=== PATIENT | female | born 1935 | race Caucasian/White ===

== ENCOUNTER → 2016-11-14 | Outpatient (REF) | payer MEDICARE ==
[~2016-11-14] MED LIST: /CELE20CA PO; /PANT40TA PO; ACET65TA PO; ASCO500T PO; ATOR1TAB19 PO; CALC500T49 PO; CARA1TAB2 PO; CIPR500T89 PO; EXEL1.5C PO; FERR325T PO; FLAG500T PO; MULTIVIT PO; NEUR600T PO; OXYC-208 PO; SIME80TA PO; VIT D 2000 PO; VITA250T PO; VITMTA PO; [UNRECOGNIZED DRUG - OTHER] TOP; bacid PO; caltrate PO; centrum silver PO; macrobid PO; osteobiflex PO
[2016-11-14 12:24] LABS: VITAMIN B12 LEVEL 414 PG/ML (247-911)
[2016-11-14 12:36] LABS: ALBUMIN 3.4 GM/DL (3.2-5.2); ALBUMIN/GLOBULIN RATIO 1.42 (1.00-1.93); ALKALINE PHOSPHATASE 83 U/L (45-117); ALT/SGPT 24 U/L (12-78); ANION GAP 6 MEQ/L (8-16); AST/SGOT 21 U/L (15-37); BILIRUBIN,TOTAL 0.6 MG/DL (0.2-1.0); BLOOD UREA NITROGEN 15 MG/DL (7-18); CALCIUM LEVEL 8.5 MG/DL (8.8-10.2); CARBON DIOXIDE LEVEL 32 MEQ/L (21-32); CHLORIDE LEVEL 107 MEQ/L (98-107); CREATININE FOR GFR 0.75 MG/DL (0.55-1.02); FREE T4 0.79 NG/DL (0.76-1.46); GLOMERULAR FILTRATION RATE > 60.0 (>39); GLUCOSE, FASTING 77 MG/DL (83-110); POTASSIUM SERUM 4.2 MEQ/L (3.5-5.1); SODIUM LEVEL 145 MEQ/L (136-145); TOTAL PROTEIN 5.8 GM/DL (6.4-8.2)
[2016-11-15 11:30] LABS: PRETREATED FOLATE FOR RBCFOL 11.9 NG/ML
== END ==
LOC: M LABDRAWP 08:22
PROVIDERS: ATTEND Family Medicine
DX: E78.2 Mixed hyperlipidemia (principal); G31.84 Mild cognitive impairment of uncertain or unknown etiology; E55.9 Vitamin D deficiency, unspecified

== ENCOUNTER → 2016-12-12 | Outpatient (CLI) | payer MEDICARE ==
--- NOTE | 2016-12-12 12:03 | REP ---
NONCONTRAST BRAIN CT: HISTORY: Left arm numbness. COMPARISON STUDY: May 22, 2016. CT FINDINGS: Digital lateral alpine guide radiograph is unremarkable. There is fairly advanced vascular calcification in the distal vertebral and distal carotid arteries. No bony calvarial lesion or fracture is seen. Visualized paranasal sinuses are clear. No intraorbital abnormality is seen. On soft tissue window settings, there is moderate diffuse cerebral atrophy as seen previously. There are also moderate periventricular low density changes consistent with small vessel atherosclerotic changes. These are unchanged as well from the comparison CT study. There is no evidence of intracranial hemorrhage. No extra-axial fluid collection is seen. No acute infarct is visible. No mass or midline shift is seen. IMPRESSION: Moderate diffuse atrophy, vascular calcification, small vessel changes. No change from May 22, 2016. No acute intracranial abnormality. Signed by Deshawn Hurst MD 12/12/2016 12:41 P
== END ==
LOC: M RAD 11:09
PROVIDERS: ATTEND Physician Assistant Medical
DX: R20.0 Anesthesia of skin (principal); R90.89 Other abnormal findings on diagnostic imaging of central nervous system
CPT/HCPCS: 70450; G0463

== ENCOUNTER → 2017-03-03 | Outpatient (REF) | payer MEDICARE | LOC: M SFHCWAGY 13:27 | PROVIDERS: ATTEND Nurse Practitioner Family | DX: R31.0 Gross hematuria (principal) | CPT/HCPCS: 81002; 87086; G0463 ==

== ENCOUNTER → 2017-04-07 | Outpatient (REF) | payer MEDICARE ==
[2017-04-07 12:21] LABS: ALBUMIN 3.6 GM/DL (3.2-5.2); ALBUMIN/GLOBULIN RATIO 1.44 (1.00-1.93); ALKALINE PHOSPHATASE 100 U/L (45-117); ALT/SGPT 46 U/L (12-78); ANION GAP 9 MEQ/L (8-16); AST/SGOT 34 U/L (15-37); BILIRUBIN,TOTAL 0.7 MG/DL (0.2-1.0); BLOOD UREA NITROGEN 17 MG/DL (7-18); CALCIUM LEVEL 8.4 MG/DL (8.8-10.2); CARBON DIOXIDE LEVEL 29 MEQ/L (21-32); CHLORIDE LEVEL 107 MEQ/L (98-107); CHOLESTEROL LEVEL 151 MG/DL (<200); CREATININE FOR GFR 0.64 MG/DL (0.55-1.02); FREE T4 0.84 NG/DL (0.76-1.46); GLOMERULAR FILTRATION RATE > 60.0 (>32); GLUCOSE, FASTING 82 MG/DL (83-110); POTASSIUM SERUM 4.3 MEQ/L (3.5-5.1); SODIUM LEVEL 145 MEQ/L (136-145); TOTAL PROTEIN 6.1 GM/DL (6.4-8.2); TRIGLYCERIDES LEVEL 153 MG/DL (<150)
[2017-04-07 12:22] LABS: THYROID PEROXIDASE ANTIBODY 276.4 U/ML (<60.0)
== END ==
LOC: M SFHCPLAZ 08:28
PROVIDERS: ATTEND Family Medicine
DX: E78.2 Mixed hyperlipidemia (principal); E55.9 Vitamin D deficiency, unspecified

== ENCOUNTER → 2017-04-14 | Outpatient (REF) | payer MEDICARE | LOC: M SFHCPLAZ 11:20 | PROVIDERS: ATTEND Family Medicine | DX: R31.0 Gross hematuria (principal) | CPT/HCPCS: 81001; 87086; 88108; G0463 ==

== ENCOUNTER → 2017-04-15 | Outpatient (REF) | payer MEDICARE | LOC: M LABDRAWP 14:17 | PROVIDERS: ATTEND Family Medicine | DX: R31.0 Gross hematuria (principal) ==

== ENCOUNTER → 2017-05-13 | Outpatient (REF) | payer MEDICARE ==
[2017-05-13 16:43] LABS: ALBUMIN 3.4 GM/DL (3.2-5.2); ALBUMIN/GLOBULIN RATIO 1.31 (1.00-1.93); ALKALINE PHOSPHATASE 102 U/L (45-117); ALT/SGPT 31 U/L (12-78); ANION GAP 7 MEQ/L (8-16); AST/SGOT 20 U/L (15-37); BILIRUBIN,TOTAL 0.4 MG/DL (0.2-1.0); BLOOD UREA NITROGEN 16 MG/DL (7-18); CALCIUM LEVEL 8.4 MG/DL (8.8-10.2); CARBON DIOXIDE LEVEL 30 MEQ/L (21-32); CHLORIDE LEVEL 108 MEQ/L (98-107); CREATININE FOR GFR 0.71 MG/DL (0.55-1.02); GLOMERULAR FILTRATION RATE > 60.0 (>32); GLUCOSE, FASTING 84 MG/DL (83-110); MAGNESIUM LEVEL 2.2 MG/DL (1.8-2.4); POTASSIUM SERUM 4.4 MEQ/L (3.5-5.1); SODIUM LEVEL 145 MEQ/L (136-145)
[2017-05-13 16:44] LABS: BASO % 0.9 % (0.0-1.0); EOS # 0.1 K/mm3 (0.0-0.50); EOS % 1.8 % (0.0-3.0); LARGE UNSTAINED CELL # 0.1 K/mm3 (0.0-0.4); LARGE UNSTAINED CELL % 1.3 % (0.0-4.0); LYMPH # 1.9 K/mm3 (1.5-4.5); LYMPH % 32.7 % (24.0-44.0); MEAN CORPUSCULAR HEMOGLOBIN 32.3 pg (27.0-33.0); MEAN CORPUSCULAR HGB CONC 33.8 g/dl (32.0-36.5); MEAN CORPUSCULAR VOLUME 95.5 fl (80.0-96.0); MONO # 0.2 K/mm3 (0.0-0.8); MONO % 4.3 % (0.0-5.0); NEUTROPHILS # 3.3 K/mm3 (1.8-7.7); PLATELET COUNT, AUTOMATED 204 k/mm3 (150-450); RED CELL DISTRIBUTION WIDTH 13.1 % (11.5-14.5); WHITE BLOOD COUNT 5.6 K/mm3 (4.0-10.0)
== END ==
LOC: M SFHCPLAZ 14:49
PROVIDERS: ATTEND Family Medicine
DX: E55.9 Vitamin D deficiency, unspecified (principal); E06.3 Autoimmune thyroiditis

== ENCOUNTER → 2017-06-20 | Outpatient (REF) | payer MEDICARE ==
[2017-06-20 12:31] LABS: FREE T4 0.9 NG/DL (0.76-1.46)
[2017-06-24 10:14] LABS: PRETREATED FOLATE FOR RBCFOL 13.1 NG/ML
== END ==
LOC: M SFHCPLAZ 08:44
PROVIDERS: ATTEND Family Medicine
DX: F03.90 Unspecified dementia, unspecified severity, without behavioral disturbance, psychotic disturbance, mood disturbance, and anxiety (principal)

== ENCOUNTER → 2017-07-16 | Outpatient (CLI) | payer MEDICARE ==
--- NOTE | 2017-07-16 11:46 | REP ---
MR angiography the brain without contrast: History: Mild dementia. Technique: 3-D [id number] MR angiography of the brain is acquired in the usual fashion and maximal intensity projection images were generated in rotational format about the vertical and horizontal axes. In addition, source axial T1-weighted images are viewed in cine mode. MR angiographic findings: The distal vertebral arteries are patent and co-dominant. Basilar artery is a little tortuous but widely patent. The posterior cerebral and superior cerebellar vessels are normal and symmetric. The distal internal carotid arteries are unremarkable. Anterior and middle cerebral arteries appear intact. There is no visible vicente aneurysm or arteriovenous malformation. Impression: Unremarkable MR angiography the brain. Signed by Deshawn Hurst MD 07/16/2017 11:37 A
--- NOTE | 2017-07-16 12:29 | REP ---
MRI brain without contrast: History: Mild dementia. Comparison brain MRI study is reviewed from January 14, 2014. Technique: Axial and sagittal imaging planes are utilized for T1 and T2-weighted scans. Sequences include spin-echo, fast spin echo, FLAIR, and diffusion weighted sequences. MRI findings: Craniocervical junction upper cervical cord are normal in appearance. No bony calvarial defect is seen. No intraorbital abnormality is observed. There is no MR evidence of significant paranasal sinus disease. There is mild to moderate diffuse cerebral atrophy. Diffusion weighted scans show no evidence of acute ischemia or other cause of restricted diffusion. There is no evidence of intracranial hemorrhage. No axial or extra-axial mass or fluid collection is seen. There are moderate small vessel atherosclerotic changes in the periventricular white matter bilaterally above the tentorium. Impression: Diffuse atrophy and small vessel changes. No acute intracranial lesion. Signed by Deshawn Hurst MD 07/16/2017 01:40 P
== END ==
LOC: M RAD 09:39
PROVIDERS: ATTEND Family Medicine
DX: F03.90 Unspecified dementia, unspecified severity, without behavioral disturbance, psychotic disturbance, mood disturbance, and anxiety (principal)

== ENCOUNTER → 2017-08-22 | Outpatient (REF) | payer MEDICARE ==
[2017-08-22 11:30] LABS: BASO % 0.2 % (0.0-1.0); EOS # 0.1 10^3/uL (0.0-0.50); EOS % 1.7 % (0.0-3.0); IMMATURE GRANULOCYTE % 0.2 % (0-0); LYMPH # 2.1 10^3/uL (1.5-4.5); LYMPH % 45.1 % (24.0-44.0); MEAN CORPUSCULAR HEMOGLOBIN 31.4 pg (27.0-33.0); MEAN CORPUSCULAR HGB CONC 33.2 g/dl (32.0-36.5); MEAN CORPUSCULAR VOLUME 94.8 fl (80.0-96.0); MONO # 0.3 10^3/uL (0.0-0.8); MONO % 6.7 % (0.0-5.0); NEUTROPHILS # 2.1 10^3/uL (1.8-7.7); NEUTROPHILS % 46.1 % (36.0-66.0); PLATELET COUNT, AUTOMATED 191 10^3/uL (150-450); RED CELL DISTRIBUTION WIDTH 12.7 % (11.5-14.5); WHITE BLOOD COUNT 4.6 10^3/uL (4.0-10.0)
[2017-08-22 12:05] LABS: VITAMIN B12 LEVEL 808 PG/ML (247-911)
[2017-08-22 12:16] LABS: FERRITIN 75 NG/ML (8-252); FREE T4 0.92 NG/DL (0.76-1.46); PERCENT SATURATION 18.8 % (13.2-45.0); TOTAL IRON BINDING CAPACITY 245 UG/DL (250-450)
== END ==
LOC: M SFHCPLAZ 09:04
DX: E53.8 Deficiency of other specified B group vitamins (principal); E06.3 Autoimmune thyroiditis
CPT/HCPCS: 83550

== ENCOUNTER → 2017-09-18 | Outpatient (CLI) | payer MEDICARE | LOC: M WHC 07:56 | DX: Z12.31 Encounter for screening mammogram for malignant neoplasm of breast (principal); R92.8 Other abnormal and inconclusive findings on diagnostic imaging of breast | CPT/HCPCS: 77067 ==

== ENCOUNTER → 2017-10-29 | Outpatient (REF) | payer MEDICARE | LOC: M SFHCLACO 15:35 | DX: N30.01 Acute cystitis with hematuria (principal) | CPT/HCPCS: 87088; 87186 ==

== ENCOUNTER 2017-10-30 16:27 | Emergency (ER) | payer MEDICARE ==
[2017-10-30] MEDS: NS 1,000 ML IV (17:30)
[2017-10-30] MEDS: PANTOPRAZOLE 40MG INJ (PROTONIX) (C9113) IV (17:44)
[2017-10-30] MEDS: ONDANSETRON 4MG/2ML VIAL (J2405) IV (17:44)
[2017-10-30 17:57] LABS: BASO % 0.2 % (0.0-1.0); EOS % 0.3 % (0.0-3.0); HEMATOCRIT 38.5 % (36.0-47.0); HEMOGLOBIN 13.4 g/dl (12.0-16.0); IMMATURE GRANULOCYTE % 0.3 % (0-3.0); LYMPH # 1.7 10^3/uL (1.5-4.5); LYMPH % 25.5 % (24.0-44.0); MEAN CORPUSCULAR HEMOGLOBIN 31.8 pg (27.0-33.0); MEAN CORPUSCULAR HGB CONC 34.8 g/dl (32.0-36.5); MEAN CORPUSCULAR VOLUME 91.2 fl (80.0-96.0); MONO # 0.4 10^3/uL (0.0-0.8); MONO % 5.7 % (0.0-5.0); NEUTROPHILS # 4.4 10^3/uL (1.8-7.7); PLATELET COUNT, AUTOMATED 166 10^3/uL (150-450); RED BLOOD COUNT 4.22 10^6/uL (4.00-5.40); RED CELL DISTRIBUTION WIDTH 12.6 % (11.5-14.5); WHITE BLOOD COUNT 6.5 10^3/uL (4.0-10.0)
[2017-10-30 18:30] LABS: ALBUMIN 3.7 GM/DL (3.2-5.2); ALBUMIN/GLOBULIN RATIO 1.32 (1.00-1.93); ALKALINE PHOSPHATASE 91 U/L (45-117); ALT/SGPT 15 U/L (12-78); ANION GAP 8 MEQ/L (8-16); AST/SGOT 15 U/L (7-37); BILIRUBIN,DIRECT 0.2 MG/DL (0.0-0.2); BILIRUBIN,TOTAL 0.6 MG/DL (0.2-1.0); BLOOD UREA NITROGEN 14 MG/DL (7-18); CALCIUM LEVEL 8.6 MG/DL (8.8-10.2); CARBON DIOXIDE LEVEL 28 MEQ/L (21-32); CHLORIDE LEVEL 102 MEQ/L (98-107); CREATININE FOR GFR 0.76 MG/DL (0.55-1.30); GLOMERULAR FILTRATION RATE > 60.0 (>32); GLUCOSE, FASTING 109 MG/DL (70-100); LIPASE 195 U/L (73-393); POTASSIUM SERUM 3.8 MEQ/L (3.5-5.1); SODIUM LEVEL 138 MEQ/L (136-145); TOTAL PROTEIN 6.5 GM/DL (6.4-8.2)
[2017-10-30 19:15] LABS: KETONE, URINE AUTO RFX 1+ mg/dL (NEGATIVE); NITRITE, URINE AUTO RFX NEGATIVE (NEGATIVE); RBC, URINE AUTO RFX 7 /HPF (0-3); SPECIFIC GRAVITY UR AUTO RFX 1.004 (1.002-1.035); SQUAM EPITHELIAL CELL UR AURFX 1 /HPF (0-6)
[2017-10-30 19:17] LABS: LEUKOCYTE ESTERASE UR AUTO RFX 1+ (NEGATIVE); WBC, URINE AUTO RFX 11 /HPF (0-3)
== END 2017-10-30 19:57 | disposition home or self-care (01) ==
LOC: M ED 16:27
DX: N39.0 Urinary tract infection, site not specified (principal); R11.2 Nausea with vomiting, unspecified; Z87.891 Personal history of nicotine dependence; Z79.899 Other long term (current) drug therapy; Z88.0 Allergy status to penicillin; Z88.8 Allergy status to other drugs, medicaments and biological substances; Z88.6 Allergy status to analgesic agent; Z91.89 Other specified personal risk factors, not elsewhere classified; Z91.041 Radiographic dye allergy status
CPT/HCPCS: C9113

== ENCOUNTER 2017-11-04 12:13 | Emergency (ER) | payer MEDICARE ==
[2017-11-04] MEDS: ACETAMINOPHEN TAB 650MG DOSE (2X325MG) PO (14:15)
== END 2017-11-04 15:15 | disposition home or self-care (01) ==
LOC: M ED 12:13
DX: R07.89 Other chest pain (principal); Z91.81 History of falling; Z85.038 Personal history of other malignant neoplasm of large intestine; Z87.891 Personal history of nicotine dependence; Z91.041 Radiographic dye allergy status; Z88.8 Allergy status to other drugs, medicaments and biological substances; Z88.0 Allergy status to penicillin; Z88.1 Allergy status to other antibiotic agents; Z79.899 Other long term (current) drug therapy
CPT/HCPCS: 71046

== ENCOUNTER 2017-11-11 07:11 | Emergency (ER) | payer MEDICARE ==
[2017-11-11] MEDS: SODIUM CHLORIDE 0.9% 1000 ML IV (08:00)
[2017-11-11 08:02] LABS: BASO % 0.2 % (0.0-1.0); EOS # 0.1 10^3/uL (0.0-0.50); EOS % 0.6 % (0.0-3.0); HEMATOCRIT 40.9 % (36.0-47.0); IMMATURE GRANULOCYTE % 0.5 % (0-3.0); LYMPH # 1.7 10^3/uL (1.5-4.5); LYMPH % 20.2 % (24.0-44.0); MEAN CORPUSCULAR HEMOGLOBIN 31.3 pg (27.0-33.0); MEAN CORPUSCULAR HGB CONC 34.2 g/dl (32.0-36.5); MEAN CORPUSCULAR VOLUME 91.5 fl (80.0-96.0); MONO # 0.4 10^3/uL (0.0-0.8); MONO % 4.5 % (0.0-5.0); NEUTROPHILS # 6.1 10^3/uL (1.8-7.7); PLATELET COUNT, AUTOMATED 231 10^3/uL (150-450); RED BLOOD COUNT 4.47 10^6/uL (4.00-5.40); RED CELL DISTRIBUTION WIDTH 12.7 % (11.5-14.5); WHITE BLOOD COUNT 8.3 10^3/uL (4.0-10.0)
[2017-11-11 08:46] LABS: ALBUMIN 3.5 GM/DL (3.2-5.2); ALBUMIN/GLOBULIN RATIO 1.17 (1.00-1.93); ALKALINE PHOSPHATASE 85 U/L (45-117); ALT/SGPT 17 U/L (12-78); ANION GAP 8 MEQ/L (8-16); AST/SGOT 24 U/L (7-37); BILIRUBIN,DIRECT 0.2 MG/DL (0.0-0.2); BILIRUBIN,TOTAL 0.6 MG/DL (0.2-1.0); BLOOD UREA NITROGEN 15 MG/DL (7-18); CALCIUM LEVEL 9.2 MG/DL (8.8-10.2); CARBON DIOXIDE LEVEL 29 MEQ/L (21-32); CHLORIDE LEVEL 100 MEQ/L (98-107); CPK CREATINE PHOSPHOKINASE 50 U/L (26-192); CREATININE FOR GFR 0.58 MG/DL (0.55-1.30); GLOMERULAR FILTRATION RATE > 60.0 (>32); GLUCOSE, FASTING 107 MG/DL (70-100); LIPASE 321 U/L (73-393); POTASSIUM SERUM 4.6 MEQ/L (3.5-5.1); SODIUM LEVEL 137 MEQ/L (136-145); TOTAL PROTEIN 6.5 GM/DL (6.4-8.2); TROPONIN I < 0.02 NG/ML (< 0.10)
[2017-11-11] MEDS ORDERED: E-Z-HD 98% w/w 340GM SUSP BTL As Ordered (09:53)
[2017-11-11] MEDS ORDERED: E-Z-PAQUE 96% w/w SUSP 176GM BTL As Ordered ×2 (09:53→10:50)
[2017-11-11] MEDS ORDERED: E-Z-GAS II EFFERVESCENT PACKET (SODIUM BICARB./CITRIC ACID/SIMETHICONE) As Ordered (09:53)
== END 2017-11-11 15:08 | disposition home or self-care (01) ==
LOC: M ED 07:11
DX: K27.9 Peptic ulcer, site unspecified, unspecified as acute or chronic, without hemorrhage or perforation (principal); F03.90 Unspecified dementia, unspecified severity, without behavioral disturbance, psychotic disturbance, mood disturbance, and anxiety; E07.9 Disorder of thyroid, unspecified; K59.09 Other constipation; Z86.19 Personal history of other infectious and parasitic diseases; Z85.038 Personal history of other malignant neoplasm of large intestine; Z79.899 Other long term (current) drug therapy; Z88.0 Allergy status to penicillin; Z88.8 Allergy status to other drugs, medicaments and biological substances; Z91.041 Radiographic dye allergy status; Z87.891 Personal history of nicotine dependence
CPT/HCPCS: 74245

== ENCOUNTER → 2017-11-11 | Outpatient (REF) | payer MEDICARE ==
[2017-11-13 10:18] LABS: H PYLORI SERUM QUANT IgG ABY 0.12 (0.00-0.79)
== END ==
LOC: M SFHCPLAZ 11:42
DX: K25.9 Gastric ulcer, unspecified as acute or chronic, without hemorrhage or perforation (principal)
CPT/HCPCS: 86677

== ENCOUNTER → 2017-11-17 | Outpatient (REF) | payer MEDICARE ==
[2017-11-17 17:41] LABS: ALBUMIN 3.4 GM/DL (3.2-5.2); ALBUMIN/GLOBULIN RATIO 1.17 (1.00-1.93); ALKALINE PHOSPHATASE 89 U/L (45-117); ALT/SGPT 17 U/L (12-78); ANION GAP 9 MEQ/L (8-16); AST/SGOT 18 U/L (7-37); BILIRUBIN,TOTAL 0.5 MG/DL (0.2-1.0); BLOOD UREA NITROGEN 14 MG/DL (7-18); CALCIUM LEVEL 8.8 MG/DL (8.8-10.2); CARBON DIOXIDE LEVEL 29 MEQ/L (21-32); CHLORIDE LEVEL 101 MEQ/L (98-107); CREATININE FOR GFR 0.63 MG/DL (0.55-1.30); GLOMERULAR FILTRATION RATE > 60.0 (>32); GLUCOSE, FASTING 84 MG/DL (70-100); LIPASE 2185 U/L (73-393); POTASSIUM SERUM 3.6 MEQ/L (3.5-5.1); SODIUM LEVEL 139 MEQ/L (136-145); TOTAL PROTEIN 6.3 GM/DL (6.4-8.2)
[2017-11-17 17:51] LABS: BASO % 0.3 % (0.0-1.0); EOS # 0.1 10^3/uL (0.0-0.50); EOS % 0.7 % (0.0-3.0); HEMATOCRIT 40.4 % (36.0-47.0); HEMOGLOBIN 13.7 g/dl (12.0-16.0); IMMATURE GRANULOCYTE % 0.4 % (0-3.0); LYMPH % 25.6 % (24.0-44.0); MEAN CORPUSCULAR HEMOGLOBIN 31.2 pg (27.0-33.0); MEAN CORPUSCULAR HGB CONC 33.9 g/dl (32.0-36.5); MONO # 0.4 10^3/uL (0.0-0.8); MONO % 4.7 % (0.0-5.0); NEUTROPHILS # 5.2 10^3/uL (1.8-7.7); NEUTROPHILS % 68.3 % (36.0-66.0); PLATELET COUNT, AUTOMATED 239 10^3/uL (150-450); RED BLOOD COUNT 4.39 10^6/uL (4.00-5.40); RED CELL DISTRIBUTION WIDTH 12.6 % (11.5-14.5); RETICULOCYTE # 42.6 10^9/L (17-77); WHITE BLOOD COUNT 7.7 10^3/uL (4.0-10.0)
[2017-11-18 11:04] LABS: CARCINOEMBRYONIC ANTIGEN < 0.5 NG/ML (<2.5)
[2017-11-18 11:33] LABS: CA19-9 TUMOR MARKER,CARBOHYDRA 20.7 U/ML (<35.0)
== END ==
LOC: M SFHCPLAZ 15:38
DX: K31.2 Hourglass stricture and stenosis of stomach (principal); F03.90 Unspecified dementia, unspecified severity, without behavioral disturbance, psychotic disturbance, mood disturbance, and anxiety; E53.8 Deficiency of other specified B group vitamins; E06.3 Autoimmune thyroiditis; R31.0 Gross hematuria; L57.0 Actinic keratosis; E55.9 Vitamin D deficiency, unspecified; R27.0 Ataxia, unspecified; C18.9 Malignant neoplasm of colon, unspecified; R51 Headache; M50.30 Other cervical disc degeneration, unspecified cervical region; E78.2 Mixed hyperlipidemia; K30 Functional dyspepsia; I87.2 Venous insufficiency (chronic) (peripheral)
CPT/HCPCS: 82378

== ENCOUNTER 2017-11-18 15:15 | Outpatient (CLI) | payer MEDICARE ==
[2017-11-18] MEDS ORDERED: READI-CAT 2 As Ordered ×2 (15:33→15:37)
[2017-11-19] MEDS ORDERED: READI-CAT 2 As Ordered (07:29)
[2017-11-19] MEDS ORDERED: ISOVUE-370 76% 100ML VIAL (Q9967) As Ordered (07:29)
[2017-11-19] MEDS ORDERED: PROPOFOL 200 MG/20 ML VIAL As Ordered (14:23)
[2017-11-19] MEDS ORDERED: LIDOCAINE 2% MDV 20 ML VIAL As Ordered (14:23)
== END 2017-11-19 ==
LOC: M RAD 11-19 07:29
DX: K25.9 Gastric ulcer, unspecified as acute or chronic, without hemorrhage or perforation (principal); K76.89 Other specified diseases of liver; R93.3 Abnormal findings on diagnostic imaging of other parts of digestive tract
CPT/HCPCS: Q9967

== ENCOUNTER 2017-11-19 12:24 | Observation (INO) | payer MEDICARE ==
[2017-11-19] MEDS: SUCRALFATE SUSP 1GM/10ML UD PO ×3 (12:00→21:18)
[~2017-11-19 12:24] MED LIST changes: -/CELE20CA PO; -/PANT40TA PO; -ACET65TA PO; -ASCO500T PO; -ATOR1TAB19 PO; -CALC500T49 PO; -CARA1TAB2 PO; -CIPR500T89 PO; -EXEL1.5C PO; -FERR325T PO; -FLAG500T PO; -MULTIVIT PO; -NEUR600T PO; +ONDANSETRON 4MG/2ML VIAL (J2405) IV; -OXYC-208 PO; -SIME80TA PO; -VIT D 2000 PO; -VITA250T PO; -VITMTA PO; -[UNRECOGNIZED DRUG - OTHER] TOP; -bacid PO; -caltrate PO; -centrum silver PO; -macrobid PO; -osteobiflex PO
[2017-11-19 13:20] LABS: BASO % 0.2 % (0.0-1.0); HEMATOCRIT 39.2 % (36.0-47.0); HEMOGLOBIN 13.6 g/dl (12.0-16.0); IMMATURE GRANULOCYTE % 0.4 % (0-3.0); LYMPH # 1.2 10^3/uL (1.5-4.5); LYMPH % 22.9 % (24.0-44.0); MEAN CORPUSCULAR HEMOGLOBIN 31.9 pg (27.0-33.0); MEAN CORPUSCULAR HGB CONC 34.7 g/dl (32.0-36.5); MONO # 0.1 10^3/uL (0.0-0.8); NEUTROPHILS # 3.9 10^3/uL (1.8-7.7); NEUTROPHILS % 75.5 % (36.0-66.0); PLATELET COUNT, AUTOMATED 239 10^3/uL (150-450); RED BLOOD COUNT 4.26 10^6/uL (4.00-5.40); RED CELL DISTRIBUTION WIDTH 12.8 % (11.5-14.5); WHITE BLOOD COUNT 5.1 10^3/uL (4.0-10.0)
[2017-11-19 14:29] LABS: ALBUMIN 3.4 GM/DL (3.2-5.2); ALBUMIN/GLOBULIN RATIO 1.21 (1.00-1.93); ALKALINE PHOSPHATASE 79 U/L (45-117); ALT/SGPT 14 U/L (12-78); ANION GAP 7 MEQ/L (8-16); AST/SGOT 14 U/L (7-37); BILIRUBIN,TOTAL 0.3 MG/DL (0.2-1.0); BLOOD UREA NITROGEN 18 MG/DL (7-18); CARBON DIOXIDE LEVEL 29 MEQ/L (21-32); CHLORIDE LEVEL 101 MEQ/L (98-107); CHOLESTEROL LEVEL 141 MG/DL (< 200); CPK CREATINE PHOSPHOKINASE 32 U/L (26-192); CREATININE FOR GFR 0.77 MG/DL (0.55-1.30); GLOMERULAR FILTRATION RATE > 60.0 (>32); GLUCOSE, FASTING 115 MG/DL (70-100); LDH LACTATE DEHYDROGENASE 149 U/L (84-246); LIPASE 112 U/L (73-393); MAGNESIUM LEVEL 2.1 MG/DL (1.8-2.4); PHOSPHORUS LEVEL 3.9 MG/DL (2.5-4.9); POTASSIUM SERUM 3.9 MEQ/L (3.5-5.1); SODIUM LEVEL 137 MEQ/L (136-145); TOTAL PROTEIN 6.2 GM/DL (6.4-8.2); TRIGLYCERIDES LEVEL 79 MG/DL (<150)
[2017-11-19] MEDS: KCL 20MEQ in NS 1000ML 1,000 ML IV (15:40)
[2017-11-19] MEDS: RIVASTIGMINE TARTRATE 1.5 MG CAP (EXELON) PO (21:18)
[2017-11-19] MEDS: PANTOPRAZOLE 40MG TAB (PROTONIX) PO (21:18)
[2017-11-20] MEDS: KCL 20MEQ in NS 1000ML 1,000 ML IV ×2 (02:33→14:55)
[2017-11-20] MEDS: ACETAMINOPHEN TAB 650MG DOSE (2X325MG) PO (02:34)
[2017-11-20 07:37] LABS: MAGNESIUM LEVEL 2.2 MG/DL (1.8-2.4)
[2017-11-20] MEDS: PANTOPRAZOLE 40MG TAB (PROTONIX) PO (08:18)
[2017-11-20] MEDS: CitaloPRAM (CeleXA) 20 MG TAB PO (08:18)
[2017-11-20] MEDS: SUCRALFATE SUSP 1GM/10ML UD PO ×2 (08:18→14:16)
[2017-11-20] MEDS: RIVASTIGMINE TARTRATE 1.5 MG CAP (EXELON) PO (08:19)
[2017-11-20] MEDS ORDERED: PANTOPRAZOLE 40MG INJ (PROTONIX) (C9113) IV (09:00)
== END 2017-11-20 16:15 | disposition home or self-care (01) ==
LOC: M MSPAV 12:24
DX: K26.9 Duodenal ulcer, unspecified as acute or chronic, without hemorrhage or perforation (principal); K25.9 Gastric ulcer, unspecified as acute or chronic, without hemorrhage or perforation; K29.70 Gastritis, unspecified, without bleeding; K76.89 Other specified diseases of liver; R93.3 Abnormal findings on diagnostic imaging of other parts of digestive tract; K31.2 Hourglass stricture and stenosis of stomach; F03.90 Unspecified dementia, unspecified severity, without behavioral disturbance, psychotic disturbance, mood disturbance, and anxiety; E53.8 Deficiency of other specified B group vitamins; E06.3 Autoimmune thyroiditis; R31.0 Gross hematuria; E55.9 Vitamin D deficiency, unspecified; L57.0 Actinic keratosis; Z85.038 Personal history of other malignant neoplasm of large intestine; R27.0 Ataxia, unspecified; R51 Headache; M50.30 Other cervical disc degeneration, unspecified cervical region; E78.2 Mixed hyperlipidemia; I87.2 Venous insufficiency (chronic) (peripheral); Z87.891 Personal history of nicotine dependence; Z79.899 Other long term (current) drug therapy
CPT/HCPCS: 43239

== ENCOUNTER 2018-01-13 13:25 | Day surgery (SDC) | payer MEDICARE ==
[2018-01-13] MEDS: LR 1,000 ML IV (13:45)
[2018-01-13] MEDS ORDERED: PROPOFOL 200 MG/20 ML VIAL As Ordered (14:38)
[2018-01-13] MEDS ORDERED: LIDOCAINE 2% INJ 100 MG/5 ML SDV (FOR ANES.) As Ordered (14:39)
== END 2018-01-13 16:26 | disposition home or self-care (01) ==
LOC: M OPP 13:25
DX: Z09 Encounter for follow-up examination after completed treatment for conditions other than malignant neoplasm (principal); K25.7 Chronic gastric ulcer without hemorrhage or perforation; K31.6 Fistula of stomach and duodenum; E78.00 Pure hypercholesterolemia, unspecified; K21.9 Gastro-esophageal reflux disease without esophagitis; Z79.899 Other long term (current) drug therapy; Z88.0 Allergy status to penicillin; Z88.8 Allergy status to other drugs, medicaments and biological substances; Z91.041 Radiographic dye allergy status; Z85.038 Personal history of other malignant neoplasm of large intestine; Z87.891 Personal history of nicotine dependence; Z90.711 Acquired absence of uterus with remaining cervical stump
CPT/HCPCS: 43239

== ENCOUNTER → 2018-01-22 | Outpatient (REF) | payer MEDICARE ==
[2018-01-22 13:13] LABS: BASO % 0.2 % (0.0-1.0); EOS # 0.1 10^3/uL (0.0-0.50); EOS % 3.1 % (0.0-3.0); HEMATOCRIT 37.4 % (36.0-47.0); IMMATURE GRANULOCYTE % 0.2 % (0-3.0); LYMPH # 1.8 10^3/uL (1.5-4.5); MEAN CORPUSCULAR HEMOGLOBIN 31.3 pg (27.0-33.0); MEAN CORPUSCULAR HGB CONC 32.1 g/dl (32.0-36.5); MEAN CORPUSCULAR VOLUME 97.4 fl (80.0-96.0); MONO # 0.3 10^3/uL (0.0-0.8); MONO % 7.2 % (0.0-5.0); NEUTROPHILS # 2.3 10^3/uL (1.8-7.7); NEUTROPHILS % 50.3 % (36.0-66.0); PLATELET COUNT, AUTOMATED 188 10^3/uL (150-450); RED BLOOD COUNT 3.84 10^6/uL (4.00-5.40); RED CELL DISTRIBUTION WIDTH 12.9 % (11.5-14.5); RETIC HEMOGLOBIN EQUIVALENT 34.4 pg (24-36); RETICULOCYTE # 40.7 10^9/L (17-77); RETICULOCYTE % 1.1 % (0.5-1.5); WHITE BLOOD COUNT 4.6 10^3/uL (4.0-10.0)
[2018-01-22 13:35] LABS: C REACTIVE PROTEIN QUANTITATIV 0.64 MG/DL (0.00-0.30); CHOLESTEROL LEVEL 143 MG/DL (<200); CHOLESTEROL RISK RATIO 2.344 (<5); CPK CREATINE PHOSPHOKINASE 49 U/L (26-192); HDL CHOLESTEROL 61 MG/DL (>40); LDL CHOLESTEROL 60.8 MG/DL (<100); NON-HDL-C 82 MG/DL; TRIGLYCERIDES LEVEL 106 MG/DL (<150)
[2018-01-22 14:35] LABS: VITAMIN B12 LEVEL 973 PG/ML (247-911)
== END ==
LOC: M SFHCPLAZ 08:41
DX: E53.8 Deficiency of other specified B group vitamins (principal); E78.2 Mixed hyperlipidemia
CPT/HCPCS: 82550

== ENCOUNTER 2018-03-24 12:23 | Day surgery (SDC) | payer MEDICARE ==
[~2018-03-24 12:23] MED LIST changes: +LIDOCAINE 2% INJ 100 MG/5 ML SDV (FOR ANES.) As Ordered; -ONDANSETRON 4MG/2ML VIAL (J2405) IV; +PROPOFOL 200 MG/20 ML VIAL As Ordered
[2018-03-24] MEDS ORDERED: LR 1,000 ML IV (12:45)
== END 2018-03-24 14:30 | disposition home or self-care (01) ==
LOC: M OPP 12:23
DX: K22.2 Esophageal obstruction (principal); K31.89 Other diseases of stomach and duodenum; K31.6 Fistula of stomach and duodenum; E78.00 Pure hypercholesterolemia, unspecified; M12.9 Arthropathy, unspecified; K21.9 Gastro-esophageal reflux disease without esophagitis; Z79.899 Other long term (current) drug therapy; Z88.0 Allergy status to penicillin; Z88.8 Allergy status to other drugs, medicaments and biological substances; Z91.041 Radiographic dye allergy status; F03.90 Unspecified dementia, unspecified severity, without behavioral disturbance, psychotic disturbance, mood disturbance, and anxiety; Z90.710 Acquired absence of both cervix and uterus; Z87.891 Personal history of nicotine dependence
CPT/HCPCS: 43239

== ENCOUNTER → 2018-04-30 | Outpatient (REF) | payer MEDICARE ==
[2018-04-30 11:48] LABS: BASO % 0.3 % (0.0-1.0); EOS # 0.1 10^3/uL (0.0-0.50); EOS % 2.7 % (0.0-3.0); HEMATOCRIT 39.6 % (36.0-47.0); HEMOGLOBIN 12.8 g/dl (12.0-15.5); IMMATURE GRANULOCYTE % 0.3 % (0-3.0); LYMPH # 1.6 10^3/uL (1.5-4.5); LYMPH % 44.1 % (24.0-44.0); MEAN CORPUSCULAR HEMOGLOBIN 31.1 pg (27.0-33.0); MEAN CORPUSCULAR HGB CONC 32.3 g/dl (32.0-36.5); MEAN CORPUSCULAR VOLUME 96.4 fl (80.0-96.0); MONO # 0.3 10^3/uL (0.0-0.8); MONO % 6.8 % (0.0-5.0); NEUTROPHILS # 1.7 10^3/uL (1.8-7.7); NEUTROPHILS % 45.8 % (36.0-66.0); PLATELET COUNT, AUTOMATED 143 10^3/uL (150-450); RED BLOOD COUNT 4.11 10^6/uL (4.00-5.40); RED CELL DISTRIBUTION WIDTH 13.4 % (11.5-14.5); RETICULOCYTE # 40.7 10^9/L (17-77); WHITE BLOOD COUNT 3.7 10^3/uL (4.0-10.0)
[2018-04-30 12:50] LABS: ALBUMIN 3.4 GM/DL (3.2-5.2); ALBUMIN/GLOBULIN RATIO 1.17 (1.00-1.93); ALKALINE PHOSPHATASE 98 U/L (45-117); ALT/SGPT 19 U/L (12-78); ANION GAP 9 MEQ/L (8-16); AST/SGOT 19 U/L (7-37); BILIRUBIN,TOTAL 0.7 MG/DL (0.2-1.0); BLOOD UREA NITROGEN 16 MG/DL (7-18); CALCIUM LEVEL 8.2 MG/DL (8.8-10.2); CARBON DIOXIDE LEVEL 30 MEQ/L (21-32); CHLORIDE LEVEL 106 MEQ/L (98-107); CREATININE FOR GFR 0.73 MG/DL (0.55-1.30); FREE T4 0.84 NG/DL (0.76-1.46); GLOMERULAR FILTRATION RATE > 60.0 (>32); GLUCOSE, FASTING 70 MG/DL (70-100); POTASSIUM SERUM 4.2 MEQ/L (3.5-5.1); SODIUM LEVEL 145 MEQ/L (136-145); TOTAL PROTEIN 6.3 GM/DL (6.4-8.2)
[2018-04-30 13:06] LABS: PTH INTACT 86.7 PG/ML (18.5-88.0); TOTAL 25(OH) VITAMIN D 57.4 NG/ML (30.0-100.0)
[2018-05-01 10:27] LABS: H PYLORI SERUM QUANT IgG ABY 0.04 (0.00-0.79)
== END ==
LOC: M SFHCPLAZ 08:41
DX: K27.9 Peptic ulcer, site unspecified, unspecified as acute or chronic, without hemorrhage or perforation (principal); E55.9 Vitamin D deficiency, unspecified; E06.3 Autoimmune thyroiditis
CPT/HCPCS: 84443

== ENCOUNTER → 2018-11-10 | Outpatient (CLI) | payer MEDICARE ==
[~2018-11-10] MED LIST changes: +/CELE20CA PO; +/PANT40TA PO; +ACET65TA PO; +ASCO500T PO; +ATOR1TAB19 PO; +BENA25CA4 PO; +CALC500T49 PO; +CARA1TAB2 PO; +CARA1TAB6 PO; +CIPR500T89 PO; +CITA10SO PO; +CITA20TA4; +CITA20TA4 PO; +EXEL1.5C PO; +FERR325T PO; +FLAG500T PO; -LIDOCAINE 2% INJ 100 MG/5 ML SDV (FOR ANES.) As Ordered; +MULTIVIT PO; +NEUR600T PO; +OMEP40CA2; +OXYC-208 PO; +PANT40TA3 PO; +PRED50TA PO; +PROBCAP4 PO; -PROPOFOL 200 MG/20 ML VIAL As Ordered; +PROT1TAB2 PO; +RIVA3CAP PO; +SIME80TA PO; +SMZ/TMP; +STOO100C PO; +SUCR1SS PO; +TYLE1TAB5 PO; +VIT D 2000 PO; +VITA100072 PO; +VITA20008 PO; +VITA250T PO; +VITMTA PO; +ZOFR4TAB14 PO; +[UNRECOGNIZED DRUG - OTHER] TOP; +bacid PO; +caltrate PO; +centrum silver PO; +macrobid PO; +osteobiflex PO; +vitamin B3 PO
--- NOTE | 2018-11-10 16:28 | REPMRS ---
Patient History The patient states she has not had a clinical breast exam in over a year. Family history of breast cancer at age 43 in niece. Benign core biopsy of the right breast. Took hormonal contraceptives for 6 years. Took estrogen for 3 years. Digital Mammo Screening Bilat: November 10, 2018 - Exam #: [id number] Bilateral CC and MLO view(s) were taken. Technologist: Jewell Briones Technologist Prior study comparison: September 18, 2017, digital woman screen mammo, performed at [facility]. July 25, 2016, digital woman screen mammo, performed at [facility]. June 08, 2015, digital woman screen mammo, performed at [facility]. FINDINGS: The breast tissue is heterogeneously dense. This may lower the sensitivity of mammography. There is a moderate amount of heterogeneously dense fibroglandular tissue which is fairly symmetric. There is no interval development of dominant mass, architectural distortion, or clustered microcalcification typical of malignancy. There has been no change in the appearance of the mammogram from the prior studies. 3-D tomosynthesis shows no additional findings. Assessment: BI-RADS/ACR category 1 mammogram. Negative Mammogram. Recommendation Routine screening mammogram of both breasts in 1 year (for women over age 40). This patient's Lifetime Breast Cancer RIsk is estimated at 1.0 %. This mammogram was interpreted with the aid of an FDA-approved computer-aided dectection system. Electronically Signed By: Arthur Hurst MD 11/10/18 3062
== END ==
LOC: M RAD 15:11
PROVIDERS: ATTEND Family Medicine
DX: Z12.31 Encounter for screening mammogram for malignant neoplasm of breast (principal)

== ENCOUNTER 2019-05-25 14:55 | Emergency (ER) | payer OTHER, MEDICARE ==
[~2019-05-25] VITALS: Ht 160 cm; Wt 60.9 kg
[~2019-05-25 14:55] MED LIST changes: -/CELE20CA PO; -/PANT40TA PO; +CELE1CAP4 PO; -CITA20TA4; -CITA20TA4 PO; +CITA20TA6; +CITA20TA6 PO; +MM S100C PO; -STOO100C PO; +VITA100018 PO; -VITA100072 PO
[2019-05-25] MEDS ORDERED: OMEP-221 (15:10)
--- NOTE | 2019-05-25 15:52 | REP ---
CT study of the cervical spine without contrast: History: Injury in a fall. Technique: Helical scanning is acquired and overlapping 2 mm high resolution axial images were generated and reviewed at bone and soft tissue window settings. Coronal and sagittal multiplanar re-formations images are generated. CT findings: There is no evidence of cervical spine element fracture. No skull base fracture is seen. Cervical vertebral body heights are preserved. Alignment is normal. Facet joints are normally aligned bilaterally at each cervical level on multiplanar re-formations images. There is no evidence of intraspinal or paraspinal hematoma. No extra vertebral abnormality is seen. There is straightening. Advanced degenerative disc disease is seen at seen 05/06 and C6-7. Reactive sclerosis is seen about the C5-6 disc level. There are mild osteoarthritic facet changes in the cervical spine. The right facet joint at C4-5 shows the most advanced involvement. Impression: Degenerative spondylosis changes. Otherwise negative CT study of the cervical spine without contrast. No fracture seen. Electronically Signed by Deshawn Hurst MD 05/25/2019 03:43 P
[2019-05-25] MEDS ORDERED: ACETAMINOPHEN TAB 650MG DOSE (2X325MG) PO ONE (16:45)
[2019-05-25] MEDS ORDERED: NS 500 ML IV ONE (16:45)
[2019-05-25 17:16] LABS: BASO % 0.3 % (0.0-1.0); EOS # 0.1 10^3/uL (0.0-0.5); EOS % 1.6 % (0.0-3.0); HEMATOCRIT 40.9 % (36.0-47.0); HEMOGLOBIN 13.4 g/dl (12.0-15.5); MEAN CORPUSCULAR HGB CONC 32.8 g/dl (32.0-36.5); MEAN CORPUSCULAR VOLUME 94.7 fl (80.0-96.0); MONO # 0.4 10^3/uL (0.0-0.8); MONO % 6.8 % (0.0-5.0); NEUTROPHILS # 3.7 10^3/uL (1.5-8.5); NEUTROPHILS % 59.1 % (36.0-66.0); PLATELET COUNT, AUTOMATED 161 10^3/uL (150-450); RED BLOOD COUNT 4.32 10^6/uL (4.00-5.40); WHITE BLOOD COUNT 6.2 10^3/uL (4.0-10.0)
--- NOTE | 2019-05-25 17:22 | REP ---
Left wrist series: Four views. History: Left wrist injury. Findings: Four views of the left wrist demonstrate old healed distal radial fracture with ununited ulnar styloid chip fracture. There is osteoarthritis in the distal radial ulnar articulation and in the radiocarpal articulation with sclerosis and some remodeling. There is diffuse osteoporosis. No acute fracture is appreciated. Impression: Osteoarthritic changes and old post-traumatic deformity healed fracture distal radius and ulnar styloid. No acute fracture seen. Electronically Signed by Deshawn Hurst MD 05/26/2019 07:43 A
--- NOTE | 2019-05-25 17:24 | REP ---
Left hand series: Four views. History: Pain after fall. Findings: Four views of the left hand show diffuse osteopenia. There is mild soft tissue swelling dorsally over the carpus and a proximal metacarpals on the lateral radiograph. No acute fracture is seen. There are accessory ossicles adjacent to the pisiform and there is osteoarthritis at the wrist. Old post-traumatic deformity of the distal radius and ulnar styloid. Chondrocalcinosis is noted at the wrist. Impression: No acute fracture seen. Osteoporosis and osteoarthritis. Electronically Signed by Deshawn Hurst MD 05/26/2019 07:43 A
--- NOTE | 2019-05-25 17:25 | REP ---
CT brain without contrast: History: Head injury in a fall. Comparison MRI brain study is from [address] findings: Digital preliminary capture manager radiographs are unremarkable. The bony calvarium is intact. No skull fracture is appreciated. Visualized paranasal sinuses are clear. No intraorbital lesion is seen. There is generalized moderate cerebral atrophy. There are fairly extensive periventricular low density areas consistent with small vessel atherosclerotic changes. There is no evidence of intracranial hemorrhage. No mass, infarct, extra-axial fluid collection, or midline shift is seen. Impression: Vascular calcification, generalized atrophy, small vessel changes. No acute intracranial abnormality. Electronically Signed by Deshawn Hurst MD 05/26/2019 07:43 A
[2019-05-25 17:45] LABS: BLOOD UREA NITROGEN 19 MG/DL (7-18); CALCIUM LEVEL 9.1 MG/DL (8.8-10.2); CARBON DIOXIDE LEVEL 30 MEQ/L (21-32); CHLORIDE LEVEL 108 MEQ/L (98-107); CK-MB VALUE MASS 1.1 NG/ML (<3.6); CPK CREATINE PHOSPHOKINASE 75 U/L (26-192); GLOMERULAR FILTRATION RATE > 60.0 (>32); GLUCOSE, FASTING 88 MG/DL (70-100); MB/CK RELATIVE INDEX 1.47 (< OR =4); POTASSIUM SERUM 4.1 MEQ/L (3.5-5.1); SODIUM LEVEL 144 MEQ/L (136-145); TROPONIN I < 0.02 NG/ML (< 0.10)
[2019-05-25 18:39] VITALS: BP 123/67
--- NOTE | 2019-05-26 07:37 | ECGEPIP ---
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
== END 2019-05-25 18:50 | disposition home or self-care (01) ==
LOC: M ED 14:55
DX: S06.0X0A Concussion without loss of consciousness, initial encounter (principal); S00.83XA Contusion of other part of head, initial encounter; S60.222A Contusion of left hand, initial encounter; R94.31 Abnormal electrocardiogram [ECG] [EKG]; W19.XXXA Unspecified fall, initial encounter; Y92.099 Unspecified place in other non-institutional residence as the place of occurrence of the external cause; Y93.9 Activity, unspecified; Y99.9 Unspecified external cause status; I10 Essential (primary) hypertension; Z85.030 Personal history of malignant carcinoid tumor of large intestine; Z87.891 Personal history of nicotine dependence; M47.812 Spondylosis without myelopathy or radiculopathy, cervical region; M19.032 Primary osteoarthritis, left wrist; Z87.81 Personal history of (healed) traumatic fracture; Z79.899 Other long term (current) drug therapy; Z88.8 Allergy status to other drugs, medicaments and biological substances; Z88.6 Allergy status to analgesic agent; Z88.0 Allergy status to penicillin; Z91.89 Other specified personal risk factors, not elsewhere classified

== ENCOUNTER → 2019-12-21 | Outpatient (CLI) | payer MEDICARE ==
[~2019-12-21] MED LIST changes: +OMEP-221; -OMEP40CA2; +OMEP40CA97; +PROHANCE 279.3MG/ML 15ML VIAL As Ordered ONE; +RIVA1CAP3 PO; -RIVA3CAP PO
--- NOTE | 2019-12-21 15:14 | REP ---
MRI LEFT HIP WITH AND WITHOUT CONTRAST: MRI OF THE LEFT HIP: TECHNIQUE: Coronal T1, STIR through the pelvis, T2 fat sat, left hip all three planes, axial oblique proton density fat sat left hip. Axial T1 fat sat, post-IV gadolinium axial and coronal T1 fat sat with the intravenous administration of 12 mL ProHance. The visualized osseous structures demonstrate no suspicious bone lesion particularly in the region of the proximal left femur. There is abnormal signal or enhancement in the proximal left femur. There are moderate arthritic changes at the left hip joint with diffuse chondromalacia and associated spurring. There is subchondral marrow edema and cystic change in the left acetabulum. There is a small joint effusion. There is diffuse fraying and tearing of the left hip labrum. Mild increased signal on T2-weighted images is seen along the greater trochanters bilaterally compatible with mild greater trochanteric tendinobursitis. Mild arthritic change and associated subchondral marrow edema is seen at the superior aspect of the right sacroiliac joint. Similar findings are seen at the pubic symphysis. No other abnormal osseous or soft tissue signal abnormality or enhancement is seen. Visualized intrapelvic structures are unremarkable with no evidence of mass or free fluid. IMPRESSION: No suspicious bone lesion identified, particularly the region of the proximal left femur. Moderate arthritic changes left hip joint as discussed in detail above with subchondral marrow edema and cystic change in the left acetabulum. Small left hip joint effusion. Diffuse fraying and tearing of the left hip labrum. Mild arthritic changes at the pubic symphysis and right sacroiliac joint. In addition, there is mild greater trochanteric tendinobursitis bilaterally. Electronically Signed by Negrito Rodriguez MD 12/21/2019 03:24 P
== END ==
LOC: M RAD 10:40
PROVIDERS: ATTEND Family Medicine
DX: M25.552 Pain in left hip (principal); R93.6 Abnormal findings on diagnostic imaging of limbs; M16.12 Unilateral primary osteoarthritis, left hip; M25.452 Effusion, left hip; M70.62 Trochanteric bursitis, left hip
CPT/HCPCS: 73723; A9576

== ENCOUNTER → 2020-05-06 | Outpatient (CLI) | payer MEDICARE ==
[~2020-05-06] MED LIST changes: +D3 22000 PO; +NAME10TA PO; +OMEP-221 PO; +PANT40TA29 PO; -PANT40TA3 PO; -PROHANCE 279.3MG/ML 15ML VIAL As Ordered ONE; +prevagen PO; +tylenol PM PO
== END ==
LOC: M LABSMTC 09:43
PROVIDERS: ATTEND Anesthesiology
DX: Z01.812 Encounter for preprocedural laboratory examination (principal); Z20.828 Contact with and (suspected) exposure to other viral communicable diseases
CPT/HCPCS: C9803; U0003

== ENCOUNTER 2020-05-11 08:32 | Day surgery (SDC) | payer MEDICARE ==
[~2020-05-11] VITALS: Ht 160 cm; Wt 62.6 kg
[~2020-05-11 08:32] MED LIST changes: +DUOVISC (0.50ML VISCOAT/0.55ML PROVISC) OPHTH KIT As Ordered ONE; +OFLOXACIN 0.3 % (OCUFLOX) OPTH SOL 5ML OS ONE; +PHENYLEPHRINE 2.5% OPHTH SOL 2ML OS ONE; +POVIDONE-IODINE 5% OPHTH PREP SOL 30ML As Ordered ONE; +PROPARACAINE 0.5% OPHTH SOL 15ML OS ONE; +TROPICAMIDE 1% OPHTH SOLN 2ML OS ONE
[2020-05-11] MEDS ORDERED: OFLOXACIN 0.3 % (OCUFLOX) OPTH SOL 5ML As Ordered ONE (09:21)
[2020-05-11] MEDS ORDERED: TROPICAMIDE 1% OPHTH SOLN 2ML As Ordered ONE (09:21)
[2020-05-11] MEDS ORDERED: fentaNYL 250 MCG/5 ML INJECTION (J3010) As Ordered ONE (10:55)
[2020-05-11] MEDS ORDERED: MIDAZOLAM INJ 2MG/2ML VIAL (J2250 PER 1MG) As Ordered ONE (10:55)
[2020-05-11] MEDS ORDERED: BSS IRR 500ML/OMIDRIA 4ML IRR BAG (OR ONLY) (J1097 PER ML) As Ordered ONE (10:56)
[2020-05-11 11:40] VITALS: BP 137/68
== END 2020-05-11 12:00 | disposition home or self-care (01) ==
LOC: M SDC 08:32
PROVIDERS: ATTEND Ophthalmology
DX: H25.12 Age-related nuclear cataract, left eye (principal); E78.5 Hyperlipidemia, unspecified; F03.90 Unspecified dementia, unspecified severity, without behavioral disturbance, psychotic disturbance, mood disturbance, and anxiety; K21.9 Gastro-esophageal reflux disease without esophagitis; M12.9 Arthropathy, unspecified; Z85.038 Personal history of other malignant neoplasm of large intestine; Z87.891 Personal history of nicotine dependence; Z88.1 Allergy status to other antibiotic agents; Z88.6 Allergy status to analgesic agent; Z90.710 Acquired absence of both cervix and uterus; Z91.048 Other nonmedicinal substance allergy status
CPT/HCPCS: 66984; J1097; J2250; J3010; V2632

== ENCOUNTER → 2020-05-13 | Outpatient (CLI) | payer MEDICARE ==
[~2020-05-13] MED LIST changes: -DUOVISC (0.50ML VISCOAT/0.55ML PROVISC) OPHTH KIT As Ordered ONE; -OFLOXACIN 0.3 % (OCUFLOX) OPTH SOL 5ML OS ONE; -PHENYLEPHRINE 2.5% OPHTH SOL 2ML OS ONE; -POVIDONE-IODINE 5% OPHTH PREP SOL 30ML As Ordered ONE; -PROPARACAINE 0.5% OPHTH SOL 15ML OS ONE; -TROPICAMIDE 1% OPHTH SOLN 2ML OS ONE
== END ==
LOC: M LABSMTC 08:33
PROVIDERS: ATTEND Anesthesiology
DX: Z01.812 Encounter for preprocedural laboratory examination (principal); Z20.828 Contact with and (suspected) exposure to other viral communicable diseases
CPT/HCPCS: C9803; U0003

== ENCOUNTER 2020-05-18 08:10 | Day surgery (SDC) | payer MEDICARE ==
[~2020-05-18] VITALS: Ht 160 cm; Wt 63.4 kg
[~2020-05-18 08:10] MED LIST changes: +DUOVISC (0.50ML VISCOAT/0.55ML PROVISC) OPHTH KIT As Ordered ONE; +OFLOXACIN 0.3 % (OCUFLOX) OPTH SOL 5ML OD ONE; +PHENYLEPHRINE 2.5% OPHTH SOL 2ML OD ONE; +PROPARACAINE 0.5% OPHTH SOL 15ML OD ONE; +TROPICAMIDE 1% OPHTH SOLN 2ML OD ONE
[2020-05-18] MEDS ORDERED: BSS IRR 500ML/OMIDRIA 4ML IRR BAG (OR ONLY) (J1097 PER ML) As Ordered ONE (08:51)
[2020-05-18] MEDS ORDERED: OFLOXACIN 0.3 % (OCUFLOX) OPTH SOL 5ML As Ordered ONE (09:02)
[2020-05-18] MEDS ORDERED: TROPICAMIDE 1% OPHTH SOLN 2ML As Ordered ONE (09:02)
[2020-05-18] MEDS ORDERED: PHENYLEPHRINE 2.5% OPHTH SOL 2ML As Ordered ONE (09:02)
[2020-05-18] MEDS ORDERED: PROPARACAINE 0.5% OPHTH SOL 15ML As Ordered ONE (09:02)
[2020-05-18] MEDS ORDERED: fentaNYL 100 MCG/2 ML INJECTION (J3010) As Ordered ONE (09:44)
[2020-05-18 11:05] VITALS: BP 163/72
[2020-05-18] MEDS ORDERED: MIDAZOLAM INJ 2MG/2ML VIAL (J2250 PER 1MG) As Ordered ONE (11:51)
== END 2020-05-18 11:18 | disposition home or self-care (01) ==
LOC: M SDC 08:10
PROVIDERS: ATTEND Ophthalmology
DX: H25.11 Age-related nuclear cataract, right eye (principal); E78.5 Hyperlipidemia, unspecified; K21.9 Gastro-esophageal reflux disease without esophagitis; F03.90 Unspecified dementia, unspecified severity, without behavioral disturbance, psychotic disturbance, mood disturbance, and anxiety; Z79.899 Other long term (current) drug therapy; Z87.891 Personal history of nicotine dependence; Z88.8 Allergy status to other drugs, medicaments and biological substances; Z88.1 Allergy status to other antibiotic agents; Z88.0 Allergy status to penicillin
CPT/HCPCS: 66984; J1097; J2250; J3010; V2632

== ENCOUNTER → 2020-06-28 | Outpatient (CLI) | payer MEDICARE ==
[~2020-06-28] MED LIST changes: -DUOVISC (0.50ML VISCOAT/0.55ML PROVISC) OPHTH KIT As Ordered ONE; -OFLOXACIN 0.3 % (OCUFLOX) OPTH SOL 5ML OD ONE; -PHENYLEPHRINE 2.5% OPHTH SOL 2ML OD ONE; -PROPARACAINE 0.5% OPHTH SOL 15ML OD ONE; -TROPICAMIDE 1% OPHTH SOLN 2ML OD ONE
--- NOTE | 2020-06-28 14:40 | REPMRS ---
Patient History The patient states she has not had a clinical breast exam in over a year. Family history of breast cancer at age 43 in niece. Benign core biopsy of the right breast. Took hormonal contraceptives for 6 years. Took estrogen for 3 years. 3D TOMOSYNTHESIS WAS PERFORMED. The Mauro Kim lifetime risk for breast cancer is 0.5%. Volpara breast density c. Digital Woman Screen Mammo: June 28, 2020 - Exam #: [id number] Bilateral CC and MLO view(s) were taken. Technologist: Jewell Briones, Technologist Prior study comparison: November 10, 2018, bilateral digital mammo screening bilat, performed at [facility]. September 18, 2017, digital woman screen mammo performed at [facility] [place]. FINDINGS: The breast tissue is heterogeneously dense. This may lower the sensitivity of mammography. There has been no change in the appearance of the mammogram from the prior studies. There is a moderate amount of residual fibroglandular tissue which is fairly symmetric. There is no interval development of dominant mass, areas of architectural distortion, or clustered microcalcification typical of malignancy. Assessment: BI-RADS/ACR category 1 mammogram. Negative Mammogram. Recommendation Routine screening mammogram in 1 year (for women over age 40). This mammogram was interpreted with the aid of an FDA-approved computer-aided dectection system. Electronically Signed By: Negrito Rodriguez MD 06/28/20 0638
== END ==
LOC: M WHC 11:28
PROVIDERS: ATTEND Physician Assistant
DX: Z12.31 Encounter for screening mammogram for malignant neoplasm of breast (principal)

== ENCOUNTER → 2020-08-22 | Outpatient (CLI) | payer MEDICARE ==
[2020-08-22 14:02] LABS: BASO % 0.3 % (0.0-1.0); EOS # 0.1 10^3/uL (0.0-0.5); EOS % 1.4 % (0.0-3.0); HEMATOCRIT 42.5 % (36.0-47.0); HEMOGLOBIN 13.6 g/dl (12.0-15.5); LYMPH # 2.3 10^3/uL (1.5-5.0); LYMPH % 36.2 % (24.0-44.0); MEAN CORPUSCULAR HEMOGLOBIN 30.8 pg (27.0-33.0); MEAN CORPUSCULAR VOLUME 96.2 fl (80.0-96.0); MONO # 0.3 10^3/uL (0.0-0.8); MONO % 5.1 % (0.0-5.0); NEUTROPHILS # 3.5 10^3/uL (1.5-8.5); NEUTROPHILS % 56.7 % (36.0-66.0); PLATELET COUNT, AUTOMATED 153 10^3/uL (150-450); RED BLOOD COUNT 4.42 10^6/uL (4.00-5.40); WHITE BLOOD COUNT 6.2 10^3/uL (4.0-10.0)
[2020-08-22 14:41] LABS: ALBUMIN 3.6 GM/DL (3.2-5.2); ALT/SGPT 25 U/L (12-78); BILIRUBIN,TOTAL 0.7 MG/DL (0.2-1.0); BLOOD UREA NITROGEN 16 MG/DL (7-18); CALCIUM LEVEL 8.7 MG/DL (8.8-10.2); CARBON DIOXIDE LEVEL 31 MEQ/L (21-32); CHLORIDE LEVEL 107 MEQ/L (98-107); CHOLESTEROL LEVEL 165 MG/DL (<200); CHOLESTEROL RISK RATIO 2.796 (<5); CREATININE FOR GFR 0.74 MG/DL (0.55-1.30); GLOMERULAR FILTRATION RATE > 60.0 (>32); GLUCOSE, FASTING 92 MG/DL (70-100); HDL CHOLESTEROL 59 MG/DL (>40); LDL CHOLESTEROL 79 MG/DL (<100); NON-HDL-C 106 MG/DL; POTASSIUM SERUM 4.4 MEQ/L (3.5-5.1); SODIUM LEVEL 144 MEQ/L (136-145); THYROXINE (T4) 7.5 UG/DL (4.5-12.0); TOTAL 25(OH) VITAMIN D 60.9 NG/ML (30.0-100.0); TRIGLYCERIDES LEVEL 133 MG/DL (<150)
== END ==
LOC: M PLALAB 10:34
PROVIDERS: ATTEND Physician Assistant
DX: E78.2 Mixed hyperlipidemia (principal); F03.90 Unspecified dementia, unspecified severity, without behavioral disturbance, psychotic disturbance, mood disturbance, and anxiety; Z79.899 Other long term (current) drug therapy

== ENCOUNTER → 2020-12-15 | Outpatient (CLI) | payer MEDICARE ==
[~2020-12-15] MED LIST changes: -D3 22000 PO; +VITA200030 PO
--- NOTE | 2020-12-15 11:58 | DEXAMM ---
INDICATION: M85.80 [facility] DISRD OF BONE DENSITY AND STRUCTURE. COMPARISON: Comparison DEXA exam is are from June 27, 2011, February 15, 2009, and June 28, 2004.. TECHNIQUE: Bone density was measured using dual-energy x-ray absorptionmetry (DEXA). FINDINGS: AP SPINE L1-L4 BMD 1.149 g/cm2 Young Adult T-Score -0.4 Age Matched Z-Score 1.5. LT FEMUR, TOTAL BMD 0.815 g/cm2 Young Adult T-Score -1.5 Age Matched Z-Score 0.7. LT NECK BMD 0.856 g/cm2 Young Adult T-Score -1.3 Age Matched Z-Score 1.0. RT FEMUR, TOTAL BMD 0.829 g/cm2 Young Adult T-Score -1.4 Age Matched Z-Score 0.8. RT NECK BMD 0.779 g/cm2 Young Adult T-Score -1.9 Age Matched Z-Score 0.5. IMPRESSION: There is normal bone density of the spine. There is low bone density of the left hip. There is low bone density of the right hip. The density of the spine has decreased 8.0% since the initial exam on June 28, 2004. The density of the spine decreased 3.2% since most recent exam on June 27, 2011. The density of the left hip has decreased 15.3% since initial exam on June 28, 2004. The density of the left hip has decreased 11.3% since most recent exam on June 27, 2011. The density of the right hip has decreased 20.2% since the initial exam on June 28, 2004. The density of the right hip has decreased 13.7% since the most recent exam on June 27, 2011. FOLLOW-UP: Recommendation for the next bone density exam: 2 years. <Electronically signed by Arthur Hurst > 12/15/20 [id number]
== END ==
LOC: M WHC 10:32
PROVIDERS: ATTEND Physician Assistant
DX: M85.851 Other specified disorders of bone density and structure, right thigh (principal); M85.852 Other specified disorders of bone density and structure, left thigh

== ENCOUNTER 2021-01-27 17:43 | Emergency (ER) | payer MEDICARE ==
[~2021-01-27] VITALS: Ht 157.5 cm; Wt 64.5 kg
[2021-01-27] MEDS ORDERED: LIDOCAINE 2% MDV 20ML VIAL SC ONE (18:20)
[2021-01-27] MEDS ORDERED: NORCO, ANEXSIA 5/325MG TABLET (HYDROcodone/ACETAMINOPHEN) PO ONE (18:20)
--- NOTE | 2021-01-27 19:20 | REPVR ---
PROCEDURE INFORMATION: Exam: CT Head Without Contrast Exam date and time: 01/27/2021 6:19 PM Age: 85 years old Clinical indication: Injury or trauma; Fall; Blunt trauma (contusions or hematomas); Additional info: Frontal pain and swelling after fall TECHNIQUE: Imaging protocol: Computed tomography of the head without contrast. Radiation optimization: All CT scans at this facility use at least one of these dose optimization techniques: automated exposure control; mA and/or kV adjustment per patient size (includes targeted exams where dose is matched to clinical indication); or iterative reconstruction. COMPARISON: CT Head without contrast 05/25/2019 3:21 PM FINDINGS: Brain: There is no acute intracranial abnormality. Moderate small vessel ischemic changes are seen. There is no mass, midline shift, or mass effect. Rodriguez-white matter differentiation is preserved. There is no evidence of hemorrhage. There is no extra-axial fluid collection. Basal cisterns are patent. Cerebral ventricles: Moderate prominence of ventricles and sulci representing volume loss. Paranasal sinuses: Visualized sinuses are unremarkable. No fluid levels. Mastoid air cells: Visualized mastoid air cells are well aerated. Bones/joints: Unremarkable. No acute fracture. Soft tissues: Moderate right inferior frontal and right periorbital soft tissue swelling. IMPRESSION: 1. Moderate volume loss and small vessel ischemic changes. 2. No acute intracranial abnormality. 3. Moderate right inferior frontal and right periorbital soft tissue swelling. Electronically signed by: Mer Girard On 01/27/2021 19:20:41 PM
--- NOTE | 2021-01-27 19:22 | REPVR ---
PROCEDURE INFORMATION: Exam: CT Maxillofacial Without Contrast Exam date and time: 01/27/2021 6:19 PM Age: 85 years old Clinical indication: Eye pain; Right; Additional info: Frontal pain and swelling after fall TECHNIQUE: Imaging protocol: Computed tomography images of the face without contrast. Radiation optimization: All CT scans at this facility use at least one of these dose optimization techniques: automated exposure control; mA and/or kV adjustment per patient size (includes targeted exams where dose is matched to clinical indication); or iterative reconstruction. COMPARISON: CT Head without contrast 05/25/2019 3:21 PM FINDINGS: Orbital cavity: Orbits are normal. Globes are unremarkable. Bones/joints: No acute fracture. Paranasal sinuses: Mild mucosal thickening of the ethmoidal air cells and bilateral maxillary sinuses. Soft tissues: Moderate right inferior frontal and right periorbital soft tissue swelling. IMPRESSION: Moderate right inferior frontal and right periorbital soft tissue swelling. No acute fracture or dislocation. Electronically signed by: Mer Girard On 01/27/2021 19:21:54 PM
--- NOTE | 2021-01-27 19:55 | ECGEPIP ---
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
[2021-01-27 20:06] VITALS: BP 163/79
== END 2021-01-27 20:08 | disposition home or self-care (01) ==
LOC: M ED 17:43
DX: S01.112A Laceration without foreign body of left eyelid and periocular area, initial encounter (principal); S00.03XA Contusion of scalp, initial encounter; W19.XXXA Unspecified fall, initial encounter; Y92.009 Unspecified place in unspecified non-institutional (private) residence as the place of occurrence of the external cause; Y93.9 Activity, unspecified; Y99.9 Unspecified external cause status; E78.5 Hyperlipidemia, unspecified; F03.90 Unspecified dementia, unspecified severity, without behavioral disturbance, psychotic disturbance, mood disturbance, and anxiety; G31.89 Other specified degenerative diseases of nervous system; I67.82 Cerebral ischemia; H02.843 Edema of right eye, unspecified eyelid; R22.0 Localized swelling, mass and lump, head; Z79.899 Other long term (current) drug therapy; Z88.6 Allergy status to analgesic agent; Z88.0 Allergy status to penicillin; Z88.1 Allergy status to other antibiotic agents; Z91.89 Other specified personal risk factors, not elsewhere classified

== ENCOUNTER → 2021-06-12 | Outpatient (CLI) | payer MEDICARE ==
[~2021-06-12] MED LIST changes: +OMEP40CA4; -OMEP40CA97
[2021-06-12 11:37] LABS: BASO % 0.4 % (0.0-1.0); EOS # 0.2 10^3/uL (0.0-0.5); EOS % 5.3 % (0.0-3.0); HEMATOCRIT 38.1 % (36.0-47.0); HEMOGLOBIN 12.7 g/dl (12.0-15.5); LYMPH # 1.1 10^3/uL (1.5-5.0); LYMPH % 24.1 % (24.0-44.0); MEAN CORPUSCULAR HEMOGLOBIN 31.4 pg (27.0-33.0); MEAN CORPUSCULAR HGB CONC 33.3 g/dl (32.0-36.5); MEAN CORPUSCULAR VOLUME 94.1 fl (80.0-96.0); MONO # 0.4 10^3/uL (0.0-0.8); MONO % 9.5 % (2.0-8.0); NEUTROPHILS # 2.7 10^3/uL (1.5-8.5); NEUTROPHILS % 60.3 % (36.0-66.0); PLATELET COUNT, AUTOMATED 147 10^3/uL (150-450); RED BLOOD COUNT 4.05 10^6/uL (4.00-5.40); WHITE BLOOD COUNT 4.5 10^3/uL (4.0-10.0)
[2021-06-12 11:40] LABS: APPEARANCE, URINE HAZY (CLEAR); BACTERIA, URINE AUTO NEGATIVE (NEGATIVE); BILIRUBIN, URINE AUTO NEGATIVE (NEGATIVE); BLOOD, URINE BLOOD 1+ (NEGATIVE); COLOR, URINE YELLOW (YELLOW); GLUCOSE, URINE (UA) AUTO NEGATIVE (NEGATIVE); KETONE, URINE AUTO NEGATIVE (NEGATIVE); LEUKOCYTE ESTERASE, URINE AUTO NEGATIVE (NEGATIVE); MUCUS, URINE SMALL (NEGATIVE); NITRITE, URINE AUTO NEGATIVE (NEGATIVE); PROTEIN, URINE AUTO NEGATIVE (NEGATIVE); RBC, URINE AUTO 7 /HPF (0-3); SPECIFIC GRAVITY URINE AUTO 1.018 (1.002-1.035); SQUAMOUS EPITHELIAL CELL UR AU 3 /HPF (0-6); WBC, URINE AUTO 2 /HPF (0-3)
[2021-06-12 12:08] LABS: ALBUMIN 3.3 GM/DL (3.2-5.2); ALT/SGPT 22 U/L (12-78); BILIRUBIN,TOTAL 0.3 MG/DL (0.2-1.0); BLOOD UREA NITROGEN 18 MG/DL (7-18); C REACTIVE PROTEIN QUANTITATIV 3.08 MG/DL (0.00-0.30); CARBON DIOXIDE LEVEL 27 MEQ/L (21-32); CHLORIDE LEVEL 108 MEQ/L (98-107); GLOMERULAR FILTRATION RATE > 60.0 (>32); GLUCOSE, FASTING 79 MG/DL (70-100); POTASSIUM SERUM 4.3 MEQ/L (3.5-5.1); SODIUM LEVEL 139 MEQ/L (136-145)
== END ==
LOC: M LAB 10:20
PROVIDERS: ATTEND Physician Assistant
DX: R79.82 Elevated C-reactive protein (CRP) (principal); R42 Dizziness and giddiness; R35.0 Frequency of micturition

== ENCOUNTER 2021-06-14 11:39 | Emergency (ER) | payer MEDICARE ==
[~2021-06-14] VITALS: Ht 160 cm; Wt 63.6 kg
--- NOTE | 2021-06-14 12:22 | REPVR ---
PROCEDURE INFORMATION: Exam: CT Head Without Contrast Exam date and time: 06/14/2021 11:57 AM Age: 85 years old Clinical indication: Injury or trauma; Fall; Blunt trauma (contusions or hematomas) TECHNIQUE: Imaging protocol: Computed tomography of the head without contrast. Radiation optimization: All CT scans at this facility use at least one of these dose optimization techniques: automated exposure control; mA and/or kV adjustment per patient size (includes targeted exams where dose is matched to clinical indication); or iterative reconstruction. COMPARISON: CT Head without contrast 01/27/2021 6:22 PM FINDINGS: Brain: There is no evidence of acute hemorrhage or acute territorial infarct. Moderate diffuse involutional changes are present in the brain with moderate white matter hypodensity suggest small vessel disease. Vascular calcifications at the [id number]. Cerebral ventricles: No ventriculomegaly. Paranasal sinuses: Mild paranasal sinus disease without air-fluid levels. Mastoid air cells: The mastoids are well aerated. Bones/joints: Unremarkable. No acute fracture. Soft tissues: Unremarkable. IMPRESSION: No acute intracranial abnormality and no significant change from the previous. Electronically signed by: Maged Love On 06/14/2021 12:22:15 PM
--- NOTE | 2021-06-14 12:26 | REPVR ---
PROCEDURE INFORMATION: Exam: CT Cervical Spine Without Contrast Exam date and time: 06/14/2021 11:57 AM Age: 85 years old Clinical indication: Injury or trauma; Fall; Blunt trauma; Additional info: Fall, head injury TECHNIQUE: Imaging protocol: Computed tomography images of the cervical spine without contrast. Radiation optimization: All CT scans at this facility use at least one of these dose optimization techniques: automated exposure control; mA and/or kV adjustment per patient size (includes targeted exams where dose is matched to clinical indication); or iterative reconstruction. COMPARISON: CT Head without contrast 01/27/2021 6:22 PM FINDINGS: Vertebrae: There are moderate degenerative changes for age most pronounced C5-C6 and C6-C7. Reversal lordosis suggests spasm. Multilevel listhesis likely degenerative. No displaced fracture line, high-grade compression deformity, or worrisome malalignment. Epidural space: No epidural fluid. Soft tissues: Unremarkable. Sinuses: Mild the mucosal thickening in the maxillary sinuses. No air-fluid levels. Mastoid air cells: The mastoids are well aerated. Thyroid: Dominant low-density thyroid lesion on the right measuring 14 mm with smaller lesions bilaterally measuring up to about 10 mm. Lymph nodes: No confluent lymphadenopathy in the neck. No confluent lymph node enlargement. Vasculature: Carotid vascular calcifications can be followed with ultrasound. Lungs: Lung apices are normal. Disc spaces: Bulging discs at multiple levels with central stenosis probably most pronounced at C5-C6 and C6-C7 but still relatively mild. IMPRESSION: 1. Degenerative changes without acute fracture. 2. Carotid vascular calcifications likely follow-up ultrasound. 3. Thyroid lesions which should be managed as outlined below. COMMENTS: Consistent with the [employer]'s Incidental Findings Committee white paper (J Am Shahzrad Radiol 2015): In patients aged 35 years and older with an incidental thyroid nodule equal to or greater than 1.[address], MRI or extrathyroidal US, further evaluation with dedicated thyroid US is recommended for patients with normal life expectancy and without comorbidities. For smaller nodules without suspicious features, no further evaluation or follow up is recommended. Electronically signed by: Maged Love On 06/14/2021 12:25:56 PM
--- NOTE | 2021-06-14 12:31 | REPVR ---
PROCEDURE INFORMATION: Exam: CT Maxillofacial Without Contrast Exam date and time: 06/14/2021 11:57 AM Age: 85 years old Clinical indication: Injury or trauma; Fall; Blunt trauma (contusions or hematomas); Forehead and orbit/periorbital and maxilla; Bilateral; Additional info: Fall, head injury TECHNIQUE: Imaging protocol: Computed tomography images of the face without contrast. Radiation optimization: All CT scans at this facility use at least one of these dose optimization techniques: automated exposure control; mA and/or kV adjustment per patient size (includes targeted exams where dose is matched to clinical indication); or iterative reconstruction. COMPARISON: CT Maxilofacial w/out contrast 01/27/2021 6:22 PM FINDINGS: Orbital cavity: Prior lens replacements. The orbits are intact. Bones/joints: Mild bony demineralization without acute fracture. Degenerative changes along the cervical spine. The nasal septum is deviated to the left. Paranasal sinuses: Mild mucosal thickening in the maxillary sinuses without air-fluid levels. Very limited ethmoid disease. Mastoid air cells: The mastoids are well aerated. Soft tissues: See "Dental" finding. Vasculature: Diffuse involutional changes in the visualized brain with vascular calcifications. Carotid vascular calcifications which can be followed with ultrasound. Dental: Artifact from patient's dental hardware. Asymmetric density along the right side of the floor of mouth anteriorly might be related to a dental appliances. Correlation with physical exam is recommended. This is new from the prior. This hyperdense region measures about 16 mm. IMPRESSION: 1. No acute fracture. 2. No significant subcutaneous hematoma. 3. Carotid vascular calcifications can be followed with ultrasound. 4. Abnormality in the floor mild on the right as above. Follow-up recommended. 5. Limited sinus disease without air-fluid levels. Electronically signed by: Maged Love On 06/14/2021 12:30:49 PM
--- OUTSIDE RECORDS SUMMARY | 2021-06-14 12:32 | CCD | Continuity of Care Document ---
Author Author Ashlie SMITH Organization Unknown Address [place] [address] Phone [phone] Care Team Providers Care Taxation Economist Name Role Phone Tanja Espinal D.O. AUTM Mathieu Euceda M.D. AUTM [facility] AUTM [phone] Connor Melvin MD AUTM [phone] Bonifacio Means M.D. AUTM [phone] Problems Active Problems Provider Date H/O: peptic ulcer LIZBETH Garcia Onset: 09/01/2018 Mixed hyperlipidemia LIZBETH Garcia Onset: 09/01/2018 Mild recurrent major depression LIZBETH Garcia Onset: 0 09/01/2018 Dementia LIZBETH Garcia Onset: 06/03/2019 Gastroesophageal reflux disease LIZBETH Garcia Onset: 1 Social History Type Date Description Comments Sex Unknown ETOH Use Denies alcohol use Tobacco Use Start: Unknown Patient has never smoked Recreational Drug Use Denies Drug Use Smoking Status Reviewed: 08/31/20 Patient has never smoked Exercise Type/Frequency Does not exercise Sun Exposure Does not use sunscreen Seat Belt/Car Seat Always uses seat belt Allergies and adverse reactions Active Allergies Criticality Reaction | Severity Comments Date Iodine Unable to assess criticality 07/27/2018 Medications Active Medications SIG Qnty Indications Ordering Provide r Date Bactrim DS 800-160mg Tablets take one tablet by mouth every 12 hours for ten days 20tabs R35.0 Steven Collier.O. 06/08/2021 Calcium 600+D High Potency [id number]-Cecs Tablets 1 by mouth twice a day 180tabs Tanja schmid, D.O. 12/17/2020 Prevagen Extra Strength 20mg Capsu les take one capsule by mouth daily. 90caps Steven Collier.O. 11/30/2020 Memantine HCL 10mg Tablets Take One Tablet By Mouth Twice A Day 180tabs F03.90 Steven Collier.O. 05/31/2020 Fluticasone Propionate Nasal [place] 50mcg/Act Suspension two sprays each nostril once daily 29.7ml J06.9 Steven Patterson.O. 10/06/[address] take one capsule by mouth every day 90caps Steven Collier.O. 04/19/2019 Diclofenac Sodium 1% Gel apply 3 grams to painful area of left elbow twice a day as needed 100units M79.642 Steven Patterson.O. 12/02/2018 Citalopram Hydrobromide 10mg Table ts Take One Tablet By Mouth Every Day 90tabs aTnja schmid, D.O. Vitamin D3 2000Unit Capsules 1 by mouth every day Unknown Vitamin B-12 1000mcg Tablets 1 by mouth every day Unknown Atorvastatin Calcium 10mg Tablets Take One Tablet By Mouth Every Evening 90tabs Tanja schmid, D.O. Tylenol 325mg Tablets take 1-2 tabs daily as needed Unknown History Medications Tetanus/Diphtheria Toxoids-Adsorbed Adul t 2-2LF/0.5ML Suspension administer tetanus with pertussis at pharmacy. 5ml Steven Collier.O. 01/31/2021 - 03/06/2021 Immunizations CPT Code Status Date Vaccine Lot # [id number] Given 02/02/2021 Tetanus, Diphthe opal Toxoids/Acellular Pertussis Vaccine 7 Or > [id number] Given 07/15/2020 Pneumococcal Vaccine 23 Hinkle nt 2Yrs Or Older 47213 Given 07/02/2019 Pneumococcal Con jugate Vaccine 13 Valent For Intramuscular Use U-Flu Given 04/17/2019 Influenza,Unspecified Vital Signs Date Vital Result Comment 06/08/2021 2:11pm BP Systolic 92 mmHg BP Diastolic 58 mmHg Height 61.7 inches 5'1.70" Heart Rate 80 /min Respiratory Rate 12 /min Body Temperature 98.5 F O2 % BldC Oximetry 95 % [place] Body Weight 105 lb 03/06/2021 10:03am BP Systolic 124 mmHg BP Diastolic 74 mmHg Height 61.7 inches 5'1.70" Weight 144.25 lb BMI (Body Mass Index) 26.6 kg/m2 Heart Rate 74 /min Respiratory Rate 18 /min Body Temperature 97.8 F O2 % BldC Oximetry 95 % [place] Body Weight 105 lb Results Description No Information Available Procedures Date Code Description Status 06/08/2021 57536 Office/Outpatient Established Lo w MDM 20-29 Min Completed 03/06/2021 26300 Office/Outpatient Established Mo d MDM 30-39 Min Completed 02/02/2021 78855 Office/Outpatient Established Lo w MDM 20-29 Min Completed 01/31/2021 66218 Office/Outpatient Established Lo w MDM 20-29 Min Completed 06/28/2020 [id number] Mammogram Completed 11/10/2018 [id number] Mammogram Completed Medical Devices Description No Information Available Encounters Type Date Location Provider Dx Diagnosis Office Visit 06/08/2021 2:00p [facility] LIZBETH Garcia R42 Dizziness and giddiness R35.0 Frequency of micturition Office Visit 03/06/2021 10:00a [facility] LIZBETH Garcia F33.0 Major depressive disorder, r ecurrent, mild E78.2 Mixed hyperlipidemia K21.9 Gastro-esophageal reflux dis ease without esophagitis F03.90 Unspecified dementia without behavioral disturbance Z87.11 Personal history of peptic u lcer disease Z79.899 Other long-term (current) dr joseph therapy Office Visit 02/02/2021 8:30a [facility] LIZBETH Garcia Z48.02 Encounter for removal of sut ures W10.8xxA Fall (on) (from) other stair s and steps, initial encounter S00.83xA Contusion of other part of h ead, initial encounter Z23 Encounter for immunization Office Visit 01/31/2021 1:30p [facility] LIZBETH Garcia S01.81xA Laceration w/o foreign body of oth part of head, init encntr W10.8xxA Fall (on) (from) other stair s and steps, initial encounter S00.83xA Contusion of other part of h ead, initial encounter Assessments Date Code Description Provider 06/08/2021 R42 Dizziness and giddiness LIZBETH Garcia 06/08/2021 R35.0 Frequency of micturition LIZBETH Garcia 03/06/2021 F33.0 Major depressive disorder, recur rent, mild LIZBETH Garcia 03/06/2021 E78.2 Mixed hyperlipidemia LIZBETH Pearson 03/06/2021 K21.9 Gastro-esophageal reflux disease without esophagitis LIZBETH Garcia 03/06/2021 F03.90 Unspecified dementia without beh avioral disturbance LIZBETH Garcia 03/06/2021 Z87.11 Personal history of peptic ulcer disease LIZBETH Garcia 03/06/2021 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 LIZBETH Garcia 02/02/2021 Z48.02 Encounter for removal of sutures LIZBETH Garcia 02/02/2021 W10.8xxA Fall (on) (from) other stairs an d steps, initial encounter LIZBETH Garcia 02/02/2021 S00.83xA Contusion of other part of head, initial encounter LIZBETH Garcia 02/02/2021 Z23 Encounter for immunization LIZBETH Iraheta 01/31/2021 S01.81xA Laceration without f oreign body of other part of head, initial encounter LIZBETH Garcia 01/31/2021 W10.8xxA Fall (on) (from) other stairs an d steps, initial encounter LIZBETH Garcia 01/31/2021 S00.83xA Contusion of other part of head, initial encounter LIZBETH Garcia Plan of Treatment Future Appointment(s):* 09/10/2021 10:00 am - LIZBETH Garcia at [facility] 06/08/2021 - LIZBETH Garcia* R42 Dizziness and giddiness* Comments:* Please make sure your drink more fluids and increase your salt intake. * R35.0 Frequency of micturition* New Medication:* Bactrim DS 800-160 mg - take one tablet by mouth every 12 hours for ten days * New Labs:* Ua Routine, Scheduled: 06/08/21 * Culture Urine Routine, Scheduled: 06/08/21 * CMP, Scheduled: 06/08/21 * CBC W/Auto Differential, Scheduled: 06/08/21 * CRP (High Sensitivity), Scheduled: 06/08/21 * Comments:* increased urinary frequency, confusion, headache and will treat presumptively for a UTI Functional Status Description No Information Available Mental Status Description No Information Available Referrals Description No Information Available
[2021-06-14 12:58] LABS: HEMATOCRIT 38.3 % (36.0-47.0); HEMOGLOBIN 12.8 g/dl (12.0-15.5); MEAN CORPUSCULAR HGB CONC 33.4 g/dl (32.0-36.5); MEAN CORPUSCULAR VOLUME 92.7 fl (80.0-96.0); PLATELET COUNT, AUTOMATED 162 10^3/uL (150-450); RED BLOOD COUNT 4.13 10^6/uL (4.00-5.40); WHITE BLOOD COUNT 4.9 10^3/uL (4.0-10.0)
--- OUTSIDE RECORDS SUMMARY | 2021-06-14 13:11 | CCD | Continuity of Care Document ---
Author Author Ashlie SMITH Organization Unknown Address [place] [address] Phone [phone] Care Team Providers Care Heat Treat Furnace Operator Name Role Phone Tanja Espinal D.O. AUTM [phone] Mathieu Euceda M.D. AUTM [phone] [facility] AUTM [phone] [facility] AUTM [phone] Bonifacio Means M.D. AUTM [phone] Problems Active Problems Provider Date H/O: peptic [...] Steven Collier.O. 06/08/2021 Calcium 600+D High Potency [id number]-Hdvs Tablets 1 by mouth twice a day 180tabs Tanja schmid, D.O. 12/17/2020 Prevagen Extra Strength 20mg Capsu les take one capsule by mouth daily. 90caps Steven Collier.O. 11/30/2020 Memantine HCL 10mg Tablets Take One Tablet By Mouth Twice A Day 180tabs F03.90 Steven Collier.O. 05/31/2020 Fluticasone Propionate Nasal [place] 50mcg/Act Suspension two sprays each nostril once [...] One Tablet By Mouth Every Day 90tabs Tanja schmid, D.O. Vitamin D3 2000Unit Capsules 1 [...] CPT Code Status Date Vaccine Lot # [id number] Given 02/02/2021 Tetanus, Diphthe opal Toxoids/Acellular Pertussis Vaccine 7 Or > [id number] Given 07/15/2020 Pneumococcal Vaccine 23 Viri nt 2Yrs Or Older 29445 Given 07/02/2019 Pneumococcal Con jugate Vaccine 13 Valent For Intramuscular Use U-Flu Given 04/17/2019 Influenza,Unspecified Vital Signs Date Vital Result Comment 06/08/2021 2:11pm BP Systolic 92 mmHg BP Diastolic 58 mmHg Height 61.7 inches 5'1.70" Heart Rate 80 /min Respiratory Rate 12 /min Body Temperature 98.5 F O2 % BldC Oximetry 95 % [place] Body Weight 105 lb 03/06/2021 10:03am BP Systolic 124 mmHg BP Diastolic 74 mmHg Height 61.7 inches 5'1.70" Weight 144.25 lb BMI (Body Mass Index) 26.6 kg/m2 Heart Rate 74 /min Respiratory Rate 18 /min Body Temperature 97.8 F O2 % BldC Oximetry 95 % [place] Body Weight 105 lb Results Test Acquired Date Facility Test Result H/L Range Note Ua Routine 06/11/2021 [facility] Ua Specific [place] <pending> Ua PH Test Strip <pending> Ua Color <pending> Ua Appearance <pending> Ua WBC <pending> Ua Protein <pending> Urine Glucose QL <pending> Ua Ketones <pending> Ua Bilirubin <pending> Urine Urobilinogen QN TS <pending> Urine Nitrite QL TS <pending> Ua Occult Blood <pending> Laboratory test finding 06/11/2021 [facility] Culture Urine Routine <pending> CMP 06/11/2021 [facility] Album[facility] Serum/Plasma <pending> Alt - SGPT <pending> Calcium Ser/Plasma Mass/Vol <pending> Carbon Dioxide Ser/Plasm <pending> Chloride Serum/Plasma <pending> Creatinine Serum Mass/Vol <pending> Glucose Serum <pending> Alkaline Phosphatase <pending> Potassium <pending> Protein Total <pending> Sodium <pending> Ast - Sgot <pending> BUN - Urea Nitrogen <pending> CBC W/Auto Differential 06/11/2021 [facility] White Blood Count Ser Auto CNT <pending> RBC Red Blood Count <pending> Hemoglobin Blood <pending> Hematocrit <pending> MCV (Corpuscular Volume) <pending> MCH (Corpuscular Hemoglobin) <pending> MCHC (Corpuscular Hemog Conc) <pending> RDW <pending> Platelet Count Blood Auto CNT <pending> MPV <pending> Neutrophils <pending> Fluid Bands <pending> Fluid Lymphocytes <pending> Monocytes <pending> Fluid Body Eosinophils <pending> Basophils % <pending> Absolute Basophils <pending> Absolute Eosinophils <pending> Absolute Lymphocytes <pending> Absolute Monocytes <pending> Absolute Neutrophils Auto CNT <pending> Laboratory test finding 06/11/2021 [facility] CRP (High Sensitivity) <pending> Procedures Date Code Description Status 06/08/2021 22158 Office/Outpatient Established Lo w MDM 20-29 Min Completed 03/06/2021 13493 Office/Outpatient Established Mo d MDM 30-39 Min Completed 02/02/2021 06223 Office/Outpatient Established Lo w MDM 20-29 Min Completed 01/31/2021 51519 Office/Outpatient Established Lo w MDM 20-29 Min Completed 06/28/2020 [id number] Mammogram Completed 11/10/2018 [id number] Mammogram Completed Medical Devices Description No Information Available Encounters Type Date Location Provider Dx Diagnosis Office Visit 06/08/2021 2:00p [facility] LIZBETH Garcia R42 Dizziness and giddiness R35.0 Frequency of micturition Office Visit 03/06/2021 10:00a [facility] LIZBETH Garcia F33.0 Major depressive disorder, r ecurrent, mild E78.2 Mixed hyperlipidemia K21.9 Gastro-esophageal reflux dis ease without esophagitis F03.90 Unspecified dementia without behavioral disturbance Z87.11 Personal history of peptic u lcer disease Z79.899 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 06/08/2021 - LIZBETH Garcia* R42 Dizziness and giddiness* Comments:* Please make sure your drink more fluids and increase your salt intake. * R35.0 Frequency of micturition* New Medication:* Bactrim DS 800-160 mg - take one tablet by mouth every 12 hours for ten days * Comments:* increased urinary frequency, confusion, headache and will treat presumptively for a UTI Functional Status Description No Information Available Mental Status Description No Information Available Referrals Description No Information Available
--- OUTSIDE RECORDS SUMMARY | 2021-06-14 13:11 | CCD | Continuity of Care Document ---
Author Author Ashlie SMITH Organization Unknown [place] [address] Phone [phone] Care Team Providers Care Hypertrichologist Name Role Phone Tanja Espinal D.O. AUTM Mathieu Euceda M.D. AUTM [phone] [facility] AUTM [phone] [facility] AUTM [phone] Bonifacio Means M.D. AUTM [phone] Problems Active Problems Provider Date H/O: peptic [...] Steven Collier.O. 06/08/2021 Calcium 600+D High Potency [id number]-Mxcm Tablets 1 by mouth twice a day 180tabs Tanja schmid, D.O. 12/17/2020 Prevagen Extra Strength 20mg Capsu les take one capsule by mouth daily. 90caps Steven Collier.O. 11/30/2020 Memantine HCL 10mg Tablets Take One Tablet By Mouth Twice A Day 180tabs F03.90 Steven Collier.O. 05/31/2020 Fluticasone Propionate Nasal [place] 50mcg/Act Suspension two sprays each nostril once [...] CPT Code Status Date Vaccine Lot # [id number] Given 02/02/2021 Tetanus, Diphthe opal Toxoids/Acellular Pertussis Vaccine 7 Or > [id number] 07815 Given 07/15/2020 Pneumococcal Vaccine 23 Viri nt 2Yrs Or Older [id number] Given 07/02/2019 Pneumococcal Con jugate Vaccine 13 Valent For Intramuscular Use U-Flu Given 04/17/2019 Influenza,Unspecified Vital Signs Date Vital Result Comment 06/08/2021 2:11pm BP Systolic 92 mmHg BP Diastolic 58 mmHg Height 61.7 inches 5'1.70" Heart Rate 80 /min Respiratory Rate 12 /min Body Temperature 98.5 F O2 % BldC Oximetry 95 % [place] Body Weight 105 lb 03/06/2021 10:03am BP Systolic 124 mmHg BP Diastolic 74 mmHg Height 61.7 inches 5'1.70" Weight 144.25 lb BMI (Body Mass Index) 26.6 kg/m2 Heart Rate 74 /min Respiratory Rate 18 /min Body Temperature 97.8 F O2 % BldC Oximetry 95 % [place] Body Weight 105 lb Results Test Acquired Date Facility Test Result H/L Range Note Ua Routine 06/12/2021 [facility] Outpatient Testi ng (Registration) [address] [place] [address] [phone] Appearance, Urine HAZY Normal Clear Color, Urine YELLOW Normal Yellow PH,Urine 5.0 units Normal 5.0-9.0 Specific [place] Urine Auto 1.018 Normal 1.002-1.035 Protein, Urine Auto NEGATIVE mg/dL Normal Negative Glucose, Urine (Ua) Auto NEGATIVE mg/dL Normal Negative Ketone, Urine Auto NEGATIVE mg/dL Normal Negative Urobilinogen, Urine Auto 2.0 mg/dL High 0.0-2.0 Bilirubin, Urine Auto NEGATIVE Normal Negative Nitrite, Urine Auto NEGATIVE Normal Negative Leukocyte Esterase, Urine Auto NEGATIVE Normal Negative Blood, Urine Blood 1+ High Negative WBC, Urine Auto 2 /HPF Normal 0-3 RBC, Urine Auto 7 /HPF High 0-3 Bacteria, Urine Auto NEGATIVE Normal Negative Squamous Epithelial Cell Ur AU 3 /HPF Normal 0-6 Mucus, Urine SMALL Normal Negative Hyaline Cast, Urine Auto 0 /LPF Normal 0-1 Comprehensive Metabolic Profil 06/12/2021 [facility] Outpa tient Testing (Registration) [address] [place] [address] [phone] Glucose, Fasting 79 mg/dL Normal 70-100 Blood Urea Nitrogen 18 mg/dL Normal 7-18 Creatinine For GFR 0.90 mg/dL Normal 0.55-1.30 Glomerular Filtration Rate > 60.0 Normal >32 1 Sodium Level 139 mEq/L Normal 136-145 Potassium Serum 4.3 mEq/L Normal 3.5-5.1 Chloride Level 108 mEq/L High 98-107 Carbon Dioxide Level 27 mEq/L Normal 21-32 Anion Gap 4 mEq/L Low 8-16 Calcium Level 9.0 mg/dL Normal 8.8-10.2 Ast/Sgot 18 U/L Normal 7-37 Alt/SGPT 22 U/L Normal 12-78 Alkaline Phosphatase 85 U/L Normal 45-117 Bilirubin,Total 0.3 mg/dL Normal 0.2-1.0 Total Protein 6.0 GM/DL Low 6.4-8.2 Albumin 3.3 GM/DL Normal 3.2-5.2 Albumin/Globulin Ratio 1.2 Normal 1.2-2.2 CBC With Differential 06/12/2021 [facility] Outpatient Poornima whelan (Registration) [address], [place] [id number] [phone] White Blood Count 4.5 10 Normal 4.0-10.0 Red Blood Count 4.05 10 Normal 4.00-5.40 Hemoglobin 12.7 g/dL Normal 12.0-15.5 Hematocrit 38.1 % Normal 36.0-47.0 Mean Corpuscular Volume 94.1 fl Normal 80.0-96.0 Mean Corpuscular Hemoglobin 31.4 pg Normal 27.0-33.0 Mean Corpuscular HGB Conc 33.3 g/dL Normal 32.0-36.5 Red Cell Distribution Width 13.0 % Normal 11.5-14.5 Platelet Count, Automated 147 10 Low 150-450 Neutrophils % 60.3 % Normal 36.0-66.0 Lymph % 24.1 % Normal 24.0-44.0 [place] % 9.5 % High 2.0-8.0 Eos % 5.3 % High 0.0-3.0 Baso % 0.4 % Normal 0.0-1.0 Immature Granulocyte % 0.4 % Normal 0-3.0 Nucleated Red Blood Cell % 0.0 % Normal 0-0 Neutrophils # 2.7 10 Normal 1.5-8.5 Lymph # 1.1 10 Low 1.5-5.0 [place] # 0.4 10 Normal 0.0-0.8 Eos # 0.2 10 Normal 0.0-0.5 Baso # 0.0 10 Normal 0.0-0.2 Laboratory test finding 06/12/2021 [facility] Outpatient T esting (Registration) [address] [place] [address] [phone] C Reactive Protein Quantitativ 3.08 mg/dL High 0 .00-0.30 Ua Routine [facility]/11[facility]2021 [facility] Ua Specific [place] <pending> Ua PH Test Strip <pending> Ua Color <pending> Ua Appearance <pending> Ua WBC <pending> Ua Protein <pending> Urine Glucose QL <pending> Ua Ketones <pending> Ua Bilirubin <pending> Urine Urobilinogen QN TS <pending> Urine Nitrite QL TS <pending> Ua Occult Blood <pending> Laboratory test finding 06/11/2021 [facility] Culture Urine Routine <pending> CMP 06/11/2021 [facility] Albumin Serum/Plasma <pending> Alt - SGPT <pending> Calcium Ser/Plasma Mass/Vol <pending> Carbon Dioxide Ser/Plasm <pending> Chloride Serum/Plasma <pending> Creatinine Serum Mass/Vol <pending> Glucose Serum <pending> Alkaline Phosphatase <pending> Potassium <pending> Protein Total <pending> Sodium <pending> Ast - Sgot <pending> BUN - Urea Nitrogen <pending> CBC W/Auto Differential 06/11/2021 [facility] White Blood Count Ser Auto CNT <pending> [...] CNT <pending> Laboratory test finding 06/11/2021 [facility] CRP (High Sensitivity) <pending> 1 Units are mL/min/1.73 m2 Chronic Kidney Disease Staging per NKF: Stage I & II GFR >=60 Normal to Mildly Decreased Stage III GFR 30-59 Moderately Decreased Stage IV GFR 15-29 Severely Decreased Stage V GFR <15 Very Little GFR Left ESRD GFR <15 on 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 Office Visit 02/02/2021 8:30a [facility] LIZBETH Garcia Z48.02 Encounter for removal of sut ures W10.8xxA Fall (on) (from) other stair s and steps, initial encounter S00.83xA Contusion of other part of h ead, initial encounter Z23 Encounter for immunization Office Visit 01/31/2021 1:30p [facility] LIZBETH Garcia S01.81xA Laceration w/o foreign body [...] LIZBETH Garcia 03/06/2021 E78.2 Mixed hyperlipidemia LIZBETH Pearsno 03/06/2021 K21.9 Gastro-esophageal reflux disease without esophagitis LIZBETH Garcia 03/06/2021 F03.90 Unspecified dementia without beh avioral disturbance LIZBETH Garcia 03/06/2021 Z87.11 Personal history of peptic ulcer disease LIZBETH Garcia 03/06/2021 Z79.899 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
--- OUTSIDE RECORDS SUMMARY | 2021-06-14 13:11 | CCD | Continuity of Care Document ---
Author Author Ashlie SMITH Organization [place] [address] Phone [phone] Care Team Providers Care Manager Of Finance Name Role Phone Tanja Espinal D.O. AUTM [phone] Mathieu Euceda M.D. AUTM [phone] [facility] AUTM [phone] [facility] - Ophthalmology AUTM [phone] Bonifacio Means M.D. AUTM [phone] Problems Active Problems Provider Date H/O: peptic [...] Steven Collier.O. 06/08/2021 Calcium 600+D High Potency [id number] Tablets 1 by mouth twice a day 180tabs Tanja schmid, D.O. 12/17/2020 Prevagen Extra Strength 20mg Capsu les take one capsule by mouth daily. 90caps Steven Collier.O. 11/30/2020 Memantine HCL 10mg Tablets Take One Tablet By Mouth Twice A Day 180tabs F03.90 Steven Collier.O. 05/31/2020 Fluticasone Propionate Nasal [place] 50mcg/Act Suspension two sprays each nostril once [...] CPT Code Status Date Vaccine Lot # [id number] Given 02/02/2021 Tetanus, Diphthe opal Toxoids/Acellular Pertussis Vaccine 7 Or > [id number] Given 07/15/2020 Pneumococcal Vaccine 23 Viri nt 2Yrs Or Older 16507 Given 07/02/2019 Pneumococcal Con jugate Vaccine 13 Valent For Intramuscular Use U-Flu Given 04/17/2019 Influenza,Unspecified Vital Signs Date Vital Result Comment 06/08/2021 2:11pm BP Systolic 92 mmHg BP Diastolic 58 mmHg Height 61.7 inches 5'1.70" Heart Rate 80 /min Respiratory Rate 12 /min Body Temperature 98.5 F O2 % BldC Oximetry 95 % [place] Body Weight 105 lb 03/06/2021 10:03am BP Systolic 124 mmHg BP Diastolic 74 mmHg Height 61.7 inches 5'1.70" Weight 144.25 lb BMI (Body Mass Index) 26.6 kg/m2 Heart Rate 74 /min Respiratory Rate 18 /min Body Temperature 97.8 F O2 % BldC Oximetry 95 % [place] Body Weight 105 lb Results Test Acquired Date Facility Test Result H/L Range Note Ua Routine 06/12/2021 [facility] Outpatient Testi ng (Registration) [address] [place] [address] [phone] Appearance, Urine HAZY Normal Clear Color, Urine YELLOW Normal Yellow PH,Urine 5.0 units Normal 5.0-9.0 Specific [place] Urine Auto 1.018 Normal 1.002-1.035 Protein, Urine [...] /LPF Normal 0-1 Comprehensive Metabolic Profil 06/12/2021 [facility] Outpa tient Testing (Registration) [address] [place] [address] [phone] Glucose, Fasting 79 mg/dL Normal 70-100 Blood [...] 1.2 Normal 1.2-2.2 CBC With Differential 06/12/2021 [facility] Outpatient Poornima whelan (Registration) [address] [place], [place] [id number] [phone] White Blood Count 4.5 10 Normal 4.0-10.0 [...] 36.0-66.0 Lymph % 24.1 % Normal 24.0-44.0 [place] % 9.5 % High 2.0-8.0 Eos % 5.3 % High 0.0-3.0 Baso % 0.4 % Normal 0.0-1.0 Immature Granulocyte % 0.4 % Normal 0-3.0 Nucleated Red Blood Cell % 0.0 % Normal 0-0 Neutrophils # 2.7 10 Normal 1.5-8.5 Lymph # 1.1 10 Low 1.5-5.0 [place] # 0.4 10 Normal 0.0-0.8 Eos # 0.2 10 Normal 0.0-0.5 Baso # 0.0 10 Normal 0.0-0.2 Laboratory test finding 06/12/2021 [facility] Outpatient T esting (Registration) [address] [place] [address] [phone] C Reactive Protein Quantitativ 3.08 mg/dL High 0 .00-0.30 Ua Routine [facility] Ua Specific [place] <pending> Ua PH Test Strip <pending> Ua Color <pending> Ua Appearance <pending> Ua WBC <pending> Ua Protein <pending> Urine Glucose QL <pending> Ua Ketones <pending> Ua Bilirubin <pending> Urine Urobilinogen QN TS <pending> Urine Nitrite QL TS <pending> Ua Occult Blood <pending> [facility] Culture Urine Routine <pending> CMP [facility] Albumin Serum/Plasma <pending> Alt - SGPT <pending> Calcium Ser/Plasma Mass/Vol <pending> Carbon Dioxide Ser/Plasm <pending> Chloride Serum/Plasma <pending> Creatinine Serum Mass/Vol <pending> Glucose Serum <pending> Alkaline Phosphatase <pending> Potassium <pending> Protein Total <pending> Sodium <pending> Ast - Sgot <pending> BUN - Urea Nitrogen <pending> CBC W/Auto Differential 06/11/2021 [facility] White Blood Count Ser Auto CNT <pending> [...] CNT <pending> Laboratory test finding 06/11/2021 [facility] CRP (High Sensitivity) <pending> 1 Units are mL/min/1.73 m2 Chronic Kidney Disease Staging per NKF: Stage I & II GFR >=60 Normal to Mildly Decreased Stage III GFR 30-59 Moderately Decreased Stage IV GFR 15-29 Severely Decreased Stage V GFR <15 Very Little GFR Left ESRD GFR <15 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 Procedures Date Code Description Status 06/08/2021 43418 Office/Outpatient Established Lo w MDM 20-29 Min Completed 03/06/2021 59421 Office/Outpatient Established Mo d MDM 30-39 Min Completed 02/02/2021 31894 Office/Outpatient Established Lo w MDM 20-29 Min Completed 01/31/2021 83602 Office/Outpatient Established Lo w MDM 20-29 Min Completed 06/28/2020 61301250 Mammogram Completed 11/10/2018 52957630 Mammogram Completed Medical Devices Description No Information Available Encounters Type Date Location Provider Dx Diagnosis Office Visit 06/08/2021 2:00p Family [facility] LIZBETH Garcia R42 Dizziness and giddiness R35.0 Frequency of micturition Office Visit 03/06/2021 10:00a [facility] LIZBETH Garcia F33.0 Major depressive disorder, r ecurrent, mild E78.2 Mixed hyperlipidemia K21.9 Gastro-esophageal reflux dis ease without esophagitis F03.90 Unspecified dementia without behavioral disturbance Z87.11 Personal history of peptic u lcer disease 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 Office Visit 02/02/2021 8:30a [facility] LIZBETH Garcia Z48.02 Encounter for removal of sut ures W10.8xxA Fall (on) (from) other stair s and steps, initial encounter S00.83xA Contusion of other part of h ead, initial encounter Z23 Encounter for immunization Office Visit 01/31/2021 1:30p [facility] LIZBETH Garcia S01.81xA Laceration w/o foreign body [...] ulcer disease LIZBETH Garcia 03/06/2021 Z79.899 Other 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
--- OUTSIDE RECORDS SUMMARY | 2021-06-14 13:12 | CCD | Continuity of Care Document ---
Author Author Ashlie JOSE MD Organization Unknown Address [address] [place] [address], [address] [place] [address] Phone [phone] Care Team Providers Care Resident Care Manager Name Role Phone Tanja EspinalM [phone] Problems Active Problems Provider Date Pure hypercholesterolemia Benton Jose MD Onset: 020 Social History Type Date Description Comments Sex Unknown ETOH Use Denies alcohol use Tobacco Use Start: Unknown End: Unknown Patient is a former smoker Allergies, Adverse Reactions, Alerts Active Allergies Criticality Reaction | Severity Comments Date Iodine Unable to assess criticality 01/03/2020 Medications Active Medications SIG Qnty Indications Ordering Provide r Date Memantine HCL 5mg Tablets Unknown Citalopram Hydrobromide 10mg Tablets Unknown Atorvastatin Calcium 20mg Tablets Unknown Vitamin E 100Unit Capsules Unknown Acetaminophen Extra Strength 500mg Tablets 2 by mouth three times a day for pain as needed Unknown Immunizations Description No Information Available Vital Signs Date Vital Result Comment 04/26/2020 9:46am Body Temperature 97.3 F Height 63 inches 5'3" Weight 135.00 lb BMI (Body Mass Index) 23.9 kg/m2 02/21/2020 2:43pm Body Temperature 97.3 F Height 63 inches 5'3" Weight 135.00 lb BMI (Body Mass Index) 23.9 kg/m2 Results Description No Information Available Procedures Date Code Description Status 04/17/2021 70096 Office/Outpatient Established Mo d MDM 30-39 Min Completed 04/17/2021 61096 Inject/Drain Joint/Bursa Major C ompleted Medical Devices Description No Information Available Encounters Type Date Location Provider Dx Diagnosis Office Visit 04/17/2021 2:45p [facility] Benton Jose MD M16.12 Unilateral primary osteoarthritis, left hip M70.62 Trochanteric bursitis, left hip Assessments Date Code Description Provider 04/17/2021 M16.12 Unilateral primary osteoarthriti s, left hip Benton Jose MD 04/17/2021 M70.62 Trochanteric bursitis, left hip Benton Jose MD Plan of Treatment 04/17/2021 - Benton Jose MD* M16.12 Unilateral primary osteoarthritis, left hip* Follow up:* prn * M70.62 Trochanteric bursitis, left hip Functional Status Description No Information Available Mental Status Description No Information Available Referrals Description No Information Available
--- OUTSIDE RECORDS SUMMARY | 2021-06-14 13:12 | CCD | Continuity of Care Document ---
Author Author Ashlie SMITH Organization [place] [address] Phone [phone] Care Team Providers Care Manager Test Name Role Phone Tanja Espinal D.O. AUTM Mathieu Euceda M.D. AUTM [facility] AUTM [phone] Connor Melvin MD AUTM [phone] Bonifacio Means M.D. AUTM [phone] Problems Active Problems Provider Date H/O: peptic [...] Steven Collier.O. 06/08/2021 Calcium 600+D High Potency [id number] Tablets 1 by mouth twice a day 180tabs Tanja schmid, D.O. 12/17/2020 Prevagen Extra Strength 20mg Capsu les take one capsule by mouth daily. 90caps Steven Collier.O. 11/30/2020 Memantine HCL 10mg Tablets Take One Tablet By Mouth Twice A Day 180tabs F03.90 Steven Collier.O. 05/31/2020 Fluticasone Propionate Nasal [place] 50mcg/Act Suspension two sprays each nostril once [...] CPT Code Status Date Vaccine Lot # [id number] Given 02/02/2021 Tetanus, Diphthe opal Toxoids/Acellular Pertussis Vaccine 7 Or > [id number] Given 07/15/2020 Pneumococcal Vaccine 23 [place] nt 2Yrs Or Older 76245 Given 07/02/2019 Pneumococcal Con jugate Vaccine 13 Valent For Intramuscular Use U-Flu Given 04/17/2019 Influenza,Unspecified Vital Signs Date Vital Result Comment 06/08/2021 2:11pm BP Systolic 92 mmHg BP Diastolic 58 mmHg Height 61.7 inches 5'1.70" Heart Rate 80 /min Respiratory Rate 12 /min Body Temperature 98.5 F O2 % BldC Oximetry 95 % [place] Body Weight 105 lb 03/06/2021 10:03am BP Systolic 124 mmHg BP Diastolic 74 mmHg Height 61.7 inches 5'1.70" Weight 144.25 lb BMI (Body Mass Index) 26.6 kg/m2 Heart Rate 74 /min Respiratory Rate 18 /min Body Temperature 97.8 F O2 % BldC Oximetry 95 % [place] Body Weight 105 lb Results Description No Information Available Procedures Date Code Description Status 06/08/2021 71555 Office/Outpatient Established Lo w MDM 20-29 Min Completed 03/06/2021 79194 Office/Outpatient Established Mo d MDM 30-39 Min Completed 02/02/2021 64047 Office/Outpatient Established Lo w MDM 20-29 Min Completed 01/31/2021 79625 Office/Outpatient Established Lo w MDM 20-29 Min Completed 06/28/2020 [id number] Mammogram Completed 11/10/2018 96854533 Mammogram Completed Medical Devices Description No Information Available Encounters Type Date Location Provider Dx Diagnosis Office Visit 06/08/2021 2:00p [facility] LIZBETH Garcia R42 Dizziness and giddiness R35.0 Frequency of micturition Office Visit 03/06/2021 10:00a [facility] LIZBETH Garcia F33.0 Major depressive disorder, r ecurrent, mild E78.2 Mixed hyperlipidemia K21.9 Gastro-esophageal reflux dis ease without esophagitis F03.90 Unspecified dementia without behavioral disturbance Z87.11 Personal history of peptic u lcer disease Z79.899 Other nursing home (current) dr joseph therapy Office Visit 02/02/2021 8:30a [facility] LIZBETH Garcia Z48.02 Encounter for removal of sut ures W10.8xxA Fall (on) (from) other stair s and steps, initial encounter S00.83xA Contusion of other part of h ead, initial encounter Z23 Encounter for immunization Office Visit 01/31/2021 1:30p [facility] LIZBETH Garcia S01.81xA Laceration w/o foreign [...] ulcer disease LIZBETH Garcia 03/06/2021 Z79.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
--- OUTSIDE RECORDS SUMMARY | 2021-06-14 13:12 | CCD ---
Author Author Connor Melvin MD [facility] Organization Connor Melvin MD [facility] Address [address] [address] Phone Care Team Providers Care Locomotive Mechanic Apprentice Name Role Phone Tanja Espinal D.O. PP [phone] Jemal DIXON, Chuy Unavailable [phone] Reason for Referral No Reason for Referral Recorded Problems Includes: Active, inactive, and resolved Problems All Visits Onset Date - Time Resolved Date - Time Provider Co ndition Status Pseudophakia 05/12/2020 - 12:00AM Chuy Joaquin DO Active Cataract Senile Nuclear 04/07/2020 - 12:00AM 05/26/2020 - 12:43P M Chuy Joaquin DO Resolved Dry Eye Syndrome 04/07/2020 - 12:00AM Chuy covarrubias DO Active Vitreous Disorders Degeneration 04/07/2020 - 12:00AM Oswaldo Joaquin DO Active Plan of Treatment Future Appointments Date Time Location Provider 1 Year Follow-Up 07/13/2021 12:30PM Connor Melvin MD [facility] Chuy Joaquin DO 1 Year Follow-Up 03/01/2022 9:20AM Connor Melvin MD [facility] Chuy Joaquin DO Assessments Includes: Assessments for all patient encounters Findings Encounter Date Pseudophakia 3 - 4 WK Post CAT SX with Chuy jeter DO 06/29/2020 Pseudophakia 1 Week Post OP with Chuy Joaquin DO 05/26/2020 Nuclear senile cataract POST OP VISIT WITH PRE-OP with Emery Joaquin DO 05/12/2020 Pseudophakia POST OP VISIT WITH PRE-OP with Chuy Garrett yossiginny DO 05/12/2020 Nuclear senile cataract 1 WK PREOP FOR SURGERY with Chuy Joaquin DO 05/04/2020 Dry eye syndrome Cataract Evaluation with Chyu restrepo DO 04/07/2020 Nuclear senile cataract Cataract Evaluation with Chuy michelleginny DO 04/07/2020 Vitreous degeneration Cataract Evaluation with Chuy Marti gross DO 04/07/2020 [facility] OCT RETINA Technical Component with Mike Melvin MD, FACS 08/30/2015 Instructions Instructions not supported for this document typeNo Instructions Recorded Medical Equipment - Implanted Devices Includes: Current and historical DevicesNo Medical Equipment Recorded Medications Includes: Current and historical Medications Current Medications (continue as prescribed) BromSite 0.075% Ophthalmic Solution 05/04/2020 Prov ider: Chuy Joaquin DO Diagnosis: Age-related nuclear cataract, left eye Three days prior to surgery start one dr op two times a day in the left eye, RUN CARD Inveltys 1% Ophthalmic Suspension 05/04/2020 Provid er: Chuy Joaquin DO Diagnosis: Age-related nuclear cataract, left eye Day of surgery remove patch start one dr op two times a day in the left eye, RUN CARD Citalopram 10MG Oral Tablet 04/10/2020 Provider: Diagnosis: Vitamin B12 1000 MCG Oral Tablet 04/10/2020 Provide r: Diagnosis: Vitamin D3 50 MCG (2000 UT) Oral Tablet 04/10/2020 Provider: Diagnosis: Omeprazole 40 MG Oral Capsule Delayed Release 04/10/2020 Provider: Diagnosis: Memantine HCl 10 MG Oral Tablet 04/10/2020 Provider : Diagnosis: Atorvastatin Calcium 10 MG Oral Tablet 04/10/2020 P rovider: Diagnosis: Tylenol PM Extra Strength 500-25 MG Oral Tablet 04/10/2020 Provider: Diagnosis: Past Medications on file Besivance 0.6% Ophthalmic Suspension 05/04/2020 - 05/26/2020 Provider: Chuy Joaquin DO Diagnosis: Age-related nuclear cataract, left eye Three days prior to surgery start one drop three times a day in the left eye Omeprazole 20 MG Oral Tablet Delayed Release 04/07/2020 - Provider: Diagnosis: Medications Administered Includes: Administered Medications in patient's chartNo Administered Medications Recorded Vital Signs Includes: Vital Signs from 04/26/2020 through 04/26/2021No Vital Signs Recorded For Specified Dates Results Includes: Results from 04/26/2020 through 04/26/2021No Results Recorded For Specified Dates History of Present Illness History of Present Illness not supported for this document typeNo History of Present Illness Recorded Social History Description Last Updated Tobacco non-user 03/01/2021 No smoking status : Never smoked/ Recode: 4 06/29/2020 No tobacco use 06/29/2020 Not using alcohol 06/29/2020 Not using drugs 06/29/2020 Procedures and Surgical History Includes: Procedures from 04/26/2020 through 04/26/2021 Procedures Code Diagnosis Performing Provider Service Location Service Date Extracapsular cataract removal with intr aocular lens implant (Right Side, Related procedure/service by same physician during Post Op) 06513 Age-related nuclear cataract, right eye Chuy Joaquin DO [facility] 05/18/2020 Ophthalmic biometry - IOL Master with IO L calculation (Professional Comp., Right Side) 76682 Age-related nuclear cataract, right eye Chuy Granados MD [facility] 05/12/2020 Extracapsular cataract removal with intraocular lens implant (Left side) 82189 Age-related nuclear cataract, left eye Chuy Joaquin DO [facility] 05/11/2020 Intermediate Eye Exam Established Patient (Signi/Sep Eval. & Man.) 45437 Age- related nuclear cataract, left eye Chuy Granados MD [facility] 05/04/2020 Ophthalmic biometry - IOL Master with IO L calculation (WAIVER OF LIABILITY ON FILE (ABN), Left side) 34096 Age-related nuclear cataract, left ey e Chuy Granados MD [facility] 05/04/2020 Surgical History Last Updated History of extracapsular cataract extrac tion PCIOL OS by Dr. Joaquin 05/11/2020 ~PCIOL OD by Dr. Joaquin 05/18/2020 06/29/2020 Surgical / procedural history 05/26/2020 Medical History Includes: Medical History in patient's chart Description Last Updated Recent change in medical history Cataract Sx OD by Dr Johny Joaquin 05/18/2020 05/26/2020 History of arthritis 04/07/2020 History of hyperlipidemia 04/07/2020 Reported medical history Ulcer, Memory loss 0 Family History Includes: Family History in patient's chart Description Last Updated Daughter's history of diabetes mellitus 04/07/2020 Paternal history of cataract 04/07/2020 Son's history of diabetes mellitus 04/07/2020 Sororal history of diabetes mellitus 04/07/2020 Review of Systems Review of Systems not supported for this document typeNo Review of Systems Recorded Mental Status Mental Status not supported for this document type Description Oriented to time, place, and person Anxiety Functional Status Functional Status not supported for this document typeNo Functional Status Recorded Physical Exam Physical Exam not supported for this document typeNo Physical Exam Recorded Immunizations Includes: Immunizations in patient's chartNo Immunizations Recorded Allergies Includes: Active, inactive, and resolved AllergiesNo Known Allergies Encounters Includes: Encounters from 04/26/2020 through 04/26/2021 Encounter Provider Location Date Check-In Time Check-Out Time D iagnosis TRIAGE NON URGENT Chuy Granados MD [facility] 03/2021 1:58PM 3:54PM 3 - 4 WK Post CAT SX Chuy Granados MD [facility] 06/29/2020 2:07PM 4:00PM Pseudophakia 1 Week Post OP Chuy Granados MD [facility] 05/26/20 20 12:17PM 1:27PM Pseudophakia Extracapsular cataract removal w/IOL implant Chuy Brunson in [facility] 05/18/2020 05/12/2020 8:00AM 6:21AM POST OP VISIT WITH PRE-OP Chuy Granados MD [facility] 05/12/2020 12:45PM 1:42PM Pseudophakia, Catara ct Senile Nuclear Extracapsular cataract removal w/IOL implant Chuy Brunson in [facility] 05/11/2020 6:02AM 6:04AM 1 WK PREOP FOR SURGERY Chuy Granados MD [facility] 05/04/2020 11:59AM 12:58PM Cataract Senile Nuclear Insurance Includes: Active Insurance Policies Plan Name Member ID Group # Subscriber Relationship Effective Da lokesh 1 - [employer] MED[employer]ARE ADVANTAGE [id number] Ashlie L [place] Ledy f Advance Directives Includes: Current Advance DirectivesNo Advance Directives Recorded Health Concerns Includes: Active Health ConcernsNo Active Health Concerns Recorded Goals Includes: Active GoalsNo Active Goals Recorded Interventions Includes: Interventions for active GoalsNo Interventions Recorded Evaluations & Outcomes Includes: Evaluations & Outcomes for active GoalsNo Outcomes Recorded
--- OUTSIDE RECORDS SUMMARY | 2021-06-14 13:13 | CCD ---
Author Author Connor Melvin MD [facility] Organization Connor Melvin MD [facility] Address [address] [address] Phone Care Team Providers Care Product Management Manager Name Role Phone Tanja Espinal D.O. PP [phone] Jemal DIXON, Chuy Unavailable [phone] Reason for Referral No Reason for Referral Recorded Problems Includes: Active, inactive, and resolved Problems All Visits Onset Date - Time Resolved Date - Time Provider Co ndition Status Pseudophakia 05/12/2020 - 12:00AM Chuy Joaquin DO Active Cataract Senile Nuclear 04/07/2020 - 12:00AM 05/26/2020 - 12:43P M Chuy Joaquin DO Resolved Dry Eye Syndrome 04/07/2020 - 12:00AM Chuy [email or web address] DO Active Vitreous Disorders Degeneration 04/07/2020 - 12:00AM Oswaldo Joaquin DO Active Plan of Treatment Future Appointments Date Time Location Provider 1 Year Follow-Up 07/13/2021 12:30PM Connor Melvin MD [facility] Chuy Joaquin DO 1 Year Follow-Up 03/01/2022 9:20AM Connor Melvin MD [facility] Chuy Joaquin DO Assessments Includes: Assessments for [...] 05/04/2020 Dry eye syndrome Cataract Evaluation with Chuy restrepo DO 04/07/2020 Nuclear senile cataract Cataract [...] Description Last Updated Tobacco non-user 03/01/2021 No tobacco use 04/07/2020 Not using alcohol 04/07/2020 Not using drugs 04/07/2020 No smoking status : Never smoked/ Recode: 4 04/07/2020 Procedures and Surgical History Includes: Procedures from 04/26/2020 through 04/26/2021 Procedures Code Diagnosis Performing Provider Service Location Service Date Extracapsular cataract removal with intr aocular lens implant (Right Side, Related procedure/service by same physician during Post Op) [id number] Age-related nuclear cataract, right eye Chuy Joaquin DO [facility] 05/18/2020 Ophthalmic biometry - IOL Master with IO L calculation (Professional Comp., Right Side) [id number] Age-related nuclear cataract, right eye Chuy Granados MD [facility] 05/12/2020 Extracapsular cataract removal with intraocular lens implant (Left side) 62890 Age-related nuclear cataract, left eye Chuy Joaquin DO [facility] 05/11/2020 Intermediate Eye Exam Established Patient (Signi/Sep Eval. & Man.) 15523 Age- related nuclear cataract, left eye Chuy Granados MD [facility] 05/04/2020 Ophthalmic biometry - IOL Master with IO L calculation (WAIVER OF LIABILITY ON FILE (ABN), Left side) 60140 Age-related nuclear cataract, left ey e Chuy Granados MD [facility] 05/04/2020 Surgical History Last Updated History of extracapsular cataract extrac tion PCIOL OS by Dr. Joaquin 05/11/2020 ~PCIOL OD by Dr. Joaquin 05/18/2020 03/01/2021 No surgical / procedural history 04/07/2020 Medical History Includes: Medical History in patient's chart Description Last Updated No recent change in medical history 03/01/2021 History of arthritis 04/07/2020 History of hyperlipidemia [...] iagnosis TRIAGE NON URGENT Chuy Granados MD [facility] 03/2021 1:58PM 3:54PM 3 - 4 WK Post CAT SX Chuy Granados MD [facility] 06/29/2020 2:07PM 4:00PM Pseudophakia 1 Week Post OP Chuy rGanados MD [facility] 05/26/20 20 12:17PM 1:27PM Pseudophakia Extracapsular cataract removal w/IOL implant Chuy Brunson in [facility] 05/18/2020 05/12/2020 8:00AM 6:21AM POST OP VISIT WITH PRE-OP Chuy Granados MD [facility] 05/12/2020 12:45PM 1:42PM Pseudophakia, Catara ct Senile Nuclear Extracapsular cataract removal w/IOL implant Chuy Brunson in [facility] 05/11/2020 6:02AM 6:04AM 1 WK PREOP FOR SURGERY Chuy Granados MD [facility] 05/04/2020 11:59AM 12:58PM Cataract Senile Nuclear Insurance Includes: Active Insurance Policies Plan Name Member ID Group # Subscriber Relationship Effective Da lokesh 1 - [employer] MEDICARE ADVANTAGE [id number] Ashlie Villafana f Advance Directives Includes: Current Advance DirectivesNo Advance Directives Recorded Health Concerns Includes: Active Health ConcernsNo Active Health Concerns Recorded Goals Includes: Active GoalsNo Active Goals Recorded Interventions Includes: Interventions for active GoalsNo Interventions Recorded Evaluations & Outcomes Includes: Evaluations & Outcomes for active GoalsNo Outcomes Recorded
--- OUTSIDE RECORDS SUMMARY | 2021-06-14 13:13 | CCD ---
Author Author Connor Melvin MD [facility] Organization Connor Melvin MD [facility] Address [address] [address] Phone Care Team Providers Care Underwriting Internship Name Role Phone Tanja Espinal D.O. PP [phone] Jemal DIXON, Chuy Unavailable [phone] Reason for Referral No Reason for Referral [...] Year Follow-Up 07/13/2021 12:30PM Connor Melvin MD [facility] Chuy Joaquin DO 1 Year Follow-Up 03/01/2022 9:20AM Connor Melvin MD [facility] Chuy Joaquin DO Assessments Includes: [...] smoking status : Never smoked/ Recode: 4 05/26/2020 No tobacco use 05/26/2020 Not using alcohol 05/26/2020 Not using drugs 05/26/2020 Procedures and Surgical History Includes: Procedures from 04/26/2020 through 04/26/2021 Procedures Code Diagnosis Performing Provider Service Location Service Date Extracapsular cataract removal with intr aocular lens implant (Right Side, Related procedure/service by same physician during Post Op) [id number] Age-related nuclear cataract, right eye Chuy Joaquin DO [facility] 05/18/2020 Ophthalmic biometry - IOL Master with IO L calculation (Professional Comp., Right Side) 15381 Age-related nuclear cataract, right eye Chuy Granados MD [facility] 05/12/2020 Extracapsular cataract removal with intraocular lens implant (Left side) 95869 Age-related nuclear cataract, left eye Chuy Joaquin DO [facility] 05/11/2020 Intermediate Eye Exam Established Patient (Signi/Sep Eval. & Man.) 81483 Age- related nuclear cataract, left eye Chuy Granados MD [facility] 05/04/2020 Ophthalmic biometry - IOL Master with IO L calculation (WAIVER OF LIABILITY ON FILE (ABN), Left side) 31948 Age-related nuclear cataract, left ey e Chuy Granados MD [facility] 05/04/2020 Surgical History Last Updated Surgical / procedural history 05/26/2020 History of extracapsular cataract extrac tion PCIOL OS by Dr. Joaquin 05/11/2020 ~PCIOL OD by Dr. Joaquin 05/18/2020 05/26/2020 Medical History Includes: Medical History in [...] iagnosis TRIAGE NON URGENT Chuy Granados MD [facility] 03/2021 1:58PM 3:54PM 3 - 4 WK Post CAT SX Chuy Granados MD [facility] 06/29/2020 2:07PM 4:00PM Pseudophakia 1 Week Post OP Chuy Granados MD [facility] 05/26/20 20 12:17PM 1:27PM Pseudophakia Extracapsular cataract removal w/IOL implant Chuy Brunson in [facility] 05/18/2020 05/12/2020 8:00AM 6:21AM POST OP VISIT WITH PRE-OP Chuy Granados MD [facility] 05/12/2020 12:45PM 1:42PM Pseudophakia, Catara ct Senile Nuclear Extracapsular cataract removal w/IOL implant Chuy Brunson in [facility] 05/11/2020 6:02AM 6:04AM 1 WK PREOP FOR SURGERY Chuy Granados MD [facility] 05/04/2020 11:59AM 12:58PM Cataract Senile Nuclear Insurance Includes: Active Insurance Policies Plan Name Member ID Group # Subscriber Relationship Effective Da lokesh 1 - [employer] MEDICARE ADVANTAGE [id number] Ashlie L [place] f Advance Directives Includes: Current Advance DirectivesNo Advance Directives Recorded Health Concerns Includes: Active Health ConcernsNo Active Health Concerns Recorded Goals Includes: Active GoalsNo Active Goals Recorded Interventions Includes: Interventions for active GoalsNo Interventions Recorded Evaluations & Outcomes Includes: Evaluations & Outcomes for active GoalsNo Outcomes Recorded
--- OUTSIDE RECORDS SUMMARY | 2021-06-14 13:14 | CCD ---
Author Author Connor Melvin MD [facility] Organization Connor Melvin MD [facility] Address [address] [address] Phone Care Team Providers Care Electrical And Electronic Assembler Name Role Phone Tanja Espinal D.O. PP [phone] Jemal DIXON, Chuy Unavailable [phone] Reason for Referral No Reason for Referral [...] Location Provider 1 Year Follow-Up 07/13/2021 12:30PM Cnonor Melvin MD [facility] Chuy Joaquin DO 1 Year Follow-Up 03/01/2022 9:20AM Connor Melvin MD [facility] Chuy Joaquin DO Assessments Includes: Assessments for [...] Recorded Vital Signs Includes: Vital Signs from 04/06/2020 through 04/06/2021No Vital Signs Recorded For Specified Dates Results Includes: Results from 04/06/2020 through 04/06/2021No Results Recorded For Specified Dates History of Present Illness History of Present Illness not supported for this document typeNo History of Present Illness Recorded Social History Description Last Updated Tobacco non-user 03/01/2021 No smoking status : Never smoked/ Recode: 4 03/01/2021 No tobacco use 03/01/2021 Not using alcohol 03/01/2021 Not using drugs 03/01/2021 Procedures and Surgical History Includes: Procedures from 04/06/2020 through 04/06/2021 Procedures Code Diagnosis Performing Provider Service Location Service Date Extracapsular cataract removal with intr aocular lens implant (Right Side, Related procedure/service by same physician during Post Op) 30798 Age-related nuclear cataract, right eye Chuy Joaquin DO [facility] 05/18/2020 Ophthalmic biometry - IOL Master with IO L calculation (Professional Comp., Right Side) 17185 Age-related nuclear cataract, right eye Chuy Granados MD [facility] 05/12/2020 Extracapsular cataract removal with intraocular lens implant (Left side) 88778 Age-related nuclear cataract, left eye Chuy Joaquin DO [facility] 05/11/2020 Intermediate Eye Exam Established Patient (Signi/Sep Eval. & Man.) 32873 Age- related nuclear cataract, left eye Chuy Granados MD [facility] 05/04/2020 Ophthalmic biometry - IOL Master with IO L calculation (WAIVER OF LIABILITY ON FILE (ABN), Left side) 48617 Age-related nuclear cataract, left ey e Chuy Granados MD [facility] 05/04/2020 Medical Eye Exam [id number] Age-related nuclear cataract, b ilateral Chuy Granados MD [facility] 04/07/2020 Surgical History Last Updated History of extracapsular cataract extrac tion PCIOL OS by Dr. Joaquin 05/11/2020 ~PCIOL OD by Dr. Joaquin 05/18/2020 03/01/2021 Surgical / procedural history 05/12/2020 Medical History Includes: Medical History in patient's chart Description Last Updated No recent change in medical history 03/01/2021 History of arthritis 05/04/2020 History of hyperlipidemia 05/04/2020 Reported medical history Ulcer, Memory loss 0 Family History Includes: Family History in patient's chart Description Last Updated Daughter's history of diabetes mellitus 05/04/2020 Paternal history of cataract 05/04/2020 Son's history of diabetes mellitus 05/04/2020 Sororal history of diabetes mellitus 05/04/2020 Review of Systems Review of Systems not [...] AllergiesNo Known Allergies Encounters Includes: Encounters from 04/06/2020 through 04/06/2021 Encounter Provider Location Date Check-In Time Check-Out Time D iagnosis TRIAGE NON URGENT Chuy Granados MD [facility] 03/2021 1:58PM 3:54PM 3 - 4 WK Post CAT SX Chuy Granados MD [facility] 06/29/2020 2:07PM 4:00PM Pseudophakia 1 Week Post OP Chuy Granados MD [facility] 05/26/20 20 12:17PM 1:27PM Pseudophakia Extracapsular cataract removal w/IOL implant Chuy Brunson in [facility] 05/18/2020 05/12/2020 8:00AM 6:21AM POST OP VISIT WITH PRE-OP Chuy Granados MD [facility] 05/12/2020 12:45PM 1:42PM Pseudophakia, Catara ct Senile Nuclear Extracapsular cataract removal w/IOL implant Chuy Brunson in [facility] 05/11/2020 6:02AM 6:04AM 1 WK PREOP FOR SURGERY Chuy Granados MD [facility] 05/04/2020 11:59AM 12:58PM Cataract Senile Nuclear Cataract Evaluation Chuy Granados MD [facility] 0 04/07/2020 1:03PM 2:53PM Dry Eye Syndrome, Cataract S enile Nuclear, Vitreous Disorders Degeneration Insurance Includes: Active Insurance Policies Plan Name Member ID Group # Subscriber Relationship Effective Da lokesh 1 - [employer] MEDICARE ADVANTAGE [id number] Ashlie Villafana f Advance Directives Includes: Current Advance DirectivesNo Advance Directives Recorded Health Concerns Includes: Active Health ConcernsNo Active Health Concerns Recorded Goals Includes: Active GoalsNo Active Goals Recorded Interventions Includes: Interventions for active GoalsNo Interventions Recorded Evaluations & Outcomes Includes: Evaluations & Outcomes for active GoalsNo Outcomes Recorded
[2021-06-14 13:31] LABS: ALBUMIN 3.3 GM/DL (3.2-5.2); ALT/SGPT 24 U/L (12-78); BILIRUBIN,TOTAL 0.4 MG/DL (0.2-1.0); BLOOD UREA NITROGEN 16 MG/DL (7-18); CALCIUM LEVEL 8.7 MG/DL (8.8-10.2); CARBON DIOXIDE LEVEL 27 MEQ/L (21-32); CHLORIDE LEVEL 106 MEQ/L (98-107); CREATININE FOR GFR 0.92 MG/DL (0.55-1.30); GLOMERULAR FILTRATION RATE > 60.0 (>32); GLUCOSE, FASTING 103 MG/DL (70-100); POTASSIUM SERUM 4.1 MEQ/L (3.5-5.1); SODIUM LEVEL 139 MEQ/L (136-145); TOTAL PROTEIN 6.3 GM/DL (6.4-8.2)
[2021-06-14 13:54] LABS: RSV AMPLIFICATION NEGATIVE (NEGATIVE)
[2021-06-14 13:58] LABS: ATYPICAL LYMPH 11 % (0-5); EOSINOPHILS 4 % (0-3); HYPOCHROMASIA 1+; LYMPHOCYTES 25 % (16-44); MONOCYTES 3 % (0-5); NEUTROPHILS 57 % (28-66); PLATELET ESTIMATE DECREASED (NORMAL)
[2021-06-14 15:30] LABS: APPEARANCE, URINE HAZY (CLEAR); BACTERIA, URINE AUTO NEGATIVE (NEGATIVE); BILIRUBIN, URINE AUTO NEGATIVE (NEGATIVE); BLOOD, URINE BLOOD 1+ (NEGATIVE); COLOR, URINE YELLOW (YELLOW); GLUCOSE, URINE (UA) AUTO NEGATIVE (NEGATIVE); KETONE, URINE AUTO TRACE mg/dL (NEGATIVE); LEUKOCYTE ESTERASE, URINE AUTO NEGATIVE (NEGATIVE); NITRITE, URINE AUTO NEGATIVE (NEGATIVE); PROTEIN, URINE AUTO NEGATIVE (NEGATIVE); RBC, URINE AUTO 0 /HPF (0-3); SPECIFIC GRAVITY URINE AUTO 1.013 (1.002-1.035); SQUAMOUS EPITHELIAL CELL UR AU 8 /HPF (0-6); UROBILINOGEN, URINE AUTO 0.2 mg/dL (0.0-2.0); WBC, URINE AUTO 0 /HPF (0-3)
[2021-06-14 16:24] VITALS: BP 132/68
== END 2021-06-14 16:25 | disposition home or self-care (01) ==
LOC: M ED 11:39
DX: S09.90XA Unspecified injury of head, initial encounter (principal); S00.83XA Contusion of other part of head, initial encounter; M54.2 Cervicalgia; R44.3 Hallucinations, unspecified; W19.XXXA Unspecified fall, initial encounter; Y92.099 Unspecified place in other non-institutional residence as the place of occurrence of the external cause; Y93.9 Activity, unspecified; Y99.9 Unspecified external cause status; E78.5 Hyperlipidemia, unspecified; F03.90 Unspecified dementia, unspecified severity, without behavioral disturbance, psychotic disturbance, mood disturbance, and anxiety; Z79.899 Other long term (current) drug therapy; Z88.6 Allergy status to analgesic agent; Z88.0 Allergy status to penicillin; Z88.1 Allergy status to other antibiotic agents; Z91.89 Other specified personal risk factors, not elsewhere classified

== ENCOUNTER → 2021-06-28 | Outpatient (CLI) | payer MEDICARE ==
--- NOTE | 2021-06-28 11:43 | REP ---
INDICATION: Assess stenosis TECHNIQUE: Carotid ultrasonography was performed bilaterally FINDINGS: Right: CCA systolic: 73.0 centimeters/second CCA diastolic: 16.5 centimeters/second ICA systolic: 52.4 centimeters/second ICA diastolic: 18.5 centimeters/second ICA CCA ratio: 0.72 Left: CCA systolic: A 5.4 centimeters/second CCA diastolic: 18.4 centimeters/second ICA systolic: 54.1 centimeters/second ICA diastolic: 21.1 centimeters/second ICA CCA ratio: 0.63 Antegrade flow Vertebral artery: Right: Antegrade flow left: Echogenic material seen along the carotid arterial connell some of which casts and acoustic shadow IMPRESSION: According to the SRU criteria there is less than 50% stenosis of the internal carotid artery bilaterally. This is secondary to both calcified and noncalcified atheromatous plaque formation. <Electronically signed by Chad Romeo > 06/28/21 [id number]
== END ==
LOC: M RAD 10:48
PROVIDERS: ATTEND Physician Assistant
DX: I65.23 Occlusion and stenosis of bilateral carotid arteries (principal)

== ENCOUNTER 2021-07-21 08:17 | Inpatient (IN) | payer MEDICARE ==
[2021-07-21] VITALS (7 sets, daily range): BP systolic 97–117; BP diastolic 56–74
[~2021-07-21] VITALS: Ht 167.6 cm; Wt 66.5 kg
[2021-07-21] MEDS ORDERED: NS 1,000 ML IV SCH (08:30)
[2021-07-21] MEDS ORDERED: fentaNYL 100 MCG/2 ML INJECTION (J3010) IV ONE (08:30)
[2021-07-21 08:53] LABS: HEMOGLOBIN 13.2 g/dl (12.0-15.5); MEAN CORPUSCULAR HEMOGLOBIN 31.7 pg (27.0-33.0); MEAN CORPUSCULAR VOLUME 95.9 fl (80.0-96.0); PLATELET COUNT, AUTOMATED 164 10^3/uL (150-450); RED BLOOD COUNT 4.17 10^6/uL (4.00-5.40); WHITE BLOOD COUNT 6.1 10^3/uL (4.0-10.0)
[2021-07-21] MEDS: CitaloPRAM (CeleXA) 10 MG TABLET PO SCH (09:00)
[2021-07-21] MEDS: MEMANTINE 5MG TABLET (NAMENDA) PO SCH ×2 (09:00→20:39)
[2021-07-21 09:16] LABS: INR 1.03; PROTHROMBIN TIME 13.9 SECONDS (12.7-14.5)
[2021-07-21 09:17] LABS: PARTIAL THROMBOPLASTIN TIME 28.8 SECONDS (25.9-37.0)
--- NOTE | 2021-07-21 09:18 | REP ---
INDICATION: trauma COMPARISON: 05/22/2016 TECHNIQUE: Portable AP view of the chest FINDINGS: The mediastinum and cardiac silhouette are stable and within normal limits for portable technique. The lung trejo are clear without acute consolidation, effusion, or pneumothorax. Skeletal structures are intact. IMPRESSION: No acute cardiopulmonary process appreciated. <Electronically signed by Wally Lopez > 07/21/21 0915
--- NOTE | 2021-07-21 09:19 | REP ---
INDICATION: trauma COMPARISON: None. TECHNIQUE: AP and cross-table lateral views of the mid to distal femur (proximal to mid femur assessed in hip series) FINDINGS: Visualized osseous structures are intact and without evidence for acute fracture or dislocation. Age-related changes at the knee noted. No subcutaneous emphysema or foreign body. IMPRESSION: No acute fracture or dislocation. <Electronically signed by Wally Lopez > 07/21/21 0916
--- NOTE | 2021-07-21 09:20 | REP ---
INDICATION: trauma Nontraumatic hip pain. COMPARISON: None. TECHNIQUE: Frontal view of the pelvis with neutral and cross-table lateral views of the right hip. FINDINGS: Comminuted displaced intertrochanteric fracture of the right femur. Remainder of the examination demonstrates age-related changes. No further acute fracture or dislocation appreciated. IMPRESSION: Acute comminuted displaced angulated intertrochanteric fracture proximal right femur. <Electronically signed by Wally Lopez > 07/21/21 [id number]
[2021-07-21 09:28] LABS: RSV AMPLIFICATION NEGATIVE (NEGATIVE)
--- OUTSIDE RECORDS SUMMARY | 2021-07-21 09:32 | CCD | Continuity of Care Document ---
Author Author Ashlie SMITH Organization [place] [address] Phone [phone] Care Team Providers Care Delivery Crew Member Name Role Phone Tanja Espinal D.O. AUTM Mathieu Euceda M.D. AUTM [phone] AUTM [phone] [facility] AUTM [phone] Bonifacio Means M.D. AUTM [phone] Problems Active Problems Provider Date H/O: peptic [...] SIG Qnty Indications Ordering Provide r Date Calcium 600+D High Potency [id number] Tablets 1 by mouth twice a day 180tabs Mathieu GossO. 12/17/2020 Prevagen Extra Strength 20mg Capsu les take one capsule by mouth daily. 90caps Mathieu CollierO. 11/30/2020 Memantine HCL 10mg Tablets Take One Tablet By Mouth Twice A Day 180tabs F03.90 Steven Collier.O. 05/31/2020 Fluticasone Propionate Nasal [place] 50mcg/Act Suspension two sprays each nostril once [...] tabs daily as needed Unknown History Medications Bactrim DS 800-160mg Tablets take one tablet by mouth every 12 hours for ten days 20tabs R35.0 Steven Collier.O. 06/08/2021 - 06/19/2021 Tetanus/Diphtheria Toxoids-Adsorbed Adul t 2-2LF/0.5ML Suspension administer tetanus with pertussis at pharmacy. 5ml Steven Collier.O. 01/31/2021 - 03/06/2021 Medications Administered in Office Medication SIG Qnty Indications Ordering Provider Date Covid-19 vaccine, Unspecified Inj ection Unknown 06/17/2021 Covid-19 vaccine, Unspecified Inj ection Unknown 10/17/2020 Covid-19 vaccine, Unspecified Inj ection Unknown 09/19/2020 Immunizations CPT Code Status Date Vaccine Lot # [id number] Given 02/02/2021 Tetanus, Diphthe opal Toxoids/Acellular Pertussis Vaccine 7 Or > [id number] Given 07/15/2020 Pneumococcal Vaccine 23 Viri nt 2Yrs Or Older [id number] Given 07/02/2019 Pneumococcal Con jugate Vaccine 13 Valent For Intramuscular Use U-Flu Given 04/17/2019 Influenza,Unspecified Vital Signs Date Vital Result Comment 06/19/2021 2:48pm BP Systolic 124 mmHg BP Diastolic 72 mmHg Height 61.7 inches 5'1.70" Weight 134.00 lb BMI (Body Mass Index) 24.7 kg/m2 Heart Rate 81 /min Respiratory Rate 18 /min Body Temperature 98.8 F O2 % BldC Oximetry 100 % Cost Body Weight 105 lb 06/08/2021 2:11pm BP Systolic 92 mmHg BP Diastolic 58 mmHg Height 61.7 inches 5'1.70" Heart Rate 80 /min Respiratory Rate 12 /min Body Temperature 98.5 F O2 % BldC Oximetry 95 % Cost Body Weight 105 lb Results Test Acquired Date Facility Test Result H/L Range Note Comprehensive Metabolic Profil 06/14/2021 [facility] Outpa tient Testing (Registration) [address] [place] [address] [phone] Glucose, Fasting 103 mg/dL High 70-100 Blood Urea Nitrogen 16 mg/dL Normal 7-18 Creatinine For GFR 0.92 mg/dL Normal 0.55-1.30 Glomerular Filtration Rate > 60.0 Normal >32 1 Sodium Level 139 mEq/L Normal 136-145 Potassium Serum 4.1 mEq/L Normal 3.5-5.1 Chloride Level 106 mEq/L Normal 98-107 Carbon Dioxide Level 27 mEq/L Normal 21-32 Anion Gap 6 mEq/L Low 8-16 Calcium Level 8.7 mg/dL Low 8.8-10.2 Ast/Sgot 21 U/L Normal 7-37 Alt/SGPT 24 U/L Normal 12-78 Alkaline Phosphatase 96 U/L Normal 45-117 Bilirubin,Total 0.4 mg/dL Normal 0.2-1.0 Total Protein 6.3 GM/DL Low 6.4-8.2 Albumin 3.3 GM/DL Normal 3.2-5.2 Albumin/Globulin Ratio 1.1 Low 1.2-2.2 Influenza A/B RSV Covid Amp 06/14/2021 [facility] Outpatie nt Testing (Registration) [address] [place] [address] [phone] Influenza A Amplification NEGATIVE Normal Negati ve 2 Influenza B Amplification NEGATIVE Normal Negative 3 RSV Amplification NEGATIVE Normal Negative 4 Sars Covid-19 Amplification NEGATIVE Normal Negative 5 CBC With Differential 06/14/2021 [facility] Outpatient Poornima ting (Registration) [address] [place] [address] [phone] White Blood Count 4.9 10 Normal 4.0-10.0 Red Blood Count 4.13 10 Normal 4.00-5.40 Hemoglobin 12.8 g/dL Normal 12.0-15.5 Hematocrit 38.3 % Normal 36.0-47.0 Mean Corpuscular Volume 92.7 fl Normal 80.0-96.0 Mean Corpuscular Hemoglobin 31.0 pg Normal 27.0-33.0 Mean Corpuscular HGB Conc 33.4 g/dL Normal 32.0-36.5 Red Cell Distribution Width 13.0 % Normal 11.5-14.5 Platelet Count, Automated 162 10 Normal 150-450 Nucleated Red Blood Cell % 0.0 % Normal 0-0 Differential 06/14/2021 [facility] Outpatient Testi ng (Registration) [address] [place], [place] [id number] [phone] Neutrophils 57 % Normal 28-66 Lymphocytes 25 % Normal 16-44 Monocytes 3 % Normal 0-5 Eosinophils 4 % High 0-3 Atypical Lymph 11 % High 0-5 Hypochromasia 1+ Normal Laboratory test finding 06/14/2021 [facility] Outpatient T esting (Registration) [address] [place] [address] [phone] Platelet Estimate DECREASED Normal Normal Ua Routine 06/14/2021 [facility] Outpatient Testi ng (Registration) [address] [place] [address] [phone] Appearance, Urine HAZY Normal Clear Color, Urine YELLOW Normal Yellow PH,Urine 5.0 units Normal 5.0-9.0 Specific [place] Urine Auto 1.013 Normal 1.002-1.035 Protein, Urine Auto NEGATIVE mg/dL Normal Negative Glucose, Urine (Ua) Auto NEGATIVE mg/dL Normal Negative Ketone, Urine Auto TRACE mg/dL High Negative Urobilinogen, Urine Auto 0.2 mg/dL Normal 0.0-2.0 Bilirubin, Urine Auto NEGATIVE Normal Negative Nitrite, Urine Auto NEGATIVE Normal Negative Leukocyte Esterase, Urine Auto NEGATIVE Normal Negative Blood, Urine Blood 1+ High Negative WBC, Urine Auto 0 /HPF Normal 0-3 RBC, Urine Auto 0 /HPF Normal 0-3 Bacteria, Urine Auto NEGATIVE Normal Negative Squamous Epithelial Cell Ur AU 8 /HPF Normal 0-6 Hyaline Cast, Urine Auto 0 /LPF Normal 0-1 Ua Routine 06/12/2021 [facility] Outpatient Testi ng (Registration) [address] [place] [address] [phone] Appearance, Urine HAZY Normal Clear Color, Urine YELLOW Normal Yellow PH,Urine 5.0 units Normal 5.0-9.0 Specific [place] Urine Auto 1.018 Normal 1.002-1.035 Protein, Urine [...] /LPF Normal 0-1 Comprehensive Metabolic Profil 06/12/2021 [facility] Outpa tient Testing (Registration) [address] [place] [address] [phone] Glucose, Fasting 79 mg/dL Normal 70-100 Blood Urea Nitrogen 18 mg/dL Normal 7-18 Creatinine For GFR 0.90 mg/dL Normal 0.55-1.30 Glomerular Filtration Rate > 60.0 Normal >32 6 Sodium Level 139 mEq/L Normal 136-145 Potassium [...] 1.2 Normal 1.2-2.2 CBC With Differential 06/12/2021 [facility] Outpatient Poornima ting (Registration) [address] [place] [address] [phone] White Blood Count 4.5 10 Normal 4.0-10.0 [...] 36.0-66.0 Lymph % 24.1 % Normal 24.0-44.0 [place] % 9.5 % High 2.0-8.0 Eos % 5.3 % High 0.0-3.0 Baso % 0.4 % Normal 0.0-1.0 Immature Granulocyte % 0.4 % Normal 0-3.0 Nucleated Red Blood Cell % 0.0 % Normal 0-0 Neutrophils # 2.7 10 Normal 1.5-8.5 Lymph # 1.1 10 Low 1.5-5.0 [place] # 0.4 10 Normal 0.0-0.8 Eos # 0.2 10 Normal 0.0-0.5 Baso # 0.0 10 Normal 0.0-0.2 Laboratory test finding 06/12/2021 [facility] Outpatient T daviing (Registration) [address] [place] [address] [phone] C Reactive Protein Quantitativ 3.08 mg/dL High 0 .00-0.30 1 Units are mL/min/1.73 m2 Chronic Kidney Disease Staging per NKF: Stage I & II GFR >=60 Normal to Mildly Decreased Stage III GFR 30-59 Moderately Decreased Stage IV GFR 15-29 Severely Decreased Stage V GFR <15 Very Little GFR Left ESRD GFR <15 on TECHNICAL SYSTEM ANALYST 2 Negative results do not prec lude influenza or RSV virus infection and should not be used as the sole basis for treatment or other patient management decisions. 3 Negative results do not prec lude influenza or RSV virus infection and should not be used as the sole basis for treatment or other patient management decisions. 4 Negative results do not prec lude influenza or RSV virus infection and should not be used as the sole basis for treatment or other patient management decisions. 5 A false negative result may occur if a specimen is improperly collected, transported or handled. False negative results may also occur if inadequate numbers of organisms are present in the specimen. As with any molecular test, mutations within the target regions of Xpert Xpress SARS-CoV-2 could affect primer and/or probe binding resulting in failure to detect the presence of virus. This test cannot rule out diseases caused by other bacterial or viral pathogens. DISCLAIMER: Testing was performed using the [employer] SARS-CoV-2 test. This test was developed and its performance characteristics determined by [employer]. This test has not been FDA cleared or approved. This test has been authorized by FDA under an Emergency Use Authorization (EUA). This test is only authorized for the duration of time the declaration that circumstances exist justifying the authorization of the emergency use of in vitro diagnostic tests for detection of SARS-CoV-2 virus and/or diagnosis of COVID-19 infection under section 564(b)(1) of the Act, 21 U.S.C. 360bbb-3(b)(1), unless the authorization is terminated or revoked sooner. 6 Units are mL/min/1.73 m2 Chronic Kidney Disease Staging per NKF: Stage I & II GFR >=60 Normal to Mildly Decreased Stage III GFR 30-59 Moderately Decreased Stage IV GFR 15-29 Severely Decreased Stage V GFR <15 Very Little GFR Left ESRD GFR <15 on TECHNICAL SYSTEM ANALYST Procedures Date Code Description Status 06/19/2021 39265 Office/Outpatient Established Lo w MDM 20-29 Min Completed 06/08/2021 00681 Office/Outpatient Established Lo w MDM 20-29 Min Completed 03/06/2021 48286 Office/Outpatient Established Mo d MDM 30-39 Min Completed 02/02/2021 69632 Office/Outpatient Established Lo w MDM 20-29 Min Completed 01/31/2021 03938 Office/Outpatient Established Lo w MDM 20-29 Min Completed 06/28/2020 [id number] Mammogram Completed 11/10/2018 [id number] Mammogram Completed Medical Devices Description No Information Available Encounters Type Date Location Provider Dx Diagnosis Office Visit 06/19/2021 2:40p [facility] LIZBETH Garcia R09.89 Oth symptoms and signs invol ving the circ and resp systems D72.89 Other specified disorders of white blood cells Office Visit 06/08/2021 2:00p [facility] LIZBETH Garcia R42 Dizziness and giddiness R35.0 Frequency of micturition Office Visit 03/06/2021 10:00a [facility] LIZBETH Garcia F33.0 Major depressive disorder, r ecurrent, mild E78.2 Mixed hyperlipidemia K21.9 Gastro-esophageal reflux dis ease without esophagitis F03.90 Unspecified dementia without behavioral disturbance Z87.11 Personal history of peptic u lcer disease Z79.899 Other longterm (current) dr joseph therapy Office Visit 02/02/2021 8:30a [facility] LIZBETH Garcia Z48.02 Encounter for removal of sut ures W10.8xxA Fall (on) (from) other stair s and steps, initial encounter S00.83xA Contusion of other part of h ead, initial encounter Z23 Encounter for immunization Office Visit 01/31/2021 1:30p [facility] LIZBETH Garcia S01.81xA Laceration w/o foreign body of oth part of head, init encntr W10.8xxA Fall (on) (from) other stair s and steps, initial encounter S00.83xA Contusion of other part of h ead, initial encounter Assessments Date Code Description Provider 06/19/2021 R09.89 Other specified symp toms and signs involving the circulatory and respiratory systems LIZBETH Garcia 06/19/2021 D72.89 Other specified disorders of [facility] te blood cells LIZBETH Garcia 06/08/2021 R42 Dizziness and giddiness LIZBETH Garcia 06/08/2021 R35.0 Frequency of micturition LIZBETH Garcia 03/06/2021 F33.0 Major depressive disorder, recur rent, mild LIZBETH Garcia 03/06/2021 E78.2 Mixed hyperlipidemia LIZBETH Pearson 03/06/2021 K21.9 Gastro-esophageal reflux disease without esophagitis LIZEBTH Garcia 03/06/2021 F03.90 Unspecified dementia without beh avioral disturbance LIZBETH Garcia 03/06/2021 Z87.11 Personal history of peptic ulcer disease LIZBETH Garcia 03/06/2021 Z79.899 Other buttermaker continuous churn (current) drug t herapy LIZBETH Garcia 02/02/2021 [...] 09/10/2021 10:00 am - LIZBETH Garcia at [facility] Functional Status Description No Information Available Mental Status Description No Information Available Referrals Description No Information Available
--- OUTSIDE RECORDS SUMMARY | 2021-07-21 09:32 | CCD | Continuity of Care Document ---
Author Author Ashlie RODRÍGUEZ DPM Organization Unknown Address [address] [place] [address] Phone [phone] Care Team Providers Care Station Gateman Name Role Phone Tanja Espinal Unavailable Problems Active Problems Provider Date Mild major depression Onset: Mixed hyperlipidemia Onset: Memory impairment Onset: Social History Type Date Description Comments Sex Unknown Tobacco Use Start: Unknown Never Smoked Cigarettes Tobacco Use Start: Unknown Never Smoked Cigars Tobacco Use Start: Unknown Never Smoked A Pipe Tobacco Use Start: Unknown Never Used Smokeless Tobacco Tobacco Use Start: Unknown Patient has never smoked Allergies and adverse reactions Description No Known Drug Allergies Medications Active Medications SIG Qnty Indications Ordering Provide r Date Calcium 600+D [id number] Table ts 1 by mouth twice a day Unknown Prevagen Extra Strength 20mg Capsu les take one capsule by mouth daily Unknown Memantine HCL 10mg Tablets take 1 tablet by mouth twice a day Unknown Fluticasone Propionate 50mcg/Act Suspension Unknown Omeprazole 40mg Capsules DR Unknown Diclofenac Sodium 1% Gel apply 3 grams to painful area of left elbow bid prn Unknown Citalopram Hydrobromide 10mg Table ts 1 tablet by mouth daily. Unknown 0 Vitamin D3 Super Strength 50mcg (2000 Ut) Capsules 1 by mouth every day Unknown 000 Vitamin B12 1000mcg Tablets ER 1 by mouth every day Unknown Atorvastatin Calcium 10mg Tablets 1 by mouth every day Unknown Tylenol 325mg Capsules 1-2 tabs daily as needed Unknown Immunizations Description No Information Available Vital Signs Description No Information Available Results Description No Information Available Procedures Date Code Description Status 06/25/2021 65492 Office/Outpatient New [facility] 15- 29 Minutes Completed 06/25/2021 02400 Debridement Nails Any Method 1-5 Completed Medical Devices Description No Information Available Encounters Type Date Location Provider Dx Diagnosis Office Visit 06/25/2021 2:30p [facility] Armaan Rodríguez DPM L60.0 Ingrowing nail M79.674 Pain in right toe(s) Assessments Date Code Description Provider 06/25/2021 L60.0 Ingrowing nail Armaan Rodríguez DPM 06/25/2021 M79.674 Pain in right toe(s) Armaan Rodríguez DPM Plan of Treatment No Information Available Functional Status Description No Information Available Mental Status Description No Information Available Referrals Description No Information Available
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
--- OUTSIDE RECORDS SUMMARY | 2021-07-21 09:33 | CCD | Continuity of Care Document ---
Author Author Ashlie SMITH Organization Unknown Address [place] [address] Phone [phone] Care Team Providers Care Brake Operator Heavy Duty Name Role Phone Tanja Espinal D.O. AUTM [phone] Mathieu Euceda M.D. AUTM [phone] [facility] AUTM [phone] [facility] AUTM [phone] Bonifacio Means M.D. AUTM [phone] Problems Active Problems Provider Date H/O: peptic [...] Provide r Date Calcium 600+D High Potency [id number] Tablets 1 by mouth twice a day 180tabs Mathieu GossO. 12/17/2020 Prevagen Extra Strength 20mg Capsu les take one capsule by mouth daily. 90caps Mathieu CollierO. 11/30/2020 Memantine HCL 10mg Tablets Take One Tablet By Mouth Twice A Day 180tabs F03.90 Steven Collier.O. 05/31/2020 Fluticasone Propionate Nasal [place] 50mcg/Act Suspension two sprays each nostril once [...] CPT Code Status Date Vaccine Lot # [id number] Given 02/02/2021 Tetanus, Diphthe opal Toxoids/Acellular Pertussis Vaccine 7 Or > [id number] Given 07/15/2020 Pneumococcal Vaccine 23 Viri nt 2Yrs Or Older 83902 Given 07/02/2019 Pneumococcal Con jugate Vaccine 13 Valent For Intramuscular Use U-Flu Given 04/17/2019 Influenza,Unspecified Vital Signs Date Vital Result Comment 06/19/2021 2:48pm BP Systolic 124 mmHg BP Diastolic 72 mmHg Height 61.7 inches 5'1.70" Weight 134.00 lb BMI (Body Mass Index) 24.7 kg/m2 Heart Rate 81 /min Respiratory Rate 18 /min Body Temperature 98.8 F O2 % BldC Oximetry 100 % [place] Body Weight 105 lb 06/08/2021 2:11pm BP Systolic 92 mmHg BP Diastolic 58 mmHg Height 61.7 inches 5'1.70" Heart Rate 80 /min Respiratory Rate 12 /min Body Temperature 98.5 F O2 % BldC Oximetry 95 % [place] Body Weight 105 lb Results Test Acquired Date Facility Test Result H/L Range Note Comprehensive Metabolic Profil 06/14/2021 [facility] Outpa tient Testing (Registration) [address] [place] [address] [phone] Glucose, Fasting 103 mg/dL High 70-100 Blood [...] 1.2-2.2 Influenza A/B RSV Covid Amp 06/14/2021 [facility] Outpatie nt Testing (Registration) [address] [place] [address] [phone] Influenza A Amplification NEGATIVE Normal Negati ve 2 Influenza B Amplification NEGATIVE Normal Negative 3 RSV Amplification NEGATIVE Normal Negative 4 Sars Covid-19 Amplification NEGATIVE Normal Negative 5 CBC With Differential 06/14/2021 [facility] Outpatient Poornima ting (Registration) [address] [place] [address] [phone] White Blood Count 4.9 10 Normal 4.0-10.0 [...] % 0.0 % Normal 0-0 Differential 06/14/2021 [facility] Outpatient Testi ng (Registration) [address] [place], [place] [address] [phone] Neutrophils 57 % Normal 28-66 Lymphocytes 25 % Normal 16-44 Monocytes 3 % Normal 0-5 Eosinophils 4 % High 0-3 Atypical Lymph 11 % High 0-5 Hypochromasia 1+ Normal Laboratory test finding 06/14/2021 [facility] Outpatient T esting (Registration) [address] [place] [address] [phone] Platelet Estimate DECREASED Normal Normal Ua Routine 06/14/2021 [facility] Outpatient Testi ng (Registration) [address] [place] [address] [phone] Appearance, Urine HAZY Normal Clear Color, Urine YELLOW Normal Yellow PH,Urine 5.0 units Normal 5.0-9.0 Specific [place] Urine Auto 1.013 Normal 1.002-1.035 Protein, Urine [...] 0 /LPF Normal 0-1 Ua Routine 06/12/2021 [facility] Outpatient Testi ng (Registration) [address] [place] [address] [phone] Appearance, Urine HAZY Normal Clear Color, Urine YELLOW Normal Yellow PH,Urine 5.0 units Normal 5.0-9.0 Specific [place] Urine Auto 1.018 Normal 1.002-1.035 Protein, Urine [...] /LPF Normal 0-1 Comprehensive Metabolic Profil 06/12/2021 [facility] Outpa tient Testing (Registration) [address] [place] [address] [id number] [phone] Glucose, Fasting 79 mg/dL Normal 70-100 Blood [...] 1.2 Normal 1.2-2.2 CBC With Differential 06/12/2021 [facility] Outpatient Poornima ting (Registration) [address] [place] [address]66 [phone] White Blood Count 4.5 10 Normal 4.0-10.0 [...] 36.0-66.0 Lymph % 24.1 % Normal 24.0-44.0 [place] % 9.5 % High 2.0-8.0 Eos % 5.3 % High 0.0-3.0 Baso % 0.4 % Normal 0.0-1.0 Immature Granulocyte % 0.4 % Normal 0-3.0 Nucleated Red Blood Cell % 0.0 % Normal 0-0 Neutrophils # 2.7 10 Normal 1.5-8.5 Lymph # 1.1 10 Low 1.5-5.0 [place] # 0.4 10 Normal 0.0-0.8 Eos # 0.2 10 Normal 0.0-0.5 Baso # 0.0 10 Normal 0.0-0.2 Laboratory test finding 06/12/2021 [facility] Outpatient T daviing (Registration) [address] [place] [address] 24455 [phone] C Reactive Protein Quantitativ 3.08 mg/dL High 0 .00-0.30 1 Units are mL/min/1.73 m2 Chronic Kidney Disease Staging per NKF: Stage I & II GFR >=60 Normal to Mildly Decreased Stage III GFR 30-59 Moderately Decreased Stage IV GFR 15-29 Severely Decreased Stage V GFR <15 Very Little GFR Left ESRD GFR <15 on SOCIAL CONTACT WORKER 2 Negative results do not prec lude [...] pathogens. DISCLAIMER: Testing was performed using the [employer] SARS-CoV-2 test. This test was developed and its performance characteristics determined by [employer]. This test has not been FDA cleared [...] Little GFR Left ESRD GFR <15 on SOCIAL CONTACT WORKER Procedures Date Code Description Status 06/19/2021 93759 Office/Outpatient Established Lo w MDM 20-29 Min Completed 06/08/2021 03702 Office/Outpatient Established Lo w MDM 20-29 Min Completed 03/06/2021 63519 Office/Outpatient Established Mo d MDM 30-39 Min Completed 02/02/2021 93899 Office/Outpatient Established Lo w MDM 20-29 Min Completed 01/31/2021 68918 Office/Outpatient Established Lo w MDM 20-29 Min Completed 06/28/2020 [id number] Mammogram Completed 11/10/2018 [id number] Mammogram Completed Medical Devices Description No Information Available Encounters Type Date Location Provider Dx Diagnosis Office Visit 06/19/2021 2:40p [facility] LIZBETH Garcia R09.89 Oth symptoms and signs invol ving the circ and resp systems D72.89 Other specified disorders of white blood cells Office Visit 06/08/2021 2:00p [facility] LIZBETH Garcia R42 Dizziness and giddiness R35.0 Frequency of micturition Office Visit 03/06/2021 10:00a [facility] LIZBETH Garcia F33.0 Major depressive disorder, r ecurrent, mild E78.2 Mixed hyperlipidemia K21.9 Gastro-esophageal reflux dis ease without esophagitis F03.90 Unspecified dementia without behavioral disturbance Z87.11 Personal history of peptic u lcer disease Z79.899 Other detention (current) dr joseph therapy Office Visit 02/02/2021 8:30a [facility] LIZBETH Garcia Z48.02 Encounter for removal of sut ures W10.8xxA Fall (on) (from) other stair s and steps, initial encounter S00.83xA Contusion of other part of h ead, initial encounter Z23 Encounter for immunization Office Visit 01/31/2021 1:30p [facility] LIZBETH Garcia S01.81xA Laceration w/o foreign body of oth part of head, init encntr W10.8xxA Fall (on) (from) other stair s and steps, initial encounter S00.83xA Contusion of other part of h ead, initial encounter Assessments Date Code Description Provider 06/19/2021 R09.89 Other specified symp toms and signs involving the circulatory and respiratory systems LIZBETH Garcia 06/19/2021 D72.89 Other specified disorders of [facility] te blood cells LIZBETH Garcia 06/08/2021 R42 [...] ulcer disease LIZBETH Garcia 03/06/2021 Z79.899 Other supervisor of guidance and testing (current) drug t herapy LIZBETH Garcia 02/02/2021 [...] am - LIZBETH Garcia at [facility] Functional Status Description No Information Available Mental Status Description No Information Available Referrals Description No Information Available
--- OUTSIDE RECORDS SUMMARY | 2021-07-21 09:33 | CCD | Continuity of Care Document ---
Author Author Ashlie SMITH Organization [place] [address] Phone [phone] Care Team Providers Care Electronics Parts Sales Representative Name Role Phone Tanja Espinal D.O. AUTM Mathieu Euceda M.D. AUTM [facility] AUTM [phone] [facility] Ophthal[facility] AUTM [phone] Bonifacio Means M.D. AUTM [phone] Problems Active Problems Provider Date H/O: peptic [...] Steven Collier.O. 06/08/2021 Calcium 600+D High Potency [id number] Tablets 1 by mouth twice a day 180tabs Tanja schmid, D.O. 12/17/2020 Prevagen Extra Strength 20mg Capsu les take one capsule by mouth daily. 90caps Steven Collier.O. 11/30/2020 Memantine HCL 10mg Tablets Take One Tablet By Mouth Twice A Day 180tabs F03.90 Steven Collier.O. 05/31/2020 Fluticasone Propionate Nasal [place] 50mcg/Act Suspension two sprays each nostril once [...] CPT Code Status Date Vaccine Lot # [id number] Given 02/02/2021 Tetanus, Diphthe opal Toxoids/Acellular Pertussis Vaccine 7 Or > [id number] Given 07/15/2020 Pneumococcal Vaccine 23 Viri nt 2Yrs Or Older 18651 Given 07/02/2019 Pneumococcal Con jugate Vaccine 13 Valent For Intramuscular Use U-Flu Given 04/17/2019 Influenza,Unspecified Vital Signs Date Vital Result Comment 06/08/2021 2:11pm BP Systolic 92 mmHg BP Diastolic 58 mmHg Height 61.7 inches 5'1.70" Heart Rate 80 /min Respiratory Rate 12 /min Body Temperature 98.5 F O2 % BldC Oximetry 95 % [place] Body Weight 105 lb 03/06/2021 10:03am BP Systolic 124 mmHg BP Diastolic 74 mmHg Height 61.7 inches 5'1.70" Weight 144.25 lb BMI (Body Mass Index) 26.6 kg/m2 Heart Rate 74 /min Respiratory Rate 18 /min Body Temperature 97.8 F O2 % BldC Oximetry 95 % [place] Body Weight 105 lb Results Test Acquired Date Facility Test Result H/L Range Note Comprehensive Metabolic Profil 06/14/2021 [facility] Outpa tient Testing (Registration) [address] [place] [address] [phone] Glucose, Fasting 103 mg/dL High 70-100 Blood [...] 1.2-2.2 Influenza A/B RSV Covid Amp 06/14/2021 [facility] Outpatie nt Testing (Registration) [address] [place] [address] [phone] Influenza A Amplification NEGATIVE Normal Negati ve 2 Influenza B Amplification NEGATIVE Normal Negative 3 RSV Amplification NEGATIVE Normal Negative 4 Sars Covid-19 Amplification NEGATIVE Normal Negative 5 CBC With Differential 06/14/2021 [facility] Outpatient Poornima ting (Registration) [address] [place] [address] 24938 [phone] White Blood Count 4.9 10 Normal 4.0-10.0 [...] % 0.0 % Normal 0-0 Differential 06/14/2021 [facility] Outpatient Testi ng (Registration) [address] [place], [place] [address] [phone] Neutrophils 57 % Normal 28-66 Lymphocytes 25 % Normal 16-44 Monocytes 3 % Normal 0-5 Eosinophils 4 % High 0-3 Atypical Lymph 11 % High 0-5 Hypochromasia 1+ Normal Laboratory test finding 06/14/2021 [facility] Outpatient T esting (Registration) [address] [place] [address]234 [phone] Platelet Estimate DECREASED Normal Normal Ua Routine 06/14/2021 [facility] Outpatient Testi ng (Registration) [address] [place] [address] [phone] Appearance, Urine HAZY Normal Clear Color, Urine YELLOW Normal Yellow PH,Urine 5.0 units Normal 5.0-9.0 Specific [place] Urine Auto 1.013 Normal 1.002-1.035 Protein, Urine [...] 0 /LPF Normal 0-1 Ua Routine 06/12/2021 [facility] Outpatient Testi ng (Registration) [address] [place] [address] [phone] Appearance, Urine HAZY Normal Clear Color, Urine YELLOW Normal Yellow PH,Urine 5.0 units Normal 5.0-9.0 Specific [place] Urine Auto 1.018 Normal 1.002-1.035 Protein, Urine [...] /LPF Normal 0-1 Comprehensive Metabolic Profil 06/12/2021 [facility] Outpa tient Testing (Registration) [address] [place] [address] 89171 [phone] Glucose, Fasting 79 mg/dL Normal 70-100 Blood [...] 1.2 Normal 1.2-2.2 CBC With Differential 06/12/2021 [facility] Outpatient Poornima ting (Registration) [address] [place] [address]19 [phone] White Blood Count 4.5 10 Normal 4.0-10.0 [...] 36.0-66.0 Lymph % 24.1 % Normal 24.0-44.0 [place] % 9.5 % High 2.0-8.0 Eos % 5.3 % High 0.0-3.0 Baso % 0.4 % Normal 0.0-1.0 Immature Granulocyte % 0.4 % Normal 0-3.0 Nucleated Red Blood Cell % 0.0 % Normal 0-0 Neutrophils # 2.7 10 Normal 1.5-8.5 Lymph # 1.1 10 Low 1.5-5.0 [place] # 0.4 10 Normal 0.0-0.8 Eos # 0.2 10 Normal 0.0-0.5 Baso # 0.0 10 Normal 0.0-0.2 Laboratory test finding 06/12/2021 [facility] Outpatient T esting (Registration) [address] [place] [address]189 [phone] C Reactive Protein Quantitativ 3.08 mg/dL High 0 .00-0.30 1 Units are mL/min/1.73 m2 Chronic Kidney Disease Staging per NKF: Stage I & II GFR >=60 Normal to Mildly Decreased Stage III GFR 30-59 Moderately Decreased Stage IV GFR 15-29 Severely Decreased Stage V GFR <15 Very Little GFR Left ESRD GFR <15 on 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 DISCLAIMER: Testing was performed using the [employer] SARS-CoV-2 test. This test was developed and its performance characteristics determined by [employer]. This test has not been FDA cleared [...] Little GFR Left ESRD GFR <15 on MOISTURE CONDITIONER OPERATOR Procedures Date Code Description Status 06/08/2021 57428 Office/Outpatient Established Lo w MDM 20-29 Min Completed 03/06/2021 90519 Office/Outpatient Established Mo d MDM 30-39 Min Completed 02/02/2021 36214 Office/Outpatient Established Lo w MDM 20-29 Min Completed 01/31/2021 75831 Office/Outpatient Established Lo w MDM 20-29 Min Completed 06/28/2020 [id number] Mammogram Completed 11/10/2018 [id number] Mammogram Completed Medical Devices Description No Information Available Encounters Type Date Location Provider Dx Diagnosis Office Visit 06/08/2021 2:00p [facility] LIZBETH Garcia R42 Dizziness and giddiness R35.0 Frequency of micturition Office Visit 03/06/2021 10:00a [facility] LIZBETH Garcia F33.0 Major depressive disorder, r ecurrent, mild E78.2 Mixed hyperlipidemia K21.9 Gastro-esophageal reflux dis ease without esophagitis F03.90 Unspecified dementia without behavioral disturbance Z87.11 Personal history of peptic u lcer disease 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 Office Visit 02/02/2021 8:30a [facility] LIZBETH Garcia Z48.02 Encounter for removal of sut ures W10.8xxA Fall (on) (from) other stair s and steps, initial encounter S00.83xA Contusion of other part of h ead, initial encounter Z23 Encounter for immunization Office Visit 01/31/2021 1:30p [facility] LIZBETH Garcia S01.81xA Laceration w/o foreign [...] ulcer disease LIZBETH Garcia 03/06/2021 Z79.899 Other [facility] (current) drug t herapy LIZBETH Garcia 02/02/2021 Z48.02 Encounter for removal of sutures LIZBETH Garcia 02/02/2021 W10.8xxA Fall (on) (from) other stairs an d steps, initial encounter LIZBETH Garcia 02/02/2021 S00.83xA Contusion of other part of head, initial encounter LIZBETH Garcia 02/02/2021 Z23 Encounter for immunization [place] LIZBETH Lynn 01/31/2021 S01.81xA Laceration without f oreign body of other part of head, initial encounter LZIBETH Garcia 01/31/2021 W10.8xxA Fall (on) (from) other stairs an d steps, initial encounter LIZBETH Garcia 01/31/2021 S00.83xA Contusion of other part of head, initial encounter LIZBETH Garcia Plan of Treatment Future Appointment(s):* 06/19/2021 2:40 pm - LIZBETH Garcia at [facility] * 09/10/2021 10:00 am - LIZBETH Garcia at [facility] Functional Status Description No Information Available Mental Status Description No Information Available Referrals Description No Information Available
--- OUTSIDE RECORDS SUMMARY | 2021-07-21 09:33 | CCD | Continuity of Care Document ---
Author Author Ashlie ESPINAL D.O. Organization Unknown Address [address] [facility] [place] [address] [place] [address] Phone [phone] Care Team Providers Care Product Steward Name Role Phone Tanja Espinal D.O. AUTM Mathieu Euceda M.D. AUTM [facility] AUTM [phone] [facility] AUTM [phone] Bonifacio Means M.D. AUTM [phone] Problems Active Problems Provider Date H/O: peptic ulcer LIZBETH Garcia Onset: 09/01/2018 Mixed hyperlipidemia LIZBETH Gacria Onset: 09/01/2018 Mild recurrent major depression LIZBETH [...] Steven Collier.O. 06/08/2021 Calcium 600+D High Potency [id number] Tablets 1 by mouth twice a day 180tabs Tanja schmid, D.O. 12/17/2020 Prevagen Extra Strength 20mg Capsu les take one capsule by mouth daily. 90caps Steven Collier.O. 11/30/2020 Memantine HCL 10mg Tablets Take One Tablet By Mouth Twice A Day 180tabs F03.90 Steven Collier.O. 05/31/2020 Fluticasone Propionate Nasal Ragan 50mcg/Act Suspension two sprays each nostril once daily 29.7ml J06.9 Steven Patterson.O. 10/06/[address] take one capsule by mouth every day 90caps Steven Coliler.O. 04/19/2019 Diclofenac Sodium 1% Gel apply 3 [...] CPT Code Status Date Vaccine Lot # [id number] Given 02/02/2021 Tetanus, Diphthe opal Toxoids/Acellular Pertussis Vaccine 7 Or > [id number] Given 07/15/2020 Pneumococcal Vaccine 23 [place] nt 2Yrs Or Older 75951 Given 07/02/2019 Pneumococcal Con jugate Vaccine 13 Valent For Intramuscular Use U-Flu Given 04/17/2019 Influenza,Unspecified Vital Signs Date Vital Result Comment 06/08/2021 2:11pm BP Systolic 92 mmHg BP Diastolic 58 mmHg Height 61.7 inches 5'1.70" Heart Rate 80 /min Respiratory Rate 12 /min Body Temperature 98.5 F O2 % BldC Oximetry 95 % [place] Body Weight 105 lb 03/06/2021 10:03am BP Systolic 124 mmHg BP Diastolic 74 mmHg Height 61.7 inches 5'1.70" Weight 144.25 lb BMI (Body Mass Index) 26.6 kg/m2 Heart Rate 74 /min Respiratory Rate 18 /min Body Temperature 97.8 F O2 % BldC Oximetry 95 % [place] Body Weight 105 lb Results Test Acquired Date Facility Test Result H/L Range Note Influenza A/B RSV Covid Amp 06/14/2021 [facility] Outpatie nt Testing (Registration) [address] [place] [address] [phone] Influenza A Amplification NEGATIVE Normal Negati ve 1 Influenza B Amplification NEGATIVE Normal Negative 2 RSV Amplification NEGATIVE Normal Negative 3 Sars Covid-19 Amplification NEGATIVE Normal Negative 4 CBC With Differential 06/14/2021 [facility] Outpatient Poornima whelan (Registration) [address] [place] [address] [phone] White Blood Count 4.9 10 Normal 4.0-10.0 [...] % 0.0 % Normal 0-0 Differential 06/14/2021 [facility] Outpatient Testi ng (Registration) [address] [place] [address] [phone] Neutrophils 57 % Normal 28-66 Lymphocytes 25 % Normal 16-44 Monocytes 3 % Normal 0-5 Eosinophils 4 % High 0-3 Atypical Lymph 11 % High 0-5 Hypochromasia 1+ Normal Laboratory test finding 06/14/2021 [facility] Outpatient T esting (Registration) [address] [place] [address] [phone] Platelet Estimate DECREASED Normal Normal Ua Routine 06/14/2021 [facility] Outpatient Testi ng (Registration) [address] [place] [address] [phone] Appearance, Urine HAZY Normal Clear Color, Urine YELLOW Normal Yellow PH,Urine 5.0 units Normal 5.0-9.0 Specific [place] Urine Auto 1.013 Normal 1.002-1.035 Protein, Urine [...] 0 /LPF Normal 0-1 Comprehensive Metabolic Profil 06/14/2021 [facility] Outpa tient Testing (Registration) [address] [place] [address] [phone] Glucose, Fasting 103 mg/dL High 70-100 Blood Urea Nitrogen 16 mg/dL Normal 7-18 Creatinine For GFR 0.92 mg/dL Normal 0.55-1.30 Glomerular Filtration Rate > 60.0 Normal >32 5 Sodium Level 139 mEq/L Normal 136-145 Potassium [...] Normal 3.2-5.2 Albumin/Globulin Ratio 1.1 Low 1.2-2.2 CBC With Differential 06/12/2021 [facility] Outpatient Poornima ting (Registration) [address] [place] [address]46 [phone] White Blood Count 4.5 10 Normal 4.0-10.0 [...] 36.0-66.0 Lymph % 24.1 % Normal 24.0-44.0 [place] % 9.5 % High 2.0-8.0 Eos % 5.3 % High 0.0-3.0 Baso % 0.4 % Normal 0.0-1.0 Immature Granulocyte % 0.4 % Normal 0-3.0 Nucleated Red Blood Cell % 0.0 % Normal 0-0 Neutrophils # 2.7 10 Normal 1.5-8.5 Lymph # 1.1 10 Low 1.5-5.0 [place] # 0.4 10 Normal 0.0-0.8 Eos # 0.2 10 Normal 0.0-0.5 Baso # 0.0 10 Normal 0.0-0.2 Laboratory test finding 06/12/2021 [facility] Outpatient T esting (Registration) [address] [place] [address] [phone] C Reactive Protein Quantitativ 3.08 mg/dL High 0 .00-0.30 Comprehensive Metabolic Profil 06/12/2021 [facility] Outpa tient Testing (Registration) [address] [place] [address]71 [phone] Glucose, Fasting 79 mg/dL Normal 70-100 Blood [...] Normal 3.2-5.2 Albumin/Globulin Ratio 1.2 Normal 1.2-2.2 Ua Routine 06/12/2021 [facility] Outpatient Testi (Registration) [address] [place] [address] [phone] Appearance, Urine HAZY Normal Clear Color, Urine YELLOW Normal Yellow PH,Urine 5.0 units Normal 5.0-9.0 Specific [place] Urine Auto 1.018 Normal 1.002-1.035 Protein, Urine [...] Auto 0 /LPF Normal 0-1 Ua Routine 06/11/2021 [facility] Ua Specific [place] <pending> Ua PH Test Strip <pending> Ua Color <pending> Ua Appearance <pending> Ua WBC <pending> Ua Protein <pending> Urine Glucose QL <pending> Ua Ketones <pending> Ua Bilirubin <pending> Urine Urobilinogen QN TS <pending> Urine Nitrite QL TS <pending> Ua Occult Blood <pending> Laboratory test finding 06/11/2021 [facility] Culture Urine Routine <pending> CMP 06/11/2021 [facility] Albumin Serum/Plasma <pending> Alt - SGPT <pending> Calcium Ser/Plasma Mass/Vol <pending> Carbon Dioxide Ser/Plasm <pending> Chloride Serum/Plasma <pending> Creatinine Serum Mass/Vol <pending> Glucose Serum <pending> Alkaline Phosphatase <pending> Potassium <pending> Protein Total <pending> Sodium <pending> Ast - Sgot <pending> BUN - Urea Nitrogen <pending> CBC W/Auto Differential 06/11/2021 [facility] White Blood Count Ser Auto CNT <pending> [...] Auto CNT <pending> Laboratory test finding 06/11/2021 [facility] CRP (High Sensitivity) <pending> 1 Negative results do not prec lude influenza or RSV virus infection and should not be used as the sole basis for treatment or other patient management decisions. 2 Negative results do not prec lude influenza or RSV virus infection and should not be used as the sole basis for treatment or other patient management decisions. 3 Negative results do not prec lude influenza or RSV virus infection and should not be used as the sole basis for treatment or other patient management decisions. 4 A false negative result may occur if [...] pathogens. DISCLAIMER: Testing was performed using the [employer] SARS-CoV-2 test. This test was developed and its performance characteristics determined by [employer]. This test has not been FDA cleared [...] the authorization is terminated or revoked sooner. 5 Units are mL/min/1.73 m2 Chronic Kidney Disease Staging per NKF: Stage I & II GFR >=60 Normal to Mildly Decreased Stage III GFR 30-59 Moderately Decreased Stage IV GFR 15-29 Severely Decreased Stage V GFR <15 Very Little GFR Left ESRD GFR <15 on SHIFT NURSE MANAGER 6 Units are mL/min/1.73 m2 Chronic Kidney Disease Staging per NKF: Stage I & II GFR >=60 Normal to Mildly Decreased Stage III GFR 30-59 Moderately Decreased Stage IV GFR 15-29 Severely Decreased Stage V GFR <15 Very Little GFR Left ESRD GFR <15 on SHIFT NURSE MANAGER Procedures Date Code Description Status 06/08/2021 72836 Office/Outpatient Established Lo w MDM 20-29 Min Completed 03/06/2021 09995 Office/Outpatient Established Mo d MDM 30-39 Min Completed 02/02/2021 73553 Office/Outpatient Established Lo w MDM 20-29 Min Completed 01/31/2021 56234 Office/Outpatient Established Lo w MDM 20-29 Min Completed 06/28/2020 [id number] Mammogram Completed 11/10/2018 [id number] Mammogram Completed Medical Devices Description No Information Available Encounters Type Date Location Provider Dx Diagnosis Office Visit 06/08/2021 2:00p [facility] LIZBETH Mills R42 Dizziness and giddiness R35.0 Frequency of micturition Office Visit 03/06/2021 10:00a [facility] LZIBETH Garcia F33.0 Major depressive disorder, r ecurrent, mild E78.2 Mixed hyperlipidemia K21.9 Gastro-esophageal reflux dis ease without esophagitis F03.90 Unspecified dementia without behavioral disturbance Z87.11 Personal history of peptic u lcer disease Z79.899 [facility] (current) dr jake therapy Office Visit 02/02/2021 8:30a [facility] LIZBETH Garcia Z48.02 Encounter for removal of sut ures W10.8xxA Fall (on) (from) other stair s and steps, initial encounter S00.83xA Contusion of other part of h ead, initial encounter Z23 Encounter for immunization Office Visit 01/31/2021 1:30p [facility] LIZBETH Garcia S01.81xA Laceration w/o foreign [...] ulcer disease LIZBETH Garcia 03/06/2021 Z79.899 Other [facility] (current) drug t herapy LIZBETH Garcia 02/02/2021 [...]
--- OUTSIDE RECORDS SUMMARY | 2021-07-21 09:33 | CCD ---
Continuity of Care Document (CCD) Created on: 06/15/2021 Merritt, Mona Katie External Reference #: [id number] : 1935 Sex: Female Author Author Ashlie ESPINAL D.O. Organization Unknown Address [address] [facility] [address] [place] [address] Phone [phone] Care Team Providers Care Golf Club Head Former Name Role Phone Tanja Espinal D.O. AUTM Mathieu Euceda M.D. AUTM [facility] AUTM [phone] [facility] AUTM [phone] Bonifacio Means M.D. AUTM [phone] Problems Active Problems Provider Date H/O: peptic [...] Steven Collier.O. 06/08/2021 Calcium 600+D High Potency [id number] Tablets 1 by mouth twice a day 180tabs Tanja schmid, D.O. 12/17/2020 Prevagen Extra Strength 20mg Capsu les take one capsule by mouth daily. 90caps Steven Collier.O. 11/30/2020 Memantine HCL 10mg Tablets Take One Tablet By Mouth Twice A Day 180tabs F03.90 Steven Collier.O. 05/31/2020 Fluticasone Propionate Nasal [place] 50mcg/Act Suspension two sprays each nostril once [...] CPT Code Status Date Vaccine Lot # [id number] Given 02/02/2021 Tetanus, Diphthe opal Toxoids/Acellular Pertussis Vaccine 7 Or > [id number] Given 07/15/2020 Pneumococcal Vaccine 23 [place] nt 2Yrs Or Older 53633 Given 07/02/2019 Pneumococcal Con jugate Vaccine 13 Valent For Intramuscular Use U-Flu Given 04/17/2019 Influenza,Unspecified Vital Signs Date Vital Result Comment 06/08/2021 2:11pm BP Systolic 92 mmHg BP Diastolic 58 mmHg Height 61.7 inches 5'1.70" Heart Rate 80 /min Respiratory Rate 12 /min Body Temperature 98.5 F O2 % BldC Oximetry 95 % [place] Body Weight 105 lb 03/06/2021 10:03am BP Systolic 124 mmHg BP Diastolic 74 mmHg Height 61.7 inches 5'1.70" Weight 144.25 lb BMI (Body Mass Index) 26.6 kg/m2 Heart Rate 74 /min Respiratory Rate 18 /min Body Temperature 97.8 F O2 % BldC Oximetry 95 % [place] Body Weight 105 lb Results Test Acquired Date Facility Test Result H/L Range Note Influenza A/B RSV Covid Amp 06/14/2021 [facility] Outpatie nt Testing (Registration) [address] [place] [address] [phone] Influenza A Amplification NEGATIVE Normal Negati ve 1 Influenza B Amplification NEGATIVE Normal Negative 2 RSV Amplification NEGATIVE Normal Negative 3 Sars Covid-19 Amplification NEGATIVE Normal Negative 4 CBC With Differential 06/14/2021 [facility] Outpatient Poornima whelan (Registration) [address] [place] [address] [phone] White Blood Count 4.9 10 Normal 4.0-10.0 [...] % 0.0 % Normal 0-0 Differential 06/14/2021 [facility] Outpatient Testi ng (Registration) [address] [place] [address] [phone] Neutrophils 57 % Normal 28-66 Lymphocytes 25 % Normal 16-44 Monocytes 3 % Normal 0-5 Eosinophils 4 % High 0-3 Atypical Lymph 11 % High 0-5 Hypochromasia 1+ Normal Laboratory test finding 06/14/2021 [facility] Outpatient T esting (Registration) [address] [place] [address] [phone] Platelet Estimate DECREASED Normal Normal Ua Routine 06/14/2021 [facility] Outpatient Testi ng (Registration) [address] [place] [address] [phone] Appearance, Urine HAZY Normal Clear Color, Urine YELLOW Normal Yellow PH,Urine 5.0 units Normal 5.0-9.0 Specific [place] Urine Auto 1.013 Normal 1.002-1.035 Protein, Urine [...] /LPF Normal 0-1 Comprehensive Metabolic Profil 06/14/2021 [facility] Outpa tient Testing (Registration) [address] [place] [address] [phone] Glucose, Fasting 103 mg/dL High 70-100 Blood [...] 1.1 Low 1.2-2.2 CBC With Differential 06/12/2021 [facility] Outpatient Poornima ting (Registration) [address] [place] [address] [phone] White Blood Count 4.5 10 Normal 4.0-10.0 [...] 36.0-66.0 Lymph % 24.1 % Normal 24.0-44.0 [place] % 9.5 % High 2.0-8.0 Eos % 5.3 % High 0.0-3.0 Baso % 0.4 % Normal 0.0-1.0 Immature Granulocyte % 0.4 % Normal 0-3.0 Nucleated Red Blood Cell % 0.0 % Normal 0-0 Neutrophils # 2.7 10 Normal 1.5-8.5 Lymph # 1.1 10 Low 1.5-5.0 [place] # 0.4 10 Normal 0.0-0.8 Eos # 0.2 10 Normal 0.0-0.5 Baso # 0.0 10 Normal 0.0-0.2 Laboratory test finding 06/12/2021 [facility] Outpatient T esting (Registration) [address] [place] [address] [phone] C Reactive Protein Quantitativ 3.08 mg/dL High 0 .00-0.30 Comprehensive Metabolic Profil 06/12/2021 [facility] Outpa tient Testing (Registration) [address] [place] [address] [phone] Glucose, Fasting 79 mg/dL Normal 70-100 Blood [...] Ratio 1.2 Normal 1.2-2.2 Ua Routine 06/12/2021 [facility] Outpatient Testi (Registration) [address] [place] [address] [phone] Appearance, Urine HAZY Normal Clear Color, Urine YELLOW Normal Yellow PH,Urine 5.0 units Normal 5.0-9.0 Specific [place] Urine Auto 1.018 Normal 1.002-1.035 Protein, Urine [...] /LPF Normal 0-1 Ua Routine 06/11/2021 [facility] Ua Specific [place] <pending> Ua PH Test Strip <pending> Ua Color <pending> Ua Appearance <pending> Ua WBC <pending> Ua Protein <pending> Urine Glucose QL <pending> Ua Ketones <pending> Ua Bilirubin <pending> Urine Urobilinogen QN TS <pending> Urine Nitrite QL TS <pending> Ua Occult Blood <pending> Laboratory test finding 06/11/2021 [facility] Culture Urine Routine <pending> CMP 06/11/2021 [facility] Albumin Serum/Plasma <pending> Alt - SGPT <pending> Calcium Ser/Plasma Mass/Vol <pending> Carbon Dioxide Ser/Plasm <pending> Chloride Serum/Plasma <pending> Creatinine Serum Mass/Vol <pending> Glucose Serum <pending> Alkaline Phosphatase <pending> Potassium <pending> Protein Total <pending> Sodium <pending> Ast - Sgot <pending> BUN - Urea Nitrogen <pending> CBC W/Auto Differential 06/11/2021 [facility] White Blood Count Ser Auto [...] Auto CNT <pending> Laboratory test finding 06/11/2021 [facility] CRP (High Sensitivity) <pending> 1 [...] pathogens. DISCLAIMER: Testing was performed using the [email or web address] SARS-CoV-2 test. This test was developed and its performance characteristics determined by [email or web address]. This test has not been FDA cleared [...] Little GFR Left ESRD GFR <15 on CREW LEADER GLUING 6 Units are mL/min/1.73 m2 Chronic Kidney Disease Staging per NKF: Stage I & II GFR >=60 Normal to Mildly Decreased Stage III GFR 30-59 Moderately Decreased Stage IV GFR 15-29 Severely Decreased Stage V GFR <15 Very Little GFR Left ESRD GFR <15 on CREW LEADER GLUING Procedures Date Code Description Status 06/08/2021 68549 Office/Outpatient Established Lo w MDM 20-29 Min Completed 03/06/2021 59531 Office/Outpatient Established Mo d MDM 30-39 Min Completed 02/02/2021 92870 Office/Outpatient Established Lo w MDM 20-29 Min Completed 01/31/2021 40146 Office/Outpatient Established Lo w MDM 20-29 Min Completed 06/28/2020 [id number] Mammogram Completed 11/10/2018 [id number] Mammogram Completed Medical Devices Description No Information Available Encounters Type Date Location Provider Dx Diagnosis Office Visit 06/08/2021 2:00p [facility] LIZBETH Mills R42 Dizziness and giddiness R35.0 Frequency of micturition Office Visit 03/06/2021 10:00a [facility] LIZBETH Garcia F33.0 Major depressive disorder, r ecurrent, mild E78.2 Mixed hyperlipidemia K21.9 Gastro-esophageal reflux dis ease without esophagitis F03.90 Unspecified dementia without behavioral disturbance Z87.11 Personal history of peptic u lcer disease Z79.899 Other [facility]current[facility] dr jake therapy Office Visit 02/02/2021 8:30a [facility] LIZBETH Garcia Z48.02 Encounter for removal of sut ures W10.8xxA Fall (on) (from) other stair s and steps, initial encounter S00.83xA Contusion of other part of h ead, initial encounter Z23 Encounter for immunization Office Visit 01/31/2021 1:30p [facility] LIZBETH Garcia S01.81xA Laceration w/o foreign body [...] ulcer disease LIZBETH Garcia 03/06/2021 Z79.899 Other [facility]current[facility] drug t herapy LIZBETH Garcia 02/02/2021 [...] 09/10/2021 10:00 am - LIZBETH Garcia at [facility] 06/08/2021 - LIZBETH Garcia* R42 Dizziness and [...]
--- OUTSIDE RECORDS SUMMARY | 2021-07-21 09:33 | CCD | Continuity of Care Document ---
Author Author Ashlie SMITH Organization Unknown Address [place] [address] Phone [phone] Care Team Providers Care Mortuary Beautician Name Role Phone Tanja Espinal D.O. AUTM [phone] Mathieu Euceda M.D. AUTM [phone] AUTM [phone] [facility] AUTM [phone] Bonifacio Means M.D. AUTM [phone] Problems Active Problems Provider Date H/O: peptic [...] Provide r Date Calcium 600+D High Potency [id number]-Noaf Tablets 1 by mouth twice a day 180tabs Mathieu GossO. 12/17/2020 Prevagen Extra Strength 20mg Capsu les take one capsule by mouth daily. 90caps Mathieu CollierO. 11/30/2020 Memantine HCL 10mg Tablets Take One Tablet By Mouth Twice A Day 180tabs F03.90 Steven Collier.O. 05/31/2020 Fluticasone Propionate Nasal [place] 50mcg/Act Suspension two sprays each nostril once daily 29.7ml J06.9 Stevne Patterson.O. 10/06/[address] take [...] CPT Code Status Date Vaccine Lot # [id number] Given 02/02/2021 Tetanus, Diphthe opal Toxoids/Acellular Pertussis Vaccine 7 Or > [id number] Given 07/15/2020 Pneumococcal Vaccine 23 Viri nt 2Yrs Or Older 80211 Given 07/02/2019 Pneumococcal Con jugate Vaccine 13 Valent For Intramuscular Use U-Flu Given 04/17/2019 Influenza,Unspecified Vital Signs Date Vital Result Comment 06/19/2021 2:48pm BP Systolic 124 mmHg BP Diastolic 72 mmHg Height 61.7 inches 5'1.70" Weight 134.00 lb BMI (Body Mass Index) 24.7 kg/m2 Heart Rate 81 /min Respiratory Rate 18 /min Body Temperature 98.8 F O2 % BldC Oximetry 100 % [place] Body Weight 105 lb 06/08/2021 2:11pm BP Systolic 92 mmHg BP Diastolic 58 mmHg Height 61.7 inches 5'1.70" Heart Rate 80 /min Respiratory Rate 12 /min Body Temperature 98.5 F O2 % BldC Oximetry 95 % [place] Body Weight 105 lb Results Test Acquired Date Facility Test Result H/L Range Note Comprehensive Metabolic Profil 06/14/2021 [facility] Outpa tient Testing (Registration) [address] [place] [address] [phone] Glucose, Fasting 103 mg/dL High 70-100 Blood [...] 1.2-2.2 Influenza A/B RSV Covid Amp 06/14/2021 [facility] Outpatie nt Testing (Registration) [address] [place] [address] [phone] Influenza A Amplification NEGATIVE Normal Negati ve 2 Influenza B Amplification NEGATIVE Normal Negative 3 RSV Amplification NEGATIVE Normal Negative 4 Sars Covid-19 Amplification NEGATIVE Normal Negative 5 CBC With Differential 06/14/2021 [facility] Outpatient Poornima ting (Registration) [address] [place] [address] [phone] White Blood Count 4.9 10 Normal 4.0-10.0 [...] % 0.0 % Normal 0-0 Differential 06/14/2021 [facility] Outpatient Testi ng (Registration) [address] [place], [place] [id number] [phone] Neutrophils 57 % Normal 28-66 Lymphocytes 25 % Normal 16-44 Monocytes 3 % Normal 0-5 Eosinophils 4 % High 0-3 Atypical Lymph 11 % High 0-5 Hypochromasia 1+ Normal Laboratory test finding 06/14/2021 [facility] Outpatient T esting (Registration) [address] [place] [address] [phone] Platelet Estimate DECREASED Normal Normal Ua Routine 06/14/2021 [facility] Outpatient Testi ng (Registration) [address] [place] [address] [phone] Appearance, Urine HAZY Normal Clear Color, Urine YELLOW Normal Yellow PH,Urine 5.0 units Normal 5.0-9.0 Specific [place] Urine Auto 1.013 Normal 1.002-1.035 Protein, Urine [...] 0 /LPF Normal 0-1 Ua Routine 06/12/2021 [facility] Outpatient Testi ng (Registration) [address] [place] [address] [phone] Appearance, Urine HAZY Normal Clear Color, Urine YELLOW Normal Yellow PH,Urine 5.0 units Normal 5.0-9.0 Specific [place] Urine Auto 1.018 Normal 1.002-1.035 Protein, Urine [...] /LPF Normal 0-1 Comprehensive Metabolic Profil 06/12/2021 [facility] Outpa tient Testing (Registration) [address] [place] [address] [phone] Glucose, Fasting 79 mg/dL Normal 70-100 Blood [...] 1.2 Normal 1.2-2.2 CBC With Differential 06/12/2021 [facility] Outpatient Poornima ting (Registration) [address] [place] [address] [phone] White Blood Count 4.5 10 Normal 4.0-10.0 [...] 36.0-66.0 Lymph % 24.1 % Normal 24.0-44.0 [place] % 9.5 % High 2.0-8.0 Eos % 5.3 % High 0.0-3.0 Baso % 0.4 % Normal 0.0-1.0 Immature Granulocyte % 0.4 % Normal 0-3.0 Nucleated Red Blood Cell % 0.0 % Normal 0-0 Neutrophils # 2.7 10 Normal 1.5-8.5 Lymph # 1.1 10 Low 1.5-5.0 [place] # 0.4 10 Normal 0.0-0.8 Eos # 0.2 10 Normal 0.0-0.5 Baso # 0.0 10 Normal 0.0-0.2 Laboratory test finding 06/12/2021 [facility] Outpatient T daviing (Registration) [address] [place] [address] [phone] C Reactive Protein Quantitativ 3.08 mg/dL High 0 .00-0.30 1 Units are mL/min/1.73 m2 Chronic Kidney Disease Staging per NKF: Stage I & II GFR >=60 Normal to Mildly Decreased Stage III GFR 30-59 Moderately Decreased Stage IV GFR 15-29 Severely Decreased Stage V GFR <15 Very Little GFR Left ESRD GFR <15 on CHIEF CLINICAL OFFICER 2 Negative results do not prec lude [...] pathogens. DISCLAIMER: Testing was performed using the [employer] SARS-CoV-2 test. This test was developed and its performance characteristics determined by [employer]. This test has not been FDA cleared [...] Little GFR Left ESRD GFR <15 on CHIEF CLINICAL OFFICER Procedures Date Code Description Status 06/19/2021 60074 Office/Outpatient Established Lo w MDM 20-29 Min Completed 06/08/2021 34766 Office/Outpatient Established Lo w MDM 20-29 Min Completed 03/06/2021 80673 Office/Outpatient Established Mo d MDM 30-39 Min Completed 02/02/2021 44321 Office/Outpatient Established Lo w MDM 20-29 Min Completed 01/31/2021 71864 Office/Outpatient Established Lo w MDM 20-29 Min Completed 06/28/2020 [id number] Mammogram Completed 11/10/2018 [id number] Mammogram Completed Medical Devices Description No Information Available Encounters Type Date Location Provider Dx Diagnosis Office Visit 06/19/2021 2:40p [facility] LIZBETH Garcia R09.89 Oth symptoms and signs invol ving the circ and resp systems D72.89 Other specified disorders of white blood cells Office Visit 06/08/2021 2:00p [facility] LIZBETH Garcia R42 Dizziness and giddiness R35.0 Frequency of micturition Office Visit 03/06/2021 10:00a [facility] LIZBETH Garcia F33.0 Major depressive disorder, r ecurrent, mild E78.2 Mixed hyperlipidemia K21.9 Gastro-esophageal reflux dis ease without esophagitis F03.90 Unspecified dementia without behavioral disturbance Z87.11 Personal history of peptic u lcer disease Z79.899 Other long-term (current) dr joseph therapy Office Visit 02/02/2021 8:30a [facility] LIZBETH Garcia Z48.02 Encounter for removal of sut ures W10.8xxA Fall (on) (from) other stair s and steps, initial encounter S00.83xA Contusion of other part of h ead, initial encounter Z23 Encounter for immunization Office Visit 01/31/2021 1:30p [facility] LIZBETH Garcia S01.81xA Laceration w/o foreign body of oth part of head, init encntr W10.8xxA Fall (on) (from) other stair s and steps, initial encounter S00.83xA Contusion of other part of h ead, initial encounter Assessments Date Code Description Provider 06/19/2021 R09.89 Other specified symp toms and signs involving the circulatory and respiratory systems LIZBETH Garcia 06/19/2021 D72.89 Other specified disorders of [facility] te blood cells LIZBETH Garcia [...] disease LIZBETH Garcia 03/06/2021 Z79.899 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
--- OUTSIDE RECORDS SUMMARY | 2021-07-21 09:33 | CCD | Continuity of Care Document ---
Author Author Ashlie SMITH Organization [place] [address] Phone [phone] Care Team Providers Care Senior Web Engineer Name Role Phone Tanja Espinal D.O. AUTM Mathieu Euceda M.D. AUTM [phone] AUTM [phone] [facility] - Ophthalmology AUTM [phone] Bonifacio Means M.D. AUTM [phone] Problems Active Problems Provider Date H/O: peptic [...] Provide r Date Calcium 600+D High Potency [id number]-Nrpt Tablets 1 by mouth twice a day 180tabs Mathieu GossO. 12/17/2020 Prevagen Extra Strength 20mg Capsu les take one capsule by mouth daily. 90caps Mathieu CollierO. 11/30/2020 Memantine HCL 10mg Tablets Take One Tablet By Mouth Twice A Day 180tabs F03.90 Steven Collier.O. 05/31/2020 Fluticasone Propionate Nasal [place] 50mcg/Act Suspension two sprays each nostril once [...] CPT Code Status Date Vaccine Lot # [id number] Given 02/02/2021 Tetanus, Diphthe opal Toxoids/Acellular Pertussis Vaccine 7 Or > [id number] Given 07/15/2020 Pneumococcal Vaccine 23 Viri nt 2Yrs Or Older 15994 Given 07/02/2019 Pneumococcal Con jugate Vaccine 13 Valent For Intramuscular Use U-Flu Given 04/17/2019 Influenza,Unspecified Vital Signs Date Vital Result Comment 06/19/2021 2:48pm BP Systolic 124 mmHg BP Diastolic 72 mmHg Height 61.7 inches 5'1.70" Weight 134.00 lb BMI (Body Mass Index) 24.7 kg/m2 Heart Rate 81 /min Respiratory Rate 18 /min Body Temperature 98.8 F O2 % BldC Oximetry 100 % [place] Body Weight 105 lb 06/08/2021 2:11pm BP Systolic 92 mmHg BP Diastolic 58 mmHg Height 61.7 inches 5'1.70" Heart Rate 80 /min Respiratory Rate 12 /min Body Temperature 98.5 F O2 % BldC Oximetry 95 % [place] Body Weight 105 lb Results Test Acquired Date Facility Test Result H/L Range Note Comprehensive Metabolic Profil 06/14/2021 [facility] Outpa tient Testing (Registration) [address] [place] [address] [phone] Glucose, Fasting 103 mg/dL High 70-100 Blood [...] 1.2-2.2 Influenza A/B RSV Covid Amp 06/14/2021 [facility] Outpatie nt Testing (Registration) [address] [place] [address] [phone] Influenza A Amplification NEGATIVE Normal Negati ve 2 Influenza B Amplification NEGATIVE Normal Negative 3 RSV Amplification NEGATIVE Normal Negative 4 Sars Covid-19 Amplification NEGATIVE Normal Negative 5 CBC With Differential 06/14/2021 [facility] Outpatient Poornima ting (Registration) [address] [place] [address] [phone] White Blood Count 4.9 10 Normal 4.0-10.0 [...] % 0.0 % Normal 0-0 Differential 06/14/2021 [facility] Outpatient Testi ng (Registration) [address] [place], [place] [address] [phone] Neutrophils 57 % Normal 28-66 Lymphocytes 25 % Normal 16-44 Monocytes 3 % Normal 0-5 Eosinophils 4 % High 0-3 Atypical Lymph 11 % High 0-5 Hypochromasia 1+ Normal Laboratory test finding 06/14/2021 [facility] Outpatient T esting (Registration) [address] [place] [address] [phone] Platelet Estimate DECREASED Normal Normal Ua Routine 06/14/2021 [facility] Outpatient Testi ng (Registration) [address] [place] [address] [phone] Appearance, Urine HAZY Normal Clear Color, Urine YELLOW Normal Yellow PH,Urine 5.0 units Normal 5.0-9.0 Specific [place] Urine Auto 1.013 Normal 1.002-1.035 Protein, Urine [...] 0 /LPF Normal 0-1 Ua Routine 06/12/2021 [facility] Outpatient Testi ng (Registration) [address] [place] [address] [phone] Appearance, Urine HAZY Normal Clear Color, Urine YELLOW Normal Yellow PH,Urine 5.0 units Normal 5.0-9.0 Specific [place] Urine Auto 1.018 Normal 1.002-1.035 Protein, Urine [...] /LPF Normal 0-1 Comprehensive Metabolic Profil 06/12/2021 [facility] Outpa tient Testing (Registration) [address] [place] [address] [phone] Glucose, Fasting 79 mg/dL Normal 70-100 Blood [...] 1.2 Normal 1.2-2.2 CBC With Differential 06/12/2021 [facility] Outpatient Poornima ting (Registration) [address] [place] [address] [phone] White Blood Count 4.5 10 Normal 4.0-10.0 [...] 36.0-66.0 Lymph % 24.1 % Normal 24.0-44.0 [place] % 9.5 % High 2.0-8.0 Eos % 5.3 % High 0.0-3.0 Baso % 0.4 % Normal 0.0-1.0 Immature Granulocyte % 0.4 % Normal 0-3.0 Nucleated Red Blood Cell % 0.0 % Normal 0-0 Neutrophils # 2.7 10 Normal 1.5-8.5 Lymph # 1.1 10 Low 1.5-5.0 [place] # 0.4 10 Normal 0.0-0.8 Eos # 0.2 10 Normal 0.0-0.5 Baso # 0.0 10 Normal 0.0-0.2 Laboratory test finding 06/12/2021 [facility] Outpatient T daviing (Registration) [address] [place] [address] [phone] C Reactive Protein Quantitativ 3.08 mg/dL High 0 .00-0.30 1 Units are mL/min/1.73 m2 Chronic Kidney Disease Staging per NKF: Stage I & II GFR >=60 Normal to Mildly Decreased Stage III GFR 30-59 Moderately Decreased Stage IV GFR 15-29 Severely Decreased Stage V GFR <15 Very Little GFR Left ESRD GFR <15 on PRESCHOOL ASSISTANT TEACHER 2 Negative results do not prec lude [...] pathogens. DISCLAIMER: Testing was performed using the [employer] SARS-CoV-2 test. This test was developed and its performance characteristics determined by [employer]. This test has not been FDA cleared [...] Little GFR Left ESRD GFR <15 on PRESCHOOL ASSISTANT TEACHER Procedures Date Code Description Status 06/19/2021 68915 Office/Outpatient Established Lo w MDM 20-29 Min Completed 06/08/2021 98290 Office/Outpatient Established Lo w MDM 20-29 Min Completed 03/06/2021 09553 Office/Outpatient Established Mo d MDM 30-39 Min Completed 02/02/2021 22264 Office/Outpatient Established Lo w MDM 20-29 Min Completed 01/31/2021 91335 Office/Outpatient Established Lo w MDM 20-29 Min Completed 06/28/2020 [id number] Mammogram Completed 11/10/2018 [id number] Mammogram Completed Medical Devices Description No Information Available Encounters Type Date Location Provider Dx Diagnosis Office Visit 06/19/2021 2:40p [facility] LIZBETH Garcia R09.89 Oth symptoms and signs invol ving the circ and resp systems D72.89 Other specified disorders of white blood cells Office Visit 06/08/2021 2:00p [facility] LIZBETH Garcia R42 Dizziness and giddiness R35.0 Frequency of micturition Office Visit 03/06/2021 10:00a [facility] LIZBETH Garcia F33.0 Major depressive disorder, r ecurrent, mild E78.2 Mixed hyperlipidemia K21.9 Gastro-esophageal reflux dis ease without esophagitis F03.90 Unspecified dementia without behavioral disturbance Z87.11 Personal history of peptic u lcer disease Z79.899 Other residential (current) dr joseph therapy Office Visit 02/02/2021 [...] Garcia 06/19/2021 D72.89 Other specified disorders of [facility] te blood cells LIZBETH Garcia 06/08/2021 [...] disease LIZBETH Garcia 03/06/2021 Z79.899 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
--- OUTSIDE RECORDS SUMMARY | 2021-07-21 09:34 | CCD ---
Author Author [facility] Organization [facility] Address Unknown Phone Unavailable Care Team Providers Care Systems Specialist Name Role Phone Fish, B Benton RUIZ Unavailable Unavailable Fish, B Benton RUIZ Unavailable Unavailable Fish, B Benton RUIZ Unavailable Unavailable Fish, B Benton RUIZ Unavailable Unavailable Fish, B Benton RUIZ Unavailable Unavailable Fish, B Benton RUIZ Unavailable Unavailable Fish, B Benton RUIZ Unavailable Unavailable Fish, B Benton RUIZ Unavailable Unavailable Fish, B Benton RUIZ Unavailable Unavailable Fish, B Benton RUIZ Unavailable Unavailable Fish, B Benton RUIZ Unavailable Unavailable Fish, B Benton RUIZ Unavailable Unavailable Fish, B Benton RUIZ Unavailable Unavailable Fish, B Benton RUIZ Unavailable Unavailable Fish, B Benton RUIZ Unavailable Unavailable Fish, B Benton RUIZ Unavailable Unavailable Fish, B Benton RUIZ Unavailable Unavailable Fish, B Benton RUIZ Unavailable Unavailable Fish, B Benton RUIZ Unavailable Unavailable Fish, B Benton RUIZ Unavailable Unavailable Fish, B Benton RUIZ Unavailable Unavailable Fish, B Benton RUIZ Unavailable Unavailable Fish, B Benton RUIZ Unavailable Unavailable Fish, B Benton RUIZ Unavailable Unavailable Fish, B Benton RUIZ Unavailable Unavailable Fish, B Benton RUIZ Unavailable Unavailable Fish, B Benton RUIZ Unavailable Unavailable Fish, B Benton RUIZ Unavailable Unavailable Fish, B Benton RUIZ Unavailable Unavailable Fish, B Benton RUIZ Unavailable Unavailable Fish, B Benton RUIZ Unavailable Unavailable Fish, B Benton RUIZ Unavailable Unavailable Fish, B Benton RUIZ Unavailable Unavailable Fish, B Benton RUIZ Unavailable Unavailable Fish, B Benton RUIZ Unavailable Unavailable Fish, B Benton RUIZ Unavailable Unavailable Fish, B Benton RUIZ Unavailable Unavailable Fish, B Benton RUIZ Unavailable Unavailable Fish, B Benton RUIZ Unavailable Unavailable Fish, B Benton RUIZ Unavailable Unavailable Fish, B Benton RUIZ Unavailable Unavailable Fish, B Benton RUIZ Unavailable Unavailable Fish, B Benton RUIZ Unavailable Unavailable Fish, B Benton RUIZ Unavailable Unavailable Fish, B Benton RUIZ Unavailable Unavailable Fish, B Benton RUIZ Unavailable Unavailable Fish, B Benton RUIZ Unavailable Unavailable Fish, B Benton RUIZ Unavailable Unavailable Fish, B Benton RUIZ Unavailable Unavailable Fish, B Benton RUIZ Unavailable Unavailable Fish, B Benton RUIZ Unavailable Unavailable Fish, B Benton RUIZ Unavailable Unavailable Fish, B Benton RUIZ Unavailable Unavailable Fish, B Benton RUIZ Unavailable Unavailable Fish, B Benton RUIZ Unavailable Unavailable Fish, B Benton RIUZ Unavailable Unavailable MCELHERAN, SHAYLA PA Unavailable Unavailable MCELHERAN, SHAYLA PA Unavailable Unavailable MCELHERAN, SHAYLA PA Unavailable Unavailable MCELHERAN, SHAYLA PA Unavailable Unavailable MCELHERAN, SHAYLA PA Unavailable Unavailable MCELHERAN, SHAYLA PA Unavailable Unavailable MCELHERAN, SHAYLA PA Unavailable Unavailable MCELHERAN, SHAYLA PA Unavailable Unavailable MCELHERAN, SHAYLA PA Unavailable Unavailable MCELHERAN, SHAYLA PA Unavailable Unavailable MCELHERAN, SHAYLA PA Unavailable Unavailable MCELHERAN, SHAYLA PA Unavailable Unavailable MCELHERAN, SHAYLA PA Unavailable Unavailable MCELHERAN, SHAYLA PA Unavailable Unavailable MCELHERAN, SHAYLA PA Unavailable Unavailable MCELAN, SHAYLA PA Unavailable Unavailable MCELAN, SHAYLA PA Unavailable Unavailable MCELAN, SHAYLA PA Unavailable Unavailable MCELHERAN, SHAYLA PA Unavailable Unavailable MCELHERAN, SHAYLA PA Unavailable Unavailable MCELHERAN, SHAYLA PA Unavailable Unavailable MCELHERAN, SHAYLA PA Unavailable Unavailable MCELHERAN, SHAYLA PA Unavailable Unavailable MCELHERAN, SHAYLA PA Unavailable Unavailable MCELHERAN, SHAYLA PA Unavailable Unavailable MCELHERAN, SHAYLA PA Unavailable Unavailable MCELHERAN, SHAYLA PA Unavailable Unavailable MCELHERAN, SHAYLA PA Unavailable Unavailable MCELHERAN, SHAYLA PA Unavailable Unavailable THEO-MCKINLEY, EMILEE DO Unavailable Unavailable THEO-MCKINLEY, EMILEE DO Unavailable Unavailable THEO-MCKINLEY, EMILEE DO Unavailable Unavailable THEO-MCKINLEY, EMILEE DO Unavailable Unavailable THEO-MCKINLEY, EMILEE DO Unavailable Unavailable THEO-MCKINLEY, EMILEE DO Unavailable Unavailable THEO-MCKINLEY, EMILEE DO Unavailable Unavailable THEO-MCKINLEY, EMILEE DO Unavailable Unavailable THEO-MCKINLEY, EMILEE DO Unavailable Unavailable THEO-MCKINLEY, EMILEE DO Unavailable Unavailable THEO-MCKINLEY, EMILEE DO Unavailable Unavailable THEO-MCKINLEY, EMILEE DO Unavailable Unavailable THEO-MCKINLEY, EMILEE DO Unavailable Unavailable THEO-MCKINLEY, EMILEE DO Unavailable Unavailable THEO-MCKINLEY, EMILEE DO Unavailable Unavailable THEO-MCKINLEY, EMILEE DO Unavailable Unavailable THEO-MCKINLEY, EMILEE DO Unavailable Unavailable THEO-MCKINLEY, EMILEE DO Unavailable Unavailable THEO-MCKINLEY, EMILEE DO Unavailable Unavailable THEO-MCKINLEY, EMILEE DO Unavailable Unavailable THEO-MCKINLEY, EMILEE DO Unavailable Unavailable THEO-MCKINLEY, EMILEE DO Unavailable Unavailable THEO-MCKINLEY, EMILEE DO Unavailable Unavailable THEO-MCKINLEY, EMILEE DO Unavailable Unavailable THEO-MCKINLEY, EMILEE DO Unavailable Unavailable THEO-MCKINLEY, EMILEE DO Unavailable Unavailable THEO-MCKINLEY, EMILEE DO Unavailable Unavailable THEO-MCKINLEY, EMILEE DO Unavailable Unavailable THEO-MCKINLEY, EMILEE DO Unavailable Unavailable THEO-MCKINLEY, EMILEE DO Unavailable Unavailable THEO-MCKINLEY, EMILEE DO Unavailable Unavailable THEO-MCKINLEY, EMILEE DO Unavailable Unavailable THEO-MCKINLEY, EMILEE DO Unavailable Unavailable THEO-MCKINLEY, EMILEE DO Unavailable Unavailable THEO-MCKINLEY, EMILEE DO Unavailable Unavailable THEO-MCKINLEY, EMILEE DO Unavailable Unavailable THEO-MCKINLEY, EMILEE DO Unavailable Unavailable THEO-MCKINLEY, EMILEE DO Unavailable Unavailable THEO-MCKINLEY, EMILEE DO Unavailable Unavailable THEO-MCKINLEY, EMILEE DO Unavailable Unavailable THEO-MCKINLEY, EMILEE DO Unavailable Unavailable THEO-MCKINLEY, EMILEE DO Unavailable Unavailable THEO-MCKINLEY, EMILEE DO Unavailable Unavailable THEO-MCKINLEY, EMILEE DO Unavailable Unavailable THEO-MCKINLEY, EMILEE DO Unavailable Unavailable THEO-MCKINLEY, EMILEE DO Unavailable Unavailable THEO-MCKINLEY, EMILEE DO Unavailable Unavailable THEO-MCKINLEY, EMILEE DO Unavailable Unavailable THEO-MCKINLEY, EMILEE DO Unavailable Unavailable THEO-MCKINLEY, EMILEE DO Unavailable Unavailable THEO-MCKINLEY, EMILEE DO Unavailable Unavailable THEO-MCKINLEY, EMILEE DO Unavailable Unavailable THEO-MCKINLEY, EMILEE DO Unavailable Unavailable THEO-MCKINLEY, EMILEE DO Unavailable Unavailable THEO-MCKINLEY, EMILEE DO Unavailable Unavailable THEO-MCKINLEY, EMILEE DO Unavailable Unavailable THEO-MCKINLEY, EMILEE DO Unavailable Unavailable THEO-MCKINLEY, EMILEE DO Unavailable Unavailable THEO-MCKINLEY, EMILEE DO Unavailable Unavailable THEO-MCKINLEY, EMILEE DO Unavailable Unavailable THEO-MCKINLEY, EMILEE DO Unavailable Unavailable THEO-MCKINLEY, EMILEE DO Unavailable Unavailable THEO-MCKINLEY, EMILEE DO Unavailable Unavailable THEO-MCKINLEY, EMILEE DO Unavailable Unavailable THEO-MCKINLEY, EMILEE DO Unavailable Unavailable THEO-MCKINLEY, EMILEE DO Unavailable Unavailable THEO-MCKINLEY, EMILEE DO Unavailable Unavailable THEO-MCKINLEY, EMILEE DO Unavailable Unavailable THEO-MCKINLEY, EMILEE DO Unavailable Unavailable THEO-MCKINLEY, EMILEE DO Unavailable Unavailable THEO-MCKINLEY, EMILEE DO Unavailable Unavailable THEO-MCKINLEY, EMILEE DO Unavailable Unavailable THEO-MCKINLEY, EMILEE DO Unavailable Unavailable THEO-MCKINLEY, EMILEE DO Unavailable Unavailable THEO-MCKINLEY, EMILEE DO Unavailable Unavailable THEO-MCKINLEY, EMILEE DO Unavailable Unavailable THEO-MCKINLEY, EMILEE DO Unavailable Unavailable THEO-MCKINLEY, EMILEE DO Unavailable Unavailable THEO-MCKINLEY, EMILEE DO Unavailable Unavailable THEO-MCKINLEY, EMILEE DO Unavailable Unavailable THEO-MCKINLEY, EMILEE DO Unavailable Unavailable THEO-MCKINLEY, EMILEE DO Unavailable Unavailable THEO-MCKINLEY, EMILEE DO Unavailable Unavailable THEO-MCKINLEY, EMILEE DO Unavailable Unavailable O'vargas, A Shayla PA Unavailable Unavailable O'vargas, A Shayla PA Unavailable Unavailable O'vargas, A Shayla PA Unavailable Unavailable O'vargas, A Shayla PA Unavailable Unavailable O'vargas, A Shayla PA Unavailable Unavailable O'vargas, A Shayla PA Unavailable Unavailable O'vargas, A Shayla PA Unavailable Unavailable O'vargas, A Shayla PA Unavailable Unavailable O'vargas, A Shayla PA Unavailable Unavailable O'vargas, A Shayla PA Unavailable Unavailable O'vargas, A Shayla PA Unavailable Unavailable O'vargas, A Shayla PA Unavailable Unavailable O'vargas, A Shayla PA Unavailable Unavailable O'vargas, A Shayla PA Unavailable Unavailable O'vargas, A Shayla PA Unavailable Unavailable O'vargas, A Shayla PA Unavailable Unavailable O'vargas, A Shayla PA Unavailable Unavailable O'vargas, A Shayla PA Unavailable Unavailable O'vargas, A Shayla PA Unavailable Unavailable O'vargas, A Shayla PA Unavailable Unavailable O'vargas, A Shayla PA Unavailable Unavailable O'vargas, A Shayla PA Unavailable Unavailable O'vargas, A Shayla PA Unavailable Unavailable O'vargas, A Shayla PA Unavailable Unavailable O'vargas, A Shayla PA Unavailable Unavailable O'vargas, A Shayla PA Unavailable Unavailable O'vargas, A Shayla PA Unavailable Unavailable O'vargas, A Shayla PA Unavailable Unavailable O'vargas, A Shayla PA Unavailable Unavailable O'vargas, A Shayla PA Unavailable Unavailable O'vargas, A Shayla PA Unavailable Unavailable O'vargas, A Shayla PA Unavailable Unavailable O'vargas, A Shayla PA Unavailable Unavailable FORNI, R SUJATA DPM Unavailable Unavailable FORNI, R SUJATA DPM Unavailable Unavailable FORNI, R SUJATA DPM Unavailable Unavailable FORNI, R SUJATA DPM Unavailable Unavailable FORNI, R SUJATA DPM Unavailable Unavailable FORNI, R SUJATA DPM Unavailable Unavailable FORNI, R SUJATA DPM Unavailable Unavailable FORNI, R SUJATA DPM Unavailable Unavailable FORNI, R SUJATA DPM Unavailable Unavailable FORNI, R SUJATA DPM Unavailable Unavailable FORNI, R SUJATA DPM Unavailable Unavailable FORNI, R SUJATA DPM Unavailable Unavailable FORNI, R SUJATA DPM Unavailable Unavailable FORNI, R SUJATA DPM Unavailable Unavailable FORNI, R SUJATA DPM Unavailable Unavailable FORNI, R SUJATA DPM Unavailable Unavailable FORNI, R SUJATA DPM Unavailable Unavailable FORNI, R SUJATA DPM Unavailable Unavailable FORNI, R SUJATA DPM Unavailable Unavailable FORNI, R SUJATA DPM Unavailable Unavailable ARNAV, A LINDA DO Unavailable Unavailable ARNAV, A LINDA DO Unavailable Unavailable ARNAV, A LINDA DO Unavailable Unavailable ARNAV, A LINDA DO Unavailable Unavailable ARNAV, A LINDA DO Unavailable Unavailable ARNAV, A LINDA DO Unavailable Unavailable ARNAV, A LINDA DO Unavailable Unavailable ARNAV, A LINDA DO Unavailable Unavailable ARNAV, A LINDA DO Unavailable Unavailable ARNAV, A LINDA DO Unavailable Unavailable ARNAV, A LINDA DO Unavailable Unavailable ARNAV, A LINAD DO Unavailable Unavailable ARNAV, A LINDA DO Unavailable Unavailable ARNAV, A LINDA DO Unavailable Unavailable ARNAV, A LINDA DO Unavailable Unavailable ARNAV, A LINDA DO Unavailable Unavailable ARNAV, A LINDA DO Unavailable Unavailable ARNAV, A LINDA DO Unavailable Unavailable ARNAV, A LINDA DO Unavailable Unavailable ARNAV, A LINDA DO Unavailable Unavailable ARNAV, A LINDA DO Unavailable Unavailable ARNAV, A LINDA DO Unavailable Unavailable ARNAV, A LINDA DO Unavailable Unavailable Re-disclosure Warning The records that you are about to access may contain information from federally-assisted alcohol or drug abuse programs. If such information is present, then the following federally mandated warning applies: This information has been disclosed to you from records protected by federal confidentiality rules (42 CFR part 2). The federal rules prohibit you from making any further disclosure of this information unless further disclosure is expressly permitted by the written consent of the person to whom it pertains or as otherwise permitted by 42 CFR part 2. A general authorization for the release of medical or other information is NOT sufficient for this purpose. The Federal rules restrict any use of the information to criminally investigate or prosecute any alcohol or drug abuse patient.The records that you are about to access may contain highly sensitive health information, the redisclosure of which is protected by Article 27-F of the [facility] Public Health law. If you continue you may have access to information: Regarding HIV / AIDS; Provided by facilities licensed or operated by the [facility] Office of Mental Health; or Provided by the [facility] Office for People With Developmental Disabilities. If such information is present, then the following [facility] mandated warning applies: This information has been disclosed to you from confidential records which are protected by state law. State law prohibits you from making any further disclosure of this information without the specific written consent of the person to whom it pertains, or as otherwise permitted by law. Any unauthorized further disclosure in violation of state law may result in a fine or correction sentence or both. A general authorization for the release of medical or other information is NOT sufficient authorization for further disc losure. Family History Family Member Name Family Member Gender Family Member Status Date o f Status Description Data Source(s) Unknown Male Problem MEDENT ([facility]) Unknown Male Problem MEDENT ([facility]) () Unknown Female Problem [facility] ([facility]) Encounters Encounter Providers Location Date Indications Data Source(s ) Outpatient Attender: SUJATA RODRÍGUEZ DPM 2020 02:30:00 PM EDT - 06/25/2021 02:30:00 PM EDT [facility] Outpatient Attender: SUJATA RODRÍGUEZ DPM Family Practice 06/25/2021 0 2:30:00 PM EDT [facility] ([facility]) Outpatient Attender: Shayla NIEVES [facility] 06/19/2021 02:40:00 PM EDT MED[facility] ([facility]) Unknown [id number], [facility] [id number] 06/13/2021 12:00:00 AM EDT eCW1 ([facility]) Outpatient Attender: Shayla NIEVES [facility] 06/08/2021 02:00:00 PM EDT MEDENT ([facility]) Outpatient Attender: Benton Jose MD Physical Therapy 04/17/2021 0 2:45:00 PM EDT MED[facility] ([facility]) Outpatient Attender: Shayla NIEVES [facility] 03/06/2021 10:00:00 AM EDT MED[facility] ([facility]) <td ID="encounterTypeDescriptionID0">TRI AGE NON URGENT</td><td>Linda Joaquin DO</td><td>Connor Melvin MD [facility]</td><td>03/01/2021</td><td>1:58PM</td><td>3:54PM</td><td></td>Outpatient Attender: LINDA Granados MD [facility] 03/01/2021 01:58:00 PM EDT - 03/01/2021 03:54:00 PM EDT NELLIE (Connor Nazario MD [facility]) Outpatient Attender: Shayla NIEVES [facility] 02/02/2021 08:30:00 AM EDT MED[facility] ([facility]) Outpatient Attender: Shayla NIEVES [facility] 01/31/2021 01:30:00 PM EDT MEDENT ([facility]) Office Visit Attender: Shayla NIEVES [facility] 11/30/2020 11:00:00 AM EDT MEDENT ([facility]) Outpatient Attender: EMILEE HARMAN DO [facility] 08/31/2020 09:20:00 AM EST MED[facility] ([facility]) Outpatient Attender: SHAYLA NIEVES [facility] 08/10/2020 10:15:00 AM EST MED[facility] ([facility]) Outpatient Attender: Benton Jose MD Physical Therapy 06/30/2020 0 1:15:00 PM EST MED[facility] ([facility]) Outpatient<td ID="encounterTypeDescripti onID1">3 - [address] SX</td><td>Linda Joaquin DO</td><td>Connor Melvin MD [facility]</td><td>06/29/2020</td><td>2:07PM</td><td>4:00PM</td><td><content ID="encounterDiagnosisID1-0">Pseudophakia</content></td> Attender: LINDA Granados MD [facility] 06/29/2020 02:07:00 PM EST - 06/29/2020 04:00:00 PM EST PseudophakiaPseudophakiaPseudophakiaPseudophakiaPseudophakiaPseudophakia NELLIE (Connor Nazario MD [facility]) Pseudophakia Pseudophakia Pseudophakia Pseudophakia Pseudophakia Pseudophakia Outpatient Attender: Shayla NIEVES [facility] 05/31/2020 10:40:00 AM EDT [facility]) <td ID="encounterTypeDescriptionID2">[address]</td><td>Linda Joaquin DO</td><td>Connor Melvin MD [facility]</td><td>05/26/2020</td><td>12:17PM</td><td>1:27PM</td><td><content ID="encounterDiagnosisID2-0">Pseudophakia</content></td>Outpatient Attender: LINDA Granados MD [facility] 05/26/2020 12:17:00 PM EDT - 05/26/2020 01:27:00 PM EDT PseudophakiaPseudophakiaPseudophakiaPseudophakiaPseudophakiaPseudophakia NELLIE (Connor Nazario MD [facility]) Pseudophakia Pseudophakia Pseudophakia Pseudophakia Pseudophakia Pseudophakia Immunizations Vaccine Date Status Description Data Source(s) COVID-19 VACCINE Moderna 06/17/2021 12:00:00 AM EDT completed [facility] Vaccine Series Complete: YESThis Data wa s Submitted to [facility] Via [facility]. Tdap 02/02/2021 09:07:00 AM EDT completed [facility] ([facility]) COVID-19 VACCINE, MRNA-1273, LNP-S (MODERNA)/PF 10/17/2020 1 2:00:00 AM EST completed [facility] COVID-19 VACCINE Moderna 09/19/2020 12:00:00 AM EST completed [facility] Vaccine Series Complete: NOThis Data was Submitted to [facility] Via [facility]. COVID-19 VACCINE, MRNA-1273, LNP-S (MODERNA)/PF 09/19/2020 1 2:00:00 AM EST completed [facility] pneumococcal polysaccharide PPV23 07/15/2020 07:41:00 AM EST comple lucero MEDENT ([facility]) Medications Medication Brand Name Start Date Product Form Dose Route Admi nistrative Instructions Pharmacy Instructions Status Indications Reaction Description Data Source(s) Covid-19 vaccine, Unspecified 06/17/2021 12:00:00 AM EDT completed [facility] ([facility]) Medication administered onsite Sulfamethoxazole 800 MG / Trimethoprim 160 MG Oral Tablet [B actrim] Bactrim DS 06/08/2021 12:00:00 AM EDT ORAL completed MEDENT ([facility]) diphtheria toxoid vaccine, inactivated 4 UNT/ML / tetanus toxoid vaccine, inactivated 4 UNT/ML Injectable Suspension Tetanus/Diphtheria Toxoids-Adsorbed Adult 01/31/2021 12:00:00 AM EDT completed MED[facility] ([facility]) Calcium Carbonate 1500 MG / Cholecalciferol 400 UNT Or al Tablet Calcium 600+D High Potency 12/17/2020 12:00:00 AM EDT ORAL active MEDENT ([facility]) Prevagen Extra Strength 11/30/2020 12:00:00 AM EDT ORAL active MED[facility] ([facility]) Covid-19 vaccine, Unspecified 10/17/2020 12:00:00 AM EST completed [facility] ([facility]) Medication administered onsite Covid-19 vaccine, Unspecified 09/19/2020 12:00:00 AM EST completed [facility] ([facility]) Medication administered onsite Memantine hydrochloride 10 MG Oral Tablet Memantine HCL 05/31/2020 12:00:00 AM EDT active MED[facility] ([facility]) 0.5 ML Streptococcus pneumoniae serotype 1 capsular antigen diphtheria [id number] protein conjugate vaccine 0.0044 MG/ML / Streptococcus pneumoniae serotype 14 capsular antigen diphtheria [id number] protein conjugate vaccine 0.0044 MG/ML / Streptococcus pneumonia Prevnar 13 05/31/2020 12:00:00 AM EDT completed MED[facility] ([facility]) 0.5 ML pneumococcal capsular polysacchar estelita type 1 vaccine 0.05 MG/ML / pneumococcal capsular polysaccharide type 10A vaccine 0.05 MG/ML / pneumococcal capsular polysaccharide type 11A vaccine 0.05 MG/ML / pneumococcal capsular polysaccharide type 12F vac Pneumovax 23 05/31/2020 12:00:00 AM EDT active MEDENT ([facility]) besifloxacin 6 MG/ML Ophthalmic Suspensi on [Besivance] Besivance 0.6% Ophthalmic Suspension Besivance 0.6% Ophthalmic Suspension 05/04/2020 12:00:00 AM EDT aborted besifloxacin 6 MG/ML Ophthalmic Suspension [Besivance] NELLIE (Connor Nazario MD [facility]) Memantine hydrochloride 5 MG Oral Tablet Memantine HCL 12/01/2019 12:00:00 AM EDT completed MED[facility] ([facility]) Insurance Providers Payer name Policy type / Coverage type Policy ID Covered constitution party ID Covered constitution party's relationship to mullins Policy Mullins Plan Information [facility] () Workers Compensation [id number] BS [place] Medigap Part B [id number] Self MEDICARE COMPLETE [id number] SP [id number] MEDICARE COMPLETE [id number] SP [id number] MEDICARE COMPLETE [id number] SP [id number] AETNA MEDICARE [id number] SP MEBRM 8MG AETNA MEDICARE [id number] SP MEBRM 8MG MEDICARE COMPLETE [id number] SP [id number] AETNA MEDICARE [id number] SP MEBRM 8MG EXCELLUS BCBS O [id number] S [id number] [facility] MCDO [id number] SP [id number] MEDICARE COMPLETE [id number] SP [id number] [facility] [id number] [facility] PRIMO GROUP P [id number] P [id number] [facility] PRIMO UNAVAILABLE UNAVAILABLE [facility] PRIMO 01 [id number] SP [id number] EXCELLUS BCBS P [id number] S [id number] MEDICARE BLUE PPO [id number] SP [id number] [facility] COMMUNITY PLAN MCDO [id number] SP [id number] [facility] O [id number] S [id number] MEDICARE COMPLETE-[facility] O [id number] S [id number] AETNA MEDICARE O [id number] S MEBRM 8MG AETNA MEDICARE CO [id number] [id number] MEDICARE COMPLETE [id number] SP [id number] [facility] [id number] S [id number] [facility] Medicare Commercial [id number] Self [id number] ANSI-Medicare Part B [id number] ANSI-Medicare Part B [id number] ANSI-Medicare Part B [id number] ANSI-Medicare Part B [id number] MEDICARE COMPLETE [id number] SP [id number] AETNA MEDICARE O [id number] S MEBRM [id number] [employer]etna Commercial [id number] S elf [id number] Aetna Commercial [id number] Self [id number] [facility] [id number] SP [id number] MEDICARE [id number] A Problems, Conditions, and Diagnoses Code Display Name Description Problem Type Effective Dates Data Source(s) X04073 Pain in right toe(s) Pain in right toe(s) Diagnosis 06/25/2021 02:30:00 PM EDT [facility] L600 Ingrowing nail Ingrowing nail Diagnosis 06/25/2021 02:30: 00 PM EDT [facility] 366.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 Nuclear Proble 04/07/2020 12:00:00 AM EDT - 05/26/2020 12:00:00 AM EDT NELLIE (Connor Nazario MD [facility]) 366.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 Nuclear Proble 04/07/2020 12:00:00 AM EDT - 05/26/2020 12:00:00 AM EDT NELLIE (Connor Nazario MD [facility]) 366.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 Nuclear Proble 04/07/2020 12:00:00 AM EDT - 05/26/2020 12:00:00 AM EDT NELLIE (Connor Nazario MD [facility]) 366.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 Nuclear Proble 04/07/2020 12:00:00 AM EDT - 05/26/2020 12:00:00 AM EDT NELLIE (Connor Nazario MD [facility]) 366.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 Nuclear Proble 04/07/2020 12:00:00 AM EDT - 05/26/2020 12:00:00 AM EDT NELLIE (Connro Nazario MD [facility]) 366.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 Nuclear Proble 04/07/2020 12:00:00 AM EDT - 05/26/2020 12:00:00 AM EDT NELLIE (Connor Nazario MD [facility]) Surgeries/Procedures Procedure Description Date Indications Data Source(s) Debridement Nails Any Method 1-5 06/25/2021 12:00:00 A M EDT [facility] ([facility]) OFFICE OUTPATIENT NEW 20 MINUTES 06/25/2021 12:00:00 A M EDT [facility] ([facility]) OFFICE OUTPATIENT VISIT 15 MINUTES 06/19/2021 12:00:00 AM EDT [facility] ([facility]) OFFICE OUTPATIENT VISIT 15 MINUTES 06/08/2021 12:00:00 AM EDT [facility] ([facility]) ARTHROCENTESIS ASPIR&/INJECTION MAJOR JT/BURSA 021 12:00:00 AM EDT [facility] ([facility]) OFFICE OUTPATIENT VISIT 25 MINUTES 04/17/2021 12:00:00 AM EDT [facility] ([facility]) OFFICE OUTPATIENT VISIT 25 MINUTES 03/06/2021 12:00:00 AM EDT [facility] ([facility]) Extracapsular extraction of lens (procedure) History o f extracapsular cataract extraction PCIOL OS by Dr. Joaquin 05/11/2020 ~PCIOL OD by Dr. Joaquin 05/18/2020 03/01/2021 12:00:00 AM EDT NELLIE (Pee Nazario MD [facility]) OFFICE OUTPATIENT VISIT 15 MINUTES 02/02/2021 12:00:00 AM EDT [facility] ([facility]) OFFICE OUTPATIENT VISIT 15 MINUTES 01/31/2021 12:00:00 AM EDT [facility] ([facility]) THERAPEUTIC PX 1/> AREAS EACH 15 MIN EXERCISES 12:00:00 AM EST [facility] ([facility]) MANUAL THERAPY TQS 1/> REGIONS EACH 15 MINUTES 12:00:00 AM EST [facility] ([facility]) APPLICATION MODALITY 1/> AREAS HOT/COLD PACKS 08/23/20 20 12:00:00 AM EST [facility] ([facility]) Physical Therapy Eval - Mod Complexity 08/23/2020 12:0 0:00 AM EST [facility] ([facility]) ARTHROCENTESIS ASPIR&/INJECTION MAJOR JT/BURSA 020 12:00:00 AM EST [facility] ([facility]) Extracapsular extraction of lens (procedure) History o f extracapsular cataract extraction PCIOL OS by Dr. Joaquin 05/11/2020 ~PCIOL OD by Dr. Joaquin 05/18/2020 06/29/2020 12:00:00 AM EST NELLIE (Pee Nazario MD [facility]) Mammography (procedure) 06/28/2020 12:00:00 AM EST [facility] ([facility]) Surgical / procedural history Surgical / procedural history 05/26/2020 12:00:00 AM HIRAM BALLARD (Connor Nazario MD [facility]) Extracapsular extraction of lens (procedure) History o f extracapsular cataract extraction PCIOL OS by Dr. Joaquin 05/11/2020 ~PCIOL OD by Dr. Joaquin 05/18/2020 05/26/2020 12:00:00 AM EDT NELLIE (Pee id Melchor Nazario MD [facility]) Results ID Date Data Source [id number] 06/14/2021 12:33:00 PM EDT [facility] ([facility]) Name Value Range Interpretation Code Description Data Maria Alejandra rce(s) Supporting Document(s) Platelets [#/volume] in Blood by Estimate Laboratory test result Normal (applies to non-numeric results) [facility] ([facility]) ID Date Data Source [id number] 06/14/2021 12:33:00 PM EDT [facility] ([facility]) Name Value Range Interpretation Code Description Data Maria Alejandra rce(s) Supporting Document(s) Neutrophils 57 % 28-66 Normal (applies to non-numeric resu lts) [facility] ([facility]) Lymphocytes 25 % 16-44 Normal (applies to non-numeric resu lts) [facility] ([facility]) Atypical Lymph 11 % 0-5 Above high normal [facility] ([facility]) Eosinophils 4 % 0-3 Above high normal [facility] ([facility]) Monocytes 3 % 0-5 Normal (applies to non-numeric resul ts) [facility] ([facility]) Hypochromasia Laboratory test result Normal (applies t o non-numeric results) [facility] ([facility]) ID Date Data Source [id number] 06/14/2021 12:33:00 PM EDT [facility] ([facility]) Name Value Range Interpretation Code Description Data Maria Alejandra rce(s) Supporting Document(s) White Blood Count 4.9 10 4.0-10.0 Normal (applies to non-numeri c results) [facility] ([facility]) Red Blood Count 4.13 10 4.00-5.40 Normal (applies to non-numeric results) [facility] ([facility]) Hemoglobin 12.8 g/dL 12.0-15.5 Normal (applies to non-numeric resul ts) [facility] ([facility]) Mean Corpuscular Hemoglobin 31.0 pg 27.0-33.0 Norm al (applies to non-numeric results) [facility] ([facility]) Hematocrit 38.3 % 36.0-47.0 Normal (applies to non-numeric resul ts) [facility] ([facility]) Mean Corpuscular Volume 92.7 fl 80.0-96.0 Normal ( applies to non-numeric results) [facility] ([facility]) Mean Corpuscular HGB Conc 33.4 g/dL 32.0-36.5 Normal (applies to non-numeric results) [facility] ([facility]) Red Cell Distribution Width 13.0 % 11.5-14.5 Norm al (applies to non-numeric results) [facility] ([facility]) Nucleated Red Blood Cell % 0.0 % 0-0 Normal (applies to n on-numeric results) [facility] ([facility]) Platelet Count, Automated 162 10 150-450 Normal (applies to non-numeric results) [facility]) ID Date Data Source [id number] 06/14/2021 12:33:00 PM EDT [facility] ([facility]) Name Value Range Interpretation Code Description Data Maria Alejandra rce(s) Supporting Document(s) Influenza A Amplification Laboratory test result Normal (applies to non- numeric results) [facility]) Negative results do not preclude influen za or RSV virus infection and should not be used as the sole basis for treatment or other patient management decisions. Influenza B Amplification Laboratory test result Normal (applies to non- numeric results) [facility]) Negative results do not preclude influen za or RSV virus infection and should not be used as the sole basis for treatment or other patient management decisions. RSV Amplification Laboratory test result Normal (applies to non-numeric results) [facility]) Negative results do not preclude influen za or RSV virus infection and should not be used as the sole basis for treatment or other patient management decisions. Laboratory test finding (navigational concept) Laboratory test r esult Normal (applies to non-numeric results) [facility]) A false negative result may occur if a s pecimen is improperly collected, transported or handled. False [...] pathogens. DISCLAIMER: Testing was performed using the [employer] SARS-CoV-2 test. This test was developed and its performance characteristics determined by [employer]. This test has not been FDA cleared [...] the authorization is terminated or revoked sooner. ID Date Data Source [id number] 06/14/2021 12:33:00 PM EDT [facility] ([facility]) Name Value Range Interpretation Code Description Data Maria Alejandra rce(s) Supporting Document(s) Glucose, Fasting 103 mg/dL 70-100 Above high normal [facility] Creatinine For GFR 0.92 mg/dL 0.55-1.30 Normal (applies to non -numeric results) [facility] ([facility]) Blood Urea Nitrogen 16 mg/dL 7-18 Normal (applies to non-nume jaron results) [facility] ([facility]) Glomerular Filtration Rate Laboratory test result Normal (applies to non- numeric results) [facility] ([facility]) <content>Units are mL/min/1.73 m2</content>
<content></content>
<content>Chronic Kidney Disease Staging per NKF:</content>
<content></content>
<content>Stage I & II GFR >=60 Normal to Mildly Decreased</content>
<content>Stage III GFR 30- 59 Moderately Decreased</content>
<content>Stage IV GFR 15-29 Severely Decreased</content>
<content>Stage V GFR <15 Very Little GFR Left</content>
<content>ESRD GFR <15 on OIL EXTRACTOR</content>
<content></content> Sodium Level 139 meq/L 136-145 Normal (applies to non-numeric res ults) [facility] ([facility]) Carbon Dioxide Level 27 meq/L 21-32 Normal (applies to non-num angela results) [facility] ([facility]) Potassium Serum 4.1 meq/L 3.5-5.1 Normal (applies to non-numeric results) [facility] ([facility]) Chloride Level 106 meq/L 98-107 Normal (applies to non-numeric r esults) [facility] ([facility]) Anion Gap 6 meq/L 8-16 Below low normal [facility] ( [facility]) Calcium Level 8.7 mg/dL 8.8-10.2 Below low normal [facility] ([facility]) Alt/SGPT 24 U/L 12-78 Normal (applies to non-numeric resul ts) [facility] ([facility]) Ast/Sgot 21 U/L 7-37 Normal (applies to non-numeric resul ts) [facility] ([facility]) Bilirubin,Total 0.4 mg/dL 0.2-1.0 Normal (applies to non-numeric results) [facility] ([facility]) Alkaline Phosphatase 96 U/L 45-117 Normal (applies to non-num angela results) [facility] ([facility]) Albumin/Globulin Ratio 1.1 1.2-2.2 Below low normal [facility] ([facility]) Albumin 3.3 GM/DL 3.2-5.2 Normal (applies to non-numeric resul ts) [facility] ([facility]) Total Protein 6.3 GM/DL 6.4-8.2 Below low normal [facility] ID Date Data Source [id number] 06/14/2021 12:33:00 PM EDT [facility] Name Value Range Interpretation Code Description Data Maria Alejandra rce(s) Supporting Document(s) SARS coronavirus 2 RNA [Presence] in Res piratory specimen by GERONIMO with probe detection NEGATIVE [facility] This lab was ordered by [facility] a nd reported by [facility]. ID Date Data Source [id number] 06/14/2021 12:32:00 PM EDT [facility] ([facility]) Name Value Range Interpretation Code Description Data Maria Alejandra rce(s) Supporting Document(s) Appearance, Urine Laboratory test result Normal (applies to non-numeric results) [facility] ([facility]) PH,Urine 5.0 units 5.0-9.0 Normal (applies to non-numeric resul ts) [facility] ([facility]) Color, Urine Laboratory test result Normal (applies to non -numeric results) [facility] ([facility]) Protein, Urine Auto Laboratory test result Dawn l (applies to non-numeric results) [facility] ([facility]) Specific [place] Urine Auto 1.013 1.002-1.035 Norm al (applies to non-numeric results) [facility] ([facility]) Ketone, Urine Auto Laboratory test result Above high dawn l [facility] ([facility]) Glucose, Urine (Ua) Auto Laboratory test result Normal (applies to non-numeric results) [facility] ([facility]) Urobilinogen, Urine Auto 0.2 mg/dL 0.0-2.0 Normal (applies to non-numeric results) [facility] ([facility]) Bilirubin, Urine Auto Laboratory test result Nor mal (applies to non-numeric results) [facility] ([facility]) Nitrite, Urine Auto Laboratory test result Dawn l (applies to non-numeric results) [facility] ([facility]) Blood, Urine Blood Laboratory test result Above high dawn l [facility] ([facility]) Leukocyte Esterase, Urine Auto Laboratory test result Normal (applies to non- numeric results) [facility] ([facility]) WBC, Urine Auto 0 /HPF 0-3 Normal (applies to non-numeric results) [facility] ([facility]) RBC, Urine Auto 0 /HPF 0-3 Normal (applies to non-numeric results) [facility] ([facility]) Hyaline Cast, Urine Auto 0 /LPF 0-1 Normal (applies to non -numeric results) [facility] ([facility]) Bacteria, Urine Auto Laboratory test result Norm al (applies to non-numeric results) [facility] ([facility]) Squamous Epithelial Cell Ur AU 8 /HPF 0-6 N ormal (applies to non-numeric results) [facility] ([facility]) ID Date Data Source [id number] 06/12/2021 11:03:00 AM EDT [facility] ([facility]) Name Value Range Interpretation Code Description Data Maria Alejandra rce(s) Supporting Document(s) Appearance, Urine Laboratory test result Normal (applies to non-numeric results) [facility] ([facility]) Color, Urine Laboratory test result Normal (applies to non -numeric results) [facility] ([facility]) Specific [place] Urine Auto 1.018 1.002-1.035 Norm al (applies to non-numeric results) [facility] ([facility]) PH,Urine 5.0 units 5.0-9.0 Normal (applies to non-numeric resul ts) [facility] ([facility]) Protein, Urine Auto Laboratory test result Dawn l (applies to non-numeric results) [facility] ([facility]) Ketone, Urine Auto Laboratory test result Normal (applies to non-numeric results) [facility] ([facility]) Glucose, Urine (Ua) Auto Laboratory test result Normal (applies to non-numeric results) [facility] ([facility]) Urobilinogen, Urine Auto 2.0 mg/dL 0.0-2.0 Above high normal [facility] ([facility]) Bilirubin, Urine Auto Laboratory test result Nor mal (applies to non-numeric results) [facility] ([facility]) Nitrite, Urine Auto Laboratory test result Dawn l (applies to non-numeric results) [facility] ([facility]) Leukocyte Esterase, Urine Auto Laboratory test result Normal (applies to non- numeric results) [facility] ([facility]) Blood, Urine Blood Laboratory test result Above high dawn l [facility] ([facility]) RBC, Urine Auto 7 /HPF 0-3 Above high normal [facility] ([facility]) WBC, Urine Auto 2 /HPF 0-3 Normal (applies to non-numeric results) [facility] ([facility]) Bacteria, Urine Auto Laboratory test result Norm al (applies to non-numeric results) [facility] ([facility]) Squamous Epithelial Cell Ur AU 3 /HPF 0-6 N ormal (applies to non-numeric results) [facility] ([facility]) Mucus, Urine Laboratory test result Normal (applies to non -numeric results) [facility] ([facility]) Hyaline Cast, Urine Auto 0 /LPF 0-1 Normal (applies to non -numeric results) [facility] ([facility]) ID Date Data Source [id number] 06/12/2021 10:54:00 AM EDT [facility] ([facility]) Name Value Range Interpretation Code Description Data Maria Alejandra rce(s) Supporting Document(s) C reactive protein [Mass/volume] in Serum or Plasma by High sensitivity method 3.08 mg/dL 0.00-0.30 Above high normal [facility] ([facility]) ID Date Data Source [id number] 06/12/2021 10:54:00 AM EDT [facility] ([facility]) Name Value Range Interpretation Code Description Data Maria Alejandra rce(s) Supporting Document(s) White Blood Count 4.5 10 4.0-10.0 Normal (applies to non-numeri c results) [facility] ([facility]) Red Blood Count 4.05 10 4.00-5.40 Normal (applies to non-numeric results) [facility] ([facility]) Hemoglobin 12.7 g/dL 12.0-15.5 Normal (applies to non-numeric resul ts) [facility] ([facility]) Mean Corpuscular Volume 94.1 fl 80.0-96.0 Normal ( applies to non-numeric results) [facility] ([facility]) Hematocrit 38.1 % 36.0-47.0 Normal (applies to non-numeric resul ts) [facility] ([facility]) Mean Corpuscular Hemoglobin 31.4 pg 27.0-33.0 Norm al (applies to non-numeric results) [facility] ([facility]) Mean Corpuscular HGB Conc 33.3 g/dL 32.0-36.5 Normal (applies to non-numeric results) [facility] ([facility]) Platelet Count, Automated 147 10 150-450 Below low normal [facility] ([facility]) Neutrophils % 60.3 % 36.0-66.0 Normal (applies to non-numeric re sults) [facility] ([facility]) Red Cell Distribution Width 13.0 % 11.5-14.5 Norm al (applies to non-numeric results) [facility] ([facility]) Lymph % 24.1 % 24.0-44.0 Normal (applies to non-numeric resul ts) [facility] ([facility]) [place] % 9.5 % 2.0-8.0 Above high normal [facility] ([facility]) Eos % 5.3 % 0.0-3.0 Above high normal [facility] ([facility]) Baso % 0.4 % 0.0-1.0 Normal (applies to non-numeric resul ts) [facility] ([facility]) Nucleated Red Blood Cell % 0.0 % 0-0 Normal (applies to n on-numeric results) [facility] ([facility]) Immature Granulocyte % 0.4 % 0-3.0 Normal (applies to non-n umeric results) [facility] ([facility]) Neutrophils # 2.7 10 1.5-8.5 Normal (applies to non-numeric re sults) [facility] ([facility]) Lymph # 1.1 10 1.5-5.0 Below low normal [facility] ( [facility]) Eos # 0.2 10 0.0-0.5 Normal (applies to non-numeric resul ts) [facility] ([facility]) [place] # 0.4 10 0.0-0.8 Normal (applies to non-numeric resul ts) [facility] ([facility]) Baso # 0.0 10 0.0-0.2 Normal (applies to non-numeric resul ts) [facility] ([facility]) ID Date Data Source [id number] 06/12/2021 10:54:00 AM EDT [facility] ([facility]) Name Value Range Interpretation Code Description Data Maria Alejandra rce(s) Supporting Document(s) Glucose, Fasting 79 mg/dL 70-100 Normal (applies to non-numeric results) [facility] ([facility]) Creatinine For GFR 0.90 mg/dL 0.55-1.30 Normal (applies to non -numeric results) [facility] ([facility]) Blood Urea Nitrogen 18 mg/dL 7-18 Normal (applies to non-nume jaron results) [facility] ([facility]) Glomerular Filtration Rate Laboratory test result Normal (applies to non- numeric results) [facility] ([facility]) <content>Units are mL/min/1.73 m2</content>
<content></content>
<content>Chronic Kidney Disease Staging per NKF:</content>
<content></content>
<content>Stage I & II GFR >=60 Normal to Mildly Decreased</content>
<content>Stage III GFR 30- 59 Moderately Decreased</content>
<content>Stage IV GFR 15-29 Severely Decreased</content>
<content>Stage V GFR <15 Very Little GFR Left</content>
<content>ESRD GFR <15 on OIL EXTRACTOR</content>
<content></content> Sodium Level 139 meq/L 136-145 Normal (applies to non-numeric res ults) [facility] ([facility]) Potassium Serum 4.3 meq/L 3.5-5.1 Normal (applies to non-numeric results) [facility] ([facility]) Chloride Level 108 meq/L 98-107 Above high normal [facility] ([facility]) Carbon Dioxide Level 27 meq/L 21-32 Normal (applies to non-num angela results) [facility] ([facility]) Anion Gap 4 meq/L 8-16 Below low normal [facility] ( [facility]) Calcium Level 9.0 mg/dL 8.8-10.2 Normal (applies to non-numeric re sults) [facility] ([facility]) Ast/Sgot 18 U/L 7-37 Normal (applies to non-numeric resul ts) [facility] ([facility]) Bilirubin,Total 0.3 mg/dL 0.2-1.0 Normal (applies to non-numeric results) [facility] ([facility]) Alt/SGPT 22 U/L 12-78 Normal (applies to non-numeric resul ts) [facility] ([facility]) Alkaline Phosphatase 85 U/L 45-117 Normal (applies to non-num angela results) [facility] ([facility]) Total Protein 6.0 GM/DL 6.4-8.2 Below low normal [facility] ([facility]) Albumin 3.3 GM/DL 3.2-5.2 Normal (applies to non-numeric resul ts) [facility] ([facility]) Albumin/Globulin Ratio 1.2 1.2-2.2 Normal (applies to non-n umeric results) [facility] ([facility]) ID Date Data Source [id number] 06/11/2021 03:35:00 PM EDT [facility] ([facility]) Name Value Range Interpretation Code Description Data Maria Alejandra rce(s) Supporting Document(s) Albumin [Mass/volume] in Serum or Plasma Laboratory test result [facility] ([facility]) Calcium [Mass/volume] in Serum or Plasma Laboratory test result [facility] ([facility]) Alanine aminotransferase [Enzymatic activity/volume] i n Serum or Plasma Laboratory test result [facility] ([facility]) Carbon dioxide, total [Moles/volume] in Serum or Plasma Labo ratory test result [facility] ([facility]) Creatinine [Mass/volume] in Serum or Plasma Laboratory test result [facility] ([facility]) Chloride [Moles/volume] in Serum or Plasma Laboratory test result [facility] ([facility]) Glucose [Mass/volume] in Serum or Plasma Laboratory test result [facility] ([facility]) Alkaline phosphatase [Enzymatic activity/volume] in Se rum or Plasma Laboratory test result [facility] ([facility]) Potassium [Moles/volume] in Serum or Plasma Laboratory test result [facility] ([facility]) Sodium [Moles/volume] in Serum or Plasma Laboratory test result [facility] ([facility]) Protein [Mass/volume] in Serum or Plasma Laboratory test result [facility] ([facility]) Urea nitrogen [Mass/volume] in Serum or Plasma Laboratory test result [facility] ([facility]) Aspartate aminotransferase [Enzymatic activity/volume] in Serum or Plasma Laboratory test result [facility] ([facility]) ID Date Data Source [id number] 06/11/2021 03:35:00 PM EDT [facility] ([facility]) Name Value Range Interpretation Code Description Data Maria Alejandra rce(s) Supporting Document(s) Bacteria identified in Urine by Culture Laboratory test result [facility] ([facility]) ID Date Data Source [id number] 06/11/2021 03:35:00 PM EDT [facility] ([facility]) Name Value Range Interpretation Code Description Data Maria Alejandra rce(s) Supporting Document(s) Specific gravity of Urine Laboratory test result [facility] ([facility]) pH of Urine by Test strip Laboratory test result [facility] ([facility]) Color of Urine Laboratory test result [facility] ([facility]) Appearance of Urine Laboratory test result [facility] ([facility]) Leukocytes [#/area] in Urine sediment by Microscopy hi gh power field Laboratory test result [facility] ([facility]) Protein [Presence] in Urine by Test strip Laboratory test result [facility] ([facility]) Ketones [Presence] in Urine by Test strip Laboratory test result [facility] ([facility]) Glucose [Presence] in Urine Laboratory test result [facility] ([facility]) Bilirubin.total [Presence] in Urine by Test strip Laboratory test res ult [facility] ([facility]) Urobilinogen [Mass/volume] in Urine by Test strip Laboratory test res ult [facility] ([facility]) Nitrite [Presence] in Urine by Test strip Laboratory test result [facility] ([facility]) Ua Occult Blood Laboratory test result [facility] ([facility]) ID Date Data Source [id number] 06/11/2021 03:35:00 PM EDT [facility] ([facility]) Name Value Range Interpretation Code Description Data Maria Alejandra rce(s) Supporting Document(s) C reactive protein [Mass/volume] in Serum or Plasma by High sensitivity method Laboratory test result [facility] ([facility] [facility]) ID Date Data Source [id number] 06/11/2021 03:35:00 PM EDT [facility] ([facility]) Name Value Range Interpretation Code Description Data Maria Alejandra rce(s) Supporting Document(s) Leukocytes [#/volume] in Blood by Automated count Laboratory test res ult [facility] ([facility]) Hemoglobin [Mass/volume] in Blood Laboratory test result [facility] ([facility]) Erythrocytes [#/volume] in Blood by Automated count Laboratory test result [facility] ([facility]) Erythrocyte mean corpuscular volume [Entitic volume] b y Automated count Laboratory test result [facility] ([facility]) Hematocrit [Volume Fraction] of Blood by Automated count Lab oratory test result [facility] ([facility]) Erythrocyte mean corpuscular hemoglobin [Entitic mass] by Automated count Laboratory test result [facility] ([facility]) Erythrocyte mean corpuscular hemoglobin concentration [Mass/volume] by Automated count Laboratory test result [facility] T ([facility]) Platelets [#/volume] in Blood by Automated count Laboratory test resu lt [facility] ([facility]) Erythrocyte distribution width [Ratio] by Automated co unt Laboratory test result [facility] ([facility]) Platelet mean volume [Entitic volume] in Blood by Kayode Tam Laboratory test result [facility] ([facility]) Band form neutrophils/100 leukocytes in Body fluid by Manual count Laboratory test result [facility] ([facility]) Neutrophils Laboratory test result M EDENT ([facility]) Monocytes Laboratory test result ME D[facility] ([facility]) Eosinophils/100 leukocytes in Body fluid by Manual count Lab oratory test result [facility] ([facility]) Lymphocytes/100 leukocytes in Body fluid by Manual count Lab oratory test result [facility] ([facility]) Basophils [#/volume] in Blood by Automated count Laboratory test resu lt [facility] ([facility]) Basophils/100 leukocytes in Blood Laboratory test result [facility] ([facility]) Lymphocytes [#/volume] in Blood Laboratory test result [facility] ([facility]) Eosinophils [#/volume] in Blood by Automated count Laboratory test re sult [facility] ([facility]) Neutrophils [#/volume] in Blood by Automated count [facility] ([facility]) Monocytes [#/volume] in Blood Laboratory test result [facility] ([facility]) ID Date Data Source [id number] 08/22/2020 11:08:00 AM EST [facility] ([facility]) Name Value Range Interpretation Code Description Data Maria Alejandra rce(s) Supporting Document(s) Thyroxine (T4) [Mass/volume] in Serum or Plasma 7.5 ug/dL 4.5-12.0 Normal (applies to non-numeric results) [facility] ([facility]) Thyrotropin [Units/volume] in Serum or Plasma 2.460 uIU/ML 0. 358-3.740 Normal (applies to non-numeric results) [facility] ([facility]) Calcidiol [Mass/volume] in Serum or Plasma 60.9 ng/mL 30.0- 100.0 Normal (applies to non-numeric results) [facility] ([facility]) ID Date Data Source [id number] 08/22/2020 11:08:00 AM EST [facility] ([facility]) Name Value Range Interpretation Code Description Data Maria Alejandra rce(s) Supporting Document(s) Triglycerides Level 133 mg/dL Normal (applies to non-nume jaron results) [facility] ([facility]) Cholesterol Level 165 mg/dL Normal (applies to non-numeri c results) [facility] ([facility]) HDL Cholesterol 59 mg/dL Normal (applies to non-numeric results) [facility] ([facility]) LDL Cholesterol 79 mg/dL Normal (applies to non-numeric results) [facility] ([facility]) Non-HDL-C 106 mg/dL Normal (applies to non-numeric resul ts) [facility] ([facility]) Cholesterol Risk Ratio 2.796 Normal (applies to non-n umeric results) [facility] ([facility]) ID Date Data Source [id number] 08/22/2020 11:08:00 AM EST [facility] ([facility]) Name Value Range Interpretation Code Description Data Maria Alejandra rce(s) Supporting Document(s) Glucose, Fasting 92 mg/dL 70-100 Normal (applies to non-numeric results) [facility] ([facility]) Glomerular Filtration Rate Laboratory test result Normal (applies to non- numeric results) [facility] ([facility]) <content>Units are mL/min/1.73 m2</content>
<content></content>
<content>Chronic Kidney Disease Staging per NKF:</content>
<content></content>
<content>Stage I & II GFR >=60 Normal to Mildly Decreased</content>
<content>Stage III GFR 30- 59 Moderately Decreased</content>
<content>Stage IV GFR 15-29 Severely Decreased</content>
<content>Stage V GFR <15 Very Little GFR Left</content>
<content>ESRD GFR <15 on OIL EXTRACTOR</content>
<content></content> Creatinine For GFR 0.74 mg/dL 0.55-1.30 Normal (applies to non -numeric results) [facility] ([facility]) Blood Urea Nitrogen 16 mg/dL 7-18 Normal (applies to non-nume jaron results) [facility] ([facility]) Sodium Level 144 meq/L 136-145 Normal (applies to non-numeric res ults) [facility] ([facility]) Potassium Serum 4.4 meq/L 3.5-5.1 Normal (applies to non-numeric results) [facility] ([facility]) Carbon Dioxide Level 31 meq/L 21-32 Normal (applies to non-num angela results) [facility] ([facility]) Chloride Level 107 meq/L 98-107 Normal (applies to non-numeric r esults) [facility] ([facility]) Calcium Level 8.7 mg/dL 8.8-10.2 Below low normal [facility] ([facility]) Anion Gap 6 meq/L 8-16 Below low normal [facility] ( [facility]) Ast/Sgot 20 U/L 7-37 Normal (applies to non-numeric resul ts) [facility] ([facility]) Alt/SGPT 25 U/L 12-78 Normal (applies to non-numeric resul ts) [facility] ([facility]) Bilirubin,Total 0.7 mg/dL 0.2-1.0 Normal (applies to non-numeric results) [facility] ([facility]) Total Protein 6.0 GM/DL 6.4-8.2 Below low normal [facility] ([facility]) Alkaline Phosphatase 89 U/L 45-117 Normal (applies to non-num angela results) [facility] ([facility]) Albumin 3.6 GM/DL 3.2-5.2 Normal (applies to non-numeric resul ts) [facility] ([facility]) Albumin/Globulin Ratio 1.5 1.2-2.2 Normal (applies to non-n umeric results) [facility] ([facility]) ID Date Data Source [id number] 08/22/2020 11:08:00 AM EST [facility] ([facility]) Name Value Range Interpretation Code Description Data Maria Alejandra rce(s) Supporting Document(s) White Blood Count 6.2 10 4.0-10.0 Normal (applies to non-numeri c results) [facility] ([facility]) Hemoglobin 13.6 g/dL 12.0-15.5 Normal (applies to non-numeric resul ts) [facility] ([facility]) Red Blood Count 4.42 10 4.00-5.40 Normal (applies to non-numeric results) [facility] ([facility]) Mean Corpuscular Volume 96.2 fl 80.0-96.0 Above high normal [facility] Hematocrit 42.5 % 36.0-47.0 Normal (applies to non-numeric resul ts) [facility] ([facility]) Mean Corpuscular Hemoglobin 30.8 pg 27.0-33.0 Norm al (applies to non-numeric results) [facility] ([facility]) Mean Corpuscular HGB Conc 32.0 g/dL 32.0-36.5 Normal (applies to non-numeric results) [facility] ([facility]) Red Cell Distribution Width 13.2 % 11.5-14.5 Norm al (applies to non-numeric results) [facility] ([facility]) Platelet Count, Automated 153 10 150-450 Normal (applies to non-numeric results) [facility] ([facility]) Neutrophils % 56.7 % 36.0-66.0 Normal (applies to non-numeric re sults) [facility] ([facility]) Lymph % 36.2 % 24.0-44.0 Normal (applies to non-numeric resul ts) [facility] ([facility]) Eos % 1.4 % 0.0-3.0 Normal (applies to non-numeric resul ts) [facility] ([facility]) [place] % 5.1 % 0.0-5.0 Above high normal [facility] ([facility]) Immature Granulocyte % 0.3 % 0-3.0 Normal (applies to non-n umeric results) [facility] ([facility]) Baso % 0.3 % 0.0-1.0 Normal (applies to non-numeric resul ts) [facility] ([facility]) Nucleated Red Blood Cell % 0.0 % 0-0 Normal (applies to n on-numeric results) [facility] ([facility]) Neutrophils # 3.5 10 1.5-8.5 Normal (applies to non-numeric re sults) [facility] ([facility]) [place] # 0.3 10 0.0-0.8 Normal (applies to non-numeric resul ts) [facility] ([facility]) Lymph # 2.3 10 1.5-5.0 Normal (applies to non-numeric resul ts) [facility] ([facility]) Eos # 0.1 10 0.0-0.5 Normal (applies to non-numeric resul ts) [facility] ([facility]) Baso # 0.0 10 0.0-0.2 Normal (applies to non-numeric resul ts) [facility] ([facility]) ID Date Data Source [id number] 07/31/2020 12:00:00 AM EST [facility] [place] Jose MD Patient Name: GERMAN PARKER571 [facility] Date of : 1935GIFTY [place] [address] Date of Exam: 07/31/2020#: Fax: [phone] EXAM: MRI LUMBAR SPINE WITHOUT CONTRASTPROCEDURE INFORMATION:Exam: MR Lumbar Spine Without Contrast.Exam date and time: 07/31/2020 12:24 PM Age: 84 years oldClinical indication: Low back painTECHNIQUE: Imaging protocol: Multiplanar magnetic resonance images of thelumbar spine without intravenous contrast.COMPARISON: LUMBOSACRAL SPINE COMPLETE WITH BENDING XRAY 12/07/2019 11:51 AMFINDINGS:Vertebrae: There is a mild levoscoliosis. There is mild degenerativeanterolisthesis of L2 on L3. Otherwise,The lumbar vertebral bodies arenormal in height,signal intensity and alignment.No acute fracture ordislocation is seen.Spinal epidural space: There is no evidence of epidural masses orhemorrhage.Spinal cord: The conus medullaris is normal. The cauda equina nerve rootsdemonstrate no crowding or displacement.L1-L2: Mildly reduced in height and T2 signal indicating degeneration.Thereis a mild diffuse posterior bulge causing mild effacement of the thecalsac.The facet joints demonstrate mild degenerative hypertrophy andsclerosis.The spinal canal and neural foramina are patent and withoutsignificant stenosis.L2-L3: Markedly reduced in height and T2 signal indicating degeneration.Moderate adjacent degenerative endplate changes. Small diffuse posteriorherniation. Moderate facet arthropathy.There is thickening of theligamentum flavum.There is mild spinal canal narrowing, with an AP canaldimension of 10 mm.There is moderate bilateral foraminal stenosis.L3- L4: Moderately reduced in height and T2 signal indicating degeneration.Small diffuse posterior herniation. Mild facet arthropathy.There isthickening of the ligamentum flavum.There is mild spinal canal narrowing,with an AP canal dimension of 10 mm.There is mild bilateral foraminalstenosis. L4-L5: Moderately reduced in height and T2 signal indicatingdegeneration. Moderate adjacent degenerative endplate changes. Smalldiffuse posterior herniation. Moderate facet arthropathy. There is noevidence of spinal canal narrowing. There is mild bilateral foraminalstenosis.L5-S1: Disc fusion is noted. There is diffuse endplate spurring.The facetjoints demonstrate mild degenerative hypertrophy and sclerosis.There is noevidence of spinal canal narrowing.There is mild right foraminalstenosis.There is moderate left foraminal stenosis.Soft tissues: The prevertebral soft tissues appear normal.IMPRESSION:1. MRI of the lumbar spine reveals multilevel degenerative spondyliticchanges and degenerative disc disease as described above.2. There is a mild levoscoliosis. There is mild degenerativeanterolisthesis of L2 on L3. Otherwise,The lumbar vertebral bodies arenormal in height,signal intensity and alignment.No acute fracture ordislocation is seen.Thank you for allowing us to participate in the care of your patient.Dictated and Authenticated by: Sidney Oh MD 07/31/2020 3:42 PMEastern Time ([place] & [place])VradV/césarcTjevon you for referring ANA ROSA PARKER to our office. Electronically Signed - [facility] 07/31/20 15:47 Name Value Range Interpretation Code Description Data Maria Alejandra rce(s) Supporting Document(s) Procedure Social History Code Duration Value Status Description Data Source(s ) Smoking 06/09/2021 12:00:00 AM EDT Former Smoker completed Former Smoker eCW1 (Counts Include [facility]) Smoking 04/26/2021 02:16:15 PM EDT Never smoked tobacco (findi alissa) completed Never smoked tobacco (finding) NELLIE (Connor Nazario MD [facility]) Smoking 04/26/2021 02:14:04 PM EDT Never smoked tobacco (findi ng) completed Never smoked tobacco (finding) NELLIE (Connor Nazario MD [facility]) Smoking 04/26/2021 02:12:59 PM EDT Never smoked tobacco (findi ng) completed Never smoked tobacco (finding) NELLIE (Connor Nazario MD [facility]) Smoking 04/06/2021 07:45:43 AM EDT Never smoked tobacco (findi ng) completed Never smoked tobacco (finding) NELLIE (Connor Nazario MD [facility]) Smoking 08/31/2020 12:00:00 AM EST Patient has never smoked co mpleted Patient has never smoked [facility] ([facility]) Vital Signs ID Date Data Source UNK Name Value Range Interpretation Code Description Data Source(s) Systolic blood pressure 124 mm[Hg] 124 mm[Hg] M [facility] ([facility]) Diastolic blood pressure 72 mm[Hg] 72 mm[Hg] [facility] Body height 61.7 [in_i] 61.7 [in_i] [facility] ([facility]) 5'70" Body weight 134.00 [lb_av] 134.00 [lb_av] [facility] T ([facility]) Body mass index (BMI) [Ratio] 24.7 kg/m2 24.7 k g/m2 [facility] ([facility]) Heart rate 81 /min 81 /min [facility] ([facility]) Respiratory rate 18 /min 18 /min [facility] ( [facility]) Body temperature 98.8 [degF] 98.8 [degF] [facility] ([facility]) Oxygen saturation in Arterial blood by Pulse oximetry 100 % 100 % [facility] ([facility]) [place] body weight 105 [lb_av] 105 [lb_av] [facility] ([facility]) Systolic blood pressure 92 mm[Hg] 92 mm[Hg] M [facility] ([facility]) Diastolic blood pressure 58 mm[Hg] 58 mm[Hg] [facility] ([facility]) Body height 61.7 [in_i] 61.7 [in_i] [facility] ([facility]) " Heart rate 80 /min 80 /min [facility] ([facility]) Respiratory rate 12 /min 12 /min [facility] ( [facility]) Body temperature 98.5 [degF] 98.5 [degF] [facility] ([facility]) Oxygen saturation in Arterial blood by Pulse oximetry 95 % 95 % [facility] ([facility]) [place] body weight 105 [lb_av] 105 [lb_av] [facility] ([facility]) Oxygen saturation in Arterial blood by Pulse oximetry 95 % 95 % [facility] ([facility]) Body weight 144.25 [lb_av] 144.25 [lb_av] [facility] ([facility]) Body mass index (BMI) [Ratio] 26.6 kg/m2 26.6 k g/m2 [facility] ([facility]) Heart rate 74 /min 74 /min [facility] ([facility]) Systolic blood pressure 124 mm[Hg] 124 mm[Hg] [facility] ([facility]) Diastolic blood pressure 74 mm[Hg] 74 mm[Hg] [facility] ([facility]) Body height 61.7 [in_i] 61.7 [in_i] [facility] ([facility]) " Respiratory rate 18 /min 18 /min [facility] ( [facility]) Body temperature 97.8 [degF] 97.8 [degF] [facility] ([facility]) [place] body weight 105 [lb_av] 105 [lb_av] [facility] ([facility]) Body height 61.7 [in_i] 61.7 [in_i] [facility] ([facility]) " Body weight 144.00 [lb_av] 144.00 [lb_av] [facility] ([facility]) Oxygen saturation in Arterial blood by Pulse oximetry 98 % 98 % [facility] ([facility]) [place] body weight 105 [lb_av] 105 [lb_av] [facility] ([facility]) Systolic blood pressure 126 mm[Hg] 126 mm[Hg] M [facility] ([facility]) Diastolic blood pressure 72 mm[Hg] 72 mm[Hg] [facility] ([facility]) Body mass index (BMI) [Ratio] 26.6 kg/m2 26.6 k g/m2 [facility] ([facility]) Heart rate 77 /min 77 /min [facility] ([facility]) Respiratory rate 18 /min 18 /min [facility] ( [facility]) Body temperature 97.1 [degF] 97.1 [degF] [facility] ([facility]) Body weight 142.00 [lb_av] 142.00 [lb_av] [facility] ([facility]) Systolic blood pressure 142 mm[Hg] 142 mm[Hg] M ON LICENSE OF [facility] ([facility]) Heart rate 74 /min 74 /min [facility] ([facility]) Respiratory rate 78 /min 78 /min [facility] ( [facility]) Body temperature 98.3 [degF] 98.3 [degF] [facility] ([facility]) Diastolic blood pressure 82 mm[Hg] 82 mm[Hg] [facility] ([facility]) Body height 61.7 [in_i] 61.7 [in_i] [facility] 5'70" Body mass index (BMI) [Ratio] 26.2 kg/m2 26.2 k g/m2 [facility] Oxygen saturation in Arterial blood by Pulse oximetry 97 % 97 % [facility] [place] body weight 105 [lb_av] 105 [lb_av] [facility] ([facility]) Systolic blood pressure 126 mm[Hg] 126 mm[Hg] M ON LICENSE OF [facility] ([facility]) Body height 61.7 [in_i] 61.7 [in_i] [facility] ([facility]) 5'.70" Body weight 140.12 [lb_av] 140.12 [lb_av] [facility] ([facility]) Body mass index (BMI) [Ratio] 25.9 kg/m2 25.9 k g/m2 [facility] ([facility]) Heart rate 72 /min 72 /min [facility] ([facility]) Respiratory rate 18 /min 18 /min [facility] ( [facility]) Body temperature 98.2 [degF] 98.2 [degF] [facility] ([facility]) Oxygen saturation in Arterial blood by Pulse oximetry 99 % 99 % [facility] ([facility]) [place] body weight 105 [lb_av] 105 [lb_av] [facility] ([facility]) Diastolic blood pressure 68 mm[Hg] 68 mm[Hg] [facility] ([facility]) Oxygen saturation in Arterial blood by Pulse oximetry 97 % 97 % [facility] ([facility]) Systolic blood pressure 124 mm[Hg] 124 mm[Hg] M [facility] ([facility]) Diastolic blood pressure 72 mm[Hg] 72 mm[Hg] [facility] ([facility]) Body height 61.7 [in_i] 61.7 [in_i] [facility] ([facility]) 5'1.70" Body weight 139.12 [lb_av] 139.12 [lb_av] [facility] ([facility]) Body mass index (BMI) [Ratio] 25.7 kg/m2 25.7 k g/m2 [facility] ([facility]) Heart rate 5 /min 5 /min [facility] ([facility]) Respiratory rate 18 /min 18 /min [facility] ( [facility]) Body temperature 98.6 [degF] 98.6 [degF] [facility] ([facility]) [place] body weight 105 [lb_av] 105 [lb_av] [facility] ([facility]) [place] body weight 105 [lb_av] 105 [lb_av] [facility] ([facility]) Oxygen saturation in Arterial blood by Pulse oximetry 97 % 97 % [facility] ([facility]) Systolic blood pressure 124 mm[Hg] 124 mm[Hg] M [facility] ([facility]) Diastolic blood pressure 74 mm[Hg] 74 mm[Hg] [facility] ([facility]) Body height 61.7 [in_i] 61.7 [in_i] [facility] ([facility]) 5'1.70" Body weight 141.00 [lb_av] 141.00 [lb_av] [facility] ([facility]) Body mass index (BMI) [Ratio] 26.0 kg/m2 26.0 k g/m2 [facility] ([facility]) Heart rate 79 /min 79 /min [facility] ([facility]) Respiratory rate 18 /min 18 /min [facility] Body temperature 98.3 [degF] 98.3 [degF] [facility] Patient Treatment Plan of Care Planned Activity Planned Date Details Description Data Source (s) besifloxacin 6 MG/ML Ophthalmic Suspension [Besivance] 05/04/2020 12:00:00 AM HIRAM BALLARD (Connor Nazario MD [facility])
[2021-07-21] MEDS ORDERED: MORPHINE 4 MG/ML 1ML VIAL/SYRINGE (J2270) IV PRN (09:55)
[2021-07-21] MEDS ORDERED: MORPHINE 2 MG/ML 1ML VIAL (J2270) IV PRN ×2 (09:55→15:30)
[2021-07-21 10:02] LABS: BLOOD UREA NITROGEN 21 MG/DL (7-18); CARBON DIOXIDE LEVEL 27 MEQ/L (21-32); CHLORIDE LEVEL 108 MEQ/L (98-107); CREATININE FOR GFR 0.87 MG/DL (0.55-1.30); GLOMERULAR FILTRATION RATE > 60.0 (>32); GLUCOSE, FASTING 98 MG/DL (70-100); SODIUM LEVEL 143 MEQ/L (136-145)
--- OUTSIDE RECORDS SUMMARY | 2021-07-21 10:11 | CCD ---
Author Author [facility] Organization [facility] Address Unknown Phone Unavailable Care Team Providers Care Teradata Developer Name Role Phone Fish, B Benton RUIZ [...] B Benton RUIZ Unavailable Unavailable Fish, B Benotn RUIZ Unavailable Unavailable Fish, B Benton RUIZ [...] Unavailable Fish, B Benton RUIZ Unavailable Unavailable MCELHERAN, SHAYLA PA Unavailable Unavailable [...] is protected by Article 27-F of the [facility] Public Health law. If you continue you may have access to information: Regarding HIV / AIDS; Provided by facilities licensed or operated by the [facility] Office of Mental Health; or Provided by the [facility] Office for People With Developmental Disabilities. If such information is present, then the following [facility] mandated warning applies: This information has been [...] law may result in a fine or intermediate sentence or both. A general authorization for the release of medical or other information is NOT sufficient authorization for further disc losure. Family History Family Member Name Family Member Gender Family Member Status Date o f Status Description Data Source(s) Unknown Male Problem [facility] ([facility]) Unknown Male Problem [facility] ([facility]) () Unknown Female Problem [facility] ([facility]) Encounters Encounter Providers Location Date Indications Data Source(s ) Outpatient Attender: SUJATA RODRÍGUEZ DPM 2020 02:30:00 PM EDT - 06/25/2021 02:30:00 PM EDT [facility] Outpatient Attender: SUJATA RODRÍGUEZ DPM Family Practice 06/25/2021 0 2:30:00 PM EDT [facility] ([facility]) Outpatient Attender: Shayla NIEVES [facility] 06/19/2021 02:40:00 PM EDT [facility] ([facility]) Unknown [address] [facility] [address] 06/13/2021 12:00:00 AM EDT eCW1 ([facility]) Outpatient Attender: Shayla NIEVES [facility] 06/08/2021 02:00:00 PM EDT [facility] ([facility]) Outpatient Attender: Benton Jose MD Physical Therapy 04/17/2021 0 2:45:00 PM EDT [facility] ([facility]) Outpatient Attender: Shayla NIEVES [facility] 03/06/2021 10:00:00 AM EDT [facility] ([facility]) <td ID="encounterTypeDescriptionID0">TRI AGE NON URGENT</td><td>Linda Joaquin DO</td><td>Connor Melvin MD [facility]</td><td>03/01/2021</td><td>1:58PM</td><td>3:54PM</td><td></td>Outpatient Attender: LINDA Granados MD [facility] 03/01/2021 01:58:00 PM EDT - 03/01/2021 03:54:00 PM EDT NELLIE (Connor Nazario MD [facility]) Outpatient Attender: Shayla NIEVES [facility] 02/02/2021 08:30:00 AM EDT [facility] ([facility]) Outpatient Attender: Shayla NIEVES [facility] 01/31/2021 01:30:00 PM EDT [facility] ([facility]) Office Visit Attender: Shayla NIEVES [facility] 11/30/2020 11:00:00 AM EDT [facility] ([facility]) Outpatient Attender: EMILEE HARMAN DO [facility] 08/31/2020 09:20:00 AM EST [facility] ([facility]) Outpatient Attender: SHAYLA NIEVES Physical Therapy 08/10/2020 10:15:00 AM EST [facility] ([facility]) Outpatient Attender: Benton Jose MD Physical Therapy 06/30/2020 0 1:15:00 PM EST [facility] ([facility]) Outpatient<td ID="encounterTypeDescripti onID1">3 - 4 WK [address] CAT SX</td><td>Linda Joaquin DO</td><td>Connor Melvin MD [facility]</td><td>06/29/2020</td><td>2:07PM</td><td>4:00PM</td><td><content ID="encounterDiagnosisID1-0">Pseudophakia</content></td> Attender: LINDA Granados MD [facility] 06/29/2020 02:07:00 PM EST - 06/29/2020 04:00:00 PM EST PseudophakiaPseudophakiaPseudophakiaPseudophakiaPseudophakiaPseudophakia NELLIE (Connor Nazario MD [facility]) Pseudophakia Pseudophakia Pseudophakia Pseudophakia Pseudophakia Pseudophakia Outpatient Attender: Shayla NIEVES [facility] 05/31/2020 10:40:00 AM EDT [facility] ([facility]) <td ID="encounterTypeDescriptionID2">[address]</td><td>Linda Joaquin DO</td><td>Connor Melvin MD [facility]</td><td>05/26/2020</td><td>12:17PM</td><td>1:27PM</td><td><content ID="encounterDiagnosisID2-0">Pseudophakia</content></td>Outpatient Attender: LINDA Granados MD [facility] 05/26/2020 12:17:00 PM EDT - 05/26/2020 01:27:00 PM EDT PseudophakiaPseudophakiaPseudophakiaPseudophakiaPseudophakiaPseudophakia NELLIE (Connor Nazario MD [facility]) Pseudophakia Pseudophakia Pseudophakia Pseudophakia Pseudophakia Pseudophakia Immunizations Vaccine Date Status Description Data Source(s) COVID-19 VACCINE Moderna 06/17/2021 12:00:00 AM EDT completed [facility] Vaccine Series Complete: YESThis Data wa s Submitted to [facility] Via [facility]. Tdap 02/02/2021 09:07:00 AM EDT completed M [facility] ([facility]) COVID-19 VACCINE, MRNA-1273, LNP-S (MODERNA)/PF 10/17/2020 1 2:00:00 AM EST completed [facility] COVID-19 VACCINE Moderna 09/19/2020 12:00:00 AM EST completed [facility] Vaccine Series Complete: NOThis Data was Submitted to [facility]. COVID-19 VACCINE, MRNA-1273, LNP-S (MODERNA)/PF 09/19/2020 1 2:00:00 AM EST completed [facility] pneumococcal polysaccharide PPV23 07/15/2020 07:41:00 AM EST comple lucero MED[facility] ([facility]) Medications Medication Brand Name Start Date Product Form Dose Route Admi nistrative Instructions Pharmacy Instructions Status Indications Reaction Description Data Source(s) Covid-19 vaccine, Unspecified 06/17/2021 12:00:00 AM EDT completed [facility] ([facility]) Medication administered onsite Sulfamethoxazole 800 MG / [...] Unspecified 10/17/2020 12:00:00 AM EST completed [facility] ([facility]) Medication administered onsite Covid-19 vaccine, Unspecified 09/19/2020 12:00:00 AM EST completed [facility] ([facility]) Medication administered onsite Memantine hydrochloride 10 MG Oral Tablet Memantine HCL 05/31/2020 12:00:00 AM EDT active [facility] ([facility]) 0.5 ML Streptococcus pneumoniae serotype 1 capsular antigen diphtheria [id number] protein conjugate vaccine 0.0044 MG/ML / Streptococcus pneumoniae serotype 14 capsular antigen diphtheria DSD142 protein conjugate vaccine 0.0044 MG/ML / Streptococcus pneumonia Prevnar 13 05/31/2020 12:00:00 AM EDT completed [facility] ([facility]) 0.5 ML pneumococcal capsular polysacchar estelita type 1 vaccine 0.05 MG/ML / pneumococcal capsular polysaccharide type 10A vaccine 0.05 MG/ML / pneumococcal capsular polysaccharide type 11A vaccine 0.05 MG/ML / pneumococcal capsular polysaccharide type 12F vac Pneumovax 23 05/31/2020 12:00:00 AM EDT active [facility] ([facility]) besifloxacin 6 MG/ML Ophthalmic Suspensi on [Besivance] Besivance 0.6% Ophthalmic Suspension Besivance 0.6% Ophthalmic Suspension 05/04/2020 12:00:00 AM EDT aborted besifloxacin 6 MG/ML Ophthalmic Suspension [Besivance] NELLIE (Connor Nazario MD [facility]) Memantine hydrochloride 5 MG Oral Tablet Memantine HCL 12/01/2019 12:00:00 AM EDT completed [facility] ([facility]) Insurance Providers Payer name Policy type / Coverage type Policy ID Covered libertarian ID Covered libertarian's relationship to mullins Policy Mulilns Plan Information [facility] () Workers Compensation [id number] BS [place] Medigap Part [id number] Self MEDICARE COMPLETE [id number] SP [id number] MEDICARE COMPLETE [id number] SP [id number] MEDICARE COMPLETE [id number] SP [id number] AETNA MEDICARE [id number] SP MEBRM 8MG AETNA MEDICARE [id number] SP MEBRM 8MG MEDICARE COMPLETE [id number] SP [id number] AETNA MEDICARE [id number] SP MEBRM 8MG EXCELLUS BCBS O [id number] S VYM [id number] [facility] COMMUNITY PLAN MCDO [id number] SP [id number] MEDICARE COMPLETE [id number] SP [id number] [facility] [id number] [facility] PRIMO GROUP P [id number] P [id number] [facility] PRIMO UNAVAILABLE UNAVAILABLE [facility] PRIMO [id number] SP [id number] EXCELLUS BCBS P [id number] S VYM [id number] MEDICARE BLUE PPO 306 [id number] SP [id number] [facility] COMMUNITY PLAN MCDO [id number] SP [id number] [facility] O [id number] S [id number] MEDICARE COMPLETE-[facility] O [id number] S [id number] AETNA MEDICARE O [id number] S MEBRM 8MG AETNA MEDICARE CO [id number] MEBRM 8MG MEDICARE COMPLETE [id number] SP [id number] [facility] [id number] S [id number] [facility] Medicare Commercial [id number] Self [id number] ANSI-Medicare Part B [id number] ANSI-Medicare Part B [id number] ANSI-Medicare Part B [id number] ANSI-Medicare Part B [id number] MEDICARE COMPLETE [id number] SP [id number] AETNA MEDICARE O [id number] S MEBRM [id number] [employer]etna Commercial [id number] elf [id number] Aetna Commercial [id number] Self [id number] [employer] SALON [id number] SP [id number] MEDICARE [id number] A Problems, Conditions, and Diagnoses Code Display Name Description Problem Type Effective Dates Data Source(s) K94378 Pain in right toe(s) Pain in right toe(s) Diagnosis 06/25/2021 02:30:00 PM EDT [facility] L600 Ingrowing nail Ingrowing nail Diagnosis 06/25/2021 02:30: 00 PM EDT [facility] 366.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 Nuclear Proble 04/07/2020 12:00:00 AM EDT - 05/26/2020 12:00:00 AM EDT NELLIE (Connor Nazario MD [facility]) 366.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 Nuclear Proble 04/07/2020 12:00:00 AM EDT - 05/26/2020 12:00:00 AM EDT NELLIE (Connor Nazario MD [facility]) 366.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 Nuclear Proble 04/07/2020 12:00:00 AM EDT - 05/26/2020 12:00:00 AM EDT NELLIE (Connor Nazario MD [facility]) 366.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 Nuclear Proble 04/07/2020 12:00:00 AM EDT - 05/26/2020 12:00:00 AM EDT NELLIE (Connor Nazario MD [facility]) 366.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 Nuclear Proble 04/07/2020 12:00:00 AM EDT - 05/26/2020 12:00:00 AM EDT NELLIE (Connor Nazario MD [facility]) 366.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 Nuclear Proble 04/07/2020 12:00:00 AM EDT - 05/26/2020 12:00:00 AM EDT NELLIE (Connor Nazario MD [facility]) Surgeries/Procedures Procedure Description Date Indications Data Source(s) Debridement Nails Any Method 1-5 06/25/2021 12:00:00 A M EDT [facility] ([facility]) OFFICE OUTPATIENT NEW 20 MINUTES 06/25/2021 12:00:00 A M EDT MED[facility] ([facility]) OFFICE OUTPATIENT VISIT 15 MINUTES 06/19/2021 12:00:00 AM EDT [facility] ([facility]) OFFICE OUTPATIENT VISIT 15 MINUTES 06/08/2021 12:00:00 AM EDT [facility] ([facility]) ARTHROCENTESIS ASPIR&/INJECTION MAJOR JT/BURSA 021 12:00:00 AM EDT MED[facility] ([facility]) OFFICE OUTPATIENT VISIT 25 MINUTES 04/17/2021 12:00:00 AM EDT [facility] ([facility]) OFFICE OUTPATIENT VISIT 25 MINUTES 03/06/2021 12:00:00 AM EDT [facility] ([facility]) Extracapsular extraction of lens (procedure) History o f extracapsular cataract extraction PCIOL OS by Dr. Joaquin 05/11/2020 ~PCIOL OD by Dr. Joaquin 05/18/2020 03/01/2021 12:00:00 AM EDT NELLIE (Pee Nazario MD [facility]) OFFICE OUTPATIENT VISIT 15 MINUTES 02/02/2021 12:00:00 AM EDT MED[facility] ([facility]) OFFICE OUTPATIENT VISIT 15 MINUTES 01/31/2021 12:00:00 AM EDT [facility] ([facility]) THERAPEUTIC PX 1/> AREAS EACH 15 MIN EXERCISES 12:00:00 AM EST [facility] ([facility]) MANUAL THERAPY TQS 1/> REGIONS EACH 15 MINUTES 12:00:00 AM EST [facility] ([facility]) APPLICATION MODALITY 1/> AREAS HOT/COLD PACKS 08/23/20 20 12:00:00 AM EST [facility] ([facility]) Physical Therapy Eval - Mod Complexity 08/23/2020 12:0 0:00 AM EST [facility] ([facility]) ARTHROCENTESIS ASPIR&/INJECTION MAJOR JT/BURSA 020 12:00:00 AM EST [facility] ([facility]) Extracapsular extraction of lens (procedure) History o f extracapsular cataract extraction PCIOL OS by Dr. Joaquin 05/11/2020 ~PCIOL OD by Dr. Joaquin 05/18/2020 06/29/2020 12:00:00 AM EST NELLIE (Pee Nazario MD [facility]) Mammography (procedure) 06/28/2020 12:00:00 AM EST [facility] ([facility]) Surgical / procedural history Surgical / procedural history 05/26/2020 12:00:00 AM HIRAM BALLARD (Connor Nazario MD [facility]) Extracapsular extraction of lens (procedure) History o f extracapsular cataract extraction PCIOL OS by Dr. Joaquin 05/11/2020 ~PCIOL OD by Dr. Joaquin 05/18/2020 05/26/2020 12:00:00 AM EDT NELLIE (Pee id Melchor Nazario MD [facility]) Results ID Date Data Source [id number] 06/14/2021 12:33:00 PM EDT [facility] ([facility]) Name Value Range Interpretation Code Description Data Maria Alejandra rce(s) Supporting Document(s) Platelets [#/volume] in Blood by Estimate Laboratory test result Normal (applies to non-numeric results) [facility] ([facility]) ID Date Data Source [id number] 06/14/2021 12:33:00 PM EDT [facility] ([facility]) Name Value Range Interpretation Code Description Data [...] result Normal (applies t o non-numeric results) [facility] ([facility]) ID Date Data Source [id number] 06/14/2021 12:33:00 PM EDT [facility] ([facility]) Name Value Range Interpretation Code Description Data [...] 27.0-33.0 Norm al (applies to non-numeric results) [facility] ([facility]) Hematocrit 38.3 % 36.0-47.0 Normal (applies to non-numeric resul ts) [facility] ([facility]) Mean Corpuscular Volume 92.7 fl 80.0-96.0 Normal ( applies to non-numeric results) [facility] ([facility]) Mean Corpuscular HGB Conc 33.4 g/dL 32.0-36.5 Normal (applies to non-numeric results) [facility] ([facility]) Red Cell Distribution Width 13.0 % 11.5-14.5 Norm al (applies to non-numeric results) [facility] ([facility]) Nucleated Red Blood Cell % 0.0 % 0-0 Normal (applies to n on-numeric results) [facility] ([facility]) Platelet Count, Automated 162 10 150-450 Normal (applies to non-numeric results) [facility]) ID Date Data Source [id number] 06/14/2021 12:33:00 PM EDT [facility] ([facility]) Name Value Range Interpretation Code Description Data Maria Alejandra rce(s) Supporting Document(s) Influenza A Amplification Laboratory test result Normal (applies to non- numeric results) [facility]) Negative results do not preclude influen za or RSV virus infection and should not be used as the sole basis for treatment or other patient management decisions. Influenza B Amplification Laboratory test result Normal (applies to non- numeric results) [facility]) Negative results do not preclude influen za or RSV virus infection and should not be used as the sole basis for treatment or other patient management decisions. RSV Amplification Laboratory test result Normal (applies to non-numeric results) [facility]) Negative results do not preclude influen za or RSV virus infection and should not be used as the sole basis for treatment or other patient management decisions. Laboratory test finding (navigational concept) Laboratory test r esult Normal (applies to non-numeric results) [facility]) A false negative result may occur if [...] pathogens. DISCLAIMER: Testing was performed using the [employer] SARS-CoV-2 test. This test was developed and its performance characteristics determined by [employer]. This test has not been FDA cleared [...] or revoked sooner. ID Date Data Source [id number] 06/14/2021 12:33:00 PM EDT [facility] ([facility]) Name Value Range Interpretation Code Description Data Maria Alejandra rce(s) Supporting Document(s) Glucose, Fasting 103 mg/dL 70-100 Above high normal [facility] ([facility]) Creatinine For GFR 0.92 mg/dL 0.55-1.30 Normal (applies to non -numeric results) [facility] ([facility]) Blood Urea Nitrogen 16 mg/dL 7-18 Normal (applies to non-nume jaron results) [facility] ([facility]) Glomerular Filtration Rate Laboratory test result Normal (applies to non- numeric results) [facility] ([facility]) <content>Units are mL/min/1.73 m2</content>
<content></content>
<content>Chronic Kidney Disease Staging per NKF:</content>
<content></content>
<content>Stage I & II GFR >=60 Normal to Mildly Decreased</content>
<content>Stage III GFR 30- 59 Moderately Decreased</content>
<content>Stage IV GFR 15-29 Severely Decreased</content>
<content>Stage V GFR <15 Very Little GFR Left</content>
<content>ESRD GFR <15 on OUT OF SCHOOL HOURS CARE WORKER</content>
<content></content> Sodium Level 139 meq/L 136-145 Normal (applies to non-numeric res ults) [facility] ([facility]) Carbon Dioxide Level 27 meq/L 21-32 Normal (applies to non-num angela results) [facility] ([facility]) Potassium Serum 4.1 meq/L 3.5-5.1 Normal (applies to non-numeric results) [facility] ([facility]) Chloride Level 106 meq/L 98-107 Normal (applies to non-numeric r esults) [facility] ([facility]) Anion Gap 6 meq/L 8-16 Below low normal [facility] ( [facility]) Calcium Level 8.7 mg/dL 8.8-10.2 Below low normal [facility] ([facility]) Alt/SGPT 24 U/L 12-78 Normal (applies to non-numeric resul ts) [facility] ([facility]) Ast/Sgot 21 U/L 7-37 Normal (applies to non-numeric resul ts) [facility] ([facility]) Bilirubin,Total 0.4 mg/dL 0.2-1.0 Normal (applies to non-numeric results) [facility] ([facility]) Alkaline Phosphatase 96 U/L 45-117 Normal (applies to non-num angela results) [facility] ([facility]) Albumin/Globulin Ratio 1.1 1.2-2.2 Below low normal [facility] ([facility]) Albumin 3.3 GM/DL 3.2-5.2 Normal (applies to non-numeric resul ts) [facility] ([facility]) Total Protein 6.3 GM/DL 6.4-8.2 Below low normal [facility] ID Date Data Source [id number] 06/14/2021 12:33:00 PM EDT [facility] Name Value Range Interpretation Code Description Data Maria Alejandra rce(s) Supporting Document(s) SARS coronavirus 2 RNA [Presence] in Res piratory specimen by GERONIMO with probe detection NEGATIVE [facility] This lab was ordered by [facility] a nd reported by [facility]. ID Date Data Source [id number] 06/14/2021 12:32:00 PM EDT [facility] ([facility]) Name Value Range Interpretation Code Description Data [...] result Dawn l (applies to non-numeric results) [facility] ([facility]) Specific [place] Urine Auto 1.013 1.002-1.035 Norm al (applies to non-numeric results) [facility] ([facility]) Ketone, Urine Auto Laboratory test result Above high dawn l [facility] ([facility]) Glucose, Urine (Ua) Auto Laboratory test result Normal (applies to non-numeric results) [facility] ([facility]) Urobilinogen, Urine Auto 0.2 mg/dL 0.0-2.0 Normal (applies to non-numeric results) [facility] ([facility]) Bilirubin, Urine Auto Laboratory test result Nor mal (applies to non-numeric results) [facility] ([facility]) Nitrite, Urine Auto Laboratory test result Dawn l (applies to non-numeric results) [facility] ([facility]) Blood, Urine Blood Laboratory test result Above high dawn l [facility] ([facility]) Leukocyte Esterase, Urine Auto Laboratory test result Normal (applies to non- numeric results) [facility] ([facility]) WBC, Urine Auto 0 /HPF 0-3 Normal (applies to non-numeric results) [facility] ([facility]) RBC, Urine Auto 0 /HPF 0-3 Normal (applies to non-numeric results) [facility] ([facility]) Hyaline Cast, Urine Auto 0 /LPF 0-1 Normal (applies to non -numeric results) [facility] ([facility]) Bacteria, Urine Auto Laboratory test result Norm al (applies to non-numeric results) [facility] ([facility]) Squamous Epithelial Cell Ur AU 8 /HPF 0-6 N ormal (applies to non-numeric results) [facility] ([facility]) ID Date Data Source [id number] 06/12/2021 11:03:00 AM EDT [facility] ([facility]) Name Value Range Interpretation Code Description Data Maria Alejandra rce(s) Supporting Document(s) Appearance, Urine Laboratory test result Normal (applies to non-numeric results) [facility] ([facility]) Color, Urine Laboratory test result Normal (applies to non -numeric results) [facility] ([facility]) Specific [place] Urine Auto 1.018 1.002-1.035 Norm al (applies to non-numeric results) [facility] ([facility]) PH,Urine 5.0 units 5.0-9.0 Normal (applies to non-numeric resul ts) [facility] ([facility]) Protein, Urine Auto Laboratory test result Dawn l (applies to non-numeric results) [facility] ([facility]) Ketone, Urine Auto Laboratory test result Normal (applies to non-numeric results) [facility] ([facility]) Glucose, Urine (Ua) Auto Laboratory test result Normal (applies to non-numeric results) [facility] ([facility]) Urobilinogen, Urine Auto 2.0 mg/dL 0.0-2.0 Above high normal [facility] ([facility]) Bilirubin, Urine Auto Laboratory test result Nor mal (applies to non-numeric results) [facility] ([facility]) Nitrite, Urine Auto Laboratory test result Dawn l (applies to non-numeric results) [facility] ([facility]) Leukocyte Esterase, Urine Auto Laboratory test result Normal (applies to non- numeric results) [facility] ([facility]) Blood, Urine Blood Laboratory test result Above high dawn l [facility] ([facility]) RBC, Urine Auto 7 /HPF 0-3 Above high normal [facility] ([facility]) WBC, Urine Auto 2 /HPF 0-3 Normal (applies to non-numeric results) [facility] ([facility]) Bacteria, Urine Auto Laboratory test result Norm al (applies to non-numeric results) [facility] ([facility]) Squamous Epithelial Cell Ur AU 3 /HPF 0-6 N ormal (applies to non-numeric results) [facility] ([facility]) Mucus, Urine Laboratory test result Normal (applies to non -numeric results) [facility] ([facility]) Hyaline Cast, Urine Auto 0 /LPF 0-1 Normal (applies to non -numeric results) [facility] ([facility]) ID Date Data Source [id number] 06/12/2021 10:54:00 AM EDT [facility] ([facility]) Name Value Range Interpretation Code Description Data Maria Alejandra rce(s) Supporting Document(s) C reactive protein [Mass/volume] in Serum or Plasma by High sensitivity method 3.08 mg/dL 0.00-0.30 Above high normal [facility] ([facility]) ID Date Data Source [id number] 06/12/2021 10:54:00 AM EDT [facility] ([facility]) Name Value Range Interpretation Code Description Data Maria Alejandra rce(s) Supporting Document(s) White Blood Count 4.5 10 4.0-10.0 Normal (applies to non-numeri c results) [facility] ([facility]) Red Blood Count 4.05 10 4.00-5.40 Normal (applies to non-numeric results) [facility] ([facility]) Hemoglobin 12.7 g/dL 12.0-15.5 Normal (applies to non-numeric resul ts) [facility] ([facility]) Mean Corpuscular Volume 94.1 fl 80.0-96.0 Normal ( applies to non-numeric results) [facility] ([facility]) Hematocrit 38.1 % 36.0-47.0 Normal (applies to non-numeric resul ts) [facility] ([facility]) Mean Corpuscular Hemoglobin 31.4 pg 27.0-33.0 Norm al (applies to non-numeric results) [facility] ([facility]) Mean Corpuscular HGB Conc 33.3 [...] to non-numeric resul ts) [facility] ([facility]) Kimble % 9.5 % 2.0-8.0 Above high normal [...] to non-numeric resul ts) [facility] ([facility]) Kimble # 0.4 10 0.0-0.8 Normal (applies to non-numeric resul ts) [facility] ([facility]) Baso # 0.0 10 0.0-0.2 Normal (applies to non-numeric resul ts) [facility] ([facility]) ID Date Data Source [id number] 06/12/2021 10:54:00 AM EDT [facility] ([facility]) Name Value Range Interpretation Code Description Data Maria Alejandra rce(s) Supporting Document(s) Glucose, Fasting 79 mg/dL 70-100 Normal (applies to non-numeric results) [facility] ([facility]) Creatinine For GFR 0.90 mg/dL 0.55-1.30 Normal (applies to non -numeric results) [facility] ([facility]) Blood Urea Nitrogen 18 mg/dL 7-18 Normal (applies to non-nume jaron results) [facility] ([facility]) Glomerular Filtration Rate Laboratory test result Normal (applies to non- numeric results) [facility] ([facility]) <content>Units are mL/min/1.73 m2</content>
<content></content>
<content>Chronic Kidney Disease Staging per NKF:</content>
<content></content>
<content>Stage I & II GFR >=60 Normal to Mildly Decreased</content>
<content>Stage III GFR 30- 59 Moderately Decreased</content>
<content>Stage IV GFR 15-29 Severely Decreased</content>
<content>Stage V GFR <15 Very Little GFR Left</content>
<content>ESRD GFR <15 on OUT OF S[employer]OL HOURS CARE WORKER</content>
<content></content> Sodium Level 139 meq/L 136-145 Normal (applies to non-numeric res ults) [facility] ([facility]) Potassium Serum 4.3 meq/L 3.5-5.1 Normal (applies to non-numeric results) [facility] ([facility]) Chloride Level 108 meq/L 98-107 Above high normal [facility] ([facility]) Carbon Dioxide Level 27 meq/L 21-32 Normal (applies to non-num angela results) [facility] ([facility]) Anion Gap 4 meq/L 8-16 Below low normal [facility] ( [facility]) Calcium Level 9.0 mg/dL 8.8-10.2 Normal (applies to non-numeric re sults) [facility] ([facility]) Ast/Sgot 18 U/L 7-37 Normal (applies to non-numeric resul ts) [facility] ([facility]) Bilirubin,Total 0.3 mg/dL 0.2-1.0 Normal [...] [facility] ([facility]) ID Date Data Source [id number] 06/11/2021 03:35:00 PM EDT [facility] ([facility]) Name Value Range Interpretation Code Description Data Maria Alejandra rce(s) Supporting Document(s) Albumin [Mass/volume] in Serum or Plasma Laboratory test result [facility] ([facility]) Calcium [Mass/volume] in Serum or Plasma Laboratory test result [facility] ([facility]) Alanine aminotransferase [Enzymatic activity/volume] i n Serum or Plasma Laboratory test result [facility] ([facility]) Carbon dioxide, total [Moles/volume] in Serum or Plasma Labo ratory test result [facility] ([facility]) Creatinine [Mass/volume] in Serum or Plasma Laboratory test result [facility] ([facility]) Chloride [Moles/volume] in Serum or Plasma Laboratory test result [facility] ([facility]) Glucose [Mass/volume] in Serum or Plasma Laboratory test result [facility] ([facility]) Alkaline phosphatase [Enzymatic activity/volume] in Se rum or Plasma Laboratory test result [facility] ([facility]) Potassium [Moles/volume] in Serum or Plasma Laboratory test result [facility] ([facility]) Sodium [Moles/volume] in Serum or Plasma Laboratory test result [facility] ([facility]) Protein [Mass/volume] in Serum or Plasma Laboratory test result [facility] ([facility]) Urea nitrogen [Mass/volume] in Serum or Plasma Laboratory test result [facility] ([facility]) Aspartate aminotransferase [Enzymatic activity/volume] in Serum or Plasma Laboratory test result [facility] ([facility]) ID Date Data Source [id number] 06/11/2021 03:35:00 PM EDT [facility] ([facility]) Name Value Range Interpretation Code Description Data Maria Alejandra rce(s) Supporting Document(s) Bacteria identified in Urine by Culture Laboratory test result [facility] ([facility]) ID Date Data Source [id number] 06/11/2021 03:35:00 PM EDT [facility] ([facility]) Name Value Range Interpretation Code Description Data [...] gh power field Laboratory test result [facility] ([facility]) Protein [Presence] in Urine by Test strip [...] [facility] ([facility]) ID Date Data Source [id number] 06/11/2021 03:35:00 PM EDT [facility] ([facility]) Name Value Range Interpretation Code Description Data Maria Alejandra rce(s) Supporting Document(s) C reactive protein [Mass/volume] in Serum or Plasma by High sensitivity method Laboratory test result [facility] ([facility]) ID Date Data Source [id number] 06/11/2021 03:35:00 PM EDT [facility] ([facility]) Name Value Range Interpretation Code Description Data Maria Alejandra rce(s) Supporting Document(s) Leukocytes [#/volume] in Blood by Automated count Laboratory test res ult [facility] ([facility]) Hemoglobin [Mass/volume] in Blood Laboratory test result [facility] ([facility]) Erythrocytes [#/volume] in Blood by Automated count Laboratory test result [facility] ([facility]) Erythrocyte mean corpuscular volume [Entitic volume] b y Automated count Laboratory test result [facility] ([facility]) Hematocrit [Volume Fraction] of Blood by Automated count Lab oratory test result [facility] ([facility]) Erythrocyte mean corpuscular hemoglobin [Entitic mass] by Automated count Laboratory test result [facility] ([facility]) Erythrocyte mean corpuscular hemoglobin concentration [Mass/volume] by Automated count Laboratory test result [facility] ([facility]) Platelets [#/volume] in Blood by Automated count Laboratory test resu lt [facility] ([facility]) Erythrocyte distribution width [Ratio] by Automated co unt Laboratory test result [facility] ([facility]) Platelet mean volume [Entitic volume] in Blood by Kayode Tam Laboratory test result [facility] ([facility]) Band form neutrophils/100 leukocytes in Body fluid by Manual count Laboratory test result [facility] ([facility]) Neutrophils Laboratory test result [facility] ([facility]) Monocytes Laboratory test result [facility] ([facility]) Eosinophils/100 leukocytes in Body fluid by Manual count Lab oratory test result [facility] ([facility]) Lymphocytes/100 leukocytes in Body fluid by Manual count Lab oratory test result [facility] ([facility]) Basophils [#/volume] in Blood by Automated count Laboratory test resu lt [facility] ([facility]) Basophils/100 leukocytes in Blood Laboratory test result [facility] ([facility]) Lymphocytes [#/volume] in Blood Laboratory test result [facility] ([facility]) Eosinophils [#/volume] in Blood by Automated count Laboratory test re sult [facility] ([facility]) Neutrophils [#/volume] in Blood by Automated count [facility] ([facility]) Monocytes [#/volume] in Blood Laboratory test result [facility] ([facility]) ID Date Data Source [id number] 08/22/2020 11:08:00 AM EST [facility] ([facility]) Name Value Range Interpretation Code Description Data Maria Alejandra rce(s) Supporting Document(s) Thyroxine (T4) [Mass/volume] in Serum or Plasma 7.5 ug/dL 4.5-12.0 Normal (applies to non-numeric results) [facility] ([facility]) Thyrotropin [Units/volume] in Serum or Plasma 2.460 uIU/ML 0. 358-3.740 Normal (applies to non-numeric results) [facility] ([facility]) Calcidiol [Mass/volume] in Serum or Plasma 60.9 ng/mL 30.0- 100.0 Normal (applies to non-numeric results) [facility] ([facility]) ID Date Data Source [id number] 08/22/2020 11:08:00 AM EST [facility] ([facility]) Name Value Range Interpretation Code Description Data Maria Alejandra rce(s) Supporting Document(s) Triglycerides Level 133 mg/dL Normal (applies to non-nume jaron results) [facility] ([facility]) Cholesterol Level 165 mg/dL Normal (applies to non-numeri c results) [facility] ([facility]) HDL Cholesterol 59 mg/dL Normal (applies to non-numeric results) [facility] ([facility]) LDL Cholesterol 79 mg/dL Normal (applies to non-numeric results) [facility] ([facility]) Non-HDL-C 106 mg/dL Normal (applies to non-numeric resul ts) [facility] ([facility]) Cholesterol Risk Ratio 2.796 Normal (applies to non-n umeric results) [facility] ([facility]) ID Date Data Source [id number] 08/22/2020 11:08:00 AM EST [facility] ([facility]) Name Value Range Interpretation Code Description Data Maria Alejandra rce(s) Supporting Document(s) Glucose, Fasting 92 mg/dL 70-100 Normal (applies to non-numeric results) [facility] ([facility]) Glomerular Filtration Rate Laboratory test result Normal (applies to non- numeric results) [facility] ([facility]) <content>Units are mL/min/1.73 m2</content>
<content></content>
<content>Chronic Kidney Disease Staging per NKF:</content>
<content></content>
<content>Stage I & II GFR >=60 Normal to Mildly Decreased</content>
<content>Stage III GFR 30- 59 Moderately Decreased</content>
<content>Stage IV GFR 15-29 Severely Decreased</content>
<content>Stage V GFR <15 Very Little GFR Left</content>
<content>ESRD GFR <15 on OUT OF S[employer] HOURS CARE WORKER</content>
<content></content> Creatinine For GFR 0.74 mg/dL 0.55-1.30 Normal (applies to non -numeric results) [facility] ([facility]) Blood Urea Nitrogen 16 mg/dL 7-18 Normal (applies to non-nume jaron results) [facility] ([facility]) Sodium Level 144 meq/L 136-145 Normal (applies to non-numeric res ults) [facility] ([facility]) Potassium Serum 4.4 meq/L 3.5-5.1 Normal (applies to non-numeric results) [facility] ([facility]) Carbon Dioxide Level 31 meq/L 21-32 Normal (applies to non-num angela results) [facility] ([facility]) Chloride Level 107 meq/L 98-107 Normal (applies to non-numeric r esults) [facility] ([facility]) Calcium Level 8.7 mg/dL 8.8-10.2 Below low normal [facility] ([facility]) Anion Gap 6 meq/L 8-16 Below low normal [facility] ( [facility]) Ast/Sgot 20 U/L 7-37 [...] 1.2-2.2 Normal (applies to non-n umeric results) [facility] ([facility]) ID Date Data Source [id number] 08/22/2020 11:08:00 AM EST [facility] ([facility]) Name Value Range Interpretation Code Description Data Maria Alejandra rce(s) Supporting Document(s) White Blood Count 6.2 10 4.0-10.0 Normal (applies to non-numeri c results) [facility] ([facility]) Hemoglobin 13.6 g/dL 12.0-15.5 Normal (applies to non-numeric resul ts) [facility] ([facility]) Red Blood Count 4.42 10 4.00-5.40 Normal (applies to non-numeric results) [facility] ([facility]) Mean Corpuscular Volume 96.2 fl 80.0-96.0 Above high normal [facility] Hematocrit 42.5 % 36.0-47.0 Normal [...] to non-numeric resul ts) [facility] ([facility]) [place]ble % 5.1 % 0.0-5.0 Above high normal [...] to non-numeric re sults) [facility] ([facility]) [place]ble # 0.3 10 0.0-0.8 Normal (applies to non-numeric resul ts) [facility] ([facility]) Lymph # 2.3 10 1.5-5.0 Normal (applies to non-numeric resul ts) [facility] ([facility]) Eos # 0.1 10 0.0-0.5 Normal (applies to non-numeric resul ts) [facility] ([facility]) Baso # 0.0 10 0.0-0.2 Normal (applies to non-numeric resul ts) [facility] ([facility]) ID Date Data Source [id number] 07/31/2020 12:00:00 AM EST [facility] [place] Jose MD Patient Name: GERMAN PARKER[address] [facility] Date of : [id number] [place] [id number] Date of Exam: 07/31/2020#: Fax: [phone] EXAM: [...] EDT Former Smoker completed Former Smoker [id number] ([facility]) Smoking 04/26/2021 02:16:15 PM EDT Never smoked tobacco (findi alissa) completed Never smoked tobacco (finding) NELLIE (Connor Nazario MD [facility]) Smoking 04/26/2021 02:14:04 PM EDT Never smoked tobacco (findi ng) completed Never smoked tobacco (finding) NELLIE (Connor Nazario MD [facility]) Smoking 04/26/2021 02:12:59 PM EDT Never smoked tobacco (findi ng) completed Never smoked tobacco (finding) NELLIE (Connor Nazario MD [facility]) Smoking 04/06/2021 07:45:43 AM EDT Never smoked tobacco (findi ng) completed Never smoked tobacco (finding) NELLIE (Connor Nazario MD [facility]) Smoking 08/31/2020 12:00:00 AM EST Patient has never smoked co mpleted Patient has never smoked [facility] ([facility]) Vital Signs ID Date Data Source UNK Name Value Range Interpretation Code Description Data Source(s) Body weight 134.00 [lb_av] 134.00 [lb_av] [facility] ([facility]) Body mass index (BMI) [Ratio] 24.7 kg/m2 24.7 k g/m2 [facility] ([facility]) Heart rate 81 /min 81 /min [facility] ([facility]) Respiratory rate 18 /min 18 /min [facility] ( [facility]) Systolic blood pressure 124 mm[Hg] 124 mm[Hg] [facility] ([facility]) Diastolic blood pressure 72 mm[Hg] 72 mm[Hg] [facility] ([facility]) Body height 61.7 [in_i] 61.7 [in_i] [facility] ([facility]) 5'1.70" Body temperature 98.8 [degF] 98.8 [degF] [facility] ([facility]) Oxygen saturation in Arterial blood by Pulse oximetry 100 % 100 % [facility] ([facility]) [place] body weight 105 [lb_av] 105 [lb_av] [facility] ([facility]) Systolic blood pressure 92 mm[Hg] 92 mm[Hg] [facility] ([facility]) Diastolic blood pressure 58 mm[Hg] 58 mm[Hg] [facility] ([facility]) Body height 61.7 [in_i] 61.7 [in_i] [facility] ([facility]) 5'1.70" Heart rate 80 /min 80 /min [facility] ([facility]) Respiratory rate 12 /min 12 /min [facility] ( [facility]) Body temperature 98.5 [degF] 98.5 [degF] [facility] ([facility]) Oxygen saturation in Arterial blood by Pulse oximetry 95 % 95 % [facility] ([facility]) [place] body weight 105 [lb_av] 105 [lb_av] [facility] [...] 61.7 [in_i] 61.7 [in_i] [facility] ([facility]) " Respiratory rate 18 /min 18 /min [facility] ( [facility]) Body temperature 97.8 [degF] 97.8 [degF] [facility] ([facility]) [place] body weight 105 [lb_av] 105 [lb_av] [facility] ([facility]) Oxygen saturation in Arterial blood by Pulse oximetry 98 % 98 % [facility] ([facility]) Body height 61.7 [in_i] 61.7 [in_i] [facility] ([facility]) " Body weight 144.00 [lb_av] 144.00 [lb_av] [facility] ([facility]) [place] body weight 105 [lb_av] 105 [lb_av] [facility] [...] blood pressure 142 mm[Hg] 142 mm[Hg] [facility] ([facility]) Heart rate 74 /min 74 /min [facility] ([facility]) Respiratory rate 78 /min 78 /min [facility] ( [facility]) Body temperature 98.3 [degF] 98.3 [degF] [facility] ([facility]) Diastolic blood pressure 82 mm[Hg] 82 mm[Hg] [facility] ([facility]) Body height 61.7 [in_i] 61.7 [in_i] [facility] ([facility]) 5'.70" Body mass index (BMI) [Ratio] 26.2 kg/m2 26.2 k g/m2 [facility] Oxygen saturation in Arterial blood by Pulse oximetry 97 % 97 % [facility] ([facility]) [place] body weight 105 [lb_av] 105 [lb_av] [facility] ([facility]) Systolic blood pressure 126 mm[Hg] 126 mm[Hg] [facility] ([facility]) Diastolic blood pressure 68 mm[Hg] 68 mm[Hg] [facility] ([facility]) Body height 61.7 [in_i] 61.7 [in_i] [facility] ([facility]) 5'1.70" Body weight 140.12 [lb_av] 140.12 [lb_av] [facility] [...] 99 % 99 % [facility] ([facility]) [place] body weight 105 [lb_av] 105 [lb_av] [facility] ([facility]) Oxygen saturation in Arterial blood by Pulse oximetry 97 % 97 % [facility] ([facility]) Systolic blood pressure 124 mm[Hg] 124 mm[Hg] [facility] ([facility]) Diastolic blood pressure 72 mm[Hg] 72 mm[Hg] [facility] ([facility]) Body height 61.7 [in_i] 61.7 [in_i] [facility] ([facility]) 5'1.70" Body weight 139.12 [lb_av] 139.12 [lb_av] [facility] ([facility]) Body mass index (BMI) [Ratio] 25.7 kg/m2 25.7 k g/m2 [facility] ([facility]) Heart rate 5 /min 5 /min [facility] ([facility]) Respiratory rate 18 /min 18 /min [facility] ( [facility]) Body temperature 98.6 [degF] 98.6 [degF] [facility] ([facility]) [place] body weight 105 [lb_av] 105 [lb_av] [facility] ([facility]) [place] body weight 105 [lb_av] 105 [lb_av] [facility] ([facility]) Oxygen saturation in Arterial blood by Pulse oximetry 97 % 97 % [facility] ([facility]) Systolic blood pressure 124 mm[Hg] 124 mm[Hg] [facility] ([facility]) Diastolic blood pressure 74 mm[Hg] 74 mm[Hg] [facility] ([facility]) Body height 61.7 [in_i] 61.7 [in_i] [facility] ([facility]) 5'1.70" Body weight 141.00 [lb_av] 141.00 [lb_av] [facility] ([facility]) Body mass index (BMI) [Ratio] 26.0 kg/m2 26.0 k g/m2 [facility] ([facility]) Heart rate 79 /min 79 /min [facility] ([facility]) Respiratory rate 18 /min 18 /min [facility] Body temperature 98.3 [degF] 98.3 [degF] [facility] Patient Treatment Plan of Care Planned Activity Planned Date Details Description Data Source (s) besifloxacin 6 MG/ML Ophthalmic Suspension [Besivance] 05/04/2020 12:00:00 AM HIRAM BALLARD (Connor Nazario MD [facility])
--- NOTE | 2021-07-21 10:14 | HPEPDOC ---
[facility] Medical History & Physical Date of Admission Jul 21, 2021 Date of Service: Jul 21, 2021 History and Physical CHIEF COMPLAINT: "I dropped my cane and fell" HISTORY OF PRESENT ILLNESS: [age]-year-old female with a past medical history of dementia, GERD, hyperlipidemia, and depression presented emergency room department after a fall. She reports getting up from bed with a cane but dropped to the floor and subsequently she fell. In the emergency room department. She denied prodromal symptoms including dizziness, palpitations, nausea, vomiting, diaphoresis; as well as shortness of breath and chest pain at the time. The emergency room department and x-ray noted a intertrochanteric fracture of the proximal right femur. At this junction, she complains of pain in her right lower leg. She denies chest pain, shortness of breath, abdominal pain, nausea, vomiting, problems with urination or bowel movements. PAST MEDICAL HISTORY: As mentioned above and, Colon cancer status post sigmoid colectomy Hepatic and renal cysts Multijoint osteoarthritis Lumbar degenerative disc disease Right adrenal hematoma Peptic ulcer disease PAST SURGICAL HISTORY: CORONA and BSO Laparotomy with colostomy reversal SOCIAL HISTORY: and lives with her . She requires assistance with IADLs/ADLs by her . Denies smoking, drinking, use of recreational drugs. FAMILY HISTORY: Father: . History of diabetes Mother: Disease. History of stomach cancer Siblings: Sister at the age of 64, she had diabetes and heart disease. ALLERGIES: Please see below. REVIEW OF SYSTEMS: 10 point review of system was negative except for what is noted in the HPI HOME MEDICATIONS: Please see below. PHYSICAL EXAMINATION: VITAL SIGNS: Please see below General: Lying in bed, no acute distress Head/Neck/Throat: Trachea midline, mucous membranes moist Eyes: Sclera anicteric, PERRLA Thorax: Normal respiratory effort on room air, lungs clear to auscultation bilaterally, no wheezes/rales/rhonchi Cardiovascular: Normal rate, regular rhythm, normal S1, S2; no S3, S4, rubs/gallops/murmurs Abdomen: Bowel sounds present, soft/nontender/nondistended Genitourinary: No CVA tenderness, no Tirado in place Musculoskeletal: Laying on left hip, with right hip flexed, reported pain with movement. Skin: Warm, dry Neurologic: Awake, alert, oriented however forgetful conversation. She is able to follow commands. LABORATORY DATA: See below. IMAGING: Chest, 1 view FINDINGS: The mediastinum and cardiac silhouette are stable and within normal limits for portable technique. The lung trejo are clear without acute consolidation, effusion, or pneumothorax. Skeletal structures are intact. IMPRESSION: No acute cardiopulmonary process appreciated. Femur RIGHT FINDINGS: Visualized osseous structures are intact and without evidence for acute fracture or dislocation. Age-related changes at the knee noted. No subcutaneous emphysema or foreign body. IMPRESSION: No acute fracture or dislocation. Hip,AP,LAT to include Pelvis RIGHT FINDINGS: Comminuted displaced intertrochanteric fracture of the right femur. Remainder of the examination demonstrates age-related changes. No further acute fracture or dislocation appreciated. IMPRESSION: Acute comminuted displaced angulated intertrochanteric fracture proximal right femur. MICROBIOLOGY: Please see below. ASSESSMENT/PLAN: 85-year-old female present emergency room department after a mechanical fall. She was noted to have a intratrochanteric fracture of the right proximal femur #Right proximal femur fracture -S/p mechanical fall. She is medically cleared to go to the OR. Symptomatic management with pain control medications. -PT/OT evaluation following surgery and pending Ortho activity tolerance recommendations #GERD -Continue omeprazole #Hyperlipidemia -Continue statin #Dementia -Continue memantine #DVT prophylaxis -She will be on SCDs for now. Will discuss with orthopedic team for appropriate prophylaxis to be discharged on. Vital Signs Vital Signs Date Time Temp Pulse Resp B/P (MAP) Pulse Ox O2 Delivery O2 Flow Rate FiO2 07/21/21 09:32 79 16 100 Room Air 07/21/21 09:31 189/87 (121) 07/21/21 08:28 97.1 Laboratory Data Labs 24H Laboratory Tests 2 07/21/21 08:42: POC Troponin I (Misc) 0.01 07/21/21 08:43: Nucleated Red Blood Cells % (auto) 0.0, Prothrombin Time 13.9, Prothromb Time International Ratio 1.03, Activated Partial Thromboplast Time 28.8, Coronavirus (COVID-19)(PCR) NEGATIVE, Influenza Type A (RT-PCR) NEGATIVE, Influenza Type B (RT-PCR) NEGATIVE, Respiratory Syncytial Virus (PCR) NEGATIVE CBC/BMP Laboratory Tests 07/21/21 08:43 Home Medications Scheduled Atorvastatin Calcium (Atorvastatin Calcium) 10 Mg Tab, 10 MG PO QHS Cholecalciferol (Vitamin D3) (Vitamin D3) 50 Mcg Tablet, 50 MCG PO DAILY Citalopram Hydrobromide (Citalopram HBr) 10 Mg Tablet, 10 MG PO DAILY Cyanocobalamin (Vitamin B-12) (Vitamin B-12) 1,000 Mcg Tab, 1,000 MCG PO QHS Memantine HCl (Namenda) 10 Mg Tablet, 10 MG PO BID Omeprazole (Omeprazole) 40 Mg Capsule.dr, 40 MG PO DAILY [prevagen] , 1 TAB PO DAILY Allergies Coded Allergies: iodine (Verified Allergy, Intermediate, hives, 05/18/20) contast media amoxicillin (Verified Allergy, Unknown, 05/25/19) NSAIDS (Non-Steroidal Anti-Inflamma (Verified Adverse Reaction, Intermediate, bleeding ulcers, 05/25/19) clavulanic acid (Verified Adverse Reaction, Intermediate, rash/ C-diff, 05/18/20) naproxen (Verified Adverse Reaction, Intermediate, GI bleeds, 05/25/19) cephalexin (Verified Adverse Reaction, Unknown, yeast infection, 07/21/21) A-FIB/CHADSVASC A-FIB History Current/History of A-Fib/PAF?: No AYLIN BURGER M.D. Jul 21, 2021 10:14
--- NOTE | 2021-07-21 10:33 | ECGEPIP ---
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
[2021-07-21] MEDS ORDERED: propofoL 200 MG/20 ML VIAL As Ordered ONE (10:38)
[2021-07-21] MEDS ORDERED: fentaNYL 100 MCG/2 ML INJECTION (J3010) As Ordered ONE (10:38)
[2021-07-21] MEDS ORDERED: hydrALAZINE 20MG/ML 1ML VIAL (J0360 PER 20MG) IV ONE (11:00)
[2021-07-21] MEDS ORDERED: CITA10TA5 PO (11:49)
[2021-07-21] MEDS ORDERED: HOME MED LIST COMPLETE! XX SCH (11:50)
--- NOTE | 2021-07-21 12:28 | HPE ---
HISTORY AND PHYSICAL DATE OF ADMISSION: 07/21/2021 CHIEF COMPLAINT: Right hip intertrochanteric hip fracture. HISTORY OF PRESENT ILLNESS: This is an 85-year-old female who fell this morning. She was getting out of bed. Normally she gets up with her but she tried this on her own. She tripped, fell over her cane, was unable to ambulate. She presented to the [facility] with a right hip fracture. PAST MEDICAL HISTORY: Per the hospitalist includes dementia, GERD, hyperlipidemia, depression, colon cancer, post-sigmoid colectomy, hepatic and renal cysts, multi-joint osteoarthritis, lumbar degenerative disc disease, right adrenal hematoma, peptic ulcer disease. MEDICATIONS: Atorvastatin, vitamin D3, citalopram, vitamin B12, memantine, omeprazole, Prevagen. ALLERGIES: Iodine, amoxicillin, NSAIDs, clavulanic acid, Naproxen, cephalexin. PAST SURGICAL HISTORY: CORONA and BSO, laparotomy with colostomy reversal. SOCIAL HISTORY: She lives with her . No smoking. Requires assistance with ADLs by her , uses a cane. PHYSICAL EXAMINATION: She is a well appearing female. She is little bit confused but orients well with her , communicates appropriately. Vital signs stable. She is lying slightly on her left side. A Tirado has been placed. It is a closed injury. Leg a little bit short and externally rotated. Normal sensation to the dorsum and plantar aspect of the foot. The foot is warm and well perfused. Strong dorsalis pedis pulse. She is able to dorsiflex and plantarflex her foot as well as wiggle her toes. IMAGING STUDIES: Radiographs were reviewed of the right hip and femur. This shows what appears to be a two-part intertrochanteric hip fracture. LABORATORY DATA: Reveals a hemoglobin of 13.2. Coagulation factors appear normal. She is COVID negative. ASSESSMENT AND PLAN: This is an 85-year-old female with right hip intertrochanteric hip fracture. I discussed with her pros and cons, risks and benefits of nonsurgical management versus surgery. Nonsurgical management has increased risks of DVT, pneumonia and other secondary complications. Hip fracture surgery also has its own set of unique risks but overall it is recommended in this situation. The risks include but are not limited to infection, pain, stiffness, bleeding, damage to surrounding structures, neurovascular injury, delayed, mal or nonunion, limp, abductor weakness, anesthetic complications, neurovascular injury, blood clots, and other risks as well as need for further surgery. She understands, signed the consent form for surgery. I marked the right lower extremity. We also discussed pros and cons, risks and benefits of possible need for blood products which include but are not limited to fever, allergic reaction, transmission of bacteria or viruses. She understood, signed the consent form for possible need for blood transfusion. I have communicated directly to the OR staff. The patient has been seen by the hospitalist service and will be pending right hip open reduction and internal fixation with a long intramedullary elías.
[2021-07-21] MEDS ORDERED: CLINDAMYCIN 900 MG/50 ML PREMIX BAG As Ordered ONE (12:32)
[2021-07-21] MEDS ORDERED: VASOPRESSIN INJ 20 UNITS/ML VIAL As Ordered ONE (13:33)
[2021-07-21] MEDS ORDERED: TRANEXAMIC ACID 100 MG/ML 10ML VIAL As Ordered ONE (13:53)
[2021-07-21] MEDS ORDERED: PHENYLephrine 500MCG 5ML (100MCG/ML) SYRINGE As Ordered ONE ×2 (14:08→14:20)
[2021-07-21] MEDS ORDERED: ACETAMINOPHEN 1000MG 100ML IV BTL (OFIRMEV) (J0131 PER 10MG) As Ordered ONE (14:08)
[2021-07-21] MEDS ORDERED: fentaNYL 100 MCG/2 ML INJECTION (J3010) IV PRN (14:55)
[2021-07-21] MEDS ORDERED: LR 1,000 ML IV SCH ×2 (14:55→15:30)
[2021-07-21] MEDS ORDERED: oxyCODONE 5MG TAB PO PRN (14:55)
[2021-07-21] MEDS ORDERED: ONDANSETRON 4MG/2ML VIAL IV PRN ×2 (14:55→15:30)
--- NOTE | 2021-07-21 15:15 | REP ---
INDICATION: IM NAIL IN OR Status post arthroplasty. COMPARISON: None. TECHNIQUE: Intraoperative fluoroscopic imaging using portable C-arm technique. FINDINGS: Patient is status post satisfactory open reduction and fixation for proximal intertrochanteric femur fracture. Total fluoroscopic time 130.4 seconds. IMPRESSION: Satisfactory open reduction and fixation for proximal femur fracture. <Electronically signed by Wally Lopez > 07/21/21 [id number]
[2021-07-21] MEDS: CYANOCOBALAMIN 500 MCG TAB PO SCH (20:39)
[2021-07-21] MEDS: ATORVASTATIN 10 MG TAB PO SCH (20:39)
[2021-07-21] MEDS: ACETAMINOPHEN TAB 650MG DOSE (2X325MG) PO PRN (20:39)
[2021-07-22] VITALS: BP 103/61
[2021-07-22] MEDS: PERCOCET 5MG/325MG TAB PO PRN ×2 (01:41→17:53)
[2021-07-22 05:49] LABS: HEMATOCRIT 30.1 % (36.0-47.0); MEAN CORPUSCULAR HEMOGLOBIN 31.8 pg (27.0-33.0); MEAN CORPUSCULAR HGB CONC 32.9 g/dl (32.0-36.5); MEAN CORPUSCULAR VOLUME 96.8 fl (80.0-96.0); PLATELET COUNT, AUTOMATED 133 10^3/uL (150-450); RED BLOOD COUNT 3.11 10^6/uL (4.00-5.40); WHITE BLOOD COUNT 6.6 10^3/uL (4.0-10.0)
[2021-07-22 05:51] LABS: HEMOGLOBIN 9.9 g/dl (12.0-15.5)
[2021-07-22 06:00] VITALS: BP 126/81
[2021-07-22 06:08] LABS: BLOOD UREA NITROGEN 18 MG/DL (7-18); CALCIUM LEVEL 8.1 MG/DL (8.8-10.2); CARBON DIOXIDE LEVEL 24 MEQ/L (21-32); CHLORIDE LEVEL 109 MEQ/L (98-107); CREATININE FOR GFR 0.62 MG/DL (0.55-1.30); GLOMERULAR FILTRATION RATE > 60.0 (>32); GLUCOSE, FASTING 114 MG/DL (70-100); MAGNESIUM LEVEL 1.8 MG/DL (1.8-2.4); PHOSPHORUS LEVEL 2.9 MG/DL (2.5-4.9); POTASSIUM SERUM 3.8 MEQ/L (3.5-5.1); SODIUM LEVEL 141 MEQ/L (136-145)
--- NOTE | 2021-07-22 08:12 | RO ---
OPERATIVE NOTE DATE OF OPERATION: 07/21/2021 PREOPERATIVE DIAGNOSIS: Right intertrochanteric hip fracture. POSTOPERATIVE DIAGNOSIS: Right intertrochanteric hip fracture. PLANNED PROCEDURE: Right hip open reduction and internal fixation, long intramedullary Synthes nail. PROCEDURE PERFORMED: Right hip open reduction and internal fixation, long intramedullary Synthes nail. SURGEON: Zac Farnsworth MD ELECTRICAL MAINTENANCE WORKER: ANESTHESIOLOGIST: Dr. Jones ANESTHESIA: Spinal anesthetic. COMPLICATIONS: None SAMPLES SENT: None NAIR: None ESTIMATED BLOOD LOSS: 50 mL OPERATIVE PREAMBLE: This 85-year-old female sustained a ground-level fall with an intertrochanteric hip fracture on the left side. I spoke with the both in the emergency department as well as in preoperative holding. She wished to proceed. She had no further questions. We had previously discussed the pros and cons, risks and benefits of nonsurgical very surgical management. OPERATIVE NOTE: The patient was brought to the operating theater. She was administered 900 mg of IV clindamycin due to penicillin allergy. The patient was placed supine on the operating room table, the right lower extremity in traction, the left lower extremity attached to the center post of the bed in scissoring position, appropriately padded. All bony prominences were appropriately prepped and draped. Chlorhexidine based prep solution was allowed to thoroughly dry over three minutes prior to draping. A preoperative time-out was performed to confirm the site, patient and surgery. I used a shower curtain and sterile drape. I used the partially threaded 3.2 mm guidewire. I inserted this percutaneously at the tip of the greater trochanter on both AP and lateral radiographs. I inserted this down towards the level of the lesser trochanter in the center of the femur on lateral radiographs. I made a small open incision there approximately two inches long. I dissected through skin and subcutaneous tissue, achieved meticulous hemostasis. I used the soft tissue protector. I used the Synthes entry reamer. I then inserted a ball-tip guidewire with the tip slightly curved. I inserted the center/center down the center of the femoral shaft to the level of the superior aspect of the patella on both AP and lateral radiographs. I measured this to be approximately 390 and so I selected a 380 mm nail. I sequentially reamed up to 12.5 mm. This appeared to be a 125 degree neck shaft angle. Therefore, I selected a 380 length with a 125 mm neck shaft angle and 11 mm diameter. I inserted this using the inserting device to appropriate depth. I then used a 125 degree drop down guide. I again inserted percutaneously through a small one inch incision the guidewire center/center of the femoral neck and head to the subchondral bone. I took fluoroscopy pictures doing the near-far technique to confirm no penetration. This measured approximately 100 mm. Therefore, I reamed to 95 mm and inserted a 95 mm helical blade after appropriate reaming. I applied some gentle compression of the fracture site and then locked the nail proximally. The guides were removed. I then turned my attention distally. I used the center/center technique to insert the two fully threaded distal locking screws in the oblong as well as the hole proximal to this to an appropriate depth. The screws measured 38 mm proximally and 44 mm distally. I took final AP and lateral radiographs after taking off all the intramedullary guides and saved these onto the system. The reduction appeared appropriate and nail appropriately placed. I thoroughly irrigated the wounds. The subcutaneous tissues were closed with 2-0 Vicryl sutures. The skin was closed with 3-0 Monocryl. The skin was cleaned with wet and dry dressing followed by application of Steri-Strips and bulky soft orthopedic dressing. The patient was taken out of the traction setup, transferred off of the operating room table and taken to the postanesthesia care unit in stable condition. All sponge, needle, and instrument counts were correct. No complications. Estimated blood loss: 50 cc. Plan is for the patient to be weightbearing as tolerated. She will be followed by PT and OT services. Walker as needed. Xarelto for DVT prophylaxis for 35 days. Readmission into the hospitalist service, followup in two weeks time. She may shower on top of the incision starting at two weeks time, change the dressing postop day one and two and as needed.
[2021-07-22] MEDS: MEMANTINE 5MG TABLET (NAMENDA) PO SCH ×2 (08:41→19:42)
[2021-07-22] MEDS: CitaloPRAM (CeleXA) 10 MG TABLET PO SCH (08:41)
--- NOTE | 2021-07-22 10:39 | IPNPDOC ---
Text Note Date of Service The patient was seen on 07/22/21. NOTE Subjective: 85-year-old female present emergency room department after a fall. She has on the intertrochanteric fracture of the right femur. She underwent surgery for ORIF on 07/21. Patient was seen and examined at bedside this morning. She had just worked with physical therapy and reported feeling pain in her right lower extremity. Otherwise had no new complaints. Review of systems: 10 point review of system was negative except for what is noted in the HPI Physical exam: General: Lying in bed, no acute distress Head/Neck/Throat: Trachea midline, mucous membranes moist Eyes: Sclera anicteric, PERRLA Thorax: Normal respiratory effort on room air, lungs clear to auscultation bilaterally, no wheezes/rales/rhonchi Cardiovascular: Normal rate, regular rhythm, normal S1, S2; no S3, S4, rubs/gallops/murmurs Abdomen: Bowel sounds present, soft/nontender/nondistended Genitourinary: No CVA tenderness, no Tirado in place Musculoskeletal: Moving all extremities, no edema Skin: Warm, dry Neurologic: AAOx3, speech fluent and goal-directed, no focal deficits, grossly i ntact Labs: See below Imaging: Please see imaging section Assessment/plan: #Right proximal femur fracture -POD#1 ORIF. Continue with physical therapy. ARU screen in place. #Acute blood loss anemia -Secondary to surgery. Continue monitor hemoglobin/hematocrit adequate. Will transfuse if hemoglobin is less than 7. #GERD -Continue omeprazole #Hyperlipidemia -Continue statin #Dementia -Continue memantine #DVT prophylaxis -Started on Xarelto, as per orthopedic recommendations. Disposition: Patient worked with physical therapy today and will likely need rehab. Hearing screen is placed. VS,Fishbone, I+O VS, Fishbone, I+O Laboratory Tests 07/22/21 05:27 Vital Signs Date Time Temp Pulse Resp B/P (MAP) Pulse Ox O2 Delivery O2 Flow Rate FiO2 07/22/21 06:00 98.3 75 17 126/81 (96) 95 Room Air I&O- Last 24 Hours up to 6 AM 07/22/21 06:00 Intake Total 1320 ml Output Total 875 ml Balance 445 ml AYLIN BURGER M.D. Jul 22, 2021 10:39
[2021-07-22 14:00] VITALS: BP 113/70
[2021-07-22] MEDS: ACETAMINOPHEN TAB 650MG DOSE (2X325MG) PO PRN ×2 (17:51→19:43)
[2021-07-22] MEDS: RIVAROXABAN 10 MG TAB (XARELTO) PO SCH (17:54)
--- NOTE | 2021-07-22 19:34 | IPN ---
PROGRESS NOTE DATE: 07/22/2021 CHIEF COMPLAINT: Postop day one, right hip open reduction and internal fixation, long intramedullary nail. HISTORY OF PRESENT ILLNESS: This patient was seen today on the healy, postop day one, 5 Shine. No concerns from the nursing staff although I did get a question about weightbearing status. She is weightbearing as tolerated. Apparently she has already been offered physical therapist. Her is not in this morning. I saw the patient at approximately 10 a.m. Otherwise, some small demand for narcotics overnight per the nursing staff. PHYSICAL EXAM: This is a well appearing female. She is alert, responds appropriately. Dressings: Very mild saturation, have not been changed. She is able to dorsiflex, plantarflex. The foot feels warm and well perfused, good pedal pulses. Normal sensation throughout the foot. ASSESSMENT AND PLAN: This patient postop day one is weightbearing as tolerated. Actively managed by the hospitalist service. They may be discharged home once they are cleared by PT and OT services with the appropriate outpatient followup arranged. The patient's wounds were closed with running 3-0 Monocryl, therefore no need to discontinue any sujata and leave the Steri-Strips in place with no showering over top for 14 days.
[2021-07-22] MEDS: CYANOCOBALAMIN 500 MCG TAB PO SCH (19:42)
[2021-07-22] MEDS: ATORVASTATIN 10 MG TAB PO SCH (19:42)
[2021-07-22 22:00] VITALS: BP 113/70
[2021-07-23 06:00] VITALS: BP 119/73
[2021-07-23] MEDS: MEMANTINE 5MG TABLET (NAMENDA) PO SCH ×2 (07:48→20:34)
[2021-07-23] MEDS: ACETAMINOPHEN TAB 650MG DOSE (2X325MG) PO PRN ×2 (07:48→17:38)
[2021-07-23] MEDS: CitaloPRAM (CeleXA) 10 MG TABLET PO SCH (07:48)
[2021-07-23] MEDS: PERCOCET 5MG/325MG TAB PO PRN ×2 (07:49→17:39)
[2021-07-23 09:06] LABS: HEMATOCRIT 27.7 % (36.0-47.0); HEMOGLOBIN 9.3 g/dl (12.0-15.5); MEAN CORPUSCULAR HEMOGLOBIN 32.3 pg (27.0-33.0); MEAN CORPUSCULAR HGB CONC 33.6 g/dl (32.0-36.5); MEAN CORPUSCULAR VOLUME 96.2 fl (80.0-96.0); PLATELET COUNT, AUTOMATED 120 10^3/uL (150-450); RED BLOOD COUNT 2.88 10^6/uL (4.00-5.40); WHITE BLOOD COUNT 6.4 10^3/uL (4.0-10.0)
--- NOTE | 2021-07-23 10:34 | IPNPDOC ---
Text Note Date of Service The patient was seen on 07/23/21. NOTE Subjective: 85-year-old female present emergency room department after a fall. She has on the intertrochanteric fracture of the right femur. She underwent surgery for ORIF on 07/21. Patient was seen and examined at bedside this morning. She reported feeling better today and her pain was controlled. She had no new complaints. Review of systems: 10 point review of system was negative except for what is noted in the HPI Physical exam: General: Lying in bed, no acute distress Head/Neck/Throat: Trachea midline, mucous membranes moist Eyes: Sclera anicteric, no erythema or discharge appreciated bilaterally Thorax: Normal respiratory effort on room air, lungs clear to auscultation bilaterally, no wheezes/rales/rhonchi Cardiovascular: Normal rate, regular rhythm, normal S1, S2; no S3, S4, rubs/gallops/murmurs Abdomen: Bowel sounds present, soft/nontender/nondistended Genitourinary: No CVA tenderness, no Tirado in place Musculoskeletal: Moving all extremities, no edema Skin: Warm, dry Neurologic: AAOx3, speech fluent and goal-directed, no focal deficits, grossly intact Labs: See below Imaging: Please see imaging section Assessment/plan: #Right proximal femur fracture -POD#2 ORIF. Continue with physical therapy. #Right ankle pain -We will obtain x-rays to ensure there is no fracture #Acute blood loss anemia -Secondary to surgery. Continue monitor hemoglobin/hematocrit adequate. Will transfuse if hemoglobin is less than 7. #GERD -Continue omeprazole #Hyperlipidemia -Continue statin #Dementia -Continue memantine #DVT prophylaxis -Started on Xarelto, as per orthopedic recommendations. Disposition: ARU screen in place VS,Fishbone, I+O VS, Fishbone, I+O Laboratory Tests 07/23/21 08:51 Vital Signs Date Time Temp Pulse Resp B/P (MAP) Pulse Ox O2 Delivery O2 Flow Rate FiO2 07/23/21 07:49 20 Room Air 07/23/21 06:00 99.1 91 119/73 (88) 99 I&O- Last 24 Hours up to 6 AM 07/23/21 06:00 Intake Total 1520 ml Output Total 1375 ml Balance 145 ml AYLIN BURGER M.D. Jul 23, 2021 10:34
[2021-07-23 10:49] LABS: BLOOD UREA NITROGEN 14 MG/DL (7-18); CALCIUM LEVEL 8.1 MG/DL (8.8-10.2); CARBON DIOXIDE LEVEL 28 MEQ/L (21-32); CHLORIDE LEVEL 108 MEQ/L (98-107); CREATININE FOR GFR 0.68 MG/DL (0.55-1.30); GLOMERULAR FILTRATION RATE > 60.0 (>32); GLUCOSE, FASTING 132 MG/DL (70-100); MAGNESIUM LEVEL 1.9 MG/DL (1.8-2.4); PHOSPHORUS LEVEL 1.9 MG/DL (2.5-4.9); POTASSIUM SERUM 3.6 MEQ/L (3.5-5.1); SODIUM LEVEL 142 MEQ/L (136-145)
[2021-07-23 14:00] VITALS: BP 110/56
[2021-07-23] MEDS ORDERED: K-PHOS ORIGINAL (POT.ACID PHOSPHATE) 500MG TAB PO ONE (15:00)
[2021-07-23] MEDS: RIVAROXABAN 10 MG TAB (XARELTO) PO SCH (17:37)
--- NOTE | 2021-07-23 17:46 | REP ---
INDICATION: s/p fall, pain. COMPARISON: None. TECHNIQUE: Four views FINDINGS: No acute fracture or destructive osseous lesion. The mortise is intact. IMPRESSION: No acute osseous abnormality. <Electronically signed by Chad Romeo > 07/23/21 0872
[2021-07-23] MEDS: CYANOCOBALAMIN 500 MCG TAB PO SCH (20:34)
[2021-07-23] MEDS: ATORVASTATIN 10 MG TAB PO SCH (20:34)
[2021-07-23 22:00] VITALS: BP 102/56
[2021-07-24] MEDS: ACETAMINOPHEN TAB 650MG DOSE (2X325MG) PO PRN ×2 (03:02→19:21)
[2021-07-24 06:00] VITALS: BP 139/79
[2021-07-24 06:30] LABS: HEMATOCRIT 28.4 % (36.0-47.0); HEMOGLOBIN 9.5 g/dl (12.0-15.5); MEAN CORPUSCULAR HEMOGLOBIN 32.2 pg (27.0-33.0); MEAN CORPUSCULAR HGB CONC 33.5 g/dl (32.0-36.5); MEAN CORPUSCULAR VOLUME 96.3 fl (80.0-96.0); PLATELET COUNT, AUTOMATED 132 10^3/uL (150-450); RED BLOOD COUNT 2.95 10^6/uL (4.00-5.40); WHITE BLOOD COUNT 6.5 10^3/uL (4.0-10.0)
[2021-07-24 07:02] LABS: BLOOD UREA NITROGEN 13 MG/DL (7-18); CALCIUM LEVEL 8.2 MG/DL (8.8-10.2); CARBON DIOXIDE LEVEL 27 MEQ/L (21-32); CHLORIDE LEVEL 109 MEQ/L (98-107); CREATININE FOR GFR 0.56 MG/DL (0.55-1.30); GLOMERULAR FILTRATION RATE > 60.0 (>32); GLUCOSE, FASTING 109 MG/DL (70-100); MAGNESIUM LEVEL 1.8 MG/DL (1.8-2.4); PHOSPHORUS LEVEL 2.6 MG/DL (2.5-4.9); POTASSIUM SERUM 3.4 MEQ/L (3.5-5.1); SODIUM LEVEL 141 MEQ/L (136-145)
[2021-07-24] MEDS ORDERED: POTASSIUM CHLORIDE 10MEQ SR TABLET PO ONE (08:00)
[2021-07-24] MEDS: MEMANTINE 5MG TABLET (NAMENDA) PO SCH ×2 (09:05→19:21)
[2021-07-24] MEDS: CitaloPRAM (CeleXA) 10 MG TABLET PO SCH (09:05)
[2021-07-24 14:00] VITALS: BP 145/83
[2021-07-24] MEDS: RIVAROXABAN 10 MG TAB (XARELTO) PO SCH (17:25)
--- NOTE | 2021-07-24 18:12 | IPNPDOC ---
Subjective Date Seen The patient was seen on 07/24/21. Subjective Chief Complaint/HPI Mrs. Cedillo is an 85 year old female with dementia and osteoarthritis who is here with right proximal femur fracture s/p mechanical fall. Patient had an ORIF on 07/21. Due to patient's dementia, patient was seen in her room with her . Patient denies any chest pain or dyspnea. Hip pain is controlled. was concerned about Xarelto given her history of GI bleeds. Patient will need anticoagulation for 35 days. Will monitor for signs of bleeding. Objective Physical Examination General Exam: Positive: Alert, Cooperative Eye Exam: Negative: Sclera icteric Chest Exam: Positive: Clear to auscultation; Negative: Rales, Rhonchi, Wheezing Heart Exam: Positive: Rate Normal, Regular Rhythm Abdomen Exam: Positive: Normal bowel sounds, Soft; Negative: Tenderness Neuro Exam: Positive: Normal Speech Psych Exam: Positive: Mood NL; Negative: Memory Intact, Oriented x 3 Assessment /Plan Assessment Mrs. Cedillo is an 85 year old female with dementia and osteoarthritis who is here with right proximal femur fracture s/p mechanical fall. Patient had an ORIF on 07/21. PT and OT recommending rehab. Patient currently pending ARU screen. Plan/VTE VTE Prophylaxis Ordered?: Yes Plan 1. Right proximal femur fracture -S/P ORIF on 07/21 -Patient will need rehab 2. Right ankle pain -XR negative for fracture 3. Anxiety/Depression -Continue citalopram 4. Hyperlipidemia -Continue atorvastatin 5. Dementia -Continue memantine 6. DVT ppx -Per orthopedic surgery Xarelto for a total of 35 days Disposition: Pending ARU insurance approval. VS, I&O, 24H, Fishbone Vital Signs/I&O Vital Signs Date Time Temp Pulse Resp B/P (MAP) Pulse Ox O2 Delivery O2 Flow Rate FiO2 07/24/21 14:00 97.4 90 15 145/83 (103) 95 Room Air I&O- Last 24 Hours up to 6 AM 07/24/21 06:00 Intake Total 590 ml Output Total 1050 ml Balance -460 ml Laboratory Data 24H LABS Laboratory Tests 2 07/24/21 05:59: Nucleated Red Blood Cells % (auto) 0.0, Anion Gap 5L, Glomerular Filtration Rate > 60.0, Calcium Level 8.2L, Phosphorus Level 2.6#, Magnesium Level 1.8 CBC/BMP Laboratory Tests 07/24/21 05:59 NICOLÁS CEBALLOS DO Jul 24, 2021 18:12
[2021-07-24] MEDS ORDERED: DOCUSATE SODIUM 100MG CAPSULE PO PRN (18:50)
[2021-07-24] MEDS ORDERED: QUEtiapine FUMARATE 12.5 MG HALF-TAB PO ONE (18:55)
[2021-07-24] MEDS: ATORVASTATIN 10 MG TAB PO SCH (19:21)
[2021-07-24] MEDS: RAMELTEON 8 MG TAB (ROZEREM) PO PRN (19:21)
[2021-07-24] MEDS: CYANOCOBALAMIN 500 MCG TAB PO SCH (19:22)
[2021-07-24 22:00] VITALS: BP 119/70
[2021-07-25 06:00] VITALS: BP 141/82
[2021-07-25 07:03] LABS: HEMATOCRIT 28.2 % (36.0-47.0); HEMOGLOBIN 9.2 g/dl (12.0-15.5); MEAN CORPUSCULAR HEMOGLOBIN 31.9 pg (27.0-33.0); MEAN CORPUSCULAR HGB CONC 32.6 g/dl (32.0-36.5); MEAN CORPUSCULAR VOLUME 97.9 fl (80.0-96.0); PLATELET COUNT, AUTOMATED 139 10^3/uL (150-450); RED BLOOD COUNT 2.88 10^6/uL (4.00-5.40); WHITE BLOOD COUNT 5.7 10^3/uL (4.0-10.0)
[2021-07-25 07:32] LABS: BLOOD UREA NITROGEN 17 MG/DL (7-18); CALCIUM LEVEL 7.8 MG/DL (8.8-10.2); CARBON DIOXIDE LEVEL 28 MEQ/L (21-32); CHLORIDE LEVEL 107 MEQ/L (98-107); CREATININE FOR GFR 0.59 MG/DL (0.55-1.30); GLOMERULAR FILTRATION RATE > 60.0 (>32); GLUCOSE, FASTING 113 MG/DL (70-100); POTASSIUM SERUM 4.1 MEQ/L (3.5-5.1); SODIUM LEVEL 142 MEQ/L (136-145)
[2021-07-25 08:58] VITALS: BP 88/59
[2021-07-25] MEDS: ACETAMINOPHEN TAB 650MG DOSE (2X325MG) PO PRN (09:23)
[2021-07-25] MEDS: MEMANTINE 5MG TABLET (NAMENDA) PO SCH ×2 (09:24→21:44)
[2021-07-25] MEDS: CitaloPRAM (CeleXA) 10 MG TABLET PO SCH (09:25)
[2021-07-25] MEDS: OMEPRAZOLE 20 MG CAP PO SCH (09:26)
[2021-07-25] MEDS: DOCUSATE SODIUM 100MG CAPSULE PO SCH ×2 (11:01→21:45)
[2021-07-25] MEDS: MIRALAX *UNIT DOSE* 17GM PACKET PO PRN (11:01)
[2021-07-25 13:24] VITALS: BP 100/58
[2021-07-25] MEDS ORDERED: NS 500 ML IV ONE (17:45)
[2021-07-25] MEDS: RIVAROXABAN 10 MG TAB (XARELTO) PO SCH (19:07)
[2021-07-25 20:00] VITALS: BP 107/64
--- NOTE | 2021-07-25 20:13 | IPNPDOC ---
Subjective Date Seen The patient was seen on 07/25/21. Subjective Chief Complaint/HPI Mrs. Cedillo is an 85 year old female with dementia and osteoarthritis who is here with right proximal femur fracture s/p mechanical fall. Patient had an ORIF on 07/21. Patient was seen this morning. She is still confused, but very pleasant. Denies chest pain or dyspnea. She also denies any hip pain as long as she is not moving. Objective Physical Examination General Exam: Positive: Alert, Cooperative Eye Exam: Negative: Sclera icteric Chest Exam: Positive: Clear to auscultation; Negative: Rales, Rhonchi, Wheezing Heart Exam: Positive: Rate Normal, Regular Rhythm Abdomen Exam: Positive: Normal bowel sounds, Soft; Negative: Tenderness Neuro Exam: Positive: Normal Speech Psych Exam: Positive: Mood NL; Negative: Memory Intact, Oriented x 3 Assessment /Plan Assessment Mrs. Cedillo is an 85 year old female with dementia and osteoarthritis who is here with right proximal femur fracture s/p mechanical fall. Patient had an ORIF on 07/21. PT and OT recommending rehab. Patient currently pending ARU screen. Plan/VTE VTE Prophylaxis Ordered?: Yes Plan 1. Right proximal femur fracture -S/P ORIF on 07/21 -Patient will need rehab 2. Right ankle pain -XR negative for fracture 3. Anxiety/Depression -Continue citalopram 4. Hyperlipidemia -Continue atorvastatin 5. Dementia -Continue memantine 6. DVT ppx -Per orthopedic surgery Xarelto for a total of 35 days Disposition: Pending ARU insurance approval. VS, I&O, 24H, Fishbone Vital Signs/I&O Vital Signs Date Time Temp Pulse Resp B/P (MAP) Pulse Ox O2 Delivery O2 Flow Rate FiO2 07/25/21 13:24 97.4 62 20 100/58 (72) 98 Room Air I&O- Last 24 Hours up to 6 AM 07/25/21 06:00 Intake Total 820 ml Output Total 750 ml Balance 70 ml Laboratory Data 24H LABS Laboratory Tests 2 07/25/21 06:47: Nucleated Red Blood Cells % (auto) 0.0, Anion Gap 7L, Glomerular Filtration Rate > 60.0, Calcium Level 7.8L CBC/BMP Laboratory Tests 07/25/21 06:47 NICOLÁS CEBALLOS DO Jul 25, 2021 20:13
[2021-07-25] MEDS: CYANOCOBALAMIN 500 MCG TAB PO SCH (21:44)
[2021-07-25] MEDS: ATORVASTATIN 10 MG TAB PO SCH (21:44)
[2021-07-26 04:07] VITALS: BP 110/61
[2021-07-26] MEDS: ACETAMINOPHEN TAB 650MG DOSE (2X325MG) PO PRN ×3 (04:36→22:07)
[2021-07-26 07:14] LABS: HEMATOCRIT 27.6 % (36.0-47.0); HEMOGLOBIN 9.1 g/dl (12.0-15.5); MEAN CORPUSCULAR HEMOGLOBIN 32.2 pg (27.0-33.0); MEAN CORPUSCULAR VOLUME 97.5 fl (80.0-96.0); PLATELET COUNT, AUTOMATED 175 10^3/uL (150-450); RED BLOOD COUNT 2.83 10^6/uL (4.00-5.40); WHITE BLOOD COUNT 5.5 10^3/uL (4.0-10.0)
[2021-07-26 07:34] LABS: BLOOD UREA NITROGEN 17 MG/DL (7-18); CALCIUM LEVEL 8.1 MG/DL (8.8-10.2); CARBON DIOXIDE LEVEL 27 MEQ/L (21-32); CHLORIDE LEVEL 108 MEQ/L (98-107); CREATININE FOR GFR 0.59 MG/DL (0.55-1.30); GLOMERULAR FILTRATION RATE > 60.0 (>32); GLUCOSE, FASTING 111 MG/DL (70-100); POTASSIUM SERUM 3.8 MEQ/L (3.5-5.1); SODIUM LEVEL 141 MEQ/L (136-145)
[2021-07-26 08:10] VITALS: BP 120/70
[2021-07-26 10:00] VITALS: BP 109/60
[2021-07-26] MEDS: DOCUSATE SODIUM 100MG CAPSULE PO SCH ×2 (10:59→22:07)
[2021-07-26] MEDS: CitaloPRAM (CeleXA) 10 MG TABLET PO SCH (10:59)
[2021-07-26] MEDS: OMEPRAZOLE 20 MG CAP PO SCH (10:59)
[2021-07-26] MEDS: MEMANTINE 5MG TABLET (NAMENDA) PO SCH ×2 (11:05→22:07)
[2021-07-26] MEDS: MIRALAX *UNIT DOSE* 17GM PACKET PO PRN (11:07)
[2021-07-26 14:30] VITALS: BP 118/75
[2021-07-26] MEDS ORDERED: BISACODYL 10 MG SUPP PR PRN (16:00)
--- NOTE | 2021-07-26 18:11 | IPNPDOC ---
Subjective Date Seen The patient was seen on 07/26/21. Subjective Chief Complaint/HPI Mrs. Cedillo is an 85 year old female with dementia and osteoarthritis who is here with right proximal femur fracture s/p mechanical fall. Patient had an ORIF on 07/21. Patient was seen this morning. She denies any chest pain or dyspnea. She did have some lightheadedness and dizziness. She is not on medications that would cause the symptoms. We'll check orthostatic vitals tomorrow and monitor hemoglobin. Otherwise, she has constipation. She is already on Colace and MiraLAX. We'll add on senna and as needed bisacodyl suppository. Objective Physical Examination General Exam: Positive: Alert, Cooperative Eye Exam: Negative: Sclera icteric Chest Exam: Positive: Clear to auscultation; Negative: Rales, Rhonchi, Wheezing Heart Exam: Positive: Rate Normal, Regular Rhythm Abdomen Exam: Positive: Normal bowel sounds, Soft; Negative: Tenderness Neuro Exam: Positive: Normal Speech Psych Exam: Positive: Mood NL; Negative: Memory Intact, Oriented x 3 Assessment /Plan Assessment Mrs. Cedillo is an 85 year old female with dementia and osteoarthritis who is here with right proximal femur fracture s/p mechanical fall. Patient had an ORIF on 07/21. PT and OT recommending rehab. Insurance denied ARU. Plan/VTE VTE Prophylaxis Ordered?: Yes Plan 1. Right proximal femur fracture -S/P ORIF on 07/21 -Patient will need rehab 2. Right ankle pain -XR negative for fracture 3. Lightheaded and dizzy We'll check orthostatics and monitor hemoglobin 4. Constipation Continue Colace and MiraLAX Started senna and as needed bisacodyl suppository 5. Anxiety/Depression -Continue citalopram 6. Hyperlipidemia -Continue atorvastatin 7. Dementia -Continue memantine 8. DVT ppx -Per orthopedic surgery Xarelto for a total of 35 days Disposition: ARU declined. Pending placement. VS, I&O, 24H, Fishbone Vital Signs/I&O Vital Signs Date Time Temp Pulse Resp B/P (MAP) Pulse Ox O2 Delivery O2 Flow Rate FiO2 07/26/21 14:30 97.5 64 18 118/75 (89) 99 Room Air I&O- Last 24 Hours up to 6 AM 07/26/21 06:00 Intake Total 560 ml Output Total 250 ml Balance 310 ml Laboratory Data 24H LABS Laboratory Tests 2 07/26/21 06:45: Nucleated Red Blood Cells % (auto) 0.0, Anion Gap 6L, Glomerular Filtration Rate > 60.0, Calcium Level 8.1L CBC/BMP Laboratory Tests 07/26/21 06:45 NICOLÁS CEBALLOS DO Jul 26, 2021 18:11
[2021-07-26] MEDS: RIVAROXABAN 10 MG TAB (XARELTO) PO SCH (18:29)
[2021-07-26 18:54] VITALS: BP_SYST 102; BP_SYST 118; BP_DIAS 60; BP_DIAS 68
[2021-07-26 22:00] VITALS: BP 123/76
[2021-07-26] MEDS: ATORVASTATIN 10 MG TAB PO SCH (22:07)
[2021-07-26] MEDS: CYANOCOBALAMIN 500 MCG TAB PO SCH (22:07)
[2021-07-26] MEDS: SENNA 8.6 MG TAB (SENOKOT) PO SCH (22:07)
[2021-07-27 05:32] VITALS: BP_SYST 108; BP_SYST 123; BP_SYST 125; BP_DIAS 68; BP_DIAS 73; BP_DIAS 74
[2021-07-27 06:45] LABS: HEMATOCRIT 29.6 % (36.0-47.0); HEMOGLOBIN 9.6 g/dl (12.0-15.5); MEAN CORPUSCULAR HEMOGLOBIN 31.6 pg (27.0-33.0); MEAN CORPUSCULAR HGB CONC 32.4 g/dl (32.0-36.5); MEAN CORPUSCULAR VOLUME 97.4 fl (80.0-96.0); PLATELET COUNT, AUTOMATED 217 10^3/uL (150-450); RED BLOOD COUNT 3.04 10^6/uL (4.00-5.40); WHITE BLOOD COUNT 5.3 10^3/uL (4.0-10.0)
[2021-07-27 07:16] LABS: BLOOD UREA NITROGEN 16 MG/DL (7-18); CALCIUM LEVEL 8.2 MG/DL (8.8-10.2); CARBON DIOXIDE LEVEL 30 MEQ/L (21-32); CHLORIDE LEVEL 108 MEQ/L (98-107); CREATININE FOR GFR 0.62 MG/DL (0.55-1.30); GLOMERULAR FILTRATION RATE > 60.0 (>32); GLUCOSE, FASTING 98 MG/DL (70-100); SODIUM LEVEL 142 MEQ/L (136-145)
[2021-07-27] MEDS: DOCUSATE SODIUM 100MG CAPSULE PO SCH ×2 (08:56→22:11)
[2021-07-27] MEDS: SENNA 8.6 MG TAB (SENOKOT) PO SCH ×2 (08:56→22:11)
[2021-07-27] MEDS: CitaloPRAM (CeleXA) 10 MG TABLET PO SCH (08:57)
[2021-07-27] MEDS: OMEPRAZOLE 20 MG CAP PO SCH (08:57)
[2021-07-27] MEDS: MEMANTINE 5MG TABLET (NAMENDA) PO SCH ×2 (08:57→22:11)
[2021-07-27] MEDS: ACETAMINOPHEN TAB 650MG DOSE (2X325MG) PO PRN ×2 (08:59→22:10)
--- NOTE | 2021-07-27 10:26 | REPVR ---
PROCEDURE INFORMATION: Exam: CT Head Without Contrast Exam date and time: 07/27/2021 10:04 AM Age: 85 years old Clinical indication: Dizziness; Additional info: Foggy, vertigo TECHNIQUE: Imaging protocol: Computed tomography of the head without contrast. Radiation optimization: All CT scans at this facility use at least one of these dose optimization techniques: automated exposure control; mA and/or kV adjustment per patient size (includes targeted exams where dose is matched to clinical indication); or iterative reconstruction. COMPARISON: CT Head without contrast 06/14/2021 11:56 AM FINDINGS: Brain: There is no acute intracranial hemorrhage or mass effect. Moderate diffuse volume loss is within the range of normal for patient age. There are small vessel ischemic changes within the periventricular and subcortical white matter, but the normal avalos-white matter delineation is maintained. Cerebral ventricles: Prominence of the ventricular system is commensurate with volume loss. Paranasal sinuses: Visualized sinuses are unremarkable. No fluid levels. Mastoid air cells: Visualized mastoid air cells are well aerated. Bones/joints: Unremarkable. No acute fracture. Soft tissues: Unremarkable. IMPRESSION: No acute hemorrhage or edema. Electronically signed by: Vanessa Medina On 07/27/2021 10:26:14 AM
[2021-07-27] MEDS: MIRALAX *UNIT DOSE* 17GM PACKET PO PRN (11:02)
[2021-07-27] MEDS: MECLIZINE 25 MG TABLET PO SCH ×3 (11:02→22:09)
[2021-07-27 14:00] VITALS: BP 124/72
--- NOTE | 2021-07-27 15:37 | IPNPDOC ---
Subjective Date Seen The patient was seen on 07/27/21. Subjective Chief Complaint/HPI Mrs. Cedillo is an 85 year old female with dementia and osteoarthritis who is here with right proximal femur fracture s/p mechanical fall. Patient had an ORIF on 07/21. This morning, she denies any chest pain or dyspnea. She tells me that her lightheadedness/dizziness is intermittent. It feels like there is a motion. CT head was negative. Starting patient on scheduled meclizine. Objective Physical Examination General Exam: Positive: Alert, Cooperative Eye Exam: Negative: Sclera icteric Chest Exam: Positive: Clear to auscultation; Negative: Rales, Rhonchi, Wheezing Heart Exam: Positive: Rate Normal, Regular Rhythm Abdomen Exam: Positive: Normal bowel sounds, Soft; Negative: Tenderness Neuro Exam: Positive: Normal Speech Psych Exam: Positive: Mood NL; Negative: Memory Intact, Oriented x 3 Assessment /Plan Assessment Mrs. Cedillo is an 85 year old female with dementia and osteoarthritis who is here with right proximal femur fracture s/p mechanical fall. Patient had an ORIF on 07/21. PT and OT recommending rehab. Insurance denied ARU. Pending placement. Plan/VTE VTE Prophylaxis Ordered?: Yes Plan 1. Right proximal femur fracture -S/P ORIF on 07/21 -Patient will need rehab 2. Right ankle pain -XR negative for fracture 3. Lightheaded and dizzy We'll check orthostatics and monitor hemoglobin 4. Constipation Continue Colace and MiraLAX Started senna and as needed bisacodyl suppository 5. Anxiety/Depression -Continue citalopram 6. Hyperlipidemia -Continue atorvastatin 7. Dementia -Continue memantine 8. Vertigo CT head negative Continue meclizine 9. DVT ppx -Per orthopedic surgery Xarelto for a total of 35 days Disposition: ARU declined. Pending subacute rehab VS, I&O, 24H, Naveen Vital Signs/I&O Vital Signs Date Time Temp Pulse Resp B/P (MAP) Pulse Ox O2 Delivery O2 Flow Rate FiO2 07/27/21 05:32 97.5 80 18 125/74 (91) 96 Room Air I&O- Last 24 Hours up to 6 AM 07/27/21 06:00 Intake Total 540 ml Output Total 350 ml Balance 190 ml Laboratory Data 24H LABS Laboratory Tests 2 07/27/21 05:36: Nucleated Red Blood Cells % (auto) 0.0, Anion Gap 4L, Glomerular Filtration Rate > 60.0, Calcium Level 8.2L CBC/BMP Laboratory Tests 07/27/21 05:36 NICOLÁS CEBALLOS DO Jul 27, 2021 15:37
[2021-07-27] MEDS: RIVAROXABAN 10 MG TAB (XARELTO) PO SCH (16:58)
[2021-07-27 20:06] VITALS: BP 129/70
[2021-07-27] MEDS: CYANOCOBALAMIN 500 MCG TAB PO SCH (22:09)
[2021-07-27] MEDS: RAMELTEON 8 MG TAB (ROZEREM) PO PRN (22:11)
[2021-07-27] MEDS: ATORVASTATIN 10 MG TAB PO SCH (22:11)
[2021-07-28 05:56] VITALS: BP 122/73
[2021-07-28 07:26] LABS: HEMATOCRIT 29.2 % (36.0-47.0); HEMOGLOBIN 9.6 g/dl (12.0-15.5); MEAN CORPUSCULAR HEMOGLOBIN 32.4 pg (27.0-33.0); MEAN CORPUSCULAR HGB CONC 32.9 g/dl (32.0-36.5); MEAN CORPUSCULAR VOLUME 98.6 fl (80.0-96.0); PLATELET COUNT, AUTOMATED 209 10^3/uL (150-450); RED BLOOD COUNT 2.96 10^6/uL (4.00-5.40)
[2021-07-28 07:51] LABS: BLOOD UREA NITROGEN 15 MG/DL (7-18); CALCIUM LEVEL 8.3 MG/DL (8.8-10.2); CARBON DIOXIDE LEVEL 29 MEQ/L (21-32); CHLORIDE LEVEL 110 MEQ/L (98-107); CREATININE FOR GFR 0.64 MG/DL (0.55-1.30); GLOMERULAR FILTRATION RATE > 60.0 (>32); GLUCOSE, FASTING 107 MG/DL (70-100); POTASSIUM SERUM 4.2 MEQ/L (3.5-5.1); SODIUM LEVEL 145 MEQ/L (136-145)
[2021-07-28] MEDS: MEMANTINE 5MG TABLET (NAMENDA) PO SCH ×2 (09:48→22:07)
[2021-07-28] MEDS: SENNA 8.6 MG TAB (SENOKOT) PO SCH ×2 (09:48→22:07)
[2021-07-28] MEDS: MECLIZINE 25 MG TABLET PO SCH ×3 (09:49→22:07)
[2021-07-28] MEDS: CitaloPRAM (CeleXA) 10 MG TABLET PO SCH (09:49)
[2021-07-28] MEDS: OMEPRAZOLE 20 MG CAP PO SCH (09:49)
[2021-07-28] MEDS: DOCUSATE SODIUM 100MG CAPSULE PO SCH ×2 (09:53→22:06)
--- NOTE | 2021-07-28 10:26 | IPNPDOC ---
Subjective Date Seen The patient was seen on 07/28/21. Subjective Chief Complaint/HPI Mrs. Cedillo is an 85 year old female with dementia and osteoarthritis who is here with right proximal femur fracture s/p mechanical fall. Patient had an ORIF on 07/21. This morning, she denied any chest pain or dyspnea. She told me she stood up and did not have the dizziness anymore. Objective Physical Examination General Exam: Positive: Alert, Cooperative Eye Exam: Negative: Sclera icteric Chest Exam: Positive: Clear to auscultation; Negative: Rales, Rhonchi, Wheezing Heart Exam: Positive: Rate Normal, Regular Rhythm Abdomen Exam: Positive: Normal bowel sounds, Soft; Negative: Tenderness Neuro Exam: Positive: Normal Speech Psych Exam: Positive: Mood NL; Negative: Memory Intact, Oriented x 3 Assessment /Plan Assessment Mrs. Cedillo is an 85 year old female with dementia and osteoarthritis who is here with right proximal femur fracture s/p mechanical fall. Patient had an ORIF on 07/21. PT and OT recommending rehab. Insurance denied ARU. Pending placement. Plan/VTE VTE Prophylaxis Ordered?: Yes Plan 1. Right proximal femur fracture -S/P ORIF on 07/21 -Patient will need rehab 2. Right ankle pain -XR negative for fracture 3. Lightheaded and dizzy We'll check orthostatics and monitor hemoglobin 4. Constipation Continue Colace and MiraLAX Started senna and as needed bisacodyl suppository 5. Anxiety/Depression -Continue citalopram 6. Hyperlipidemia -Continue atorvastatin 7. Dementia -Continue memantine 8. Vertigo CT head negative Continue meclizine -Improved with meclizine 9. DVT ppx -Per orthopedic surgery Xarelto for a total of 35 days Disposition: ARU declined. Pending subacute rehab. Patient will be made ALC today. VS, I&O, 24H, Fishbone Vital Signs/I&O Vital Signs Date Time Temp Pulse Resp B/P (MAP) Pulse Ox O2 Delivery O2 Flow Rate FiO2 07/28/21 05:56 97.0 78 18 122/73 (89) 97 Room Air I&O- Last 24 Hours up to 6 AM 07/28/21 06:00 Intake Total 1225 ml Output Total 100 ml Balance 1125 ml Laboratory Data 24H LABS Laboratory Tests 2 07/28/21 06:54: Nucleated Red Blood Cells % (auto) 0.0, Anion Gap 6L, Glomerular Filtration Rate > 60.0, Calcium Level 8.3L CBC/BMP Laboratory Tests 07/28/21 06:54 NICOLÁS CEBALLOS DO Jul 28, 2021 10:26
[2021-07-28 14:00] VITALS: BP 97/63
[2021-07-28] MEDS: RIVAROXABAN 10 MG TAB (XARELTO) PO SCH (17:10)
[2021-07-28 22:00] VITALS: BP 101/62
[2021-07-28] MEDS: CYANOCOBALAMIN 500 MCG TAB PO SCH (22:07)
[2021-07-28] MEDS: ATORVASTATIN 10 MG TAB PO SCH (22:07)
[2021-07-28] MEDS: RAMELTEON 8 MG TAB (ROZEREM) PO PRN (22:07)
[2021-07-29 06:00] VITALS: BP 137/84
[2021-07-29 07:21] LABS: HEMATOCRIT 29.7 % (36.0-47.0); HEMOGLOBIN 9.5 g/dl (12.0-15.5); MEAN CORPUSCULAR HEMOGLOBIN 31.4 pg (27.0-33.0); PLATELET COUNT, AUTOMATED 227 10^3/uL (150-450); RED BLOOD COUNT 3.03 10^6/uL (4.00-5.40); WHITE BLOOD COUNT 4.9 10^3/uL (4.0-10.0)
[2021-07-29 07:42] LABS: BLOOD UREA NITROGEN 13 MG/DL (7-18); CALCIUM LEVEL 8.4 MG/DL (8.8-10.2); CARBON DIOXIDE LEVEL 29 MEQ/L (21-32); CHLORIDE LEVEL 107 MEQ/L (98-107); CREATININE FOR GFR 0.61 MG/DL (0.55-1.30); GLOMERULAR FILTRATION RATE > 60.0 (>32); GLUCOSE, FASTING 108 MG/DL (70-100); POTASSIUM SERUM 3.8 MEQ/L (3.5-5.1); SODIUM LEVEL 141 MEQ/L (136-145)
[2021-07-29] MEDS: SENNA 8.6 MG TAB (SENOKOT) PO SCH ×2 (10:27→20:43)
[2021-07-29] MEDS: DOCUSATE SODIUM 100MG CAPSULE PO SCH ×2 (10:27→20:43)
[2021-07-29] MEDS: MEMANTINE 5MG TABLET (NAMENDA) PO SCH ×2 (10:27→20:41)
[2021-07-29] MEDS: OMEPRAZOLE 20 MG CAP PO SCH (10:27)
[2021-07-29] MEDS: MECLIZINE 25 MG TABLET PO SCH ×3 (10:27→20:43)
[2021-07-29] MEDS: CitaloPRAM (CeleXA) 10 MG TABLET PO SCH (10:27)
[2021-07-29 14:00] VITALS: BP 91/50
[2021-07-29] MEDS: RIVAROXABAN 10 MG TAB (XARELTO) PO SCH (17:53)
[2021-07-29] MEDS: CYANOCOBALAMIN 500 MCG TAB PO SCH (20:41)
[2021-07-29] MEDS: ACETAMINOPHEN TAB 650MG DOSE (2X325MG) PO PRN (20:42)
[2021-07-29] MEDS: RAMELTEON 8 MG TAB (ROZEREM) PO PRN (20:42)
[2021-07-29] MEDS: ATORVASTATIN 10 MG TAB PO SCH (20:43)
[2021-07-29 22:00] VITALS: BP 140/76
[2021-07-30 06:00] VITALS: BP 114/69
[2021-07-30] MEDS: MEMANTINE 5MG TABLET (NAMENDA) PO SCH ×2 (08:37→20:25)
[2021-07-30] MEDS: OMEPRAZOLE 20 MG CAP PO SCH (08:37)
[2021-07-30] MEDS: SENNA 8.6 MG TAB (SENOKOT) PO SCH ×2 (08:37→20:26)
[2021-07-30] MEDS: CitaloPRAM (CeleXA) 10 MG TABLET PO SCH (08:37)
[2021-07-30] MEDS: DOCUSATE SODIUM 100MG CAPSULE PO SCH ×2 (08:37→20:25)
[2021-07-30] MEDS: MECLIZINE 25 MG TABLET PO SCH ×3 (08:37→20:25)
[2021-07-30] MEDS: RIVAROXABAN 10 MG TAB (XARELTO) PO SCH (17:33)
[2021-07-30] MEDS: CYANOCOBALAMIN 500 MCG TAB PO SCH (20:25)
[2021-07-30] MEDS: RAMELTEON 8 MG TAB (ROZEREM) PO PRN (20:25)
[2021-07-30] MEDS: ATORVASTATIN 10 MG TAB PO SCH (20:26)
[2021-07-30] MEDS: ACETAMINOPHEN TAB 650MG DOSE (2X325MG) PO PRN (20:26)
[2021-07-31 06:00] VITALS: BP 114/68
[2021-07-31] MEDS: DOCUSATE SODIUM 100MG CAPSULE PO SCH (09:31)
[2021-07-31] MEDS: MECLIZINE 25 MG TABLET PO SCH (09:31)
[2021-07-31] MEDS: MEMANTINE 5MG TABLET (NAMENDA) PO SCH (09:31)
[2021-07-31] MEDS: OMEPRAZOLE 20 MG CAP PO SCH (09:31)
[2021-07-31] MEDS: CitaloPRAM (CeleXA) 10 MG TABLET PO SCH (09:31)
[2021-07-31] MEDS: SENNA 8.6 MG TAB (SENOKOT) PO SCH (09:31)
[2021-07-31 10:58] LABS: HEMATOCRIT 30.7 % (36.0-47.0); MEAN CORPUSCULAR HEMOGLOBIN 32.1 pg (27.0-33.0); MEAN CORPUSCULAR HGB CONC 32.6 g/dl (32.0-36.5); MEAN CORPUSCULAR VOLUME 98.4 fl (80.0-96.0); PLATELET COUNT, AUTOMATED 288 10^3/uL (150-450); RED BLOOD COUNT 3.12 10^6/uL (4.00-5.40); WHITE BLOOD COUNT 6.7 10^3/uL (4.0-10.0)
[2021-07-31 11:26] LABS: BLOOD UREA NITROGEN 18 MG/DL (7-18); CALCIUM LEVEL 8.7 MG/DL (8.8-10.2); CARBON DIOXIDE LEVEL 28 MEQ/L (21-32); CHLORIDE LEVEL 107 MEQ/L (98-107); CREATININE FOR GFR 0.85 MG/DL (0.55-1.30); GLOMERULAR FILTRATION RATE > 60.0 (>32); GLUCOSE, FASTING 110 MG/DL (70-100); POTASSIUM SERUM 3.8 MEQ/L (3.5-5.1); SODIUM LEVEL 142 MEQ/L (136-145)
[2021-07-31] MEDS ORDERED: MECL-86 PO (13:57)
[2021-07-31] MEDS ORDERED: COLA100C5 PO (13:57)
[2021-07-31] MEDS ORDERED: ACET1TAB55 PO (13:57)
[2021-07-31] MEDS ORDERED: XARE10TA PO (13:57)
--- NOTE | 2021-07-31 14:29 | DS.PDOC ---
Discharge Summary General Date of Admission Jul 21, 2021 at 09:59 Date of Discharge 07/31/2021 Attending Physician: JOANNA LINDSEY MD Specialist/Consultants Involve: ASHWIN MEJIA MD Discharge Summary PROCEDURES PERFORMED DURING STAY: underwent surgery for ORIF on 07/21. ADMITTING DIAGNOSES: R femur fracture DISCHARGE DIAGNOSES: Closed Intertrochanteric Fracture Of Right Femur. Acute on chronic anemia, presumed 2/2 acute blood loss postop GERD Hyperlipidemia Dementia COMPLICATIONS/CHIEF COMPLAINT: Closed Intertrochanteric Fracture Of Right Femur. HISTORY OF PRESENT ILLNESS: 85-year-old W with a past medical history of dementia, GERD, hyperlipidemia, and depression presented emergency room department after a fall. She reported getting up from bed with a cane but dropped to the floor and subsequently she fell. HOSPITAL COURSE: In the emergency department, she denied prodromal symptoms including dizziness, palpitations, nausea, vomiting, diaphoresis; as well as shortness of breath and chest pain at the time. The emergency room department and x-ray noted a intertrochanteric fracture of the proximal right femur. She underwent surgery for ORIF on 07/21 and postop course was c/b acute postop anemia likely 2/2 blood loss and orthostasis with dizziness that improved. She is now being discharged to [facility] rehab. Of note, she was placed on 10mg xarelto daily for DVT ppx for the next 30d post ORIF per orthopedics. DISCHARGE MEDICATIONS: Please see below. ALLERGIES: Please see below. PHYSICAL EXAMINATION ON DISCHARGE: VITAL SIGNS: Please see below. General: no acute distress, sitting up in chair Head/Neck/Throat: Trachea midline, mucous membranes moist Eyes: Sclera anicteric, no erythema, EOMI Thorax: Normal respiratory effort on room air, lungs clear to auscultation bilaterally, no wheezes/rales/rhonchi Cardiovascular: Normal rate, regular rhythm, normal S1, S2; no S3, S4, rubs/gallops/murmurs Abdomen: Bowel sounds present, soft/nontender/nondistended Genitourinary: No CVA tenderness, no Tirado in place Musculoskeletal: Moving all extremities, no edema Neurologic: AAOx3, speech fluent and goal-directed, no focal deficits, grossly intact LABORATORY DATA: Please see below. IMAGING: Chest, 1 view FINDINGS: The mediastinum and cardiac silhouette are stable and within normal limits for portable technique. The lung trejo are clear without acute consolidation, effusion, or pneumothorax. Skeletal structures are intact. IMPRESSION: No acute cardiopulmonary process appreciated. Femur RIGHT FINDINGS: Visualized osseous structures are intact and without evidence for acute fracture or dislocation. Age-related changes at the knee noted. No subcutaneous emphysema or foreign body. IMPRESSION: No acute fracture or dislocation. Hip,AP,LAT to include Pelvis RIGHT FINDINGS: Comminuted displaced intertrochanteric fracture of the right femur. Remainder of the examination demonstrates age-related changes. No further acute fracture or dislocation appreciated. IMPRESSION: Acute comminuted displaced angulated intertrochanteric fracture proximal right femur. CT head: Brain: There is no acute intracranial hemorrhage or mass effect. Moderate diffuse volume loss is within the range of normal for patient age. There are small vessel ischemic changes within the periventricular and subcortical white matter, but the normal avalos-white matter delineation is maintained. Cerebral ventricles: Prominence of the ventricular system is commensurate with volume loss. Paranasal sinuses: Visualized sinuses are unremarkable. No fluid levels. Mastoid air cells: Visualized mastoid air cells are well aerated. Bones/joints: Unremarkable. No acute fracture. Soft tissues: Unremarkable. IMPRESSION: No acute hemorrhage or edema. PROGNOSIS: good ACTIVITY: As tolerated DIET: regular DISCHARGE PLAN: [facility] rehab DISPOSITION: [facility] rehab DISCHARGE INSTRUCTIONS: Rehab per ortho, GP within 7d, ortho f/u within 2w ITEMS TO FOLLOWUP ON ON OUTPATIENT: Hip fracture DISCHARGE CONDITION: Stable TIME SPENT ON DISCHARGE: 44 minutes. Vital Signs/I&Os Vital Signs Date Time Temp Pulse Resp B/P (MAP) Pulse Ox O2 Delivery O2 Flow Rate FiO2 07/31/21 06:00 98.3 77 18 114/68 (83) 98 Room Air I&O- Last 24 Hours up to 6 AM 07/31/21 06:00 Intake Total 580 ml Balance 580 ml Laboratory Data Labs 24H Laboratory Tests 2 07/31/21 10:38: Nucleated Red Blood Cells % (auto) 0.0, Anion Gap 7L, Glomerular Filtration Rate > 60.0, Calcium Level 8.7L 07/31/21 12:48: Coronavirus (COVID-19)(PCR) NEGATIVE CBC/BMP Laboratory Tests 07/31/21 10:38 Discharge Medications Scheduled Atorvastatin Calcium (Atorvastatin Calcium) 10 Mg Tab, 10 MG PO QHS, (Reported) Cholecalciferol (Vitamin D3) (Vitamin D3) 50 Mcg Tablet, 50 MCG PO DAILY, (Reported) Citalopram Hydrobromide (Citalopram HBr) 10 Mg Tablet, 10 MG PO DAILY, (Reported) Cyanocobalamin (Vitamin B-12) (Vitamin B-12) 1,000 Mcg Tab, 1,000 MCG PO QHS, (Reported) Docusate Sodium (Colace) 100 Mg Capsule, 100 MG PO BID Memantine HCl (Namenda) 10 Mg Tablet, 10 MG PO BID, (Reported) Omeprazole (Omeprazole) 40 Mg Capsule.dr, 40 MG PO DAILY, (Reported) Rivaroxaban (Xarelto) 10 Mg Tablet, 10 MG PO DAILY@18 [prevagen] , 1 TAB PO DAILY, (Reported) Scheduled PRN Acetaminophen (Acetaminophen) 325 Mg Tablet, 650 MG PO Q6H PRN for MILD PAIN (PS 1-4) Meclizine HCl (Meclizine HCl) 25 Mg Tablet, 25 MG PO TID PRN for DIZZINESS Allergies Coded Allergies: iodine (Verified Allergy, Intermediate, hives, 05/18/20) contast media amoxicillin (Verified Allergy, Unknown, 05/25/19) NSAIDS (Non-Steroidal Anti-Inflamma (Verified Adverse Reaction, Intermedia te, bleeding ulcers, 05/25/19) clavulanic acid (Verified Adverse Reaction, Intermediate, rash/ C-diff, 05/18/20) naproxen (Verified Adverse Reaction, Intermediate, GI bleeds, 05/25/19) cephalexin (Verified Adverse Reaction, Unknown, yeast infection, 07/21/21) JOANNA LINDSEY MD Jul 31, 2021 14:29
== END 2021-07-31 14:45 | DRG 481 ==
LOC: M ED 08:17 → EDBD 08:17 → M ED INP 09:59 → M MS5PR 15:30
PROVIDERS: ADMIT Internal Medicine; ATTEND Internal Medicine
PROC: 0QS606Z Reposition Right Upper Femur with Intramedullary Internal Fixation Device, Open Approach (ICD-10-PCS; principal; 2021-07-21 09:59)
DX: S72.141A Displaced intertrochanteric fracture of right femur, initial encounter for closed fracture (principal); D62 Acute posthemorrhagic anemia; F03.90 Unspecified dementia, unspecified severity, without behavioral disturbance, psychotic disturbance, mood disturbance, and anxiety; K21.9 Gastro-esophageal reflux disease without esophagitis; E78.5 Hyperlipidemia, unspecified; Z79.899 Other long term (current) drug therapy; Z91.041 Radiographic dye allergy status; Z88.8 Allergy status to other drugs, medicaments and biological substances; Z85.038 Personal history of other malignant neoplasm of large intestine; M19.90 Unspecified osteoarthritis, unspecified site; Z88.0 Allergy status to penicillin; Z88.6 Allergy status to analgesic agent; W18.30XA Fall on same level, unspecified, initial encounter; Y92.009 Unspecified place in unspecified non-institutional (private) residence as the place of occurrence of the external cause; F41.9 Anxiety disorder, unspecified; F32.9 Major depressive disorder, single episode, unspecified; K59.00 Constipation, unspecified

== ENCOUNTER → 2021-08-06 | Outpatient (CLI) | payer MEDICARE ==
[~2021-08-06] MED LIST changes: +ACET1TAB55 PO; +CITA10TA7 PO; +COLA100C5 PO; +MECL-86 PO; -OMEP-221; -OMEP-221 PO; +OMEP40CA5; +OMEP40CA5 PO; +XARE10TA PO
== END ==
LOC: M SOG 09:58
PROVIDERS: ATTEND Orthopaedic Surgery Sports Medicine
DX: Z47.89 Encounter for other orthopedic aftercare (principal); S72.141D Displaced intertrochanteric fracture of right femur, subsequent encounter for closed fracture with routine healing; M17.11 Unilateral primary osteoarthritis, right knee; M16.11 Unilateral primary osteoarthritis, right hip; X58.XXXD Exposure to other specified factors, subsequent encounter; Y92.9 Unspecified place or not applicable; Y99.9 Unspecified external cause status; Y93.9 Activity, unspecified

== ENCOUNTER → 2021-10-25 | Outpatient (CLI) | payer MEDICARE | LOC: M SOG 09:06 | PROVIDERS: ATTEND Orthopaedic Surgery Sports Medicine | DX: S72.141D Displaced intertrochanteric fracture of right femur, subsequent encounter for closed fracture with routine healing (principal); W18.30XD Fall on same level, unspecified, subsequent encounter ==

== ENCOUNTER → 2021-12-20 | Outpatient (CLI) | payer MEDICARE | LOC: M SOG 11:04 | PROVIDERS: ATTEND Orthopaedic Surgery Adult Reconstructive Orthopaedic Surgery | DX: S72.141D Displaced intertrochanteric fracture of right femur, subsequent encounter for closed fracture with routine healing (principal); M25.551 Pain in right hip ==

== ENCOUNTER → 2022-03-12 | Outpatient (CLI) | payer MEDICARE | LOC: M SOG 08:16 | PROVIDERS: ATTEND Orthopaedic Surgery Adult Reconstructive Orthopaedic Surgery | DX: S72.141D Displaced intertrochanteric fracture of right femur, subsequent encounter for closed fracture with routine healing (principal); M25.551 Pain in right hip ==

== ENCOUNTER → 2022-07-03 | Outpatient (CLI) | payer MEDICARE, OTHER | LOC: M SOG 08:06 | PROVIDERS: ATTEND Orthopaedic Surgery Adult Reconstructive Orthopaedic Surgery | DX: M25.551 Pain in right hip (principal); S72.414D Nondisplaced unspecified condyle fracture of lower end of right femur, subsequent encounter for closed fracture with routine healing ==

== ENCOUNTER → 2022-09-26 | Outpatient (CLI) | payer MEDICARE | LOC: M PLAIMG 12:31 | PROVIDERS: ATTEND Physician Assistant | DX: S22.41XA Multiple fractures of ribs, right side, initial encounter for closed fracture (principal); J90 Pleural effusion, not elsewhere classified; X58.XXXA Exposure to other specified factors, initial encounter; Y92.9 Unspecified place or not applicable; Y93.9 Activity, unspecified; Y99.9 Unspecified external cause status ==

== ENCOUNTER → 2022-12-17 | Outpatient (CLI) | payer MEDICARE | LOC: M WHC 11:04 | PROVIDERS: ATTEND Physician Assistant | DX: M85.80 Other specified disorders of bone density and structure, unspecified site (principal) ==

== ENCOUNTER → 2022-12-31 | Outpatient (REF) | payer MEDICARE | LOC: M LAB REF 17:36 | PROVIDERS: ATTEND Physician Assistant | DX: R30.0 Dysuria (principal) ==

== ENCOUNTER → 2023-01-23 | Outpatient (CLI) | payer MEDICARE | LOC: M WUC 13:41 | PROVIDERS: ATTEND Nurse Practitioner Family | DX: M25.561 Pain in right knee (principal); M79.661 Pain in right lower leg; M25.461 Effusion, right knee ==

== ENCOUNTER → 2023-05-05 | Outpatient (REF) | payer MEDICARE ==
[2023-05-05 19:05] LABS: APPEARANCE, URINE HAZY (CLEAR); BACTERIA, URINE AUTO NEGATIVE (NEGATIVE); BILIRUBIN, URINE AUTO NEGATIVE (NEGATIVE); BLOOD, URINE BLOOD 2+ (NEGATIVE); CALCIUM OXALATE CRYSTALS MODERATE; COLOR, URINE YELLOW (YELLOW); GLUCOSE, URINE (UA) AUTO NEGATIVE (NEGATIVE); KETONE, URINE AUTO TRACE mg/dL (NEGATIVE); LEUKOCYTE ESTERASE, URINE AUTO TRACE (NEGATIVE); MUCUS, URINE SMALL (NEGATIVE); NITRITE, URINE AUTO NEGATIVE (NEGATIVE); PROTEIN, URINE AUTO NEGATIVE (NEGATIVE); RBC, URINE AUTO 17 /HPF (0-3); SPECIFIC GRAVITY URINE AUTO 1.025 (1.002-1.035); SQUAMOUS EPITHELIAL CELL UR AU 5 /HPF (0-6); WBC, URINE AUTO 2 /HPF (0-3)
== END ==
LOC: M LAB REF 17:05
PROVIDERS: ATTEND Physician Assistant
DX: N39.0 Urinary tract infection, site not specified (principal); F03.90 Unspecified dementia, unspecified severity, without behavioral disturbance, psychotic disturbance, mood disturbance, and anxiety

== ENCOUNTER → 2023-06-04 | Outpatient (CLI) | payer MEDICARE | LOC: M PLAIMG 13:02 | PROVIDERS: ATTEND Physician Assistant | DX: S82.141D Displaced bicondylar fracture of right tibia, subsequent encounter for closed fracture with routine healing (principal) ==

== ENCOUNTER → 2023-06-27 | Outpatient (REF) | payer MEDICARE | LOC: M LAB REF 15:27 | PROVIDERS: ATTEND Physician Assistant | DX: N39.0 Urinary tract infection, site not specified (principal) ==

== ENCOUNTER → 2023-10-16 | Outpatient (REF) | payer MEDICARE | LOC: M LAB REF 16:58 | PROVIDERS: ATTEND Physician Assistant | DX: N39.0 Urinary tract infection, site not specified (principal) ==

== ENCOUNTER → 2023-10-30 | Outpatient (REF) | payer MEDICARE ==
[2023-10-30 20:13] LABS: APPEARANCE, URINE CLEAR (CLEAR); BACTERIA, URINE AUTO NEGATIVE (NEGATIVE); BILIRUBIN, URINE AUTO NEGATIVE (NEGATIVE); BLOOD, URINE BLOOD 2+ (NEGATIVE); COLOR, URINE STRAW (YELLOW); GLUCOSE, URINE (UA) AUTO NEGATIVE (NEGATIVE); KETONE, URINE AUTO NEGATIVE (NEGATIVE); LEUKOCYTE ESTERASE, URINE AUTO NEGATIVE (NEGATIVE); NITRITE, URINE AUTO NEGATIVE (NEGATIVE); PROTEIN, URINE AUTO NEGATIVE (NEGATIVE); RBC, URINE AUTO 0 /HPF (0-3); SPECIFIC GRAVITY URINE AUTO 1.002 (1.002-1.035); SQUAMOUS EPITHELIAL CELL UR AU 0 /HPF (0-6); UROBILINOGEN, URINE AUTO 0.2 mg/dL (0.0-2.0); WBC, URINE AUTO 0 /HPF (0-3)
== END ==
LOC: M LAB REF 20:01
PROVIDERS: ATTEND Physician Assistant
DX: N39.0 Urinary tract infection, site not specified (principal)

== ENCOUNTER → 2023-11-18 | Outpatient (REF) | payer MEDICARE ==
[2023-11-18 18:21] LABS: APPEARANCE, URINE HAZY (CLEAR); BACTERIA, URINE AUTO NEGATIVE (NEGATIVE); BILIRUBIN, URINE AUTO NEGATIVE (NEGATIVE); BLOOD, URINE BLOOD NEGATIVE (NEGATIVE); CALCIUM OXALATE CRYSTALS SMALL; COLOR, URINE AMBER (YELLOW); GLUCOSE, URINE (UA) AUTO NEGATIVE (NEGATIVE); KETONE, URINE AUTO TRACE mg/dL (NEGATIVE); LEUKOCYTE ESTERASE, URINE AUTO NEGATIVE (NEGATIVE); MUCUS, URINE SMALL (NEGATIVE); NITRITE, URINE AUTO NEGATIVE (NEGATIVE); PROTEIN, URINE AUTO NEGATIVE (NEGATIVE); RBC, URINE AUTO 5 /HPF (0-3); SPECIFIC GRAVITY URINE AUTO 1.025 (1.002-1.035); SQUAMOUS EPITHELIAL CELL UR AU 0 /HPF (0-6); WBC, URINE AUTO 2 /HPF (0-3)
== END ==
LOC: M SMT 17:13
PROVIDERS: ATTEND Nurse Practitioner Family
DX: N39.0 Urinary tract infection, site not specified (principal)